=== PATIENT | male | born 1945 | race Caucasian/White ===

== ENCOUNTER → 2016-10-28 | Outpatient (CLI) | payer OTHER ==
[~2016-10-28] MED LIST: ALFU1TAB2 PO; ASPEC81 PO; ASPI81TA28 PO; ATOR-24 PO; BUME2TAB3 PO; CRDCD180 PO; DIGO0.122 PO; DILT-115 PO; DILT1CAP PO; DULO60CA44 PO; GING500C2 PO; GLIM1TAB2 PO; GLIP10TA10 PO; GLIP5TAB3 PO; LISI-725 PO; LISI40TA PO; LNX125 PO; MAGNTAB17 PO; METF1000 PO; NTRGSL4 SL; OMEP20CA9 PO; RISP1TAB68 PO; SITA1TAB27 PO; TAPE1TAB9 PO; TAPE50TA5 PO; TRAZ1TAB5 PO; TRMCR130WC TOP; TZCSR180 PO; WARF-237 PO; WARF-284 PO; WARF5TAB7 PO; WARF5TAB90 PO; WARF7.5T PO
--- NOTE | 2016-10-29 05:54 | PAP/PSG TECHNICIAN REPORT ---
[facility] Care Manager Polysomnogram Report Study name: None Report date: 10/29/2016 Study date: 10/28/2016 Referring Physician: Douglas HENSON M.D. Name: LAURA STANLEY Interpreting Physician: Wild Henson M.D. Date of : 1945 Care Manager: Bailey Lou RPSGT. Sex: Male Age: 71 Study Type: PSG PAP Weight: 284 lbs 18 in Height: 71 years, Height 6' 0" Neck Circum: BMI: 38.51 Medications: HYDROCORTISONE2.5%, CLOTRIMAZOLE 1%, ALFUZOSIN 10 MG, TRAZODONE 50 MG, GLIPIZIDE 5 MG, LORAZEPAM 1 MG, SLOW-MAG 71.5-119 MG, DULOXETINE 60 MG, DILTIAZEM 240 MG, METFORMIN 1000 MG, DIGOXIN 125 MCG, BUMETANIDE 2 MG, LISINOPRIL 40 MG, ASPIRIN 81 MG, OMEPRAZOLE 20 MG, WARFARIN 5 MG, ARISTOCORT 0.1% CREAM, NUCYNTA 50 MG Patient History 71 yr-old male here for an updated CPAP treatment study. He has not been happy with the seal on his mask. Tonight, he is trying a Simplus full face mask size large from [employer]. The test was started on room air and 4 CMH2O. ETCO2 testing was not utilized during this study. Room 1 Parameters Monitored NPSG: E1-M2, E2-M1, Fp1-M2, Fp2-M1, F3-M2, F4-M2, F4-M1, C3-M2, C4-M2, C4-M1, O1-M2, O2-M2, O2-M1, T3-M2, T4-M1, P3-M2, P4-M1, CHIN1, CHIN2, HR, EKG, Legs, PFLOW, SNOR, FLOW, CFLOW, Tidal Volume, THOR, ABDO, SpO2, PLTH, CPRESS, ETCO2 Wave, ETCO2, pH Sleep Architecture Sleep Stages Time at Lights Off 10:33:30 PM STAGES Time (min.) TST (%) Time at Lights On 5:34:00 AM Wake 201.0 -- Total Recording Time (TRT) 420.50 min. N1 53.0 24 Total Sleep Period (TSP) 298.0 min. N2 166.5 76 Total Sleep Time (TST) 219.5min. N3 0.0 0 Awake Time 201.0 min. REM 0.0 0 Wake after Sleep Onset 78.5 min. Sleep Efficiency (SE) 52 % Sleep Onset Latency (RICH) 122.5 min. Number of Stage 1 Shifts None Awakenings 35 Stage Changes 109 Number of REM periods N/A REM 0.0 0 REM Latency NONE min. NREM 219.5 100 Body Position Analysis Supine Right Left Side Prone Vertical Total Sleep Time (min.) 26.2 213.5 0.0 213.46 0.0 0.0 Total Sleep Time (%) 3% 97% 0% 97 0% N/A% Total Sleep Time REM (min.) 0.0 0.0 0.0 None 0.0 0.0 Total Sleep Time NREM (min.) 6.0 213.5 0.0 None 0.0 0.0 Intermittent Wake (min.) 20.1 180.7 0.0 None 0.0 0.0 Total Sleep Period (%) 3% None None None None None Arousals Myoclonus (PLM) * Events Count Index Events Count Index Spontaneous 43 12 Events Awake (PLMW) 154 46.0 Respiratory 4 1.4 Events Asleep w/ Arousal (PLMA) 20 5.5 PLM 20 5 Events Asleep w/o Arousal (PLMS) 398 108.8 Snoring 0 0 Total Asleep 418 114.3 Total 67 18 Total 572 82 Respiratory Analysis * CA OA MA CH H RERA Total Count 0 0 0 0 14 0 14 Index 0.0 0.0 0.0 0 3.8 0 3.8 Mean Duration 0.0 0.0 0.0 0.00 15.5 0.0 15.5 Longest Duration 0.0 0.0 0.0 0.00 0.0 0.0 19.5 Respiratory Event Summary Total Supine ~Supine Right Left Prone REM NREM Apneas Count 0 0 0 0 N/A N/A N/A 0 Index 0.0 0 0 0.0 N/A N/A N/A 0 Hypopneas (4% Desat) Count 14 1 13 13 N/A N/A N/A 14 Index 3.8 9.9 4 3.7 N/A N/A N/A 3.8 Apneas & All Hypopneas Count 14 1 13 13 N/A N/A N/A 14 Index 3.8 10 4 4 N/A N/A N/A 3.8 Respiratory Events (Registered Nurse Cardiovascular Icu+All Hyp+RERA) Count 14 1 13 13 N/A N/A N/A 14 Index 3.8 10 4 3.7 N/A N/A N/A 3.8 Respiratory Related Arousal Count 4 1 5 5 N/A N/A N/A 5 Index 1.4 0 1 1 N/A N/A N/A 1 Snoring Analysis Supine Right Left Prone REM NREM Total Snore duration 0.6 min Snores count 1 23 N/A N/A N/A 24 24 Snore mean duration 1.6 Sec Snores index 10 6 N/A N/A N/A 6.6 6.6 TST with snoring (%) 0.3% Desaturation Event Summary: Minimum %SpO2 Event Count Mean/Min/Max Duration(sec.) Desaturation Index % Time In Bed > 90 80 26.7 / 5.8 / 60.0 13.9 82.5 86 - 90 2 12.8 / 4.3 / 21.3 1.6 17.4 81 - 85 0 N/A 0.0 0.1 76 - 80 0 N/A 0.0 0.0 71 - 75 0 N/A 0.0 0.0 66 - 70 0 N/A 0.0 0.0 61 - 65 0 N/A 0.0 0.0 56 - 60 0 N/A 0.0 0.0 51 - 55 0 N/A 0.0 0.0 < 50 0 N/A 0.0 0.0 Total REM NREM Awake <50% 0.0 min. 0.0 min. 0.0 min. 0.0 min. 51 - 60% 0.0 min. 0.0 min. 0.0 min. 0.0 min. 61 - 70% 0.0 min. 0.0 min. 0.0 min. 0.0 min. 71 - 80% 0.0 min. 0.0 min. 0.0 min. 0.0 min. 81 - 90% 73.5 min. 0.0 min. 58.3 min. 15.2 min. 91 - 100% 346.0 min. 0.0 min. 160.8 min. 185.2 min. Average 92 0 92 93 Minimum SpO2 81 N/A 81 87 Desaturation Event Index 11.6 0.0 9.6 14.0 # Desat. Events below 89% 8 N/A 5 3 Time(%) with Saturation below 89% 1.5 0.0 1.2 0.3 Time(min.) with Saturation below 89% 6.3 0.0 4.9 1.4 Time (mins) REM (mins) NREM (mins) % of TST SpO2 Below 90% 29 N/A N29 10.4 SpO2 Below 88% 1 0 0 1 Heart Rate Analysis Min (bpm) Max (bpm) Average (bpm) Awake 36 94 74 NREM 33 84 68 REM N/A N/A N/A Overall 33 84 68 Supplemental O2 Values Minimum O2 level: None Value Start Time End Time Care Manager Comments Mr. Stanley slept in the right and supine positions. He slept elevated on 4 pillows. Cardiac arrhythmias were noted (please refer to the printouts). PLMs were noted. No bruxism noted. CPAP was initiated at +4 CMH2O and up-titrated to a level of +7 CMH2O, Cflex 3. A Simplus full face mask size large from [employer] was used during titration He did not wake up to use the restroom during the night. Mr. Stanley stated that he slept a little worse than usual. The final report will be interpreted and signed by a sleep physician. The completed physician report will then be placed in the patient medical record. Therapy Event: Therapy (cm H20) 4 6 7 Total Time at Pressure (min.) 165.7 113.0 141.8 TST at Pressure (min.) 23.2 78.0 118.3 # Periods 1 1 1 Sleep Onset (min.) 122.5 0.0 0.0 REM Onset (min.) N/A N/A N/A Sleep Efficiency % 14 69 83 Wakefulness (%) 86.0 31.0 16.6 Wakefulness (min.) 142.5 35.0 23.5 NREM 1 (%) 10.6 19.0 9.9 NREM 1 (min.) 17.5 21.5 14.0 NREM 2 (%) 3.4 50.0 73.6 NREM 2 (min.) 5.7 56.5 104.3 NREM 3 (%) 0.0 0.0 0.0 NREM 3 (min.) 0.0 0.0 0.0 REM (%) 0.0 0.0 0.0 REM (min.) 0.0 0.0 0.0 # Arousals 19 24 24 Arousal Index 49.1 18.5 12.2 # Snore 6 6 12 Snore Index 15.5 4.6 6.1 AHI 12.9 6.9 0.0 AHI Supine 9.9 N/A N/A AHI Non-Supine 14.0 6.9 0.0 NREM AHI 12.9 6.9 0.0 REM AHI N/A N/A N/A RDI 12.9 6.9 0.0 # Obstructive 0 0 0 # Central Ap 0 0 0 # Mixed 0 0 0 # Hypopneas 5 9 0 RERAS 0 0 0 Total Respiratory Events 5 9 0 Time Below SpO2 89.00% (min.) 0.1 1.0 3.8 Mean NREM SpO2 (%) 92 92 91 Mean REM SpO2 (%) N/A N/A N/A Mean Sleep SpO2 (%) 92 92 91 Min NREM SpO2 (%) 88 81 87 Min REM SpO2 (%) N/A N/A N/A Position Supine (min.) 6.0 0.0 0.0 Position Non-supine (min.) 17.2 78.0 118.3 LM Index Sleep 90.5 140.7 101.5 LM Index NREM 90.5 140.7 101.5 LM Index REM N/A N/A N/A Mean Heart Rate (bpm) 68 67 68 Min Heart Rate (bpm) 53 33 50
--- NOTE | 2016-11-05 15:05 | PULMONARY FUNCTION TEST ---
CPAP TITRATION STUDY REFERRING PERSON: Dr. Morris Henson. PROFESSIONAL NURSE: Bailey Lou. Mr. Davis is a 71-year-old male sent for CPAP titration study. He has not been happy with the seal of his mask. He has chosen to use a large Simplus full facemask by [employer]. His Sullivan sleepiness scale score on the evening of this study is not recorded. BMI is 38.51. Following the technical and digital specifications of the [place] [employer] (AASM) a standard diagnostic polysomnogram was performed monitoring EEG, EOG, EMG (chin and leg deviations), oxygen saturation, body position, digital video, respiratory effort and airflow. The sleep Stage and event scoring was based on the AASM Manual for the Scoring of Sleep and Associated Events 2007 edition. Apneas are defined as a drop in the peak thermal sensor excursion by >90% of baseline for at least 10 seconds. Hypopneas were scored using the 4% oxygen desaturation rule (4A-Medicare) and a decrease in the nasal pressure excursions by >30% of baseline for at least 10 seconds. Respiratory effort-related arousal (RERA's) is defined as a sequence of breaths lasting at least 10 seconds characterized by increasing respiratory effort or flattening of the nasal pressure waveform leading to an arousal from sleep when the sequence of breaths does not meet criteria for an apnea or hypopnea. Apnea Hypopnea index (AHI) is defined as the number of apneas and hypopneas occurring in an hour of sleep. Respiratory disturbance index (RDI) is defined as the number of apneas, hypopneas, and RERA's occurring in an hour of sleep. Mr. Davis's total sleep period time was 298 minutes. Total sleep time was 219.5 minutes. Sleep efficiency was only 52%. Latency to sleep onset was prolonged at 122.5 minutes. Wake after sleep onset was also prolonged at 78.5 minutes. Total non-REM sleep time was the entire sleep duration of this test for 219.5 minutes. He spent 24% of that time in N1 sleep and 76% in N2 sleep. He had no N3 sleep noted. There was no REM noted. There were 67 cortical arousals from sleep. 20 of these arousals were due to periodic limb movements, 4 were due to respiratory events, and the remaining 43 were spontaneous. There were 418 periodic limb movements noted on this test. Limb movement index was 114.3, however, limb movement with arousal index was only 5.5. There were no central obstructive or mixed apneas on this titration. There was 14 hypopnea. Apnea-hypopnea index was 3.8. 24 snoring events were recorded. Total sleep time with snoring was 0.3%. Mean saturation was 92% with desaturations to 81%. Saturations were less than 89% for 6.3 minutes of recorded time. Mr. Davis slept propped up on 4 pillows during the night. It appeared that this patient had episodes of an irregularly irregular heartbeat on this study. Heart rates ranged from a low of 33 beats per minute to a high of 84 beats per minute during sleep. As stated above, this was a CPAP titration study. Mr. Davis was titrated from a CPAP pressure of 4 to a CPAP pressure of 7 over the course of the night. He was observed on a pressure of 7 for 118.3 minutes of sleep time. AHI and RDI on this pressure were both 0 and only 3.8 minutes of sleep time was spent with saturations less than 89%. However, there was no N3 or REM sleep noted on this pressure. IMPRESSION AND PLAN: 1. 71-year-old male who appears to do well on CPAP of 7 with a large Simplus full facemask; however, this study did not have REM or supine REM sleep. 2. Irregularly irregular heart rate and rhythm was noted. Clinical correlation is needed.
== END | disposition home or self-care (01) ==
LOC: C.NEUR 21:00
PROVIDERS: ATTEND Family Medicine
DX: G47.33 Obstructive sleep apnea (adult) (pediatric) (principal)

== ENCOUNTER 2016-12-01 19:00 | Inpatient (IN) | payer OTHER ==
[~2016-12-01] VITALS: Ht 182.9 cm; Wt 130.8 kg
[~2016-12-01 19:00] MED LIST changes: -ALFU1TAB2 PO; -ASPI81TA28 PO; -BUME2TAB3 PO; -CRDCD180 PO; -DILT-115 PO; -GLIP10TA10 PO; -GLIP5TAB3 PO; -LISI-725 PO; -LNX125 PO; -MAGNTAB17 PO; -NTRGSL4 SL; -RISP1TAB68 PO; -TAPE50TA5 PO; -TRAZ1TAB5 PO; -TRMCR130WC TOP; -TZCSR180 PO; -WARF-237 PO; -WARF-284 PO; -WARF5TAB90 PO; -WARF7.5T PO
[2016-12-01] MEDS ORDERED: BUME2TAB3 PO (19:13)
[2016-12-01] MEDS ORDERED: ALFU1TAB2 PO (19:13)
[2016-12-01] MEDS ORDERED: BUMETANIDE SOLN 1 MG/4 ML VIAL IV ONE (20:45)
--- NOTE | 2016-12-01 20:56 | EMERGENCY ROOM VISIT NOTE ---
History Report prepared by Santana: Jorge Mckeon Under the Supervision of: Dr. Vazquez Palmer M.D. First contact with patient: 20:33 Chief Complaint: SWELLING TO EXTREMITY Stated Complaint: FLUID IN LEGS AND LUNGS History of Present Illness The patient is a 71 year old male who presents to the Emergency Room with complaints of worsening bilateral leg swelling beginning a couple days ago. He notes he was sent in by his doctor, who he saw this evening, for a concern for fluid accumulation on his lungs and legs. The patient reports he has had worsening shortness of breath with some dizziness, but denies any fever, nausea , vomiting, or cough. He uses a CPAP at night, and used to use supplemental oxygen. He admits to taking Bumex and has been urinating fine. He notes he gained 12 pounds in the last weeks which he believes is fluid. He denies any recent changes in medication. He reports taking Warfarin for atrial fibrillation. Source of History: patient Onset: a couple days ago Position: leg (bilateral), other (lungs) Quality: other (fluid accumulation/swelling) Timing: worsening Associated Symptoms: + SOB (with dizziness), No cough, No fevers, No nausea , No urinary symptoms, No vomiting Review of Systems See HPI for pertinent positives & negatives. A total of 10 systems reviewed and were otherwise negative. Past Medical & Surgical Medical Problems: (1) Acute pyelonephritis (2) Asthma (3) Atrial fibrillation (4) Atrial fibrillation (5) Back pain (6) Back pain (7) Benign hypertension (8) CERVICAL SPINAL STENOSIS (9) CHF (congestive heart failure) (10) Coronary artery disease (11) Depressive Disorder Nec (12) Dermatitis (13) Diabetes mellitus type 2 (14) Diverticulitis of colon (15) Dyslipidemia (16) Esophageal Reflux (17) Hyperlipidemia (18) Impotence of organic origin (19) Lumbago (20) Migraine Unspecified W/O Intractable Migraine (21) Psoriasis (22) Sleep apnea Surgical Problems: (1) Cardiac catheterization (2) cervical spine fusion (3) History of appendectomy (4) Lumbar spinal fusion (5) Surgical repair of Left Foot Family History No pertinent family history stated. Social History Smoking Status: Former Smoker Alcohol Use: none Drug Use: none Marital Status: Occupation Status: retired Current/Historical Medications Scheduled Alfuzosin Hcl (Alfuzosin Hcl Er), 10 MG PO DAILY Aspirin (Aspirin Ec), 81 MG PO DAILY Atorvastatin (Lipitor), 40 MG PO at 1700 Bumetanide (Bumex), 2 MG PO DAILY Digoxin (Digoxin), 0.125 MG PO DAILY Diltiazem Hcl Extended Release (Tiazac 240 Mg), 240 MG PO BID Duloxetine Hcl (Cymbalta), 1 CAP PO DAILY Lotus (Zingiber Officinalis) (Lotus Root), 2 CAP PO BID Glipizide (Glucotrol), 5 MG PO BID Lisinopril (Zestril), 40 MG PO DAILY Magnesium Chloride-Calcium Car (Slow-Mag), 1 TAB PO BID Metformin Hcl (Glucophage), 1,000 MG PO BID Omeprazole (Prilosec), 20 MG PO DAILY Tapentadol Hcl (Nucynta), 50 MG PO BID Trazodone Hcl (Desyrel), 50 MG PO HS Warfarin Sodium (Coumadin), 5 MG PO 5XWK Warfarin Sodium (Coumadin), 10 MG PO 2XWK Scheduled PRN Triamcinolone Acet (Aristocort 0.1%), 1 APPLN TOP BID PRN for Allergies Coded Allergies: Cephalosporins (Verified Allergy, Unknown, 12/01/16) Penicillins (Verified Allergy, Unknown, 12/01/16) Sulfamethoxazole w/Trimethoprim (Verified Allergy, Unknown, HIVES, 12/01/16 ) Tetracyclines (Verified Allergy, Unknown, 12/01/16) Uncoded Allergies: CONTRAST DYE (Allergy, Unknown, KIDNEY PROBLEMS, 08/20/14) Physical Exam Vital Signs Date Time Temp Pulse Resp B/P Pulse Ox O2 Delivery O2 Flow Rate FiO2 12/01/16 22:35 85 20 165/90 93 Room Air 12/01/16 21:29 90 20 88/ 96 Room Air 12/01/16 20:40 89 12/01/16 20:25 Room Air 12/01/16 19:06 37.4 86 20 122/62 95 Room Air Physical Exam GENERAL: Patient is in no acute distress. HEENT: No acute trauma, normocephalic atraumatic, mucous membranes moist, no nasal congestion, no scleral icterus. NECK: No stridor, no adenopathy, no meningismus, trachea is midline. LUNGS: Decreased breath sounds; no wheezing or rhonchi; breath sounds are equal. HEART: Irregular; no murmurs; normal rate. ABDOMEN: Soft, nontender, bowel sounds positive, no hernias, no peritonitis. EXTREMITIES: No cyanosis; moderate bilateral pedal edema, worse on right; full range of motion of all the joints without pain or difficulty, no signs for acute trauma. No cellulitis. NEUROLOGIC: Oriented x 3, no acute motor or sensory deficits, no focal weakness. SKIN: No rash, no jaundice, no diaphoresis. Medical Decision & Procedures ER Provider Diagnostic Interpretation: Radiology results are stated below per my review and radiologist interpretation: CHEST ONE VIEW PORTABLE FINDINGS: The heart is normal in size. There is persistent elevation right hemidiaphragm. There are low lung volumes. There is mild elevation of the interstitium. This could indicate either mild pulmonary vascular congestion or a hypoventilatory study. There is no lobar consolidation. There are no pleural effusions.[ IMPRESSION: 1. Stable elevation right hemidiaphragm 2. Mild elevation interstitium, a finding which likely is secondary to either mild pulmonary vascular congestion or a hypoventilatory study 3. No evidence of focal pulmonary consolidation Electronically signed by: Keaton Mtz M.D. 12/01/2016 9:23 PM Dictated Date/Time: 12/01/2016 9:22 PM ULTRASOUND VENOUS DOPPLER LWR EXT BILA FINDINGS: Real-time and color flow Doppler imaging were performed. Flow was seen within the femoral, popliteal and calf veins with no intraluminal thrombus demonstrated. The saphenous vein is patent. IMPRESSION: No evidence of lower extremity DVT. Electronically signed by: Keaton Mtz M.D. 12/01/2016 10:26 PM Dictated Date/Time: 12/01/2016 10:25 PM Laboratory Results 12/01/16 21:05 Red Blood Count 3.88, Mean Corpuscular Volume 87.6, Mean Corpuscular Hemoglobin 29.9, Mean Corpuscular Hemoglobin Concent 34.1, Mean Platelet Volume 10.1, Neutrophils (%) (Auto) 66.9, Lymphocytes (%) (Auto) 18.5, Monocytes (%) (Auto) 9.4, Eosinophils (%) (Auto) 4.4, Basophils (%) (Auto) 0.4, Neutrophils # (Auto) 5.65, Lymphocytes # (Auto) 1.56, Monocytes # (Auto) 0.79, Eosinophils # (Auto) 0.37, Basophils # (Auto) 0.03 12/01/16 21:05 Test 12/01/16 21:05 12/01/16 21:45 White Blood Count 8.43 K/uL (4.8-10.8) Red Blood Count 3.88 M/uL (4.7-6.1) Hemoglobin 11.6 g/dL (14.0-18.0) Hematocrit 34.0 % (42-52) Mean Corpuscular Volume 87.6 fL (80-100) Mean Corpuscular Hemoglobin 29.9 pg (25-34) Mean Corpuscular Hemoglobin Concent 34.1 g/dl (32-36) Platelet Count 188 K/uL (130-400) Mean Platelet Volume 10.1 fL (7.4-10.4) Neutrophils (%) (Auto) 66.9 % Lymphocytes (%) (Auto) 18.5 % Monocytes (%) (Auto) 9.4 % Eosinophils (%) (Auto) 4.4 % Basophils (%) (Auto) 0.4 % Neutrophils # (Auto) 5.65 K/uL (1.4-6.5) Lymphocytes # (Auto) 1.56 K/uL (1.2-3.4) Monocytes # (Auto) 0.79 K/uL (0.11-0.59) Eosinophils # (Auto) 0.37 K/uL (0-0.5) Basophils # (Auto) 0.03 K/uL (0-0.2) RDW Standard Deviation 46.7 fL (36.4-46.3) RDW Coefficient of Variation 14.6 % (11.5-14.5) Immature Granulocyte % (Auto) 0.4 % Immature Granulocyte # (Auto) 0.03 K/uL (0.00-0.02) Prothrombin Time 17.2 SECONDS (9.0-12.0) Prothromb Time International Ratio 1.6 (0.9-1.1) Activated Partial Thromboplast Time 32.2 SECONDS (21.0-31.0) Partial Thromboplastin Ratio 1.2 Anion Gap 8.0 mmol/L (3-11) Est Creatinine Clear Calc Drug Dose 67.1 ml/min Estimated GFR () 57.4 Estimated GFR (Non- 49.5 BUN/Creatinine Ratio 16.1 (10-20) Calcium Level 9.2 mg/dl (8.5-10.1) Total Bilirubin 0.3 mg/dl (0.2-1) Aspartate Amino Transf (AST/SGOT) 27 U/L (15-37) Alanine Aminotransferase (ALT/SGPT) 37 U/L (12-78) Alkaline Phosphatase 99 U/L (45-117) Troponin I < 0.015 ng/ml (0-0.045) Pro-B-Type Natriuretic Peptide 428 pg/ml (0-900) Total Protein 7.5 gm/dl (6.4-8.2) Albumin 3.5 gm/dl (3.4-5.0) Globulin 4.0 gm/dl (2.5-4.0) Albumin/Globulin Ratio 0.9 (0.9-2) Digoxin Level 0.8 ng/ml (0.8-2.0) Urine Color YELLOW Urine Appearance CLEAR (CLEAR) Urine pH 5.5 (4.5-7.5) Urine Specific [place] 1.018 (1.000-1.030) Urine Protein NEG (NEG) Urine Glucose (UA) TRACE (NEG) Urine Ketones NEG (NEG) Urine Occult Blood NEG (NEG) Urine Nitrite NEG (NEG) Urine Bilirubin NEG (NEG) Urine Urobilinogen NEG (NEG) Urine Leukocyte Esterase NEG (NEG) Laboratory results reviewed by me. Medications Administered Medications (Trade) Dose Ordered Sig/Fransico Route Start Time Stop Time Status Last Admin Dose Admin Bumetanide (Bumex IV) 2 mg NOW ONCE IV 12/01/16 20:45 12/01/16 20:46 DC 12/01/16 21:25 2 MG ECG Indication: other (swelling) Rate (beats per minute): 82 Rhythm: atrial fibrillation Findings: no acute ischemic change, no ectopy ED Course 2039: The patient was evaluated in room A3. A complete history and physical exam was performed. 2044: Ordered Bumex IV 2 mg IV. 2249: The patient has diuresed a few times and does not want to go home. 2256: Discussed the patient's case with Dr. Hardwick. Dr. Hardwick will come see the patient at bedside. The patient will be evaluated for further management. Medical Decision Differentials include renal failure, fluid overload, CHF, DVT, electrolyte imbalance, anemia, pneumonia, pneumothorax, and cardiac ischemia. There is no leukocytosis or concerning anemia. No significant electrolyte abnormality, kidney failure or hepatitis. INR is somewhat therapeutic for someone using Coumadin. Chest x-ray shows an elevated right hemidiaphragm, no pneumonia or CHF. BNP is not elevated making CHF less likely. EKG shows A. fib , no acute ischemia. Cardiac enzyme testing times one is not consistent with acute cardiac injury. Bilateral lower extremity ultrasound does not show evidence for DVT. Dig level is not toxic. Urinalysis shows no evidence for infection. The patient received 2 mg of IV Bumex, he has diuresed. The patient is fluid overloaded. This has led to some CHF, weight gain and weakness. He was referred to this hospital by his doctor's office for possible admission/observation. I spoke with case management, I did talk with the on-call hospitalist. I spoke to the patient about my findings and his results. The patient is being seen by the hospitalist, he may require a hospital stay for diuresis. He has been hospitalized before for similar issues. Consults Time Called: [phone] Consulting Physician: Dr. Hardwick - [facility] Returned Call: [phone] Discussed the patient's case with Dr. Hardwick. Dr. Hardwick will come see the patient at bedside. Impression Primary Impression: SOB (shortness of breath) Additional Impressions: Fluid overload Lower extremity edema Scribe Attestation The scribe's documentation has been prepared under my direction and personally reviewed by me in its entirety. I confirm that the note above accurately reflects all work, treatment, procedures, and medical decision making performed by me. Departure Information Dispostion Being Evaluated By Hospitalist Referrals No Doctor, Assigned (PCP) Patient Instructions My [facility] Problem Qualifiers
[2016-12-01] MEDS ORDERED: LNX125 PO (21:21)
[2016-12-01] MEDS ORDERED: MAGNTAB17 PO (21:21)
[2016-12-01] MEDS ORDERED: TRAZ1TAB5 PO (21:21)
[2016-12-01] MEDS ORDERED: GLIP5TAB3 PO (21:21)
[2016-12-01] MEDS ORDERED: TAPE50TA5 PO (21:21)
[2016-12-01] MEDS ORDERED: TRMCR130WC TOP (21:21)
[2016-12-01] MEDS ORDERED: DILT-115 PO (21:21)
[2016-12-01] MEDS ORDERED: WARF5TAB90 PO ×2 (21:21)
[2016-12-01] MEDS ORDERED: ASPI81TA28 PO (21:23)
--- NOTE | 2016-12-01 21:24 | DIAGNOSTIC IMAGING REPORT ---
CHEST ONE VIEW PORTABLE CLINICAL HISTORY: Respiratory distress. COMPARISON STUDY: June 05, 2014 FINDINGS: The heart is normal in size. There is persistent elevation right hemidiaphragm. There are low lung volumes. There is mild elevation of the interstitium. This could indicate either mild pulmonary vascular congestion or a hypoventilatory study. There is no lobar consolidation. There are no pleural effusions.[ IMPRESSION: 1. Stable elevation right hemidiaphragm 2. Mild elevation interstitium, a finding which likely is secondary to either mild pulmonary vascular congestion or a hypoventilatory study 3. No evidence of focal pulmonary consolidation Electronically signed by: Keaton Mtz M.D. 12/01/2016 9:23 PM Dictated Date/Time: 12/01/2016 9:22 PM
[2016-12-01 21:25] LABS: BASO % 0.4 %; BASO ABS # 0.03 K/uL (0-0.2); COMPLETE YES; EOS % 4.4 %; IG% 0.4 %; LYMPH % 18.5 %; LYMPH ABS # 1.56 K/uL (1.2-3.4); MEAN CELL VOLUME 87.6 fL (80-100); MEAN CORPUSCULAR HEMOGLOBIN 29.9 pg (25-34); MEAN CORPUSCULAR HGB CONC 34.1 g/dl (32-36); MEAN PLATELET VOLUME 10.1 fL (7.4-10.4); MONO % 9.4 %; NEUT % 66.9 %; PLATELET COUNT 188 K/uL (130-400); RED BLOOD COUNT 3.88 M/uL (4.7-6.1); WHITE BLOOD COUNT 8.43 K/uL (4.8-10.8)
[2016-12-01 21:38] LABS: INR 1.6 (0.9-1.1); PARTIAL THROMBOPLASTIN RATIO 1.2; PROTHROMBIN TIME (PATIENT) 17.2 SECONDS (9.0-12.0)
[2016-12-01 21:49] LABS: ALT/SGPT 37 U/L (12-78); BLOOD UREA NITROGEN 23 mg/dl (7-18); BUN/CREATININE RATIO 16.1 (10-20); CALCIUM 9.2 mg/dl (8.5-10.1); CARBON DIOXIDE 27 mmol/L (21-32); CHLORIDE 98 mmol/L (98-107); GLUCOSE 178 mg/dl (70-99); POTASSIUM 4.4 mmol/L (3.5-5.1); SODIUM 133 mmol/L (136-145)
[2016-12-01 21:54] LABS: ALB/GLOB RATIO 0.9 (0.9-2); ALKALINE PHOSPHATASE 99 U/L (45-117); AST/SGOT 27 U/L (15-37)
[2016-12-01 21:56] LABS: URINE APPEARANCE CLEAR (CLEAR); URINE BILIRUBIN NEG (NEG); URINE COLOR YELLOW; URINE NITRITE NEG (NEG); URINE PH 5.5 (4.5-7.5); URINE SPECIFIC GRAVITY 1.018 (1.000-1.030); UROBILINOGEN NEG (NEG); ZZUR CULT IF INDIC CLEAN CATCH NO
[2016-12-01 22:02] LABS: MANUAL MICROSCOPIC REQUIRED? NO; REVIEW REQ? NO
--- NOTE | 2016-12-01 22:27 | DIAGNOSTIC IMAGING REPORT ---
ULTRASOUND VENOUS DOPPLER LWR EXT BILA CLINICAL HISTORY: Bilateral leg swelling COMPARISON STUDY: No previous studies for comparison. FINDINGS: Real-time and color flow Doppler imaging were performed. Flow was seen within the femoral, popliteal and calf veins with no intraluminal thrombus demonstrated. The saphenous vein is patent. IMPRESSION: No evidence of lower extremity DVT. Electronically signed by: Keaton Mtz M.D. 12/01/2016 10:26 PM Dictated Date/Time: 12/01/2016 10:25 PM
[2016-12-01] MEDS ORDERED: ACETAMINOPHEN 325 MG TAB PO PRN (23:30)
[2016-12-01] MEDS ORDERED: ONDANSETRON INJ 2 MG/ML 2 ML VIAL IV PRN (23:30)
[2016-12-01] MEDS ORDERED: TRIAMCINOLONE ACET 0.1% CR 15 GM TUBE EXT PRN (23:45)
[2016-12-02] VITALS (7 sets, daily range): BP systolic 101–173; BP diastolic 44–98; PULSE 60–87; TEMP 36.5–37.1; O2SAT 92–98; BMI 40.4
--- NOTE | 2016-12-02 01:15 | HISTORY & PHYSICAL EXAMINATION ---
DATE OF ADMISSION: 12/01/2016 PRIMARY CARE PHYSICIAN: Dr. Roach. ADMINISTRATIVE AIDE: Dr. West. CHIEF COMPLAINTS: Weight gain, leg swelling and more shortness of breath on minimal exertion for the last 1 week. HISTORY OF PRESENT COMPLAINT: He is a 71-year-old male, with significant past medical history of chronic ischemic heart disease, atrial fibrillation, diabetes, diabetic neuropathy, psoriasis, sleep apnea, hyperlipidemia, gouty arthropathy and also, lumbar and cervical degeneration. Apparently, has been complaining of weight gain of about 12 pounds for the last 1 week. He has been having more swelling of the legs associated with shortness of breath on minimal exertion. He denies to have any chest pain, any palpitation. He denies to have any abdominal pain, any nausea and/or vomiting. He does have some swelling of the abdomen and denies to have any problem with his urine and/or bowel habit. Does not have any numbness or tingling in the extremities and no weakness involving any side in particular. He was seen by Dr. Roach in the clinic today and was advised to come to the Emergency Room for further evaluation, because the Lasix and the diuretics increase recently has not been working as an outpatient. PAST MEDICAL HISTORY: Significant for chronic ischemic heart disease, atrial fibrillation, diabetes type 2 with neuropathy, intermittent asthma, psoriasis, hyperlipidemia, hypertension, sleep apnea, lumbar and cervical degeneration. PAST SURGICAL HISTORY: Cardiac catheterization in the past, report not available, cystoscopy, lumbar spine fusion, neck spine fusion, appendectomy in past. FAMILY HISTORY: Mother has asthma, mother has diabetes and mother has heart disorder. Uncle had a stroke. SOCIAL HISTORY: He is , lives with his . He smoked 1.5 packs per day for the last 20 years and quit smoking in 1975. He uses alcohol very occasionally and he has been reasonably ambulant. REVIEW OF SYSTEMS: Other systemic review unremarkable, except as mentioned in history of present complaint. ALLERGIES: HE IS ALLERGIC TO CEPHALOSPORINS, PENICILLIN, SULFA, TETRACYCLINE AND CONTRAST DYE. MEDICATIONS: As an outpatient, he has been taking Bumex 2 mg daily, glipizide 5 mg twice daily, metformin 1000 mg b.i.d., magnesium as directed, alfuzosin 10 mg daily, aspirin 81 mg daily, Lipitor 40 mg daily, digoxin 0.125 mg daily, diltiazem 240 mg daily, Cymbalta 60 mg daily, Zestril 40 mg daily, omeprazole 20 mg daily, Nucynta 50 mg b.i.d., trazodone 50 mg at night, Aristocort as directed, warfarin sodium as directed. PHYSICAL EXAMINATION: GENERAL: On examination in the Emergency Room, he is not having any acute symptoms. VITAL SIGNS: Temperature 37.4, pulse was 85, blood pressure 165/90, saturation 93% on room air. HEENT: Unremarkable. No definite JVD, no bruit. CHEST: Minimal bibasilar crackles. HEART: S1, S2 irregular. No definite murmur. ABDOMEN: Distended, soft, benign, nontender, no organomegaly. Bowel sounds present. EXTREMITIES: 1 to 2+ edema bilaterally. MUSCULOSKELETAL SYSTEM: Did not show any acute arthritis involving any joint. CENTRAL NERVOUS SYSTEM: He was alert, awake, oriented x3. No focal sensory and/or motor deficit appreciated. LABORATORY DATA: Noted today, white count was 8.43, H\T\H 11.6/34.0, platelet was 188. Sodium 133, potassium 4.4, chloride 98, carbon dioxide 27, BUN 23, creatinine 1.40, random glucose 178. LFTs unremarkable. Troponin was less than 0.015. INR was 1.6. Digoxin 0.8. UA examination unremarkable. EKG, atrial fibrillation, rate of 82 per minute. Chest x-ray, an elevated right hemidiaphragm, mild congestive heart failure. IMPRESSION AND PLAN: 1. Congestive heart failure. The patient will be admitted to telemetry unit. He will get intravenous bumetanide 2 mg twice daily, fluid restriction, 1500 mL a day. We will get an echocardiogram to evaluate cardiac function. Atrial fibrillation may be contributing to the CHF at this time.May need Cardiology input if not any better. 2.Diabetes Type II with Neuropathy. We will hold his oral medications and put him on sliding scale, check hemoglobin A1c. 3. Atrial fibrillation. Rate is controlled. Digoxin level is therapeutic. Continue current medications. 4. Hyperlipidemia. Continue current medicines. 5. Chronic gout and chronic pain. Continue with pain medications. 6 Sleep apnea.Has been on CPAP and will continue. 7. Deep venous thrombosis prophylaxis with Coumadin. 8. Gastrointestinal prophylaxis with PPI. 9. Code status. He will be a full code. In my clinical judgment, the beneficiary meets criteria as per CMS for 2 midnight stay in the hospital. STUART
[2016-12-02] MEDS ORDERED: GLUCAGON FOR INJ 1 MG VIAL SQ PRN (05:45)
[2016-12-02] MEDS ORDERED: DEXTROSE 50% 50 ML SYR IV PRN (05:45)
[2016-12-02] MEDS ORDERED: GLUCOSE 10 TABS/TUBE PO PRN (05:45)
[2016-12-02] MEDS ORDERED: GLUCOSE 40% GEL 15 GM TUBE PO PRN (05:45)
[2016-12-02 06:19] LABS: HEMATOCRIT 34.6 % (42-52); MEAN CELL VOLUME 89.9 fL (80-100); MEAN CORPUSCULAR HEMOGLOBIN 30.1 pg (25-34); MEAN CORPUSCULAR HGB CONC 33.5 g/dl (32-36); MEAN PLATELET VOLUME 10.5 fL (7.4-10.4); PLATELET COUNT 179 K/uL (130-400); RED BLOOD COUNT 3.85 M/uL (4.7-6.1); WHITE BLOOD COUNT 8.62 K/uL (4.8-10.8)
[2016-12-02 06:36] LABS: BUN/CREATININE RATIO 14.5 (10-20); CALCIUM 8.7 mg/dl (8.5-10.1); CREATININE 1.4 mg/dl (0.60-1.40); MAGNESIUM 1.7 mg/dl (1.8-2.4); POTASSIUM 3.9 mmol/L (3.5-5.1)
[2016-12-02] MEDS ORDERED: PERFLUTREN LIPID MICROSPHERE (DEFINITY) IV ONE (07:47)
[2016-12-02] MEDS: DILTIAZEM HCL 120 MG EXT REL CAP PO SCH ×2 (07:57→20:29)
[2016-12-02] MEDS: ALFUZosin TAB 10 MG TAB PO SCH (07:57)
[2016-12-02] MEDS: LISINOPRIL 40 MG TAB PO SCH (07:58)
[2016-12-02] MEDS: PANTOprazole SOD 40 MG TAB PO SCH (07:58)
[2016-12-02] MEDS: ATORVASTATIN 40 MG TAB PO SCH (07:58)
[2016-12-02] MEDS: DULOXETINE HCL 60 MG CAP PO SCH (07:58)
[2016-12-02] MEDS: BUMETANIDE IV 2 MG in SYRINGE 0 ML IV SCH ×2 (08:00→17:10)
[2016-12-02] MEDS: INSULIN ASPART 100 UNITS/ML 3 ML PEN SC SCH ×4 (08:30→20:36)
[2016-12-02] MEDS: TAPENTADOL HCL 50 MG TAB PO SCH ×2 (08:52→20:42)
[2016-12-02] MEDS ORDERED: ASPI81TA28 PO (08:56)
[2016-12-02] MEDS ORDERED: NON-FORMULARY MEDICATION (Omeprazole (Prilosec) 20 MG) PO SCH (09:00)
[2016-12-02] MEDS ORDERED: ASPIRIN 81 MG ECTAB PO SCH (09:00)
--- NOTE | 2016-12-02 10:16 | ECHOCARDIOGRAM REPORT ---
*NOTICE TO RECEIVING CONSTITUTION PARTY AGENCY This information is strictly Confidential and protected under [place] law. [place] law prohibits you from making any further disclosure of this information unless further disclosure is expressly permitted by the written consent of the person to whom it pertains or is authorized by law. A general authorization for the release of medical or other information is not sufficient for this purpose. Hospital accepts no responsibility if the information is made available to any other person, INCLUDING THE PATIENT. Interpretation Summary * Name: LAURA STANLEY Study Date: 12/02/2016 08:20 AM BP: 143/74 mmHg * [facility] HR: 73 * : 1945 (M/d/yyyy) Gender: Male Height: 72 in * Age: 71 yrs Ethnicity: [place] Weight: 299 lb * Ordering Physician: Nika Hardwick * Referring Physician: Self, Referred * Performed By: Jennifer Subramanian RCS * * Reason For Study: CHF * BSA: 2.5 m2 * -- Conclusions -- * Image quality was poor. * The rhythm was atrial fibrillation * Left ventricular systolic function is normal. Procedure Details * A complete two-dimensional transthoracic echocardiogram was performed (2D, M-mode, Doppler and color flow Doppler). * The study was technically difficult. * There were technical limitations due to patient'sbody habitus * A contrast injection of Definity was performed to improve assessment of LV function. * Contrast was injected into an intravenous site in the left arm. * One vial of Definity ultrasound contrast was diluted in normal saline to a total volume of 10 ml. A total of '2' ml of solution was administered during imaging. * Lot # [id number] of Definity utilized for procedure. * Expiration date OCT 21. * The attending nurse who injected the contrast agent was BERNARD CARVER RN. * Image quality was poor. The rhythm was atrial fibrillation Left Ventricle * The left ventricle is grossly normal size. * Left ventricular systolic function is normal. * The left ventricular wall motion is normal. Right Ventricle * The right ventricle is not well visualized. Atria * The left atrium is not well visualized. * Right atrium not well visualized. Mitral Valve * The mitral valve is grossly normal. Tricuspid Valve * The tricuspid valve is not well visualized. Aortic Valve * The aortic valve is not well visualized. * Aortic valve function not well-evaluated on this study MMode 2D Measurements and Calculations Ao root diam 3.2 cm Ao root area 8.1 cm\S\2 ACS 1.1 cm LA dimension 5.4 cm LA/Ao 1.7 Doppler Measurements and Calculations MV E max mich 91.7 cm/sec MV P1/2t max mich 105.3 cm/sec MV P1/2t 69.7 msec MVA(P1/2t) 3.2 cm\S\2 MV dec slope 442.3 cm/sec\S\2 MV dec time 0.24 sec Ao V2 max 85.6 cm/sec Ao max PG 2.9 mmHg Ao max PG (full) 1.3 mmHg LV V1 max PG 1.6 mmHg LV V1 max 63.5 cm/sec
[2016-12-02] MEDS: MAGNESIUM OXIDE 400 MG TAB PO SCH ×2 (10:27→20:30)
[2016-12-02] MEDS: ENOXAPARIN 40 MG/0.4 ML SYR SQ SCH (11:51)
--- NOTE | 2016-12-02 13:05 | CARDIOLOGY CONSULTATION ---
DATE OF CONSULTATION: 12/02/2016 REFERRING PHYSICIAN: Dr. Gray. CHIEF COMPLAINT: Dyspnea. HISTORY OF PRESENT ILLNESS: Mr. Tomi Davis is a 71-year-old gentleman with a known history of nonobstructive coronary disease and likely diastolic heart failure who reports chronic dyspnea which became markedly worse over 3 days leading up to this admission. During the past 3 weeks, the patient has also noticed the development of weight gain reported to have been a 12 pounds during that period of time. He states that he has had some lower extremity edema, worse on the right versus the left, and reports much worsening dyspnea, specifically with exertion. He reported being compliant with medications. He has not run out of medications. He does not report overt orthopnea; however, the patient sleeps poorly in general and he has significant cervical spine disease which limits the positions in which he is comfortable. He has not laid flat for some time in bed. He does not report paroxysmal nocturnal dyspnea. He has not had any recent symptoms of chest discomfort. He is not aware of any significant palpitations or tachycardia recently. He denies significant dizziness or lightheadedness. In general, the patient is fairly sedentary. He is limited primarily by back pain. He sees a specialist for management of his back symptoms. He also has chronic dyspnea on exertion, which he attributes to what appears to be a paralyzed right hemidiaphragm. This is fairly chronic in nature. He is able to ambulate around the house, take brief walk, but generally is mildly dyspneic even with small activity. PAST MEDICAL HISTORY: Significant for: 1. Nonobstructive coronary disease. The patient underwent coronary angiography on 2 occasions, initially in 2003 and later in 2005, he had nonobstructive disease in the LAD at that time. The patient also underwent stress testing in 2012, which did not reveal any inducible ischemia. 2. Atrial fibrillation, permanent, rate controlled. 3. Asthma. 4. Obesity. 5. Diabetes mellitus type 2. 6. Psoriasis. 7. Hyperlipidemia. 8. Hypertension. 9. Obstructive sleep apnea. PAST SURGICAL HISTORY: Remarkable for lumbar back procedures, cervical spine fusion and appendectomy. OUTPATIENT MEDICATIONS: Included Bumex 2 mg daily, glipizide 5 mg twice daily, metformin 1000 mg twice daily, magnesium supplementation, alfuzosin 10 mg daily, aspirin 81 mg daily, atorvastatin 40 mg daily, digoxin 0.125 mg daily, diltiazem extended release 240 mg daily, Cymbalta 60 mg daily, Zestril 40 mg daily, omeprazole 20 mg daily, Nucynta 50 mg twice daily, trazodone 50 mg nightly, warfarin on an adjusted regimen. MEDICAL ALLERGIES: CEPHALOSPORIN, PENICILLIN, SULFA, TETRACYCLINE, RADIOCONTRAST DYE. FAMILY HISTORY: The patient has a family history of diabetes but no premature coronary disease. 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 He has a remote history of tobacco abuse, but has not smoked in over 20 years. He has a rare alcoholic beverage. Currently and lives locally. REVIEW OF SYSTEMS: A complete 10-system review of systems was performed. The pertinent positives are noted in the history of present illness. The patient denied any recent constitutional symptoms such as fevers or chills. He has not had any abdominal complaints, no nausea or vomiting. No history of syncope. He has some skin lesions which wax and wane in severity according to treatment, which involves phototherapy. He reports good medical compliance. PHYSICAL EXAMINATION: GENERAL: The patient did not appear to be in acute distress. He is a pleasant individual who is alert and oriented. Mood and affect appeared normal. He answered all questions appropriately. CURRENT VITAL SIGNS: Included a blood pressure 165/90 with a pulse of 85, respiratory rate was 20. Pulse oximeter was 93% on room air. HEENT: Sclerae anicteric. His pupils equal and reactive to light and accommodation. Extraocular movements were intact. Palpation of submandibular region did not reveal any significant lymphadenopathy. NECK: The carotids are palpable bilaterally. I do not appreciate any bruits on auscultation. There is no evidence of jugular venous distention, although the patient was sitting upright. Thyroid was not enlarged. LUNGS: Auscultation of both lungs hanna revealed good air movement with occasional expiratory wheezing and a rare crackle at the bases bilaterally. There appeared to be good excursion bilaterally. He had normal respiratory effort without use of accessory muscles. CARDIAC: Examination revealed him to be in an irregular rhythm. I did not appreciate any murmurs on examination. He had a PMI that did not appear to be displaced given his body habitus. ABDOMEN: Soft and nontender. EXTREMITIES: Evaluation of both wrists revealed radial pulses are equal in intensity bilaterally. There is no evidence of cyanosis or clubbing. Evaluation of the lower extremities revealed approximately 1+ pitting edema in the right leg and slightly less in the left leg. He did have some skin lesions consistent with psoriasis on both the arms and legs. No other rashes were appreciated today. Laboratory studies obtained since admission include white cell count of 8.3, hemoglobin 11.6, a platelet count of 188. Chemistry profile included sodium 133, potassium of 4.4, creatinine of 1.4. Cardiac troponin which was less than detectable limit. N-terminal proBNP was 428. An EKG was obtained which revealed atrial fibrillation at a controlled rate. Otherwise, unremarkable. An echocardiogram was also obtained today. The image quality was quite poor; however, did appear to be preserved left ventricular systolic function. The rhythm at that time was atrial fibrillation. ASSESSMENT AND PLAN: 1. Acute decompensated diastolic heart failure. The patient appears to have a fairly rapid onset of breathing difficulty associated with weight gain over a period of several weeks' time. There is evidence of volume overload on examination, manifested primarily by his lower extremity edema and occasional crackles on lung examination. The patient has been compliant with his medical regimen, but does have some dietary indiscretion. He admits to eating out on occasion, specifically Sinhala food and eating potato chips. This is fairly chronic in nature, but may have contributed to his current decompensation. He also has a notably elevated blood pressure here in the hospital which may have contributed to what is presumed to be a diastolic dysfunction. Overall, systolic function appears to be normal on echocardiogram today and has been normal in the past. The patient appears to have been diuresing at a reasonable rate with intravenous administration of Bumex. It would seem reasonable to continue administering diuretic intravenously to affect additional weight loss. This should improve pulmonary vascular congestion. Clinically, he is quite stable and I do not feel that more aggressive measures are required at this point other than improve blood pressure control. 2. Hypertension. The patient does have an element of hypertension. He is on a fairly aggressive medical regimen for high blood pressure, but still manifests elevated numbers. Given his history of reactive airway disease and high dose diltiazem, I think we can defer use of a beta adrienne currently. This also could have some detrimental metabolic effects given his diabetes. At this point I think consideration could be given to low dose spironolactone, monitoring his renal function and potassium closely. 3. Coronary artery disease. No current symptoms to suggest unstable angina or coronary insufficiency. The patient has not had obstructive coronary disease previously. He has had normal stress testing recently. He is also fairly sedentary. He is on an aggressive regimen for secondary prevention to include high dose atorvastatin and a daily aspirin. Additional measures such as more aggressive blood pressure control are warranted. 4. Atrial fibrillation. No overt symptoms. Well rate controlled on his current medical regimen. The patient continues on oral anticoagulation for stroke prophylaxis. No additional therapy required.
[2016-12-02] MEDS: DIGOXIN 0.125 MG TAB PO SCH (16:32)
[2016-12-02] MEDS: WARFARIN SOD 5 MG TAB PO SCH (16:33)
[2016-12-02] MEDS ORDERED: INSULIN GLARGINE SOLOSTAR 100 UNITS/ML 3 ML PEN SC SCH (17:00)
--- NOTE | 2016-12-02 17:17 | Progress Note ---
Internal Med Progress Note Date of Service: Dec 02, 2016. Provider Documentation: SUBJECTIVE: resting comfortably on the chair feeling better but says his leg swelling is same mild sob no chest pain afebrile OBJECTIVE: Vital Signs-as noted below Exam: General alert and awake and oriented Neck no neck masses Cvs s1 and s2 heard regular no murmurs Rs cta b/l no wheezing mild bibasilar crackles Abd soft bowel sounds present non tender no distension Platform Inspector non focal Ext b/l lower extremity edema present Lab data as noted below. ASSESSMENT & PLAN: 1. Acute on chronic diastolic Congestive heart failure. started on iv Bumex 2mg bid strict i/o daily weights cardiology on board echo unremarkable to continue tx 2.Diabetes Type II with Neuropathy. holding po meds on Lantus and iss will monitor. 3. Atrial fibrillation. Rate is controlled. Digoxin level is therapeutic. Continue current medications.On Coumadin INR 1.6 will monitor. 4. Hyperlipidemia. Continue current medicines. 5. Chronic gout and chronic pain. Continue home pain medications. 6 Sleep apnea.Has been on CPAP and will continue. 7. Deep venous thrombosis prophylaxis with Coumadin. Lovenox while inr subtherapeutic. 8. Gastrointestinal prophylaxis with PPI. 9. Code status. full code. DISPOSITION monitor in tele to be determined Vital Signs: Date Time Temp Pulse Resp B/P Pulse Ox O2 Delivery O2 Flow Rate FiO2 12/02/16 16:32 80 12/02/16 16:00 36.8 74 20 126/69 94 Room Air 12/02/16 16:00 Room Air 12/02/16 12:00 Room Air 12/02/16 12:00 36.9 71 18 128/44 95 Room Air 12/02/16 08:00 36.9 76 18 155/82 92 Room Air 12/02/16 08:00 Room Air 12/02/16 04:00 36.5 63 20 143/74 94 Room Air 12/02/16 04:00 94 Room Air 12/02/16 00:48 36.8 87 22 173/98 95 Room Air 12/02/16 00:09 81 12/02/16 00:07 86 26 176/78 95 12/01/16 22:35 85 20 165/90 93 Room Air 12/01/16 21:29 90 20 88/ 96 Room Air 12/01/16 20:40 89 12/01/16 20:25 Room Air 12/01/16 19:06 37.4 86 20 122/62 95 Room Air Lab Results: Results Past 24 Hours Test 12/01/16 21:05 12/01/16 21:45 12/02/16 05:51 12/02/16 11:00 Range/Units White Blood Count 8.43 8.62 4.8-10.8 K/uL Red Blood Count 3.88 3.85 4.7-6.1 M/uL Hemoglobin 11.6 11.6 14.0-18.0 g/dL Hematocrit 34.0 34.6 42-52 % Mean Corpuscular Volume 87.6 89.9 80-100 fL Mean Corpuscular Hemoglobin 29.9 30.1 25-34 pg Mean Corpuscular Hemoglobin Concent 34.1 33.5 32-36 g/dl Platelet Count 188 179 130-400 K/uL Mean Platelet Volume 10.1 10.5 7.4-10.4 fL Neutrophils (%) (Auto) 66.9 % Lymphocytes (%) (Auto) 18.5 % Monocytes (%) (Auto) 9.4 % Eosinophils (%) (Auto) 4.4 % Basophils (%) (Auto) 0.4 % Neutrophils # (Auto) 5.65 1.4-6.5 K/uL Lymphocytes # (Auto) 1.56 1.2-3.4 K/uL Monocytes # (Auto) 0.79 0.11-0.59 K/uL Eosinophils # (Auto) 0.37 0-0.5 K/uL Basophils # (Auto) 0.03 0-0.2 K/uL RDW Standard Deviation 46.7 48.0 36.4-46.3 fL RDW Coefficient of Variation 14.6 14.6 11.5-14.5 % Immature Granulocyte % (Auto) 0.4 % Immature Granulocyte # (Auto) 0.03 0.00-0.02 K/uL Prothrombin Time 17.2 9.0-12.0 SECONDS Prothromb Time International Ratio 1.6 0.9-1.1 Activated Partial Thromboplast Time 32.2 21.0-31.0 SECONDS Partial Thromboplastin Ratio 1.2 Sodium Level 133 137 136-145 mmol/L Potassium Level 4.4 3.9 3.5-5.1 mmol/L Chloride Level 98 96 98-107 mmol/L Carbon Dioxide Level 27 32 21-32 mmol/L Anion Gap 8.0 9.0 3-11 mmol/L Blood Urea Nitrogen 23 20 7-18 mg/dl Creatinine 1.40 1.40 0.60-1.40 mg/dl Est Creatinine Clear Calc Drug Dose 67.1 66.9 ml/min Estimated GFR () 57.4 57.4 Estimated GFR (Non- 49.5 49.5 BUN/Creatinine Ratio 16.1 14.5 10-20 Random Glucose 178 171 70-99 mg/dl Calcium Level 9.2 8.7 8.5-10.1 mg/dl Total Bilirubin 0.3 0.2-1 mg/dl Aspartate Amino Transf (AST/SGOT) 27 15-37 U/L Alanine Aminotransferase (ALT/SGPT) 37 12-78 U/L Alkaline Phosphatase 99 45-117 U/L Troponin I < 0.015 0-0.045 ng/ml Pro-B-Type Natriuretic Peptide 428 0-900 pg/ml Total Protein 7.5 6.4-8.2 gm/dl Albumin 3.5 3.4-5.0 gm/dl Globulin 4.0 2.5-4.0 gm/dl Albumin/Globulin Ratio 0.9 0.9-2 Digoxin Level 0.8 0.8-2.0 ng/ml Urine Color YELLOW Urine Appearance CLEAR CLEAR Urine pH 5.5 4.5-7.5 Urine Specific [place] 1.018 1.000-1.030 Urine Protein NEG NEG Urine Glucose (UA) TRACE NEG Urine Ketones NEG NEG Urine Occult Blood NEG NEG Urine Nitrite NEG NEG Urine Bilirubin NEG NEG Urine Urobilinogen NEG NEG Urine Leukocyte Esterase NEG NEG Magnesium Level 1.7 1.8-2.4 mg/dl Bedside Glucose 210 70-99 mg/dl Test 12/02/16 16:17 Range/Units Bedside Glucose 314 70-99 mg/dl Microbiology Results 12/02/16 MRSA DNA Surveillance Screen - Final, Complete Specimen Negative for MRSA by DNA Probe
[2016-12-02] MEDS: TRAZODONE HCL 50 MG TAB PO SCH (20:30)
[2016-12-03 04:05] VITALS: BP 113/65; PULSE 59; TEMP 36.6; O2SAT 95
[2016-12-03 05:56] LABS: INR 1.4 (0.9-1.1); PROTHROMBIN TIME (PATIENT) 15.7 SECONDS (9.0-12.0)
[2016-12-03 06:10] LABS: ESTIMATED AVERAGE GLUCOSE 200 mg/dl; HA1C FLAG Normal (Normal)
[2016-12-03 06:20] LABS: BUN/CREATININE RATIO 18.8 (10-20); CALCIUM 8.5 mg/dl (8.5-10.1); CREATININE 1.4 mg/dl (0.60-1.40); POTASSIUM 4.1 mmol/L (3.5-5.1)
[2016-12-03 06:46] LABS: BASO % 0.3 %; BASO ABS # 0.02 K/uL (0-0.2); COMPLETE YES; HEMATOCRIT 34.8 % (42-52); IG% 0.4 %; LYMPH % 16.1 %; LYMPH ABS # 1.13 K/uL (1.2-3.4); MEAN CELL VOLUME 89.9 fL (80-100); MEAN CORPUSCULAR HGB CONC 33.3 g/dl (32-36); MEAN PLATELET VOLUME 10.5 fL (7.4-10.4); MONO % 9.1 %; NEUT % 69.1 %; PLATELET COUNT 181 K/uL (130-400); RED BLOOD COUNT 3.87 M/uL (4.7-6.1); WHITE BLOOD COUNT 7.02 K/uL (4.8-10.8)
[2016-12-03] MEDS: BUMETANIDE IV 2 MG in SYRINGE 0 ML IV SCH ×2 (07:49→16:14)
[2016-12-03] MEDS: TAPENTADOL HCL 50 MG TAB PO SCH (07:49)
[2016-12-03] MEDS: ATORVASTATIN 40 MG TAB PO SCH (07:50)
[2016-12-03] MEDS: MAGNESIUM OXIDE 400 MG TAB PO SCH ×2 (07:50→20:20)
[2016-12-03] MEDS: DULOXETINE HCL 60 MG CAP PO SCH (07:50)
[2016-12-03] MEDS: PANTOprazole SOD 40 MG TAB PO SCH (07:50)
[2016-12-03] MEDS: ALFUZosin TAB 10 MG TAB PO SCH (07:50)
[2016-12-03] MEDS: DILTIAZEM HCL 120 MG EXT REL CAP PO SCH (07:50)
[2016-12-03] MEDS: LISINOPRIL 40 MG TAB PO SCH (07:50)
[2016-12-03 08:00] VITALS: BP 136/73; PULSE 62; TEMP 36.9; O2SAT 95
[2016-12-03] MEDS: INSULIN ASPART 100 UNITS/ML 3 ML PEN SC SCH ×4 (08:01→20:25)
--- NOTE | 2016-12-03 09:49 | Medical Student: [facility] ---
Med Student Progress Note Date of Service Dec 03, 2016. Subjective Pt evaluation today including: conversation w/ patient, physical exam, chart review, lab review, review of studies, review of inpatient medication list Pain: 3-4/10 PO Intake: NPO Voiding: no voiding problems, no incontinence Mr. Davis is a 71 y/o male with a history of atrial fibrillation, type 2 DM, HTN, hyperlipidemia, obstructive sleep apnea, and asthma who was admitted 12/01 for a CHF exacerbation. He reports that he has lost 3 pounds since yesterday, but denies significant improvement of his symptoms. He is having episodes of dyspnea and chest discomfort with exertion. The pain with these episodes is 3-4/ 10, dull, substernal, and does not radiate. Chest pain and dyspnea are relieved with rest. He denies nausea, diaphoresis, and palpitations. He denies jaw or arm symptoms. He reports some improvement of his lower extremity swelling, especially the RLE. He is currently receiving Bumex and feels that this has been helpful. He has no other concerns at this time. Review of Systems Constitutional: No chills, No fever, No sweats Eyes: No diplopia, No worsening of vision ENT: No hearing loss, No problem reported, No sore throat, No trouble swallowing Respiratory: + dyspnea on exertion, No cough, No dyspnea at rest, No hemoptysis , No sputum, No wheezing Cardiac: + chest pain, + edema, No PND, No claudication, No orthopnea, No palpitations Abdomen: No GI bleeding, No constipation, No diarrhea, No nausea, No pain, No vomiting Musculoskeletal: No problem reported Male : No dysuria, No hematuria, No incontinence, No problem reported Neurologic: No problem reported Psychiatric: No problem reported Heme: No problem reported Endo: No problem reported Skin: + new/changing skin lesions (psoriasis) All Other Systems: Reviewed and Negative Objective Vital Signs Date Time Temp Pulse Resp B/P Pulse Ox O2 Delivery O2 Flow Rate FiO2 12/03/16 04:05 36.6 59 16 113/65 95 CPAP 12/03/16 04:00 Room Air CPAP 12/02/16 23:59 Room Air CPAP 12/02/16 23:25 36.9 69 16 101/51 95 CPAP 12/02/16 20:00 98 Room Air 12/02/16 20:00 37.1 60 18 122/60 98 Room Air 12/02/16 16:32 80 12/02/16 16:00 36.8 74 20 126/69 94 Room Air 12/02/16 16:00 Room Air 12/02/16 12:00 Room Air 12/02/16 12:00 36.9 71 18 128/44 95 Room Air Physical Exam General Appearance: WD/WN, no apparent distress ENT: normal ENT inspection, hearing grossly normal Neck: supple, no adenopathy, no carotid bruits, trachea midline Respiratory/Chest: chest non-tender, lungs clear, normal breath sounds, no respiratory distress, no accessory muscle use Cardiovascular: + irregularly irregular, + normal peripheral pulses, + pertinent finding (faint heart sounds, likely due to body habitus) Abdomen: normal bowel sounds, non tender, soft, no organomegaly, no pulsatile mass Extremities: non-tender, no calf tenderness, normal capillary refill, + pedal edema (1+ RLE pitting edema to the mid-calf) Neurologic/Psychiatric: no motor/sensory deficits, alert, normal mood/affect, oriented x 3 Skin: normal color, warm/dry, + rash (scattered psoriatic plaques) Lymphatic: no adenopathy Laboratory Results Last 24 Hours Test 12/02/16 11:00 12/02/16 16:17 12/02/16 20:28 12/03/16 05:20 Bedside Glucose 210 mg/dl 314 mg/dl 197 mg/dl White Blood Count 7.02 K/uL Red Blood Count 3.87 M/uL Hemoglobin 11.6 g/dL Hematocrit 34.8 % Mean Corpuscular Volume 89.9 fL Mean Corpuscular Hemoglobin 30.0 pg Mean Corpuscular Hemoglobin Concent 33.3 g/dl Platelet Count 181 K/uL Mean Platelet Volume 10.5 fL Neutrophils (%) (Auto) 69.1 % Lymphocytes (%) (Auto) 16.1 % Monocytes (%) (Auto) 9.1 % Eosinophils (%) (Auto) 5.0 % Basophils (%) (Auto) 0.3 % Neutrophils # (Auto) 4.85 K/uL Lymphocytes # (Auto) 1.13 K/uL Monocytes # (Auto) 0.64 K/uL Eosinophils # (Auto) 0.35 K/uL Basophils # (Auto) 0.02 K/uL RDW Standard Deviation 48.2 fL RDW Coefficient of Variation 14.6 % Immature Granulocyte % (Auto) 0.4 % Immature Granulocyte # (Auto) 0.03 K/uL Prothrombin Time 15.7 SECONDS Prothromb Time International Ratio 1.4 Sodium Level 139 mmol/L Potassium Level 4.1 mmol/L Chloride Level 97 mmol/L Carbon Dioxide Level 31 mmol/L Anion Gap 11.0 mmol/L Blood Urea Nitrogen 26 mg/dl Creatinine 1.40 mg/dl Est Creatinine Clear Calc Drug Dose 66.8 ml/min Estimated GFR () 57.4 Estimated GFR (Non- 49.5 BUN/Creatinine Ratio 18.8 Random Glucose 200 mg/dl Estimated Average Glucose 200 mg/dl Hemoglobin A1c 8.6 % Calcium Level 8.5 mg/dl Magnesium Level 2.0 mg/dl Test 12/03/16 06:34 Bedside Glucose 210 mg/dl Assessment and Plan Assessment and Plan: ASSESSMENT: Mr. Davis is a 71 y/o male with a history of atrial fibrillation, type 2 DM, HTN, hyperlipidemia, obstructive sleep apnea, and asthma who was admitted 12/01 for a CHF exacerbation. Given his weight loss and clinical improvement in the form of reduced lower extremity edema, it appears that diuretic therapy is working. His exertional chest pain and associated dyspnea are concerning for ACS, but troponin and EKG on admission were negative for ischemia. Stress test in 2012 was also negative for inducible ischemia. Clinically, he has been very stable. BP was elevated on admission, but this has markedly improved with IV diuretic therapy. PLAN: 1. Acute decompensated CHF -Continue IV Bumex infusion -Continue digoxin 125mcg po daily -Monitor fluid status with strict I&O with daily weights 2. Atrial fibrillation, rate-controlled -Continue current warfarin regimen for stroke prophylaxis -Continue diltiazem 240mg po bid for rate control 3. Stable angina -Given continued exertional chest pain and shortness of breath, stress test may be indicated; however, this can be performed on an outpatient basis as the patient is not experiencing any worsening of symptoms or pain at rest. CARDIOLOGY ATTENDING ADDENDUM (Dr. West): Patient seen, interviewed, and examined. Agree with above assessment by Velasquez Alcazar MD. Patient well known to me from outpatient setting. Currently admitted with decompensated diastolic congestive heart failure secondary to dietary indiscretion, mild anginal type symptoms, and atrial fibrillation with slightly over-controlled rate. The lack of enzyme elevation or dynamic ECG changes weighs against significant myocardial ischemia, suspect his anginal symptoms may be supply/demand mismatch due to decompensated heart failure. He did have a good diuresis overnight and states that his breathing is much improved, but he still has dyspnea with mild exertion. No chest discomfort currently. On exam, an blood pressure reasonably controlled, heart rate somewhat sub physiologic in the context of decompensated heart failure, neck veins still mildly elevated (mcc to the angle of the jaw at 90 degrees), clear lungs, irregular rhythm, 1+ pretibial edema. Recommendations: Diastolic CHF: Agree with continued diuresis with Bumex 2 mg IV b.i.d. since he he still appears hypervolemic and has no evidence of over diuresis (azotemia , etc). Hopefully, he will be adequately volume unloaded and his symptoms sufficiently reduce that he could be discharged home tomorrow. Possible angina: Although he has a history of nonobstructive coronary artery disease, this assessment was sometime ago. As noted, in the absence of evidence for more significant myocardial ischemia, prefer to treat heart failure and evaluate for progressive coronary artery disease as an outpatient with stress study once he is fully recovered from his decompensated congestive heart failure. Atrial fibrillation: Continue anticoagulation with warfarin for now (we had considered a newer anticoagulant but would not introduce a new variable presently). As noted, his heart rate is somewhat slow in the context of decompensated heart failure, will reduce his negative chronotropic while hospitalized to allow for more physiologic response to add his clinical condition. Reduce diltiazem from 240 mg b.i.d. to 180 mg b.i.d.. Will continue to follow. [place] MD
[2016-12-03] MEDS: ENOXAPARIN 40 MG/0.4 ML SYR SQ SCH (11:34)
[2016-12-03 12:00] VITALS: BP 151/90; PULSE 75; TEMP 36.7; O2SAT 94
[2016-12-03 14:09] VITALS: Ht 182.9 cm; Wt 130.8 kg
--- NOTE | 2016-12-03 14:57 | Pharmacy Progress Note ---
Glycemic Control: Initial Note Date of Service Dec 03, 2016. Scope Glycemic Pharmacist to provide recommendations to improve glycemic control (all ICU patients are screened for hyperglycemia and treatment recommendations are provided per protocol). Pt identified with hyperglycemia (BSG above 180) while admitted to [facility] Subjective The patient is a 71 year old male admitted on Dec 01, 2016 at 23:34 for wt gain , leg swelling, decompensated HF, A fib. Patient's past medical history is significant for type 2 diabetes mellitus. Objective Height (Feet): 6 Height (Inches): 0.00 Weight (Kilograms): 134.800 Accuchecks BSG (last 24hrs): Test 12/02/16 16:17 12/02/16 20:28 12/03/16 05:20 12/03/16 06:34 Bedside Glucose 314 mg/dl (70-99) 197 mg/dl (70-99) 210 mg/dl (70-99) Random Glucose 200 mg/dl (70-99) Test 12/03/16 11:14 Bedside Glucose 232 mg/dl (70-99) Laboratory Data (last 24hrs) Test 12/03/16 05:20 Anion Gap 11.0 mmol/L BUN/Creatinine Ratio 18.8 Blood Urea Nitrogen 26 mg/dl Creatinine 1.40 mg/dl Hemoglobin A1c 8.6 % Potassium Level 4.1 mmol/L Sodium Level 139 mmol/L White Blood Count 7.02 K/uL Red Blood Count 3.87 M/uL Hemoglobin 11.6 g/dL Hematocrit 34.8 % Mean Corpuscular Volume 89.9 fL Mean Corpuscular Hemoglobin 30.0 pg Mean Corpuscular Hemoglobin Concent 33.3 g/dl Platelet Count 181 K/uL Mean Platelet Volume 10.5 fL Neutrophils (%) (Auto) 69.1 % Lymphocytes (%) (Auto) 16.1 % Monocytes (%) (Auto) 9.1 % Eosinophils (%) (Auto) 5.0 % Basophils (%) (Auto) 0.3 % Neutrophils # (Auto) 4.85 K/uL Lymphocytes # (Auto) 1.13 K/uL Monocytes # (Auto) 0.64 K/uL Eosinophils # (Auto) 0.35 K/uL Basophils # (Auto) 0.02 K/uL Recent Pertinent Medications Outpatient Anti-diabetic Regimen: * Glipizide 5mg PO BID * Metformin 1gm PO BID The patient is currently receiving: * Basal Insulin: Lantus 10 units every 24 hours - dosed in the evening * Correctional Insulin: Novolog Correction per scale ACHS Goal Range: Low 110 mg/dL - High 140 mg/dL Correction Factor: 25 mg/dL/unit * Prandial Insulin: Per carb ratio of 1 unit per 10 grams CHO consumed * Oral Agents: none currently Risk Factors for Insulin Resistance: * Diet: ordered T2DM / AHA / Fluid Restricted diet and tolerating well per carb counts Assessment & Plan ASSESSMENT: 12/03/16 * Type 2 diabetic managed w/ sulfonylurea + metformin prior to admission; recent A1c 8.6% indicates room for improved glycemic control (eAG ~200) * Admitted w/ weight gain, LE edema, HF exacerbation * Oral agents were placed on hold yesterday and he was managed w/ prandial + correctional insulin. However BSGs were running higher than desired and Lantus was added at bedtime * Current BSG pattern suggests basal insulin deficiency and likely a prandial insulin deficiency as well given body habitus and observed insulin response RECOMMEND: * Increasing Lantus to 12 units SQ BID * Changing correction factor 20 mg/dl/unit * Changing carb ratio 1 unit per 8 grams CHO consumed * Continuing goal range of Low 110 mg/dL - High 140 mg/dL Pharmacy will continue to provide recommendations in EMR while patient admitted to [facility]. Physicians may request pharmacy to continue to follow patient when transferred out of the ICU and/or consult pharmacy to write glycemic control orders * Please note that the plan above was derived based on current level of insulin resistance and hospital stress. These recommendations are appropriate for inpatient admission only. Plan of care upon discharge will need to be reassessed to avoid potential outpatient hypo/hyperglycemia. Thank you.
[2016-12-03 15:25] VITALS: BP 120/61; PULSE 66; TEMP 36.6; O2SAT 91
[2016-12-03] MEDS: WARFARIN SOD 5 MG TAB PO SCH (16:12)
[2016-12-03] MEDS: DIGOXIN 0.125 MG TAB PO SCH (16:13)
[2016-12-03] MEDS ORDERED: NURSING VERBAL MED ORDER ONE (16:15)
--- NOTE | 2016-12-03 17:28 | Progress Note ---
Internal Med Progress Note Date of Service: Dec 03, 2016. Provider Documentation: SUBJECTIVE: resting comfortably on the chair says still has sob on exertion and has leg swelling denies chest pain eating ok afebrile OBJECTIVE: Vital Signs-as noted below Exam: General alert and awake and oriented Neck no neck masses Cvs s1 and s2 heard regular no murmurs Rs cta b/l no wheezing mild bibasilar crackles Abd soft bowel sounds present non tender no distension Compounder Flavorings non focal Ext b/l lower extremity edema present Lab data as noted below. ASSESSMENT & PLAN: 1. Acute on chronic diastolic Congestive heart failure. started on iv Bumex 2mg bid strict i/o daily weights cardiology on board echo unremarkable to continue tx appreciate cardiology inputs 2.Diabetes Type II with Neuropathy. holding po meds on Lantus and iss 200/210/232/228 adjusting insulin regimn appreciate pharmacy inputs will monitor 3. Atrial fibrillation. Rate is controlled. Digoxin level is therapeutic. Continue current medications.On Coumadin INR 1.4 diltiazem dose reduced while hospitalized for chf as per cardiology will monitor 4. Hyperlipidemia. Continue current medicines. 5. Chronic gout and chronic pain. Continue home pain medications. 6 Sleep apnea.Has been on CPAP and will continue. 7. Deep venous thrombosis prophylaxis with Coumadin. Lovenox while inr subtherapeutic. 8. Gastrointestinal prophylaxis with PPI. 9. Code status. full code. DISPOSITION monitor in tele to be determined Vital Signs: Date Time Temp Pulse Resp B/P Pulse Ox O2 Delivery O2 Flow Rate FiO2 12/03/16 16:13 71 12/03/16 16:00 Room Air 12/03/16 15:25 36.6 66 18 120/61 91 Room Air 12/03/16 12:00 Room Air 12/03/16 12:00 36.7 75 18 151/90 94 Room Air 12/03/16 08:00 36.9 62 18 136/73 95 Room Air 12/03/16 08:00 Room Air 12/03/16 04:05 36.6 59 16 113/65 95 CPAP 12/03/16 04:00 Room Air CPAP 12/02/16 23:59 Room Air CPAP 12/02/16 23:25 36.9 69 16 101/51 95 CPAP 12/02/16 20:00 98 Room Air 12/02/16 20:00 37.1 60 18 122/60 98 Room Air Lab Results: Results Past 24 Hours Test 12/02/16 20:28 12/03/16 05:20 12/03/16 06:34 12/03/16 11:14 Range/Units Bedside Glucose 197 210 232 70-99 mg/dl White Blood Count 7.02 4.8-10.8 K/uL Red Blood Count 3.87 4.7-6.1 M/uL Hemoglobin 11.6 14.0-18.0 g/dL Hematocrit 34.8 42-52 % Mean Corpuscular Volume 89.9 80-100 fL Mean Corpuscular Hemoglobin 30.0 25-34 pg Mean Corpuscular Hemoglobin Concent 33.3 32-36 g/dl Platelet Count 181 130-400 K/uL Mean Platelet Volume 10.5 7.4-10.4 fL Neutrophils (%) (Auto) 69.1 % Lymphocytes (%) (Auto) 16.1 % Monocytes (%) (Auto) 9.1 % Eosinophils (%) (Auto) 5.0 % Basophils (%) (Auto) 0.3 % Neutrophils # (Auto) 4.85 1.4-6.5 K/uL Lymphocytes # (Auto) 1.13 1.2-3.4 K/uL Monocytes # (Auto) 0.64 0.11-0.59 K/uL Eosinophils # (Auto) 0.35 0-0.5 K/uL Basophils # (Auto) 0.02 0-0.2 K/uL RDW Standard Deviation 48.2 36.4-46.3 fL RDW Coefficient of Variation 14.6 11.5-14.5 % Immature Granulocyte % (Auto) 0.4 % Immature Granulocyte # (Auto) 0.03 0.00-0.02 K/uL Prothrombin Time 15.7 9.0-12.0 SECONDS Prothromb Time International Ratio 1.4 0.9-1.1 Sodium Level 139 136-145 mmol/L Potassium Level 4.1 3.5-5.1 mmol/L Chloride Level 97 98-107 mmol/L Carbon Dioxide Level 31 21-32 mmol/L Anion Gap 11.0 3-11 mmol/L Blood Urea Nitrogen 26 7-18 mg/dl Creatinine 1.40 0.60-1.40 mg/dl Est Creatinine Clear Calc Drug Dose 66.8 ml/min Estimated GFR () 57.4 Estimated GFR (Non- 49.5 BUN/Creatinine Ratio 18.8 10-20 Random Glucose 200 70-99 mg/dl Estimated Average Glucose 200 mg/dl Hemoglobin A1c 8.6 4.5-5.6 % Calcium Level 8.5 8.5-10.1 mg/dl Magnesium Level 2.0 1.8-2.4 mg/dl Test 12/03/16 15:52 Range/Units Bedside Glucose 228 70-99 mg/dl
[2016-12-03 19:32] VITALS: BP 135/77; PULSE 70; TEMP 37; O2SAT 91
[2016-12-03] MEDS: DILTIAZEM HCL (TIAzac) 180 MG CAPCR PO SCH (20:20)
[2016-12-03] MEDS: TRAZODONE HCL 50 MG TAB PO SCH (20:21)
[2016-12-03] MEDS: INSULIN GLARGINE SOLOSTAR 100 UNITS/ML 3 ML PEN SC SCH (20:26)
[2016-12-03 23:54] VITALS: BP 134/68; PULSE 71; TEMP 36.5; O2SAT 93
[2016-12-04 04:00] VITALS: BP 119/66; PULSE 69; TEMP 36.6; O2SAT 95
[2016-12-04 06:11] LABS: BASO % 0.4 %; BASO ABS # 0.03 K/uL (0-0.2); COMPLETE YES; EOS % 4.7 %; HEMATOCRIT 36.4 % (42-52); IG% 0.4 %; LYMPH % 16.1 %; LYMPH ABS # 1.26 K/uL (1.2-3.4); MEAN CELL VOLUME 88.8 fL (80-100); MEAN CORPUSCULAR HEMOGLOBIN 30.2 pg (25-34); MEAN CORPUSCULAR HGB CONC 34.1 g/dl (32-36); MEAN PLATELET VOLUME 10.2 fL (7.4-10.4); MONO % 8.4 %; PLATELET COUNT 193 K/uL (130-400); WHITE BLOOD COUNT 7.82 K/uL (4.8-10.8)
[2016-12-04 06:20] LABS: INR 1.3 (0.9-1.1); PROTHROMBIN TIME (PATIENT) 14.5 SECONDS (9.0-12.0)
[2016-12-04 06:39] LABS: BUN/CREATININE RATIO 17.6 (10-20); CREATININE 1.6 mg/dl (0.60-1.40); MAGNESIUM 2.4 mg/dl (1.8-2.4); POTASSIUM 3.9 mmol/L (3.5-5.1)
[2016-12-04 07:23] VITALS: BP 124/78; PULSE 74; TEMP 36.4; O2SAT 92
[2016-12-04] MEDS: BUMETANIDE IV 2 MG in SYRINGE 0 ML IV SCH (08:17)
[2016-12-04] MEDS: MAGNESIUM OXIDE 400 MG TAB PO SCH (08:18)
[2016-12-04] MEDS: PANTOprazole SOD 40 MG TAB PO SCH (08:19)
[2016-12-04] MEDS: DILTIAZEM HCL (TIAzac) 180 MG CAPCR PO SCH (08:19)
[2016-12-04] MEDS: ATORVASTATIN 40 MG TAB PO SCH (08:19)
[2016-12-04] MEDS: ALFUZosin TAB 10 MG TAB PO SCH (08:20)
[2016-12-04] MEDS: DULOXETINE HCL 60 MG CAP PO SCH (08:20)
[2016-12-04] MEDS: LISINOPRIL 40 MG TAB PO SCH (08:20)
[2016-12-04] MEDS: INSULIN ASPART 100 UNITS/ML 3 ML PEN SC SCH ×2 (08:30→12:14)
[2016-12-04] MEDS: INSULIN GLARGINE SOLOSTAR 100 UNITS/ML 3 ML PEN SC SCH (08:33)
[2016-12-04] MEDS ORDERED: TAPENTADOL ER 50 MG TABCR PO SCH (09:00)
[2016-12-04] MEDS ORDERED: TAPENTADOL HCL 50 MG TAB PO SCH (09:00)
[2016-12-04] MEDS ORDERED: ASPIRIN 81 MG ECTAB PO SCH (09:00)
[2016-12-04] MEDS ORDERED: TZCSR180 PO (09:02)
--- NOTE | 2016-12-04 09:08 | Discharge Instructions ---
Discharge Instructions Admission Reason for Admission: Atrial Fibrillation, Chf Discharge Discharge Diagnosis / Problem: acute dialstolic chf Discharge Goals Goal(s): Decrease discomfort, Improve function Activity Recommendations Activity Limitations: resume your previous activity (as tolerated) . Instructions / Follow-Up Instructions / Follow-Up FOLLOWUP WITH FAMILY DOCTOR SCHEDULED NEXT WEDNESDAY FOLLOWUP WITH CARDIOLOGY SCHEDULED. TO TAKE BUMEX 2MG PO TWICE DAILY FOR NEXT 3 DAYS AND GO BACK TO BUMEX 2MG PO DAILY. PLEASE CHECK WEIGHT DAILY AND IF GAINS WEIGHT MORE THAN 1-2 POUNDS IN A DAY TO TAKE EXTRA PILL OF BUMEX AND CALL FAMILY DOCTOR OR CARDIOLOGY. AVOID SALTY FOODS. TO RESTRICT SALT TO LESS THAN 2GMS A DAY. COUMADIN 7.5MG PO DAILY UNTIL FURTHER ORDERS FROM COUMADIN CLINIC. LAB: PT/INR IN 2-3 DAYS AND FOLLOW RESULTS WITH COUMADIN CLINIC. COUMADIN CLINIC NOTIFIED LAB: BMP IN 4-5 DAYS AND FOLLOW RESULTS WITH FAMILY DOCTOR. Call your Primary Care doctor if any of the following symptoms or problems start or get worse: * Shortness of breath or difficulty breathing * Wake up at night short of breath * Chest pain * Cough * Swelling of your hands, feet, or legs * More fatigued or tired with your normal activity * Palpitations - sudden fast heart beats WEIGHT * Weigh yourself every morning after using the bathroom. * Use the same scale. * Wear the same amount of clothing. * Write your weight down on a chart. * Call your Primary Care doctor if you gain more than 2-3 pounds in 1-2 days. MEDICATIONS * Use this discharge instruction sheet for medication instructions. * Take your medications at the time your doctor ordered. * Do not skip a dose of your medicines. * If you miss a dose of medicine, take it as soon as possible, but DO NOT DOUBLE A DOSE. * Read your medicine information when you get home. * Know all of the side effects of your medicine. If in doubt, ask your pharmacist * Call your Primary Care doctor's office if you have any side effects. * Be sure all of your doctors know what medicine and herbs you take (including cold, flu, and herbal medicine). Take the following with you to your follow-up doctor appointments: * Weight Chart * Medication List * List of questions Do not drink excessive alcohol, beer or wine. Current Hospital Diet Patient's current hospital diet: AHA Diet (Heart Healthy), Diabetes Type 2 Diet Discharge Diet Recommended Diet: AHA Diet (Heart Healthy), Diabetes Type 2 Diet Pending Studies Studies pending at discharge: no Laboratory Results Hemoglobin A1c Test 12/03/16 05:20 Range/Units Estimated Average Glucose 200 mg/dl Hemoglobin A1c 8.6 H 4.5-5.6 % Medical Emergencies . Who to Call and When: Call 911 or go to the Emergency Room if: * If at any time you feel your situation is an emergency * You have tightness or pain in your chest that does not go away with rest or Nitroglycerin * You are very short of breath even with rest . Non-Emergent Contact Non-Emergency issues call your: Primary Care Provider . . "Provider Documentation" section prepared by Preston Gray. VTE Core Measure Inpt VTE Proph given/why not?: Enoxaparin (Lovenox)SQ, Warfarin (Coumadin)
[2016-12-04] MEDS ORDERED: WARF7.5T PO (09:21)
[2016-12-04] MEDS ORDERED: CRDCD180 PO (09:28)
[2016-12-04 09:45] VITALS: BP 124/78; PULSE 74; TEMP 36.4; O2SAT 92
--- NOTE | 2016-12-04 09:51 | Cardiology Follow-Up ---
Cardiology Follow-Up Date of Service Dec 04, 2016. Cardiology Follow-Up SUBJECTIVE: 71-year-old man with borderline occlusive coronary artery disease on remote study, permanent atrial fibrillation (diltiazem/warfarin), and prior transient diastolic congestive heart failure in 2014 who was admitted 12/01/2016 with acute congestive heart failure. He has diuresed quite well over the past several days, his weight is reduced, any no longer notes dyspnea at rest and has only mild dyspnea at low to moderate levels of exertion. No chest discomfort during his hospital stay (he had noted some anginal-type symptoms prior to coming in). He is comfortable with going home today. PHYSICAL EXAMINATION: No distress. Vitals: Afebrile. BP 124/78, pulse 74 irregular, respirations 18 and unlabored. Skin: No unusual lesions or ecchymosis. HEENT: Unremarkable. Neck: Jugular venous pulse 1/[address] to the angle of the jaw at 90, no carotid bruits. Lungs: Diminished breath sounds but generally clear. No wheezing or crackles. Cardiac: Irregular rhythm, faint heart tones, no obvious murmur or gallop Abdomen: Benign. Extremities: trace to 1+ pretibial edema (improving). Intact peripheral pulses. Neurologic: Normal affect, nonfocal DATA: Hemoglobin 12.4 with normal white count platelet count. INR slightly subtherapeutic at 1.3. Normal electrolytes, BUN 28, creatinine 1.6 (26 and 1.4 yesterday). Magnesium 2.4. Echocardiogram from 12/02/2016 showed normal left ventricular systolic function. IMPRESSION: 1.. Acute diastolic congestive heart failure, resolved. 2. Permanent atrial fibrillation, rate over controlled (in the context of CHF) . 3. Possible angina, no recurrence/no evidence of ongoing myocardial ischemia. 4. Subtherapeutic INR. 5. Multiple other medical problems as previously noted. DISCUSSION: Case discussed with Dr. Gray. Patient okay for discharge on sliding scale diuretic regimen (should maintain weight at or below his current weight, if higher weight he will increase Bumex from 2 mg to 3 mg, if he loses over 4 pounds he can reduce the frequency Bumex from twice daily to once daily). Recommend reduced negative chronotropic (diltiazem 180 mg b.i.d.) to allow more physiologic heart rate response. We will re-evaluate his coronary status if he has any further angina (it has been some time since his catheterization which showed nonobstructive disease). Continue warfarin for now, I had discussed newer anticoagulants with him but would prefer to address this later to avoid introducing a new variable at this time. Thank you for allowing me to participate in Mr. Davis's care.
[2016-12-04] MEDS ORDERED: WARFARIN SOD 10 MG TAB PO SCH (16:00)
--- NOTE | 2016-12-04 19:47 | Progress Note ---
Internal Med Progress Note Date of Service: Dec 04, 2016. Provider Documentation: SUBJECTIVE: resting comfortably on the chair lost weight denies sob no chest pain ok for discharge OBJECTIVE: Vital Signs-as noted below Exam: General alert and awake and oriented Neck no neck masses Cvs s1 and s2 heard regular no murmurs Rs cta b/l no wheezing mild bibasilar crackles Abd soft bowel sounds present non tender no distension Fall Internship non focal Ext b/l lower extremity edema present-improving Lab data as noted below. ASSESSMENT & PLAN: 1. Acute on chronic diastolic Congestive heart failure. started on iv Bumex 2mg bid strict i/o daily weights cardiology on board echo unremarkable to continue tx appreciate cardiology inputs discharged on Bumex twice daily for few more days and then to go back to usual once daily close followup with pcp and cardiology 2.Diabetes Type II with Neuropathy. holding po meds on Lantus and iss discharged on home meds 3. Atrial fibrillation. Rate is controlled. Digoxin level is therapeutic. Continue current medications.On Coumadin INR 1.4 diltiazem dose reduced while hospitalized for chf as per cardiology will monitor discharged on Diltazem 180mg bid and Coumadin 7.5mg daily followup with Coumadin clinic and cardiology 4. Hyperlipidemia. Continue current medicines. 5. Chronic gout and chronic pain. Continue home pain medications. 6 Sleep apnea.Has been on CPAP and will continue. Discharged home Vital Signs: Date Time Temp Pulse Resp B/P Pulse Ox O2 Delivery O2 Flow Rate FiO2 12/04/16 09:45 36.4 74 18 92 Room Air 12/04/16 08:00 Room Air 12/04/16 07:23 36.4 74 18 124/78 92 Room Air 12/04/16 04:00 36.6 69 18 119/66 95 CPAP 12/04/16 04:00 Room Air 12/03/16 23:59 Room Air 12/03/16 23:54 36.5 71 134/68 93 Room Air 12/03/16 20:00 Room Air Lab Results: Results Past 24 Hours Test 12/03/16 19:51 12/04/16 05:25 12/04/16 07:19 12/04/16 11:27 Range/Units Bedside Glucose 246 233 255 70-99 mg/dl White Blood Count 7.82 4.8-10.8 K/uL Red Blood Count 4.10 4.7-6.1 M/uL Hemoglobin 12.4 14.0-18.0 g/dL Hematocrit 36.4 42-52 % Mean Corpuscular Volume 88.8 80-100 fL Mean Corpuscular Hemoglobin 30.2 25-34 pg Mean Corpuscular Hemoglobin Concent 34.1 32-36 g/dl Platelet Count 193 130-400 K/uL Mean Platelet Volume 10.2 7.4-10.4 fL Neutrophils (%) (Auto) 70.0 % Lymphocytes (%) (Auto) 16.1 % Monocytes (%) (Auto) 8.4 % Eosinophils (%) (Auto) 4.7 % Basophils (%) (Auto) 0.4 % Neutrophils # (Auto) 5.47 1.4-6.5 K/uL Lymphocytes # (Auto) 1.26 1.2-3.4 K/uL Monocytes # (Auto) 0.66 0.11-0.59 K/uL Eosinophils # (Auto) 0.37 0-0.5 K/uL Basophils # (Auto) 0.03 0-0.2 K/uL RDW Standard Deviation 47.5 36.4-46.3 fL RDW Coefficient of Variation 14.6 11.5-14.5 % Immature Granulocyte % (Auto) 0.4 % Immature Granulocyte # (Auto) 0.03 0.00-0.02 K/uL Prothrombin Time 14.5 9.0-12.0 SECONDS Prothromb Time International Ratio 1.3 0.9-1.1 Sodium Level 136 136-145 mmol/L Potassium Level 3.9 3.5-5.1 mmol/L Chloride Level 96 98-107 mmol/L Carbon Dioxide Level 32 21-32 mmol/L Anion Gap 8.0 3-11 mmol/L Blood Urea Nitrogen 28 7-18 mg/dl Creatinine 1.60 0.60-1.40 mg/dl Est Creatinine Clear Calc Drug Dose 57.5 ml/min Estimated GFR () 48.8 Estimated GFR (Non- 42.1 BUN/Creatinine Ratio 17.6 10-20 Random Glucose 206 70-99 mg/dl Calcium Level 9.0 8.5-10.1 mg/dl Magnesium Level 2.4 1.8-2.4 mg/dl
--- NOTE | 2016-12-04 19:50 | Discharge Summary ---
Discharge Summary Date of Service Dec 04, 2016. Discharge Summary Admission Date: Dec 01, 2016 at 23:34 Discharge Date: Dec 04, 2016 Discharge Disposition: Home Principal Diagnosis: ACUTE ON CHRONIC DIASTOLIC CHF Secondary Diagnoses/Problems: of chronic ischemic heart disease, atrial fibrillation, diabetes, diabetic neuropathy, psoriasis, sleep apnea, hyperlipidemia, gouty arthropathy and also, lumbar and cervical degeneration Procedures: VENOUS DOPPLER: No evidence of lower extremity DVT. CXR: 1. Stable elevation right hemidiaphragm 2. Mild elevation interstitium, a finding which likely is secondary to either mild pulmonary vascular congestion or a hypoventilatory study 3. No evidence of focal pulmonary consolidation ECHO: * Image quality was poor. * The rhythm was atrial fibrillation * Left ventricular systolic function is normal. Consultations: CARDIOLOGY Medication Reconciliation New Medications: Diltiazem HCl (Diltiazem HCl ER) 180 Mg Capcr 180 MG PO BID for 30 Days, 2 Refills Warfarin Sodium (Coumadin) 7.5 Mg Tab 7.5 MG PO DAILY for 30 Days, #30 TAB 2 Refills Continued Medications: Alfuzosin Hcl (Alfuzosin Hcl Er) 10 Mg Tab 10 MG PO DAILY, #90 Aspirin (Aspirin Ec) 81 Mg Tab 81 MG PO Q2D, #30 Atorvastatin (Lipitor) 40 Mg Tab 40 MG PO at 1700, 0 Refills Bumetanide (Bumex) 2 Mg Tab 2 MG PO DAILY, TAB Digoxin (Digoxin) 0.125 Mg Tab 0.125 MG PO DAILY Duloxetine Hcl (Cymbalta) 60 Mg Cap 1 CAP PO DAILY Lotus (Zingiber Officinalis) (Lotus Root) 500 Mg Cap 2 CAP PO BID Glipizide (Glucotrol) 5 Mg Tab 5 MG PO BID, TAB Lisinopril (Zestril) 40 Mg Tab 40 MG PO DAILY, TAB Magnesium Chloride-Calcium Car (Slow-Mag) 1 Tab Tab 1 TAB PO BID, #60 Metformin Hcl (Glucophage) 1,000 Mg Tab 1000 MG PO BID, TAB Omeprazole (Prilosec) 20 Mg Cap 20 MG PO DAILY, CAP Tapentadol Hcl (Nucynta) 50 Mg Tab 50 MG PO BID, TAB Trazodone Hcl (Desyrel) 50 Mg Tab 50 MG PO HS, #30 Triamcinolone Acet (Aristocort 0.1%) 90 Appln/30 Gm Cr 1 APPLN TOP BID PRN for Discontinued Medications: Diltiazem Hcl Extended Release (Tiazac 240 Mg) 240 Mg Cap 240 MG PO BID, CAP Warfarin Sodium (Coumadin) 5 Mg Tab 5 MG PO 5XWK, TAB TAKE SUN, MON, WED, THURS, SAT Warfarin Sodium (Coumadin) 5 Mg Tab 10 MG PO 2XWK, TAB TAKE 10 MG TU & FRI Admission Information HPI (per Admitting provider): He is a 71-year-old male, with significant past medical history of chronic ischemic heart disease, atrial fibrillation, diabetes, diabetic neuropathy, psoriasis, sleep apnea, hyperlipidemia, gouty arthropathy and also, lumbar and cervical degeneration. Apparently, has been complaining of weight gain of about 12 pounds for the last 1 week. He has been having more swelling of the legs associated with shortness of breath on minimal exertion. He denies to have any chest pain, any palpitation. He denies to have any abdominal pain, any nausea and/or vomiting. He does have some swelling of the abdomen and denies to have any problem with his urine and/or bowel habit. Does not have any numbness or tingling in the extremities and no weakness involving any side in particular. He was seen by Dr. Roach in the clinic today and was advised to come to the Emergency Room for further evaluation, because the Lasix and the diuretics increase recently has not been working as an outpatient. Physical Exam (per Admitting): GENERAL: On examination in the Emergency Room, he is not having any acute symptoms. VITAL SIGNS: Temperature 37.4, pulse was 85, blood pressure 165/90, saturation 93% on room air. HEENT: Unremarkable. No definite JVD, no bruit. CHEST: Minimal bibasilar crackles. HEART: S1, S2 irregular. No definite murmur. ABDOMEN: Distended, soft, benign, nontender, no organomegaly. Bowel sounds present. EXTREMITIES: 1 to 2+ edema bilaterally. MUSCULOSKELETAL SYSTEM: Did not show any acute arthritis involving any joint. CENTRAL NERVOUS SYSTEM: He was alert, awake, oriented x3. No focal sensory and/or motor deficit appreciated. Hospital Course 1. Acute on chronic diastolic Congestive heart failure. started on iv Bumex 2mg bid strict i/o daily weights cardiology on board echo unremarkable to continue tx appreciate cardiology inputs discharged on Bumex twice daily for few more days and then to go back to usual once daily close followup with pcp and cardiology 2.Diabetes Type II with Neuropathy. holding po meds on Lantus and iss discharged on home meds 3. Atrial fibrillation. Rate is controlled. Digoxin level is therapeutic. Continue current medications.On Coumadin INR 1.4 diltiazem dose reduced while hospitalized for chf as per cardiology will monitor discharged on Diltazem 180mg bid and Coumadin 7.5mg daily followup with Coumadin clinic and cardiology 4. Hyperlipidemia. Continue current medicines. 5. Chronic gout and chronic pain. Continue home pain medications. 6 Sleep apnea.Has been on CPAP and will continue. Discharged home Total time spent on discharge = 40MINUTES This includes examination of the patient, discharge planning, medication reconciliation, and communication with other providers. Discharge Instructions Discharge Instructions Admission Reason for Admission: Atrial Fibrillation, Chf Discharge Discharge Diagnosis / Problem: acute dialstolic chf Discharge Goals Goal(s): Decrease discomfort, Improve function Activity Recommendations Activity Limitations: resume your previous activity (as tolerated) . Instructions / Follow-Up Instructions / Follow-Up FOLLOWUP WITH FAMILY DOCTOR SCHEDULED NEXT WEDNESDAY FOLLOWUP WITH CARDIOLOGY SCHEDULED. TO TAKE BUMEX 2MG PO TWICE DAILY FOR NEXT 3 DAYS AND GO BACK TO BUMEX 2MG PO DAILY. PLEASE CHECK WEIGHT DAILY AND IF GAINS WEIGHT MORE THAN 1-2 POUNDS IN A DAY TO TAKE EXTRA PILL OF BUMEX AND CALL FAMILY DOCTOR OR CARDIOLOGY. AVOID SALTY FOODS. TO RESTRICT SALT TO LESS THAN 2GMS A DAY. COUMADIN 7.5MG PO DAILY UNTIL FURTHER ORDERS FROM COUMADIN CLINIC. LAB: PT/INR IN 2-3 DAYS AND FOLLOW RESULTS WITH COUMADIN CLINIC. COUMADIN CLINIC NOTIFIED LAB: BMP IN 4-5 DAYS AND FOLLOW RESULTS WITH FAMILY DOCTOR. Call your Primary Care doctor if any of the following symptoms or problems start or get worse: * Shortness of breath or difficulty breathing * Wake up at night short of breath * Chest pain * Cough * Swelling of your hands, feet, or legs * More fatigued or tired with your normal activity * Palpitations - sudden fast heart beats WEIGHT * Weigh yourself every morning after using the bathroom. * Use the same scale. * Wear the same amount of clothing. * Write your weight down on a chart. * Call your Primary Care doctor if you gain more than 2-3 pounds in 1-2 days. MEDICATIONS * Use this discharge instruction sheet for medication instructions. * Take your medications at the time your doctor ordered. * Do not skip a dose of your medicines. * If you miss a dose of medicine, take it as soon as possible, but DO NOT DOUBLE A DOSE. * Read your medicine information when you get home. * Know all of the side effects of your medicine. If in doubt, ask your pharmacist * Call your Primary Care doctor's office if you have any side effects. * Be sure all of your doctors know what medicine and herbs you take (including cold, flu, and herbal medicine). Take the following with you to your follow-up doctor appointments: * Weight Chart * Medication List * List of questions Do not drink excessive alcohol, beer or wine. Current Hospital Diet Patient's current hospital diet: AHA Diet (Heart Healthy), Diabetes Type 2 Diet Discharge Diet Recommended Diet: AHA Diet (Heart Healthy), Diabetes Type 2 Diet Pending Studies Studies pending at discharge: no Laboratory Results Hemoglobin A1c Test 12/03/16 05:20 Range/Units Estimated Average Glucose 200 mg/dl Hemoglobin A1c 8.6 H 4.5-5.6 % Medical Emergencies . Who to Call and When: Call 911 or go to the Emergency Room if: * If at any time you feel your situation is an emergency * You have tightness or pain in your chest that does not go away with rest or Nitroglycerin * You are very short of breath even with rest . Non-Emergent Contact Non-Emergency issues call your: Primary Care Provider . . "Provider Documentation" section prepared by Preston Gray. VTE Core Measure Inpt VTE Proph given/why not?: Enoxaparin (Lovenox)SQ, Warfarin (Coumadin)
[2016-12-05] MEDS ORDERED: WARFARIN SOD 7.5 MG TAB PO SCH (16:00)
[2017-04-19] MEDS ORDERED: NTRGSL4 SL (10:23)
== END 2016-12-04 12:34 | disposition home health service (06) | DRG 292 ==
LOC: ENRESERVDT → ENRESERVTM → C.EDB 19:01 → C.MSICU 23:34 → C.2E 12-03 14:34
PROVIDERS: ADMIT Internal Medicine; ATTEND Internal Medicine
DX: I50.33 Acute on chronic diastolic (congestive) heart failure (principal); Z68.41 Body mass index [BMI] 40.0-44.9, adult; I25.10 Atherosclerotic heart disease of native coronary artery without angina pectoris; I48.2 Chronic atrial fibrillation; E11.40 Type 2 diabetes mellitus with diabetic neuropathy, unspecified; I10 Essential (primary) hypertension; E78.5 Hyperlipidemia, unspecified; M10.9 Gout, unspecified; G89.29 Other chronic pain; G47.33 Obstructive sleep apnea (adult) (pediatric); J45.909 Unspecified asthma, uncomplicated; E66.9 Obesity, unspecified; Z98.1 Arthrodesis status; Z87.891 Personal history of nicotine dependence; Z79.01 Long term (current) use of anticoagulants; Z79.51 Long term (current) use of inhaled steroids; Z79.82 Long term (current) use of aspirin; Z79.84 Long term (current) use of oral hypoglycemic drugs; Z79.891 Long term (current) use of opiate analgesic; Z79.899 Other long term (current) drug therapy; Z88.0 Allergy status to penicillin; Z88.1 Allergy status to other antibiotic agents; Z88.2 Allergy status to sulfonamides; Z91.041 Radiographic dye allergy status; Z82.5 Family history of asthma and other chronic lower respiratory diseases; Z83.3 Family history of diabetes mellitus; Z82.49 Family history of ischemic heart disease and other diseases of the circulatory system; Z82.3 Family history of stroke

== ENCOUNTER → 2016-12-07 | Outpatient (CLI) | payer OTHER ==
[~2016-12-07] MED LIST changes: +ALFU1TAB2 PO; -ASPEC81 PO; +ASPI81TA28 PO; +BUME2TAB3 PO; +CRDCD180 PO; -DIGO0.122 PO; -DILT1CAP PO; -GLIM1TAB2 PO; +GLIP10TA10 PO; +GLIP5TAB3 PO; +LISI-725 PO; +LNX125 PO; +MAGNTAB17 PO; +NTRGSL4 SL; +RISP1TAB68 PO; -SITA1TAB27 PO; +TAPE50TA5 PO; +TRAZ1TAB5 PO; +TRMCR130WC TOP; +WARF-237 PO; +WARF-284 PO; -WARF5TAB7 PO; +WARF7.5T PO
[2016-12-07 14:55] LABS: BLOOD UREA NITROGEN 35 mg/dl (7-18); BUN/CREATININE RATIO 18.5 (10-20); CALCIUM 9.1 mg/dl (8.5-10.1); CARBON DIOXIDE 25 mmol/L (21-32); CHLORIDE 98 mmol/L (98-107); GLUCOSE 131 mg/dl (70-99); POTASSIUM 4.4 mmol/L (3.5-5.1); SODIUM 135 mmol/L (136-145)
[2016-12-07 15:08] LABS: INR 1.3 (0.9-1.1); PROTHROMBIN TIME (PATIENT) 13.8 SECONDS (9.0-12.0)
== END | disposition home or self-care (01) ==
LOC: C.LAB1850 12:46
PROVIDERS: ATTEND Internal Medicine
DX: N17.9 Acute kidney failure, unspecified (principal); I48.91 Unspecified atrial fibrillation

== ENCOUNTER 2017-04-18 03:16 | Observation (INO) | payer OTHER ==
[~2017-04-18] VITALS: Ht 182.9 cm; Wt 120.8 kg
[2017-04-18] VITALS (9 sets, daily range): BP systolic 106–165; BP diastolic 64–81; PULSE 76–89; TEMP 36.3–37; O2SAT 92–93; Ht 182.9 cm; Wt 120.8 kg
[~2017-04-18 03:16] MED LIST changes: -GLIP10TA10 PO; -LISI-725 PO; -NTRGSL4 SL; -RISP1TAB68 PO; -TAPE1TAB9 PO; -WARF-237 PO; -WARF-284 PO
[2017-04-18 03:39] LABS: BASO % 0.4 %; BASO ABS # 0.04 K/uL (0-0.2); COMPLETE YES; EOS % 4.2 %; HEMATOCRIT 36.6 % (42-52); IG% 0.2 %; LYMPH % 18.3 %; MEAN CELL VOLUME 86.3 fL (80-100); MEAN CORPUSCULAR HEMOGLOBIN 27.8 pg (25-34); MEAN CORPUSCULAR HGB CONC 32.2 g/dl (32-36); MEAN PLATELET VOLUME 10.3 fL (7.4-10.4); MONO % 8.4 %; NEUT % 68.5 %; PLATELET COUNT 218 K/uL (130-400); RED BLOOD COUNT 4.24 M/uL (4.7-6.1); WHITE BLOOD COUNT 9.86 K/uL (4.8-10.8)
[2017-04-18 03:58] LABS: INR 2.3 (0.9-1.1); PARTIAL THROMBOPLASTIN RATIO 1.4
[2017-04-18 04:02] LABS: ALT/SGPT 28 U/L (12-78); AST/SGOT 18 U/L (15-37); BLOOD UREA NITROGEN 24 mg/dl (7-18); BUN/CREATININE RATIO 15.9 (10-20); CARBON DIOXIDE 29 mmol/L (21-32); CHLORIDE 99 mmol/L (98-107); GLUCOSE 204 mg/dl (70-99); POTASSIUM 4.2 mmol/L (3.5-5.1); SODIUM 136 mmol/L (136-145)
[2017-04-18] MEDS ORDERED: TAPE1TAB9 PO (04:02)
[2017-04-18] MEDS ORDERED: GLIP10TA10 PO (04:05)
[2017-04-18 04:07] LABS: ALB/GLOB RATIO 0.9 (0.9-2); ALKALINE PHOSPHATASE 94 U/L (45-117); CKMB/CK RATIO 2.3 (0-3.0)
[2017-04-18] MEDS ORDERED: OXYCODONE HCL IR 5 MG TAB (IMMEDIATE RELEASE) PO STA (04:08)
[2017-04-18] MEDS ORDERED: RISP1TAB68 PO (04:09)
--- NOTE | 2017-04-18 04:27 | EMERGENCY ROOM VISIT NOTE ---
History Report prepared by Santana: Cathi Rios Under the Supervision of: Dr. Garret Owens D.O. First contact with patient: 03:19 Chief Complaint: CHEST PAIN Stated Complaint: CHEST PAIN History of Present Illness The patient is a 71 year old male who presents to the Emergency Room with complaints of constant chest pain starting several days ago. He presents to the ED by EMS. He was given nitro in route to no significant relief. The pain is in the right side of his chest and goes up into his neck. He currently rates his discomfort as a 7/10 in severity. His pain today is worse than it was yesterday. He has not had this pain before. The pain worsens with deep breaths and activity. He also notes that he has been SOB. His SOB worsens with activity. His SOB does not change with position. He denies any pain or swelling in the legs, cough, fever, or abdominal pain. He is on Coumadin for atrial fibrillation. His last INR check was 1 week ago at which time it was normal. He denies any history of PE or DVT. Source of History: patient Onset: several days ago Position: chest (right) Symptom Intensity: 7/10 Quality: other (pain) Timing: constant, worsening Modifying Factors (Worsening): exertion, breathing Associated Symptoms: + neck pain, + SOB, No fevers, No cough, No abdominal pain Note: Pt denies pain or swelling in the legs. Review of Systems See HPI for pertinent positives & negatives. A total of 10 systems reviewed and were otherwise negative. Past Medical & Surgical Medical Problems: (1) Acute pyelonephritis (2) Asthma (3) Atrial fibrillation (4) Atrial fibrillation (5) Back pain (6) Back pain (7) Benign hypertension (8) CERVICAL SPINAL STENOSIS (9) Chest pain (10) CHF (congestive heart failure) (11) Coronary artery disease (12) Depressive Disorder Nec (13) Dermatitis (14) Diabetes mellitus type 2 (15) Diverticulitis of colon (16) Dyslipidemia (17) Esophageal Reflux (18) Hyperlipidemia (19) Impotence of organic origin (20) Lumbago (21) Migraine Unspecified W/O Intractable Migraine (22) Psoriasis (23) Sleep apnea Surgical Problems: (1) Cardiac catheterization (2) cervical spine fusion (3) History of appendectomy (4) Lumbar spinal fusion (5) Surgical repair of Left Foot Social History Problems: (1) Fall Family History Diabetes mellitus Heart disease Social History Smoking Status: Former Smoker Alcohol Use: none Drug Use: none Marital Status: Occupation Status: retired Current/Historical Medications Scheduled Alfuzosin Hcl (Alfuzosin Hcl Er), 10 MG PO DAILY Aspirin (Aspirin Ec), 81 MG PO Q2D Atorvastatin (Lipitor), 40 MG PO at 1700 Bumetanide (Bumex), 2 MG PO DAILY Digoxin (Digoxin), 0.125 MG PO DAILY Diltiazem HCl (Diltiazem HCl ER), 180 MG PO BID Duloxetine Hcl (Cymbalta), 1 CAP PO DAILY Lotus (Zingiber Officinalis) (Lotus Root), 2 CAP PO BID Glipizide (Glipizide), 10 MG PO BID Lisinopril (Zestril), 20 MG PO DAILY Magnesium Chloride-Calcium Car (Slow-Mag), 1 TAB PO BID Metformin Hcl (Glucophage), 1,000 MG PO BID Omeprazole (Prilosec), 20 MG PO DAILY Tapentadol Hcl (Nucynta Er), 50 MG PO DAILY Warfarin Sod (Coumadin), 1 TAB PO UD Warfarin Sodium (Warfarin Sodium), 7.5 MG PO UD Scheduled PRN Trazodone Hcl (Desyrel), 25-50 MG PO HS PRN for Sleep Triamcinolone Acet (Aristocort 0.1%), 1 APPLN TOP BID PRN for Allergies Coded Allergies: Cephalosporins (Verified Allergy, Unknown, 04/18/17) Penicillins (Verified Allergy, Unknown, 04/18/17) Sulfamethoxazole w/Trimethoprim (Verified Allergy, Unknown, HIVES, 04/18/17 ) Tetracyclines (Verified Allergy, Unknown, 04/18/17) Uncoded Allergies: CONTRAST DYE (Allergy, Unknown, KIDNEY PROBLEMS, 08/20/14) Physical Exam Vital Signs Date Time Temp Pulse Resp B/P (MAP) Pulse Ox O2 Delivery O2 Flow Rate FiO2 04/18/17 05:16 72 20 04/18/17 04:46 85 16 04/18/17 04:20 151/86 04/18/17 04:16 72 19 04/18/17 03:46 77 21 93 Room Air 04/18/17 03:31 157/86 04/18/17 03:28 75 04/18/17 03:26 36.6 77 18 163/87 93 Room Air 04/18/17 03:26 Room Air 04/18/17 03:26 Room Air 04/18/17 03:21 163/87 Physical Exam GENERAL: Patient is awake, alert, and in no acute distress. Patient is resting comfortably and showing no signs of anxiety EYES: The conjunctivae are clear. The pupils are round and reactive. EARS, NOSE, MOUTH AND THROAT: The nose is without any evidence of any deformity. Mucous membranes are moist tongue is midline NECK: The neck is nontender and supple. RESPIRATORY: Lung sounds diminished at both bases, splinting respirations noted , no conversational dyspnea appreciated. CARDIOVASCULAR: Irregular rhythm noted to auscultation, no definite murmurs noted. GASTROINTESTINAL: The abdomen is soft. Bowel sounds are present in all quadrants. Abdomen is nontender MUSCULOSKELETAL/EXTREMITIES: There is no evidence of gross deformity full range of motion is noted in the hips and shoulders SKIN: Pedal edema bilaterally, no calf tenderness elicited. NEUROLOGIC: Patient is awake alert and oriented x3 Medical Decision & Procedures ER Provider Diagnostic Interpretation: X-ray results as stated below per interpretation by me. Chest X-ray: Elevation to the right hemidiaphragm noted, no definite infiltrate, no free air , no change from -Nov-2016. Laboratory Results 04/18/17 03:08 Red Blood Count 4.24, Mean Corpuscular Volume 86.3, Mean Corpuscular Hemoglobin 27.8, Mean Corpuscular Hemoglobin Concent 32.2, Mean Platelet Volume 10.3, Neutrophils (%) (Auto) 68.5, Lymphocytes (%) (Auto) 18.3, Monocytes (%) (Auto) 8.4, Eosinophils (%) (Auto) 4.2, Basophils (%) (Auto) 0.4, Neutrophils # (Auto) 6.76, Lymphocytes # (Auto) 1.80, Monocytes # (Auto) 0.83, Eosinophils # (Auto) 0.41, Basophils # (Auto) 0.04 04/18/17 03:08 Test 04/18/17 03:08 04/18/17 03:35 04/18/17 03:59 White Blood Count 9.86 K/uL (4.8-10.8) Red Blood Count 4.24 M/uL (4.7-6.1) Hemoglobin 11.8 g/dL (14.0-18.0) Hematocrit 36.6 % (42-52) Mean Corpuscular Volume 86.3 fL (80-100) Mean Corpuscular Hemoglobin 27.8 pg (25-34) Mean Corpuscular Hemoglobin Concent 32.2 g/dl (32-36) Platelet Count 218 K/uL (130-400) Mean Platelet Volume 10.3 fL (7.4-10.4) Neutrophils (%) (Auto) 68.5 % Lymphocytes (%) (Auto) 18.3 % Monocytes (%) (Auto) 8.4 % Eosinophils (%) (Auto) 4.2 % Basophils (%) (Auto) 0.4 % Neutrophils # (Auto) 6.76 K/uL (1.4-6.5) Lymphocytes # (Auto) 1.80 K/uL (1.2-3.4) Monocytes # (Auto) 0.83 K/uL (0.11-0.59) Eosinophils # (Auto) 0.41 K/uL (0-0.5) Basophils # (Auto) 0.04 K/uL (0-0.2) RDW Standard Deviation 48.3 fL (36.4-46.3) RDW Coefficient of Variation 15.1 % (11.5-14.5) Immature Granulocyte % (Auto) 0.2 % Immature Granulocyte # (Auto) 0.02 K/uL (0.00-0.02) Prothrombin Time 26.0 SECONDS (9.0-12.0) Prothromb Time International Ratio 2.3 (0.9-1.1) Activated Partial Thromboplast Time 35.6 SECONDS (21.0-31.0) Partial Thromboplastin Ratio 1.4 Anion Gap 8.0 mmol/L (3-11) Est Creatinine Clear Calc Drug Dose 62.3 ml/min Estimated GFR () 52.8 Estimated GFR (Non- 45.5 BUN/Creatinine Ratio 15.9 (10-20) Calcium Level 9.0 mg/dl (8.5-10.1) Total Bilirubin 0.3 mg/dl (0.2-1) Aspartate Amino Transf (AST/SGOT) 18 U/L (15-37) Alanine Aminotransferase (ALT/SGPT) 28 U/L (12-78) Alkaline Phosphatase 94 U/L (45-117) Pro-B-Type Natriuretic Peptide 524 pg/ml (0-900) Total Protein 7.2 gm/dl (6.4-8.2) Albumin 3.4 gm/dl (3.4-5.0) Globulin 3.8 gm/dl (2.5-4.0) Albumin/Globulin Ratio 0.9 (0.9-2) Bedside D-Dimer 111 ng/mlFEU (0-450) Digoxin Level 0.7 ng/ml (0.8-2.0) Laboratory results per my review. Medications Administered Medications (Trade) Dose Ordered Sig/Fransico Route Start Time Stop Time Status Last Admin Dose Admin Oxycodone HCl (Roxicodone Immediate Rel Tab) 5 mg NOW STAT PO 04/18/17 04:08 04/18/17 04:09 DC 04/18/17 04:17 5 MG ECG Indication: chest pain Rate (beats per minute): 77 Rhythm: atrial fibrillation Findings: other (no PVC, no acute ST segment abnormality) Comparison ECG Date: 01-Dec-2016 Change: no significant change ED Course 0324: The patient was evaluated in room B5. A complete history and physical examination were performed. 0408: Oxycodone HCl 5 mg PO. 0450: I discussed the patient's with Dr. Brown [facility] hospitalist. The patient will be evaluated for further management. 0500: Upon reevaluation, the patient is stable. I discussed results and treatment plan with him. He verbalizes agreement and understanding. The patient will be evaluated for further management and care. Medical Decision Prior records/ancillary studies reviewed. Triage Nursing notes reviewed. The patient's history was concerning for chest pain. Differential diagnosis: Etiologies such as cardiac ischemia, aortic dissection, pulmonary embolism, pneumonia, pneumothorax, musculoskeletal, infections, pericarditis, myocarditis , esophageal rupture, gastrointestinal, as well as others were entertained. Medication Reconciliation: I attest that I have personally reviewed the patient' s current medications list. Blood pressure screening: Patient was found to have an elevated blood pressure which will be addressed by the hospitalist. The patient is a 71-year-old male who presented to the emergency department for an evaluation of chest pain. The patient's EKG did not show any acute change from previous in his cardiac biomarkers were not elevated at this time. I discussed the patient's laboratory and radiographic studies with him. I also discussed the limitations of the emergency department workup for chest pain with him. Because of his past medical history risk factors I also discussed his case with the on-call [facility] hospitalist. They have agreed to evaluate the patient in the emergency department for further management and disposition. Consults Time Called: [phone] [facility]ing Phys[facility] Return[facility] Call: [phone] I discussed the patient's case with her. The patient will be evaluated for further management. Impression Primary Impression: Chest pain Additional Impression: Pleurisy Scribe Attestation The scribe's documentation has been prepared under my direction and personally reviewed by me in its entirety. I confirm that the note above accurately reflects all work, treatment, procedures, and medical decision making performed by me. Departure Information Dispostion Being Evaluated By Hospitalist Referrals Seamus Roach D.OSheeba (PCP) Patient Instructions My [facility] Problem Qualifiers Primary Impression: Chest pain Chest pain type: unspecified Qualified Codes: R07.9 - Chest pain, unspecified
[2017-04-18] MEDS ORDERED: MoRPHine SULFATE 10 MG/ML CARP/VIAL IV STA (05:29)
[2017-04-18] MEDS ORDERED: MoRPHine SULFATE 2 MG/ML CARP ONE (05:40)
[2017-04-18] MEDS ORDERED: MoRPHine SULFATE 4 MG/ML 1 ML CARP\\VIAL ONE (05:40)
[2017-04-18] MEDS ORDERED: ONDANSETRON INJ 2 MG/ML 2 ML VIAL IV PRN (05:45)
[2017-04-18] MEDS ORDERED: NITROGLYCERIN OINT 2% 1GM PACKET EXT PRN (05:45)
[2017-04-18] MEDS ORDERED: ACETAMINOPHEN 325 MG TAB PO PRN (05:45)
[2017-04-18] MEDS ORDERED: MoRPHine SULFATE 2 MG/ML CARP IV PRN (05:45)
[2017-04-18] MEDS ORDERED: POLYETHYLENE (MIRALAX) 17 GM PACK PO PRN (05:45)
[2017-04-18] MEDS ORDERED: LISI-725 PO (05:48)
[2017-04-18] MEDS ORDERED: WARF-284 PO (05:52)
[2017-04-18] MEDS ORDERED: WARF-237 PO (05:52)
[2017-04-18] MEDS ORDERED: ASPIRIN 81 MG CHEW PO STA (05:58)
[2017-04-18] MEDS ORDERED: GLUCAGON FOR INJ 1 MG VIAL SQ PRN (06:00)
[2017-04-18] MEDS ORDERED: DEXTROSE 50% 50 ML SYR IV PRN (06:00)
[2017-04-18] MEDS ORDERED: GLUCOSE 10 TABS/TUBE PO PRN (06:00)
[2017-04-18] MEDS ORDERED: GLUCOSE 40% GEL 15 GM TUBE PO PRN (06:00)
[2017-04-18] MEDS ORDERED: HYDROmorphone INJ 0.5 MG/0.5 ML SYR IV PRN (06:00)
[2017-04-18] MEDS ORDERED: HEPARIN SOD 5000 UNIT/0.5 ML CARP SQ SCH (06:00)
[2017-04-18] MEDS ORDERED: GI COCKTAIL PO PRN (06:00)
[2017-04-18] MEDS ORDERED: PHARMACY GLYCEMIC MGMT CONSULT PRN (06:12)
[2017-04-18 06:29] LABS: URINE APPEARANCE CLEAR (CLEAR); URINE BILIRUBIN NEG (NEG); URINE COLOR YELLOW; URINE NITRITE NEG (NEG); URINE SPECIFIC GRAVITY 1.028 (1.000-1.030); UROBILINOGEN NEG (NEG)
[2017-04-18] MEDS ORDERED: ALUMINUM/MAGNESIUM SUSP 18 ML, LIDOCAINE HCL 2% VISCOUS SOLN 6 ML, BARCODE IDENTIFIER 1 EA PO PRN ×2 (06:30)
--- NOTE | 2017-04-18 06:30 | DIAGNOSTIC IMAGING REPORT ---
CHEST ONE VIEW PORTABLE CLINICAL HISTORY: EVALUATE RESPIRATORY DISTRESS. DYSPNEA chest pain COMPARISON STUDY: 12/01/2016 FINDINGS: The bones soft tissues and hemidiaphragms are normal. The cardiomediastinal silhouette is normal. The lungs are clear. The pulmonary vasculature is normal. Chronic elevation right hemidiaphragm. Mild prominence of the interstitial markings considered chronic IMPRESSION: Mild stable cardiomegaly. Slight chronic interstitial prominence The above report was generated using voice recognition software. It may contain grammatical, syntax or spelling errors. Electronically signed by: Jose Devine M.D. 04/18/2017 6:29 AM Dictated Date/Time: 04/18/2017 6:28 AM
[2017-04-18 06:32] LABS: MANUAL MICROSCOPIC REQUIRED? NO; REVIEW REQ? NO
[2017-04-18] MEDS ORDERED: INSULIN ASPART 100 UNITS/ML 3 ML PEN SC SCH (07:00)
--- NOTE | 2017-04-18 07:19 | History and Physical ---
History & Physical Date & Time of Service: Apr 18, 2017 at 06:00 Chief Complaint: Chest Pain Primary Care Physician: Seamus Roach D.O. History of Present Illness Source: patient, family, clinic records, hospital records 71 yo M with chronic diastolic heart failure and chronic neck and back pain on Nucynta presents with R anterior chest pain which began when he awoke yesterday morning and has been constant ever since. The pain is intense leaving him feeling that it's hard to take a deep breath and he states that it is sharp and travels up into his R neck and shoulder. He reports a h/o heart catheterization in the past with a known 70% blockage. He denies any pain until yesterday, however. He denies any assoc symptoms of diaphoresis, lightheadedness, palpiatations, nausea or numbness/tingling. He does have atrial fibrillation and is on coumadin, digoxin and diltiazem. He has a very significant anterior head carriage and a very restricted ROM of his C-spine. He states that he walks hunched over, indicating that this is likely chronic. There is no TTP of anterior chest wall. In the ER initial ischemic workup is negative including CXR, troponin, and EKG. Past Medical/Surgical History Medical Problems: (2) Asthma Status: Chronic (3) Atrial fibrillation Status: Chronic (4) Back pain Status: Resolved (5) Neck pain Status: Resolved (6) Benign hypertension Status: Chronic (7) CERVICAL SPINAL STENOSIS Status: Resolved (8) Coronary artery disease Status: Chronic (9) Depressive Disorder Nec Status: Chronic (10) Dermatitis Status: Chronic (11) Diabetes mellitus type 2 Status: Chronic (12) Diverticulitis of colon Status: Resolved (13) Dyslipidemia Status: Chronic (14) Esophageal Reflux Status: Chronic (15) Hyperlipidemia Status: Chronic (16) Impotence of organic origin Status: Chronic (17) Lumbago Status: Chronic (18) Migraine Unspecified W/O Intractable Migraine Status: Chronic (19) Psoriasis Status: Chronic (20) Sleep apnea Status: Chronic Surgical Problems: (1) Cardiac catheterization Status: Resolved (2) cervical spine fusion Status: Resolved (3) History of appendectomy Status: Resolved (4) Lumbar spinal fusion Status: Resolved (5) Surgical repair of Left Foot Status: Resolved Family History Diabetes mellitus Heart disease Social History Smoking Status: Former Smoker Smokeless Tobacco Use: No Alcohol Use: none Drug Use: none Marital Status: Housing status: lives with family Occupational Status: retired Immunizations History of Influenza Vaccine: Yes Influenza Vaccine Date: Jun 23, 2016 History of Tetanus Vaccine?: Yes Tetanus Immunization Date: Apr 25, 2012 History of Pneumococcal: Yes Pneumococcal Date: Jul 27, 2014 History of Hepatitis B Vaccine: No Multi-Drug Resistant Organisms History of MDRO: No Allergies Coded Allergies: Cephalosporins (Verified Allergy, Unknown, 04/18/17) Penicillins (Verified Allergy, Unknown, 04/18/17) Sulfamethoxazole w/Trimethoprim (Verified Allergy, Unknown, HIVES, 04/18/17 ) Tetracyclines (Verified Allergy, Unknown, 04/18/17) Uncoded Allergies: CONTRAST DYE (Allergy, Unknown, KIDNEY PROBLEMS, 08/20/14) Home Medications Scheduled Alfuzosin Hcl (Alfuzosin Hcl Er), 10 MG PO DAILY Aspirin (Aspirin Ec), 81 MG PO Q2D Atorvastatin (Lipitor), 40 MG PO at 1700 Bumetanide (Bumex), 2 MG PO DAILY Digoxin (Digoxin), 0.125 MG PO DAILY Diltiazem HCl (Diltiazem HCl ER), 180 MG PO BID Duloxetine Hcl (Cymbalta), 1 CAP PO DAILY Lotus (Zingiber Officinalis) (Lotus Root), 2 CAP PO BID Glipizide (Glipizide), 10 MG PO BID Lisinopril (Zestril), 20 MG PO DAILY Magnesium Chloride-Calcium Car (Slow-Mag), 1 TAB PO BID Metformin Hcl (Glucophage), 1,000 MG PO BID Omeprazole (Prilosec), 20 MG PO DAILY Tapentadol Hcl (Nucynta Er), 50 MG PO DAILY Warfarin Sod (Coumadin), 1 TAB PO UD Warfarin Sodium (Warfarin Sodium), 7.5 MG PO UD Scheduled PRN Trazodone Hcl (Desyrel), 25-50 MG PO HS PRN for Sleep Triamcinolone Acet (Aristocort 0.1%), 1 APPLN TOP BID PRN for Review of Systems At least ten systems were reviewed and negative except as indicated in HPI Physical Exam Vital Signs Date Time Temp Pulse Resp B/P (MAP) Pulse Ox O2 Delivery O2 Flow Rate FiO2 04/18/17 03:28 75 7/16/17 03:26 36.6 77 18 163/87 93 Room Air 04/18/17 03:26 Room Air 04/18/17 03:26 Room Air GEN: obese, in mild distress, alert and appropriate HEENT: NC/AT, PERRL, normal sclerae, MMM, pharynx non-acute NECK: significant restriction in all planes of motion (active and passive motion similar), no TTP of trapeziua muscles and posterior strap muscles) CARDIO: reg rate, S1/2 heard without m/g/r, no tenderness to palpation of anterior chest wall. LUNGS: CTA bilaterally, no crackles, rales or wheezes, good diaphragmatic excursion ABD: soft, non-tender, non-distended, no rebound or guarding, +BS EXTREMITY: RP and DP palpable 2+ bilat, no LE swelling or edema, extremities are warm and well-perfused NEURO: CN 2-12 grossly intact, sensation intact throughout MUSC: 5/5 strength throughout, no focal deficits SKIN: warm and dry Diagnostics Laboratory Results 04/18/17 03:08 Red Blood Count 4.24, Mean Corpuscular Volume 86.3, Mean Corpuscular Hemoglobin 27.8, Mean Corpuscular Hemoglobin Concent 32.2, Mean Platelet Volume 10.3, Neutrophils (%) (Auto) 68.5, Lymphocytes (%) (Auto) 18.3, Monocytes (%) (Auto) 8.4, Eosinophils (%) (Auto) 4.2, Basophils (%) (Auto) 0.4, Neutrophils # (Auto) 6.76, Lymphocytes # (Auto) 1.80, Monocytes # (Auto) 0.83, Eosinophils # (Auto) 0.41, Basophils # (Auto) 0.04 04/18/17 03:08 Test 04/18/17 03:08 04/18/17 03:35 04/18/17 03:59 04/18/17 06:16 White Blood Count 9.86 K/uL (4.8-10.8) Red Blood Count 4.24 M/uL (4.7-6.1) Hemoglobin 11.8 g/dL (14.0-18.0) Hematocrit 36.6 % (42-52) Mean Corpuscular Volume 86.3 fL (80-100) Mean Corpuscular Hemoglobin 27.8 pg (25-34) Mean Corpuscular Hemoglobin Concent 32.2 g/dl (32-36) Platelet Count 218 K/uL (130-400) Mean Platelet Volume 10.3 fL (7.4-10.4) Neutrophils (%) (Auto) 68.5 % Lymphocytes (%) (Auto) 18.3 % Monocytes (%) (Auto) 8.4 % Eosinophils (%) (Auto) 4.2 % Basophils (%) (Auto) 0.4 % Neutrophils # (Auto) 6.76 K/uL (1.4-6.5) Lymphocytes # (Auto) 1.80 K/uL (1.2-3.4) Monocytes # (Auto) 0.83 K/uL (0.11-0.59) Eosinophils # (Auto) 0.41 K/uL (0-0.5) Basophils # (Auto) 0.04 K/uL (0-0.2) RDW Standard Deviation 48.3 fL (36.4-46.3) RDW Coefficient of Variation 15.1 % (11.5-14.5) Immature Granulocyte % (Auto) 0.2 % Immature Granulocyte # (Auto) 0.02 K/uL (0.00-0.02) Prothrombin Time 26.0 SECONDS (9.0-12.0) Prothromb Time International Ratio 2.3 (0.9-1.1) Activated Partial Thromboplast Time 35.6 SECONDS (21.0-31.0) Partial Thromboplastin Ratio 1.4 Anion Gap 8.0 mmol/L (3-11) Est Creatinine Clear Calc Drug Dose 62.3 ml/min Estimated GFR () 52.8 Estimated GFR (Non- 45.5 BUN/Creatinine Ratio 15.9 (10-20) Calcium Level 9.0 mg/dl (8.5-10.1) Total Bilirubin 0.3 mg/dl (0.2-1) Aspartate Amino Transf (AST/SGOT) 18 U/L (15-37) Alanine Aminotransferase (ALT/SGPT) 28 U/L (12-78) Alkaline Phosphatase 94 U/L (45-117) Pro-B-Type Natriuretic Peptide 524 pg/ml (0-900) Total Protein 7.2 gm/dl (6.4-8.2) Albumin 3.4 gm/dl (3.4-5.0) Globulin 3.8 gm/dl (2.5-4.0) Albumin/Globulin Ratio 0.9 (0.9-2) Bedside D-Dimer 111 ng/mlFEU (0-450) Digoxin Level 0.7 ng/ml (0.8-2.0) Urine Color YELLOW Urine Appearance CLEAR (CLEAR) Urine pH 5.0 (4.5-7.5) Urine Specific Emblem 1.028 (1.000-1.030) Urine Protein NEG (NEG) Urine Glucose (UA) NEG (NEG) Urine Ketones TRACE (NEG) Urine Occult Blood NEG (NEG) Urine Nitrite NEG (NEG) Urine Bilirubin NEG (NEG) Urine Urobilinogen NEG (NEG) Urine Leukocyte Esterase NEG (NEG) Test 04/18/17 07:51 04/18/17 08:45 Bedside Glucose 201 mg/dl (70-99) Creatine Kinase MB Ratio (0-3.0) Results Past 24 Hours Test 04/18/17 03:08 04/18/17 03:35 04/18/17 03:59 Range/Units White Blood Count 9.86 4.8-10.8 K/uL Red Blood Count 4.24 4.7-6.1 M/uL Hemoglobin 11.8 14.0-18.0 g/dL Hematocrit 36.6 42-52 % Mean Corpuscular Volume 86.3 80-100 fL Mean Corpuscular Hemoglobin 27.8 25-34 pg Mean Corpuscular Hemoglobin Concent 32.2 32-36 g/dl Platelet Count 218 130-400 K/uL Mean Platelet Volume 10.3 7.4-10.4 fL Neutrophils (%) (Auto) 68.5 % Lymphocytes (%) (Auto) 18.3 % Monocytes (%) (Auto) 8.4 % Eosinophils (%) (Auto) 4.2 % Basophils (%) (Auto) 0.4 % Neutrophils # (Auto) 6.76 1.4-6.5 K/uL Lymphocytes # (Auto) 1.80 1.2-3.4 K/uL Monocytes # (Auto) 0.83 0.11-0.59 K/uL Eosinophils # (Auto) 0.41 0-0.5 K/uL Basophils # (Auto) 0.04 0-0.2 K/uL RDW Standard Deviation 48.3 36.4-46.3 fL RDW Coefficient of Variation 15.1 11.5-14.5 % Immature Granulocyte % (Auto) 0.2 % Immature Granulocyte # (Auto) 0.02 0.00-0.02 K/uL Prothrombin Time 26.0 9.0-12.0 SECONDS Prothromb Time International Ratio 2.3 0.9-1.1 Activated Partial Thromboplast Time 35.6 21.0-31.0 SECONDS Partial Thromboplastin Ratio 1.4 Sodium Level 136 136-145 mmol/L Potassium Level 4.2 3.5-5.1 mmol/L Chloride Level 99 98-107 mmol/L Carbon Dioxide Level 29 21-32 mmol/L Anion Gap 8.0 3-11 mmol/L Blood Urea Nitrogen 24 7-18 mg/dl Creatinine 1.50 0.60-1.40 mg/dl Est Creatinine Clear Calc Drug Dose 62.3 ml/min Estimated GFR () 52.8 Estimated GFR (Non- 45.5 BUN/Creatinine Ratio 15.9 10-20 Random Glucose 204 70-99 mg/dl Calcium Level 9.0 8.5-10.1 mg/dl Total Bilirubin 0.3 0.2-1 mg/dl Aspartate Amino Transf (AST/SGOT) 18 15-37 U/L Alanine Aminotransferase (ALT/SGPT) 28 12-78 U/L Alkaline Phosphatase 94 45-117 U/L Total Creatine Kinase 266 39-308 U/L Creatine Kinase MB 6.1 0.5-3.6 ng/ml Creatine Kinase MB Ratio 2.3 0-3.0 Troponin I < 0.015 0-0.045 ng/ml Pro-B-Type Natriuretic Peptide 524 0-900 pg/ml Total Protein 7.2 6.4-8.2 gm/dl Albumin 3.4 3.4-5.0 gm/dl Globulin 3.8 2.5-4.0 gm/dl Albumin/Globulin Ratio 0.9 0.9-2 Bedside D-Dimer 111 0-450 ng/mlFEU Digoxin Level 0.7 0.8-2.0 ng/ml Diagnostic Radiology CHEST ONE VIEW PORTABLE CLINICAL HISTORY: EVALUATE RESPIRATORY DISTRESS. DYSPNEA chest pain COMPARISON STUDY: 12/01/2016 FINDINGS: The bones soft tissues and hemidiaphragms are normal. The cardiomediastinal silhouette is normal. The lungs are clear. The pulmonary vasculature is normal. Chronic elevation right hemidiaphragm. Mild prominence of the interstitial markings considered chronic IMPRESSION: Mild stable cardiomegaly. Slight chronic interstitial prominence EKG afib 77, no ST changes. Impression Assessment and Plan 71 yo M with nonobstructive CAD and recent hospitalization for diastolic heart failure 3-4 months ago presents with severe R-sided chest pain and associated SOB. 1. Chest pain-etiologies include but not limited to ACS (poss with assoc SOB, however, pain has been constant for >24 hours with no elevation of enzymes or evidence of ischemia on EKG), MSK sprain/strain, referred pain (GI, spinal stenosis and kyphotic neck placing strain on supporting musculature), PE less likely with negative D-dimer and low risk. Trend serial cardiac enzymes, consult cardiology-appreciate recs, consider risk stratification once ruled out. Keep NPO in case of stress test. Treat pain with morphine/dilaudid as needed. Nitro and GI cocktail PRN are available, also. ASA given, Lipitor, Lisinopril. 2. Neck pain-likely acute on chronic neck pain--pt with severely poor posture and significant anterior head carriage placing significant strain on surrounding musculature. Supportive care. Of note, cannot put patient passively into an upright posture as this situation is severe. Cont chronic Nucynta 3. CLARISSA-cont CPAP 4. Chronic afib-anticoagulated with coumadin, rate controlled with dig and diltiazem 5. DMII-ISS/Lantus per protocol, appreciate glycemic pharmacist assistance w management 6. Chronic diastolic heart failure-appears clinically compensated. Cont dig, lisinopril, Bumex, ASA 7. CKD III-at baseline. Avoid nephrotoxic substances. DVT prophy-coumadin Full Code Dispo-telemetry DO [facility] Hospital[facility] Level of Care Telemetry Resuscitation Status FULL RESUSCITATION VTE Prophylaxis VTE Risk Assessment Done? Y/N: Yes Risk Level: Moderate Given or contraindicated: Warfarin (Coumadin) Additional Copies To Seamus Roach D.O.
[2017-04-18] MEDS ORDERED: NURSING VERBAL MED ORDER ONE (08:00)
[2017-04-18] MEDS: PANTOprazole SOD 40 MG TAB PO SCH (08:14)
[2017-04-18] MEDS: LISINOPRIL 20 MG TAB PO SCH (08:14)
[2017-04-18] MEDS: DILTIAZEM HCL 180 MG CAPCR PO SCH ×2 (08:14→21:20)
[2017-04-18] MEDS: DULOXETINE HCL 60 MG CAP PO SCH (08:14)
[2017-04-18] MEDS: ALFUZosin TAB 10 MG TAB PO SCH (08:14)
[2017-04-18] MEDS: MAGNESIUM CHLORIDE 64MG DELAYED REL TAB PO SCH ×2 (08:14→21:18)
[2017-04-18] MEDS: BUMETANIDE 1 MG TAB PO SCH (08:15)
[2017-04-18] MEDS: INSULIN ASPART 100 UNITS/ML 3 ML PEN SC SCH ×4 (08:16→21:15)
[2017-04-18] MEDS: INSULIN GLARGINE SOLOSTAR 100 UNITS/ML 3 ML PEN SC SCH ×2 (08:16→21:16)
[2017-04-18] MEDS: TAPENTADOL ER 50 MG TABCR PO SCH (08:28)
[2017-04-18 10:33] LABS: CKMB/CK RATIO 2.3 (0-3.0)
--- NOTE | 2017-04-18 11:42 | Pharmacy Progress Note ---
Glycemic Control Intl Consult Date of Service Apr 18, 2017. Scope Glycemic Pharmacist consulted by Dr Brown on 04/18 for glycemic control and to write orders per [facility] inpatient glycemic control protocol Objective Weight (Kilograms): 134.600 Accuchecks BSG (last 24hrs): Test 04/18/17 03:08 04/18/17 07:51 04/18/17 11:28 Random Glucose 204 mg/dl (70-99) Bedside Glucose 201 mg/dl (70-99) 176 mg/dl (70-99) Laboratory Data (last 24hrs) Test 04/18/17 03:08 Anion Gap 8.0 mmol/L BUN/Creatinine Ratio 15.9 Blood Urea Nitrogen 24 mg/dl Creatinine 1.50 mg/dl Potassium Level 4.2 mmol/L Sodium Level 136 mmol/L White Blood Count 9.86 K/uL Red Blood Count 4.24 M/uL Hemoglobin 11.8 g/dL Hematocrit 36.6 % Mean Corpuscular Volume 86.3 fL Mean Corpuscular Hemoglobin 27.8 pg Mean Corpuscular Hemoglobin Concent 32.2 g/dl Platelet Count 218 K/uL Mean Platelet Volume 10.3 fL Neutrophils (%) (Auto) 68.5 % Lymphocytes (%) (Auto) 18.3 % Monocytes (%) (Auto) 8.4 % Eosinophils (%) (Auto) 4.2 % Basophils (%) (Auto) 0.4 % Neutrophils # (Auto) 6.76 K/uL Lymphocytes # (Auto) 1.80 K/uL Monocytes # (Auto) 0.83 K/uL Eosinophils # (Auto) 0.41 K/uL Basophils # (Auto) 0.04 K/uL Recent Pertinent Medications Outpatient Anti-diabetic Regimen: * Glipizide 10 mg BID * Metformin 1 gm BID * A1c = 8.6 % 12/03/16 The patient is currently receiving: * Basal insulin: Lantus 10 units every 12 hours * Correctional Insulin: Novolog Correction per scale ACHS Goal Range: Low 100 mg/dL - High 140 mg/dL Correction Factor: 30 mg/dL/unit * Prandial insulin: Per carb ratio of 1 unit per 11 grams CHO consumed * Oral Agents: None at this time Risk Factors for Insulin Resistance: * Diet: was NPO but just advanced to type 2 diabetes/ AHA for lunch Assessment & Plan ASSESSMENT: * Pt is maintained on oral antidiabetic agents as an outpatient * Oral agents are not recommended for inpatient use d/t drug interactions, changing PO intake, and difficulty titrating for acute hyper/hypoglycemia. ADA recommends re-initiating outpatient oral agents 1-2 days prior to discharge if/ when appropriate if they were held on admission. * Will hold oral agents for admission and utilize SQ basal bolus insulin regimen which is the recommended regimen for inpatient glycemic control. * Will continue weight based insulin dosing for insulin cornelia patient and titrate based on BSG trends. * ADA & AACE recommend a goal blood sugar range 140-180 mg/dl for the majority of critically ill & non-critically ill patients. However, more stringent targets may be selected in individual cases. Will utilize more stringent goal of 100-140 mg/dl based on patient age & comorbidities. Additionally, tighter glycemic control is warranted to facilitate wound/infection healing. PLAN FOR INPATIENT GLYCEMIC CONTROL: * Continue Lantus 10 units SQ BID * Continue correction factor of 30 mg/dl/unit * Continue carb ratio of 1 unit per 11 grams CHO consumed * Continue goal range of Low 100 mg/dL - High 140 mg/dL * A1c w/ AM labs to assess outpatient control and aid with guiding discharge recommendations * Please note that the plan above was derived based on current level of insulin resistance and hospital stress. These recommendations are appropriate for inpatient admission only. Plan of care upon discharge will need to be reassessed to avoid potential outpatient hypo/hyperglycemia. Thank you.
--- NOTE | 2017-04-18 12:16 | DIAGNOSTIC IMAGING REPORT ---
VENOUS DOPPLER LW EXT BILAT HISTORY: Pain. Edema. eval for DVT COMPARISON STUDY: 12/01/2016 FINDINGS: There is normal compressibility, flow, and augmentation within the bilateral lower extremity deep venous systems. IMPRESSION: No DVT within the right or left lower extremity. The above report was generated using voice recognition software. It may contain grammatical, syntax or spelling errors. Electronically signed by: Jose Devine M.D. 04/18/2017 12:15 PM Dictated Date/Time: 04/18/2017 12:14 PM
--- NOTE | 2017-04-18 12:33 | Cardiology Consultation ---
Cardiology Consultation Date of Service Apr 18, 2017. Cardiology Consultation CARDIOLOGY CONSULTATION DATE OF CONSULTATION: April 18, 2017 REFERRING PHYSICIAN: Sara Brown DO REASON FOR CONSULT: Chest pain in patient with known coronary artery disease. HISTORY OF PRESENT ILLNESS: 71-year-old man with CAD (previously borderline occlusive), chronic diastolic congestive heart failure, permanent atrial fibrillation (warfarin/diltiazem/ digoxin), cervical spinal stenosis, and other medical problems who was admitted early 04/18/2017 after noting right anterior chest pain radiating to his neck. He states that the onset was late Wednesday (a day and a half ago) with symptoms continuing throughout Wednesday (yesterday) and quite notable when he awoke from a few our sleep last night, prompting him to report to the ER. He does note some associated dyspnea, and at the time my exam he noted that the pain was increased when he took a deep breath. No subjective palpitations, diaphoresis, or lightheadedness. At recent baseline, he had not been noting any chest discomfort or dyspnea. ER evaluation including ECG showing atrial fibrillation with controlled ventricular rate and no ST changes. Initial cardiac enzymes are negative. At the time of my evaluation, he noted persistent moderate intensity right anterior chest discomfort radiating to the neck which increased on inspiration. OUTPATIENT MEDICATIONS: Alfuzosin Aspirin 81 mg every other day Ativan Atorvastatin 40 mg daily Bumetanide 2 mg daily Cymbalta Digoxin 125 micrograms daily Diltiazem 180 mg b.i.d. Hydrocortisone cream Januvia Metformin Nucynta Omeprazole Slow-Mag 1 tablet twice daily Warfarin, current dose 10 mg Wednesday, 7.5 mg the other 4 days. ALLERGIES: Cefadroxil caused a rash. Penicillin caused rash. Tetracyclines caused rash. PAST MEDICAL HISTORY: Anticoagulant use long-term (warfarin) CAD, previously borderline occlusive at catheterization 2005 (50 % LAD) C8 cervical radiculopathy Chronic diastolic CHF, hospitalized November 2016, has done well on sliding scale Bumex since then. Normal LV systolic function on echo December 2016. Diaphragmatic paralysis right side Dyslipidemia Extrinsic asthma Hypomagnesemia Hypertension Obesity Obstructive sleep apnea, has CPAP Permanent atrial fibrillation Type 2 diabetes mellitus Psoriasis GERD Diverticulitis Depression PAST SURGICAL HISTORY: Cervical spine fusion Lumbar spine fusion Appendectomy Left foot surgery SOCIAL HISTORY: Former smoker. and accompanied by his . Never drank alcohol. Retired. FAMILY HISTORY: Mother with asthma. REVIEW OF SYSTEMS: As per HPI. Weight stable recently. No bleeding problems. No focal neurologic symptoms. PHYSICAL EXAMINATION: No distress. Vitals: Afebrile. BP 136/64, pulse 87 and irregular, respirations 20 but unlabored. Skin: No unusual lesions or ecchymosis. HEENT: Unremarkable. Neck: Jugular venous pulse most corner of the way to the jaw at 90, no carotid bruits. Lungs: Clear in general, absent breath sounds right base (chronically paralyzed diaphragm). No wheezing or crackles. Cardiac: Irregular rhythm with 2/6 apical holosystolic murmur which is nonradiating, no diastolic murmur or distinct gallop. Abdomen: Benign. Extremities: Nontender with 1+ pretibial edema, palpable peripheral pulses, good capillary refill. Neurologic: Normal affect, nonfocal. DATA: ECG showed atrial fibrillation with ventricular rate of 77 bpm, ST segments were isoelectric. Compared with 12/01/2016 study, no significant change. Chest x-ray with chronic right hemidiaphragm elevation and mild increased interstitial markings (also felt chronic). Hemoglobin 11.8 with normal white count and platelet count. INR therapeutic at 2.3. Normal electrolytes, BUN 24, creatinine 1.5, glucose 204. Cardiac enzymes negative x2 IMPRESSION: 1. Right anterior chest pain radiating to the neck, pleuritic component/ evaluation underway 2. Coronary artery disease, previously borderline occlusive/no definite evidence of ischemia so far 3. Chronic diastolic congestive heart failure, reasonably compensated 4. Permanent atrial fibrillation, rate controlled/anticoagulated (therapeutic INR) 5. Asthma, no bronchospasm currently. 6. Chronically elevated right hemidiaphragm 7. Cervical spinal stenosis with chronic pain. 8. Multiple other medical problems as noted. DISCUSSION: Patient well known to me. Although he does have a history of borderline occlusive coronary disease, he has not had any angina or other suggestive symptoms and had a normal ECG and enzymes during a hospitalization earlier this year for decompensated heart failure, suggesting that he does not have advanced occlusive disease. His current ECG and enzymes are negative in the face of prolonged chest discomfort (greater than 24 hour) of at least moderate severity , suggesting myocardial ischemia is an unlikely etiology for his presenting complaint. I did have some concern about possible pulmonary embolism given pleuritic chest pain and dyspnea, but his D-dimer is negative and his INR is therapeutic on warfarin. Reasonable to check Doppler study of lower extremities. Given borderline renal function, hold on chest CT, but would reconsider if he has progressive dyspnea, chest pain, or suggestive findings on his upcoming echocardiogram (pending). Possibly, his cervical spine disease could be a contributing factor. Will follow along with further enzymes and ECGs and decide tomorrow a.m. next steps ( stress testing versus other route). Thank you for allowing me to participate in the care of this patient whom I have followed from a cardiac standpoint since 1997.
--- NOTE | 2017-04-18 13:05 | ECHOCARDIOGRAM REPORT ---
*NOTICE TO RECEIVING REPUBLICAN AGENCY This information is strictly Confidential and protected under [place] law. [place] law prohibits you from making any further disclosure of this information unless further disclosure is expressly permitted by the written consent of the person to whom it pertains or is authorized by law. A general authorization for the release of medical or other information is not sufficient for this purpose. Hospital accepts no responsibility if the information is made available to any other person, INCLUDING THE PATIENT. Interpretation Summary * Name: LAURA STANLEY Study Date: 04/18/2017 10:41 AM BP: 136/64 mmHg * Patient Location: [facility]\S\N278\S\2 HR: 87 * : 1945 (M/d/yyyy) Gender: Male Height: 72 in * Age: 71 yrs Ethnicity: [place] Weight: 297 lb * Ordering Physician: Jenni Agarwal * Referring Physician: Self, Referred * Performed By: Donna Valdovinos RDCS * * Reason For Study: CHEST PAIN * BSA: 2.5 m2 * -- Conclusions -- * Compared with 12/02/16 study, no significant change. * The left ventricle is mildly dilated. * There is mild concentric left ventricular hypertrophy. * Ejection Fraction = 60-65%. * Left ventricular systolic function is normal. * The left ventricular wall motion is normal. * The right ventricle is mild to moderately dilated. * The right ventricular systolic function is normal. * No significant valvular disease on technically limited Doppler. Procedure Details * A contrast injection of Definity was performed to improve assessment of LV function. * Contrast was injected into an intravenous site in the left arm. * One vial of Definity ultrasound contrast was diluted in normal saline to a total volume of 10 ml. A total of '2' ml of solution was administered during imaging. * Lot # [id number] of Definity utilized for procedure. * Expiration date MAY 21. * The attending nurse who injected the contrast agent was ABY GILMORE RN. * The study was technically limited. Left Ventricle * The left ventricle is mildly dilated. * There is mild concentric left ventricular hypertrophy. * Ejection Fraction = 60-65%. * Left ventricular systolic function is normal. * The left ventricular wall motion is normal. Right Ventricle * The right ventricle is mild to moderately dilated. * There is normal right ventricular wall thickness. * The right ventricular systolic function is normal. Atria * The left atrium is moderately dilated. * The right atrium is mildly dilated. * The interatrial septum is intact with no evidence for an atrial septal defect. Mitral Valve * The mitral valve is normal in structure and function. * Significant mitral regurgitation is absent. Tricuspid Valve * The tricuspid valve is normal in structure and function. * There is trace tricuspid regurgitation. Aortic Valve * The aortic valve is normal in structure and function. * The aortic valve is trileaflet. * No hemodynamically significant valvular aortic stenosis. * There is no significant aortic regurgitation. Pulmonic Valve * The pulmonic valve is not well visualized. Great Vessels * The aortic root is normal size. * No obvious dissection could be visualized. * The pulmonary artery is not well visualized, but is probably normal size. Pericardium/Pleural * There is no pericardial effusion. MMode 2D Measurements and Calculations IVSd 1.2 cm IVSs 1.8 cm LVIDd 4.9 cm LVIDs 3.3 cm LVPWd 1.3 cm LVPWs 2.1 cm IVS/LVPW 0.92 FS 32.0 % EDV(Teich) 111.3 ml ESV(Teich) 44.5 ml EF(Teich) 60.0 % EDV(cubed) 115.6 ml ESV(cubed) 36.3 ml EF(cubed) 68.6 % % IVS thick 55.8 % % LVPW thick 63.5 % LV mass(C)d 232.1 grams LV mass(C)dI 92.1 grams/m\S\2 LV mass(C)s 286.2 grams LV mass(C)sI 113.6 grams/m\S\2 SV(Teich) 66.8 ml SI(Teich) 26.5 ml/m\S\2 SV(cubed) 79.3 ml SI(cubed) 31.5 ml/m\S\2 Ao root diam 2.9 cm Ao root area 6.6 cm\S\2 LA dimension 4.5 cm LA/Ao 1.5 LVAd ap4 26.9 cm\S\2 LVLd ap4 7.6 cm EDV(MOD-sp4) 78.5 ml EDV(sp4-el) 81.0 ml LVAs ap4 15.6 cm\S\2 LVLs ap4 7.2 cm ESV(MOD-sp4) 29.2 ml ESV(sp4-el) 28.9 ml EF(MOD-sp4) 62.8 % EF(sp4-el) 64.3 % LVAd ap2 34.0 cm\S\2 LVLd ap2 8.8 cm EDV(MOD-sp2) 106.0 ml EDV(sp2-el) 111.3 ml LVAs ap2 19.0 cm\S\2 LVLs ap2 7.2 cm ESV(MOD-sp2) 43.2 ml ESV(sp2-el) 42.4 ml EF(MOD-sp2) 59.2 % EF(sp2-el) 61.9 % LVLd %diff 13.8 % EDV(MOD-bp) 99.4 ml LVLs %diff 0.33 % ESV(MOD-bp) 35.4 ml EF(MOD-bp) 64.4 % SV(MOD-sp4) 49.4 ml SI(MOD-sp4) 19.6 ml/m\S\2 SV(MOD-sp2) 62.8 ml SI(MOD-sp2) 24.9 ml/m\S\2 SV(MOD-bp) 64.0 ml SI(MOD-bp) 25.4 ml/m\S\2 SV(sp4-el) 52.0 ml SI(sp4-el) 20.7 ml/m\S\2 SV(sp2-el) 69.0 ml SI(sp2-el) 27.4 ml/m\S\2 Doppler Measurements and Calculations Ao V2 max 228.3 cm/sec Ao max PG 20.9 mmHg Ao max PG (full) 15.4 mmHg Ao V2 mean 144.6 cm/sec Ao mean PG 10.2 mmHg Ao mean PG (full) 7.3 mmHg Ao V2 VTI 36.8 cm LV V1 max PG 5.5 mmHg LV V1 mean PG 2.9 mmHg LV V1 max 117.2 cm/sec LV V1 mean 78.2 cm/sec LV V1 VTI 23.9 cm SV(Ao) 244.0 ml SI(Ao) 96.9 ml/m\S\2 TR max mich 253.5 cm/sec
--- NOTE | 2017-04-18 13:57 | Progress Note ---
Internal Med Progress Note Date of Service: Apr 18, 2017. Provider Documentation: SUBJECTIVE: mentions still having pain on rt side of chest with radiation to rt side of neck pain is worse with taking deep breath no cough .no hypoxia noted OBJECTIVE: Vital Signs-as noted below Exam: General-no sign of distress Eyes-sclera non icteric Neck-no JVD Lungs-no rales or wheeze noted Heart-regular Abdomen-soft, non tender Extremities-psoriatic rash on back Neuro-no focal deficit , AAO x3 Lab data as noted below. ASSESSMENT & PLAN: 71 yo M with nonobstructive CAD and recent hospitalization for diastolic heart failure 3-4 months ago presents with severe R-sided chest pain and associated SOB. 1. Chest pain -atypical for angina rt sided, pleuritic-worse with taking deep breath and change of position has been ongoing for past few day PE less likely with negative D-dimer and on Coumadin INR therapeutic lower ext Doppler Negative for DVT appreciate input form cardiology ECHO : shows no wall motion abnormality possible vial costochondritis NSAID avoided due to CKD pt is Ok to try Tylenol for pain control continue to monitor in tele - 2. Neck pain-likely acute on chronic neck pain- -pt with severely poor posture and significant anterior head carriage placing significant strain on surrounding musculature. Cont chronic Nucynta Xray of cervical spine ordered 3. CLARISSA-cont CPAP 4. Chronic afib- anticoagulated with Coumadin, rate controlled with dig and diltiazem 5. TYPE 2 DM -ISS/Lantus per protocol, appreciate glycemic pharmacist assistance w management 6. Chronic diastolic heart failure -appears clinically compensated. Cont dig, lisinopril, Bumex, ASA 7. CKD III -at baseline. Avoid nephrotoxic substances. Full Code DVT PROPHYLAXIS on Coumadin DISPOSITION Discharge home when medically stable PT/OT eval requested prior to discharge Medicine follow up with Dr West Vital Signs: Date Time Temp Pulse Resp B/P (MAP) Pulse Ox O2 Delivery O2 Flow Rate FiO2 04/18/17 11:32 36.3 87 20 136/64 Room Air 04/18/17 11:19 36.3 87 20 136/64 (88) 93 Room Air 04/18/17 07:27 36.8 89 20 165/73 (103) 92 Room Air 04/18/17 06:11 148/79 93 Room Air 04/18/17 05:46 83 18 04/18/17 05:16 72 20 04/18/17 04:46 85 16 04/18/17 04:20 151/86 04/18/17 04:16 72 19 04/18/17 03:46 77 21 93 Room Air 04/18/17 03:31 157/86 04/18/17 03:28 75 04/18/17 03:26 36.6 77 18 163/87 93 Room Air 04/18/17 03:26 Room Air 04/18/17 03:26 Room Air 04/18/17 03:21 163/87 Lab Results: Results Past 24 Hours Test 04/18/17 03:08 04/18/17 03:35 04/18/17 03:59 04/18/17 06:16 Range/Units White Blood Count 9.86 4.8-10.8 K/uL Red Blood Count 4.24 4.7-6.1 M/uL Hemoglobin 11.8 14.0-18.0 g/dL Hematocrit 36.6 42-52 % Mean Corpuscular Volume 86.3 80-100 fL Mean Corpuscular Hemoglobin 27.8 25-34 pg Mean Corpuscular Hemoglobin Concent 32.2 32-36 g/dl Platelet Count 218 130-400 K/uL Mean Platelet Volume 10.3 7.4-10.4 fL Neutrophils (%) (Auto) 68.5 % Lymphocytes (%) (Auto) 18.3 % Monocytes (%) (Auto) 8.4 % Eosinophils (%) (Auto) 4.2 % Basophils (%) (Auto) 0.4 % Neutrophils # (Auto) 6.76 1.4-6.5 K/uL Lymphocytes # (Auto) 1.80 1.2-3.4 K/uL Monocytes # (Auto) 0.83 0.11-0.59 K/uL Eosinophils # (Auto) 0.41 0-0.5 K/uL Basophils # (Auto) 0.04 0-0.2 K/uL RDW Standard Deviation 48.3 36.4-46.3 fL RDW Coefficient of Variation 15.1 11.5-14.5 % Immature Granulocyte % (Auto) 0.2 % Immature Granulocyte # (Auto) 0.02 0.00-0.02 K/uL Prothrombin Time 26.0 9.0-12.0 SECONDS Prothromb Time International Ratio 2.3 0.9-1.1 Activated Partial Thromboplast Time 35.6 21.0-31.0 SECONDS Partial Thromboplastin Ratio 1.4 Sodium Level 136 136-145 mmol/L Potassium Level 4.2 3.5-5.1 mmol/L Chloride Level 99 98-107 mmol/L Carbon Dioxide Level 29 21-32 mmol/L Anion Gap 8.0 3-11 mmol/L Blood Urea Nitrogen 24 7-18 mg/dl Creatinine 1.50 0.60-1.40 mg/dl Est Creatinine Clear Calc Drug Dose 62.3 ml/min Estimated GFR () 52.8 Estimated GFR (Non- 45.5 BUN/Creatinine Ratio 15.9 10-20 Random Glucose 204 70-99 mg/dl Calcium Level 9.0 8.5-10.1 mg/dl Total Bilirubin 0.3 0.2-1 mg/dl Aspartate Amino Transf (AST/SGOT) 18 15-37 U/L Alanine Aminotransferase (ALT/SGPT) 28 12-78 U/L Alkaline Phosphatase 94 45-117 U/L Total Creatine Kinase 266 39-308 U/L Creatine Kinase MB 6.1 0.5-3.6 ng/ml Creatine Kinase MB Ratio 2.3 0-3.0 Troponin I < 0.015 0-0.045 ng/ml Pro-B-Type Natriuretic Peptide 524 0-900 pg/ml Total Protein 7.2 6.4-8.2 gm/dl Albumin 3.4 3.4-5.0 gm/dl Globulin 3.8 2.5-4.0 gm/dl Albumin/Globulin Ratio 0.9 0.9-2 Bedside D-Dimer 111 0-450 ng/mlFEU Digoxin Level 0.7 0.8-2.0 ng/ml Urine Color YELLOW Urine Appearance CLEAR CLEAR Urine pH 5.0 4.5-7.5 Urine Specific [place] 1.028 1.000-1.030 Urine Protein NEG NEG Urine Glucose (UA) NEG NEG Urine Ketones TRACE NEG Urine Occult Blood NEG NEG Urine Nitrite NEG NEG Urine Bilirubin NEG NEG Urine Urobilinogen NEG NEG Urine Leukocyte Esterase NEG NEG Test 04/18/17 07:51 04/18/17 08:45 04/18/17 11:28 Range/Units Bedside Glucose 201 176 70-99 mg/dl Total Creatine Kinase 267 39-308 U/L Creatine Kinase MB 6.2 0.5-3.6 ng/ml Creatine Kinase MB Ratio 2.3 0-3.0 Troponin I < 0.015 0-0.045 ng/ml
[2017-04-18] MEDS ORDERED: IV FLUIDS COMPLETED PRN (14:30)
--- NOTE | 2017-04-18 15:00 | DIAGNOSTIC IMAGING REPORT ---
CERVICAL SPINE 2 OR 3 VIEWS HISTORY: Pain neck pain COMPARISON: 09/16/2014 FINDINGS: The cervical spine is visualized from C1 through the superior endplate of T1. There is no fracture. No subluxation. Evidence for an anterior fusion of C3-C5. Disc spacer present. Posterior elements. Be intact. Prevertebral soft tissues and the atlantodens interval are intact. IMPRESSION: Findings consistent with an anterior cervical fusion from C3 through C5. Otherwise negative study The above report was generated using voice recognition software. It may contain grammatical, syntax or spelling errors. Electronically signed by: Jose Devine M.D. 04/18/2017 2:59 PM Dictated Date/Time: 04/18/2017 2:57 PM
[2017-04-18] MEDS ORDERED: DIGOXIN 0.125 MG TAB PO SCH (16:00)
[2017-04-18] MEDS ORDERED: WARFARIN SOD 7.5 MG TAB PO SCH (16:00)
[2017-04-18] MEDS ORDERED: ATORVASTATIN 20 MG TAB PO SCH (21:00)
[2017-04-19 04:23] VITALS: BP 105/70; PULSE 69; TEMP 36.8; O2SAT 93
[2017-04-19 06:36] LABS: CHOLESTEROL/HDL RATIO 3.1
[2017-04-19 06:56] LABS: ESTIMATED AVERAGE GLUCOSE 197 mg/dl; HA1C FLAG Normal (Normal)
[2017-04-19 07:31] VITALS: BP 142/64; PULSE 75; TEMP 36.4; O2SAT 90
[2017-04-19] MEDS: PANTOprazole SOD 40 MG TAB PO SCH (08:23)
[2017-04-19] MEDS: DILTIAZEM HCL 180 MG CAPCR PO SCH (08:23)
[2017-04-19] MEDS: MAGNESIUM CHLORIDE 64MG DELAYED REL TAB PO SCH (08:23)
[2017-04-19] MEDS: BUMETANIDE 1 MG TAB PO SCH (08:23)
[2017-04-19] MEDS: ALFUZosin TAB 10 MG TAB PO SCH (08:23)
[2017-04-19] MEDS: LISINOPRIL 20 MG TAB PO SCH (08:23)
[2017-04-19] MEDS: DULOXETINE HCL 60 MG CAP PO SCH (08:23)
[2017-04-19] MEDS: INSULIN ASPART 100 UNITS/ML 3 ML PEN SC SCH ×2 (08:25→12:02)
[2017-04-19] MEDS: TAPENTADOL ER 50 MG TABCR PO SCH (08:30)
[2017-04-19] MEDS ORDERED: INSULIN GLARGINE SOLOSTAR 100 UNITS/ML 3 ML PEN SC SCH (09:00)
--- NOTE | 2017-04-19 09:00 | Pharmacy Progress Note ---
Glycemic Control Progress Note Date of Service Apr 19, 2017. Scope Glycemic Pharmacist consulted for glycemic control to write orders per [facility] inpatient glycemic control protocol. Objective Accuchecks BSG (last 24hrs): Test 04/18/17 11:28 04/18/17 16:26 04/18/17 20:22 04/19/17 07:19 Bedside Glucose 176 mg/dl (70-99) 176 mg/dl (70-99) 163 mg/dl (70-99) 194 mg/dl (70-99) HbA1c: Test 04/19/17 05:39 Hemoglobin A1c 8.5 % (4.5-5.6) H Recent Pertinent Medications The patient is currently receiving: * Basal insulin: * Lantus 10 units every 12 hours * Bolus Insulin: * NovoLog SQ ACHS - Goal Range: Low 100 mg/dL - High 140 mg/dL - Correction Factor: 30 mg/dL/unit - Carb ratio of 1 unit per 11 grams CHO consumed * Oral Agents: * held on admission Outpatient Anti-Diabetic Meds Glipizide 10mg PO BID Metformin 1000mg PO BID Assessment & Plan ASSESSMENT: * See progress note from 04/18/17 for more background info, in short: * Pt receiving SQ basal bolus insulin regimen for hyperglycemia secondary to baseline DM (outpatient regimen on hold) * Patient is currently receiving an average of 37 units of insulin per day * 20 units of basal insulin * 17 units of prandial/correctional insulin * BSGs ranging 163 - 255 mg/dl over the past 24hrs * Changes needed to insulin regimen: * AM Fasting BSG = 194 mg/dl. This is in slightly above goal range for patient based on inpatient targets and co-morbidities. Therefore Basal insulin needs increased by ~20% * Post-prandial BSGs are elevated/BSGs rise throughout the day therefore need to tighten CF/CR * Additional notes / comments: * Goal range will be increased to 140-180mg/dL per ADA recommendations PLAN FOR INPATIENT GLYCEMIC CONTROL: * Basal insulin * INCREASE to Lantus 12 units SQ BID * Bolus insulin * NovoLog per scale ACHS or Q6hrs while NPO * Goal Range: Low 140 mg/dL - High 180 mg/dL * Correction Factor: 18 mg/dL/unit * Carb ratio of 1 unit per 6 grams CHO consumed * Oral medications * Resume metformin 1000mg PO BID with meals * Continue to hold glipizide until discharge RECOMMENDATIONS FOR DISCHARGE: * Continue home regimen of oral antidiabetic medications * A1c is likely within goal range for patient age/comorbidities (goal ~8-835% based on Elements of Diabetes Care Scoring Scale) * Please note that the plan above was derived based on current level of insulin resistance and hospital stress. These recommendations are appropriate for inpatient admission only. Plan of care upon discharge will need to be reassessed to avoid potential outpatient hypo/hyperglycemia. Thank you.
[2017-04-19] MEDS ORDERED: ATROPINE SULFATE 0.1 MG/ML 5ML SYR ONE (09:10)
[2017-04-19] MEDS ORDERED: DOBUTamine HCL 12.5 MG/ML 20 ML VIAL ONE (09:10)
[2017-04-19] MEDS ORDERED: METOPROLOL TARTRATE 1 MG/ML VIAL ONE (09:10)
[2017-04-19] MEDS ORDERED: PERFLUTREN LIPID MICROSPHERE (DEFINITY) IV ONE (10:05)
[2017-04-19] MEDS ORDERED: NTRGSL4 SL (10:23)
--- NOTE | 2017-04-19 10:36 | Cardiology Follow-Up ---
Cardiology Follow-Up Date of Service Apr 19, 2017. Cardiology Follow-Up SUBJECTIVE: 71-year-old man with CAD (previously borderline occlusive), chronic diastolic congestive heart failure, permanent atrial fibrillation (warfarin/diltiazem/ digoxin), cervical spinal stenosis, and other medical problems who was admitted early 04/18/2017 after noting right anterior chest pain radiating to his neck. Serial ECGs and enzymes negative. Mild reduction in his pain, however it persists and does have a pleuritic as well as a positional component (he noted increased discomfort when he lifted his left arm). Dobutamine stress echocardiogram performed today showed a very limited area of distal septal ischemia on echo, no ECG changes, development of mild pressure which was distinct from his presenting pain complaint. The mild pressure ( presumed angina) occurred only at 100% maximum predicted heart rate and resolved when his heart rate returned to normal. PHYSICAL EXAMINATION: No distress. Vitals: Afebrile. BP 142/64, pulse 75 and irregular, respirations 16 and nonlabored.. Skin: No unusual lesions or ecchymosis. HEENT: Unremarkable. Neck: Jugular venous pulse one quarter of the way to the jaw at 90, no carotid bruits. Lungs: Clear in general, absent breath sounds right base (chronically paralyzed diaphragm). No wheezing or crackles. Cardiac: Irregular rhythm with 2/6 apical holosystolic murmur which is nonradiating, no diastolic murmur or distinct gallop. Abdomen: Benign. Extremities: Nontender with 1+ pretibial edema, palpable peripheral pulses, good capillary refill. Neurologic: Normal affect, nonfocal. DATA: ECG today showed atrial fibrillation with ventricular rate of 76 ppm, ST segments remained isoelectric and the T-waves were unremarkable. As noted, there were no ischemic ECG changes during his dobutamine stress echocardiogram at 100% maximum predicted heart rate. Dobutamine stress echocardiogram showed normal wall motion at rest with development of a very small area of the distal septal hypokinesis at peak heart rate with associated transient mild chest pressure but no ECG changes. Ejection fraction increased from 65% at baseline to 85% during stress. Cardiac enzymes negative x3. Cholesterol 145, HDL 47, LDL 62, triglycerides 179, ratio 3.1. IMPRESSION: 1. Right anterior chest pain radiating to the neck, suspect cervical disc disease etiology. 2. Coronary artery disease, previously borderline occlusive/limited area of inducible ischemia on DSE 3. Chronic diastolic congestive heart failure, compensated 4. Permanent atrial fibrillation, rate controlled/anticoagulated (therapeutic INR) 5. Asthma, no bronchospasm currently. 6. Chronically elevated right hemidiaphragm 7. Multiple other medical problems as noted. DISCUSSION: The patient's abnormal dobutamine stress echocardiogram is most consistent with a limited area of inducible ischemia only at high heart rates (which he is unlikely to achieve under normal physiologic circumstances). Alternatively, the persistent chest and neck pain he has had for 3 days was unchanged during the stress study and is likely due to his cervical disc disease given both pleuritic and now positional components. I feel that his limited area of myocardial ischemia, likely resulting from distal vessel disease, can be managed conservatively by continuing his regimen of diltiazem and digoxin for rate control and lisinopril for blood pressure control. Would add sublingual nitroglycerin p.r.n. to be taken if he develops any of the pressure symptoms suggestive of angina, NOT to be taking for his chest wall pain that he presented with. For this, will arrange for pain management evaluation as well as orthopedic evaluation of his cervical spine. Will follow patient up as outpatient in the next 2-4 weeks, in the interim will arrange for consultations with Orthopedics and pain management. Thank you for allowing me to participate in his care.
[2017-04-19 10:47] VITALS: BP 139/87; PULSE 83; O2SAT 92
--- NOTE | 2017-04-19 10:49 | Discharge Instructions ---
Discharge Instructions Date of Service Apr 19, 2017. Admission Reason for Admission: Chest Pain Discharge Discharge Diagnosis / Problem: CHEST PAIN , NON CARDICAC /MUSKULOSKELTAL Discharge Goals Goal(s): Decrease discomfort, Diagnostic testing Activity Recommendations Activity Limitations: resume your previous activity . Instructions / Follow-Up Instructions / Follow-Up HOSPITAL FOLLOW UP 04/23/2017 11:[address] Andra Bernard MD General [facility] FOLLOW UP WITH CARDIOLOGY DR BELTRE PER SCHEDULE FOLLOW UP WITH PAIN MANAGEMENT CLINIC PER APPOINTMENT Current Hospital Diet Patient's current hospital diet: AHA Diet (Heart Healthy), Diabetes Type 2 Diet Discharge Diet Recommended Diet: AHA Diet (Heart Healthy), Diabetes Type 2 Diet Pending Studies Studies pending at discharge: no Laboratory Results Hemoglobin A1c Test 04/19/17 05:39 Range/Units Estimated Average Glucose 197 mg/dl Hemoglobin A1c 8.5 H 4.5-5.6 % Lipid Panel Test 04/19/17 05:39 Range/Units Triglycerides Level 179 H 0-150 mg/dl Cholesterol Level 145 0-200 mg/dl HDL Cholesterol 47 mg/dl Cholesterol/HDL Ratio 3.1 LDL Cholesterol, Calculated 62 mg/dl Medical Emergencies . Who to Call and When: Medical Emergencies: If at any time you feel your situation is an emergency, please call 911 immediately. . Non-Emergent Contact Non-Emergency issues call your: Primary Care Provider . . "Provider Documentation" section prepared by Jenni Agarwal. . VTE Core Measure Inpt VTE Proph given/why not?: Warfarin (Coumadin)
--- NOTE | 2017-04-19 10:59 | Progress Note ---
Internal Med Progress Note Date of Service: Apr 19, 2017. Provider Documentation: SUBJECTIVE: no complain of chest pain no ARGUETA doing well with PT/OT stable be discharged home today updated at bedise OBJECTIVE: Vital Signs-as noted below Exam: General-no sign of distress Eyes-sclera non icteric Neck-no JVD Lungs-no rales or wheeze noted Heart-regular Abdomen-soft, non tender Extremities-psoriatic rash on back Neuro-no focal deficit , AAO x3 Lab data as noted below. ASSESSMENT & PLAN: 71 yo M with nonobstructive CAD and recent hospitalization for diastolic heart failure 3-4 months ago presents with severe R-sided chest pain and associated SOB. 1. Chest pain/Atypical for angina /ACS -atypical for angina /possible musculoskeletal /cervical radiculopathy pain rt sided, pleuritic-worse with taking deep breath and change of position has been ongoing for past few day symptom has improved now PE less likely with negative D-dimer and on Coumadin INR therapeutic lower ext Doppler Negative for DVT appreciate input form cardiology ECHO : shows no wall motion abnormality possible vial costochondritis NSAID avoided due to CKD s/p Dobutamine stress test -found to be mild deficit on apex updated by Cardiology Dr Brady fixed deficit possible due to small vessel disease medical management appropriate pt's symptom not suggestive of angina , possible musculoskeletal vs cervical radiculopathy recommend no further cardiac intervention PT/OT out pt pain management clinic follow up -pt is already established with care - 2. Neck pain-likely acute on chronic neck pain- -pt with severely poor posture and significant anterior head carriage placing significant strain on surrounding musculature. Cont chronic Nucynta Xray of cervical spine : shows ant cervical fusion C3-C5 no other acute finding cont PT /OT pain management clinic follow up 3. CLARISSA-cont CPAP 4. Chronic afib- anticoagulated with Coumadin, rate controlled with dig and diltiazem 5. TYPE 2 DM -ISS/Lantus per protocol, appreciate glycemic pharmacist assistance w management 6. Chronic diastolic heart failure -appears clinically compensated. Cont dig, lisinopril, Bumex, ASA 7. CKD III -at baseline. Avoid nephrotoxic substances. Full Code DVT PROPHYLAXIS on Coumadin DISPOSITION Discharge home today Vital Signs: Date Time Temp Pulse Resp B/P (MAP) Pulse Ox O2 Delivery O2 Flow Rate FiO2 04/19/17 07:31 36.4 75 16 142/64 (90) 90 04/19/17 04:23 36.8 69 20 105/70 (82) 93 Room Air CPAP 04/19/17 04:05 CPAP 04/19/17 00:10 CPAP 04/18/17 23:13 36.9 76 20 106/70 (82) 93 CPAP 04/18/17 21:21 80 142/81 (101) 04/18/17 20:00 92 Room Air 04/18/17 19:09 36.8 78 20 112/70 (84) 93 Room Air 04/18/17 16:14 74 04/18/17 16:00 92 Room Air 04/18/17 14:53 37.0 85 20 126/71 (89) 92 Room Air 04/18/17 11:32 36.3 87 20 136/64 Room Air 04/18/17 11:19 36.3 87 20 136/64 (88) 93 Room Air Lab Results: Results Past 24 Hours Test 04/18/17 11:28 04/18/17 15:22 04/18/17 16:26 04/18/17 20:22 Range/Units Bedside Glucose 176 176 163 70-99 mg/dl Total Creatine Kinase 239 39-308 U/L Creatine Kinase MB 4.8 0.5-3.6 ng/ml Creatine Kinase MB Ratio 2.0 0-3.0 Troponin I < 0.015 0-0.045 ng/ml Test 04/19/17 05:39 04/19/17 07:19 Range/Units Estimated Average Glucose 197 mg/dl Hemoglobin A1c 8.5 4.5-5.6 % Triglycerides Level 179 0-150 mg/dl Cholesterol Level 145 0-200 mg/dl HDL Cholesterol 47 mg/dl LDL Cholesterol, Calculated 62 mg/dl VLDL Cholesterol, Calculated 36 mg/dl Cholesterol/HDL Ratio 3.1 Bedside Glucose 194 70-99 mg/dl
--- NOTE | 2017-04-19 11:00 | Discharge Summary ---
Discharge Summary Date of Service Apr 19, 2017. Discharge Summary Admission Date: Apr 18, 2017 at 05:39 Discharge Date: Apr 19, 2017 Discharge Disposition: Home with services Principal Diagnosis: CHEST PAIN , NON CARDIAC /MUSCULOSKELETAL Procedures: DOBUTAMINE STRESS TEST 1. Abnormal echocardiographic portion of dobutamine stress test suggesting a small area of distal septal ischemia at 100% MPHR. 2. Normal ECG portion of pharmacologic stress test. 3. Transient mild angina at peak HR only. No change in baseline moderate chest wall symptoms during stress. 4. No dysrhythmias. 5. Resting echo as previously reported. No wall motion abnormalities or major valvular disease. 6. Left ventricular ejection fraction improved from 65% to 85% during stress. RESTING ECHO Compared with 12/02/16 study, no significant change. The left ventricle is mildly dilated. There is mild concentric left ventricular hypertrophy. Ejection Fraction = 60-65%. Left ventricular systolic function is normal. The left ventricular wall motion is normal. The right ventricle is mild to moderately dilated. The right ventricular systolic function is normal. Consultations: CARDIOLOGY DR WEST Medication Reconciliation New Medications: Nitroglycerin (Nitrostat) 0.4 Mg/1 Tab Subl 1 TAB SL UD, #30 TABS take it as needed for chest pain can repeat every 5 mins for X3 times call doctor for continued pain Continued Medications: Alfuzosin Hcl (Alfuzosin Hcl Er) 10 Mg Tab 10 MG PO DAILY, #90 Aspirin (Aspirin Ec) 81 Mg Tab 81 MG PO Q2D, #30 Atorvastatin (Lipitor) 40 Mg Tab 40 MG PO at 1700, 0 Refills Bumetanide (Bumex) 2 Mg Tab 2 MG PO DAILY, TAB Digoxin (Digoxin) 0.125 Mg Tab 0.125 MG PO DAILY Diltiazem HCl (Diltiazem HCl ER) 180 Mg Capcr 180 MG PO BID for 30 Days, 2 Refills Duloxetine Hcl (Cymbalta) 60 Mg Cap 1 CAP PO DAILY Lotus (Zingiber Officinalis) (Lotus Root) 500 Mg Cap 2 CAP PO BID Glipizide (Glipizide) 10 Mg Tab 10 MG PO BID, #180 Lisinopril (Zestril) 20 Mg Tab 20 MG PO DAILY, TAB Magnesium Chloride-Calcium Car (Slow-Mag) 1 Tab Tab 1 TAB PO BID, #60 Metformin Hcl (Glucophage) 1,000 Mg Tab 1000 MG PO BID, TAB Omeprazole (Prilosec) 20 Mg Cap 20 MG PO DAILY, CAP Tapentadol Hcl (Nucynta Er) 50 Mg Tab 50 MG PO DAILY Trazodone Hcl (Desyrel) 50 Mg Tab 25-50 MG PO HS PRN for Sleep Triamcinolone Acet (Aristocort 0.1%) 90 Appln/30 Gm Cr 1 APPLN TOP BID PRN for Warfarin Sod (Coumadin) 10 Mg Tab 1 TAB PO UD for 30 Days, TAB 5 Refills MON, WED, FRI Warfarin Sodium (Warfarin Sodium) 7.5 Mg Tab 7.5 MG PO UD, TAB TUES, TH, SAT, SUN Admission Information HPI (per Admitting provider): 71 yo M with chronic diastolic heart failure and chronic neck and back pain on Nucynta presents with R anterior chest pain which began when he awoke yesterday morning and has been constant ever since. The pain is intense leaving him feeling that it's hard to take a deep breath and he states that it is sharp and travels up into his R neck and shoulder. He reports a h/o heart catheterization in the past with a known 70% blockage. He denies any pain until yesterday, however. He denies any assoc symptoms of diaphoresis, lightheadedness, palpiatations, nausea or numbness/tingling. He does have atrial fibrillation and is on coumadin, digoxin and diltiazem. He has a very significant anterior head carriage and a very restricted ROM of his C-spine. He states that he walks hunched over, indicating that this is likely chronic. There is no TTP of anterior chest wall. In the ER initial ischemic workup is negative including CXR, troponin, and EKG. Physical Exam (per Admitting): GEN: obese, in mild distress, alert and appropriate HEENT: NC/AT, PERRL, normal sclerae, MMM, pharynx non-acute NECK: significant restriction in all planes of motion (active and passive motion similar), no TTP of trapeziua muscles and posterior strap muscles) CARDIO: reg rate, S1/2 heard without m/g/r, no tenderness to palpation of anterior chest wall. LUNGS: CTA bilaterally, no crackles, rales or wheezes, good diaphragmatic excursion ABD: soft, non-tender, non-distended, no rebound or guarding, +BS EXTREMITY: RP and DP palpable 2+ bilat, no LE swelling or edema, extremities are warm and well-perfused NEURO: CN 2-12 grossly intact, sensation intact throughout MUSC: 5/5 strength throughout, no focal deficits SKIN: warm and dry Hospital Course 71 yo M with nonobstructive CAD and recent hospitalization for diastolic heart failure 3-4 months ago presents with severe R-sided chest pain and associated SOB. 1. Chest pain/Atypical for angina /ACS -atypical for angina /possible musculoskeletal /cervical radiculopathy pain rt sided, pleuritic-worse with taking deep breath and change of position has been ongoing for past few day symptom has improved now PE less likely with negative D-dimer and on Coumadin INR therapeutic lower ext Doppler Negative for DVT appreciate input form cardiology ECHO : shows no wall motion abnormality possible vial costochondritis NSAID avoided due to CKD s/p Dobutamine stress test -found to be mild deficit on apex updated by Cardiology Dr Brady fixed deficit possible due to small vessel disease medical management appropriate pt's symptom not suggestive of angina , possible musculoskeletal vs cervical radiculopathy recommend no further cardiac intervention PT/OT out pt pain management clinic follow up -pt is already established with care - 2. Neck pain-likely acute on chronic neck pain- -pt with severely poor posture and significant anterior head carriage placing significant strain on surrounding musculature. Cont chronic Nucynta Xray of cervical spine : shows ant cervical fusion C3-C5 no other acute finding cont PT /OT pain management clinic follow up 3. CLARISSA-cont CPAP 4. Chronic afib- anticoagulated with Coumadin, rate controlled with dig and diltiazem 5. TYPE 2 DM -ISS/Lantus per protocol, appreciate glycemic pharmacist assistance w management 6. Chronic diastolic heart failure -appears clinically compensated. Cont dig, lisinopril, Bumex, ASA 7. CKD III -at baseline. Avoid nephrotoxic substances. Full Code DVT PROPHYLAXIS on Coumadin DISPOSITION Discharge home today Total time spent on discharge = 35 MINS This includes examination of the patient, discharge planning, medication reconciliation, and communication with other providers. Discharge Instructions Discharge Instructions Date of Service Apr 19, 2017. Admission Reason for Admission: Chest Pain Discharge Discharge Diagnosis / Problem: CHEST PAIN , NON CARDIAC /MUSCULOSKELETAL Discharge Goals Goal(s): Decrease discomfort, Diagnostic testing Activity Recommendations Activity Limitations: resume your previous activity . Instructions / Follow-Up Instructions / Follow-Up HOSPITAL FOLLOW UP 04/23/2017 11:[address] Andra Bernard MD General Internal Medicine [facility] FOLLOW UP WITH CARDIOLOGY DR WEST PER SCHEDULE FOLLOW UP WITH PAIN MANAGEMENT CLINIC PER APPOINTMENT Current Hospital Diet Patient's current hospital diet: AHA Diet (Heart Healthy), Diabetes Type 2 Diet Discharge Diet Recommended Diet: AHA Diet (Heart Healthy), Diabetes Type 2 Diet Pending Studies Studies pending at discharge: no Laboratory Results Hemoglobin A1c Test 04/19/17 05:39 Range/Units Estimated Average Glucose 197 mg/dl Hemoglobin A1c 8.5 H 4.5-5.6 % Lipid Panel Test 04/19/17 05:39 Range/Units Triglycerides Level 179 H 0-150 mg/dl Cholesterol Level 145 0-200 mg/dl HDL Cholesterol 47 mg/dl Cholesterol/HDL Ratio 3.1 LDL Cholesterol, Calculated 62 mg/dl Medical Emergencies . Who to Call and When: Medical Emergencies: If at any time you feel your situation is an emergency, please call 911 immediately. . Non-Emergent Contact Non-Emergency issues call your: Primary Care Provider . . "Provider Documentation" section prepared by Jenni Agarwal. . VTE Core Measure Inpt VTE Proph given/why not?: Warfarin (Coumadin) Additional Copies To Andra Bernard M.D. Amari West M.D.
[2017-04-19 11:26] VITALS: BP 139/87; PULSE 83; TEMP 36.8; O2SAT 98
--- NOTE | 2017-04-19 11:31 | DOBUTAMINE ECHO ---
*NOTICE TO RECEIVING LIBERTARIAN AGENCY This information is strictly Confidential and protected under [place] law. [place] law prohibits you from making any further disclosure of this information unless further disclosure is expressly permitted by the written consent of the person to whom it pertains or is authorized by law. A general authorization for the release of medical or other information is not sufficient for this purpose. Hospital accepts no responsibility if the information is made available to any other person, INCLUDING THE PATIENT. Interpretation Summary * Name: LAURA STANLEY Study Date: 04/19/2017 08:39 AM BP: 135/64 mmHg * Patient Location: .MED\S\N278\S\2 HR: 90 * : 1945 (M/d/yyy) Gender: Male Height: 72 in * Age: 71 yrs Ethnicity: [place] Weight: 266 lb * Ordering Physician: Amari West * Referring Physician: Self, Referred * Performed By: Gely Paez RDCS * * Reason For Study: CAD * BSA: 2.4 m2 * -- Conclusions -- * 1. Abnormal echocardiographic portion of dobutamine stress test suggesting a small area of distal septal ischemia at 100% MPHR. * 2. Normal ECG portion of pharmacologic stress test. * 3. Transient mild angina at peak HR only. No change in baseline moderate chest wall symptoms during stress. * 4. No dysrhythmias. * 5. Resting echo as previously reported. No wall motion abnormalities or major valvular disease. * 6. Left ventricular ejection fraction improved from 65% to 85% during stress. Procedure Details * DOBUTAMINE ECHO, CPT#63211 * A contrast injection of Definity was performed to improve assessment of LV function. * Contrast was injected into an intravenous site in the left arm. * One vial of Definity ultrasound contrast was diluted in normal saline to a total volume of 10 ml. A total of '5' ml of solution was administered during imaging. * Lot # [id number] of Definity utilized for procedure. * Expiration date MAY 21. * The attending nurse who injected the contrast agent was Rosalinda Guerrero RN. Left Ventricle * The left ventricular wall motion is normal at rest. * An area approximately 2 cm in length involving the distal septum failed to augment during stress, suggesting a small area of distal LAD ischemia (consistent with patient's known coronary anatomy). Stress Parameters * The stress portion of this study was personally supervised by the undersigned interpreting physician. * Rest heart rate was '90' BPM. * Rest blood pressure was '135/64' * Maximum heart rate achieved was 144 bpm. * Maximum heart rate was 97 % of maximum age-predicted heart rate. * Maximum blood pressure was '214/55' * Maximum Dobutamine infusion rate was '50' mcg/kg/min. * A total of 0.5 mg of intravenous Atropine was used to supplement Dobutamine for heart rate response. * Dobutamine infusion was terminated due to achieving target heart rate * A total of 5 mg of IV Metoprolol was administered to reverse Dobutamine-induced tachycardia.
[2017-04-19] MEDS ORDERED: WARFARIN SOD 10 MG TAB PO SCH (16:00)
[2017-04-19] MEDS ORDERED: METFORMIN HCL 500 MG TAB PO SCH (17:00)
[2017-04-20] MEDS ORDERED: ASPIRIN 81 MG ECTAB PO SCH (09:00)
== END 2017-04-19 12:48 | disposition home or self-care (01) ==
LOC: EDBD 03:16 → C.EDB 03:19 → C.MED 05:39 → ENRESERV 06:27
PROVIDERS: ADMIT Hospitalist; ATTEND Hospitalist
DX: R07.89 Other chest pain (principal); I48.91 Unspecified atrial fibrillation; J45.909 Unspecified asthma, uncomplicated; N18.3 Chronic kidney disease, stage 3 (moderate); I13.0 Hypertensive heart and chronic kidney disease with heart failure and stage 1 through stage 4 chronic kidney disease, or unspecified chronic kidney disease; E11.22 Type 2 diabetes mellitus with diabetic chronic kidney disease; I50.32 Chronic diastolic (congestive) heart failure; I25.10 Atherosclerotic heart disease of native coronary artery without angina pectoris; E78.5 Hyperlipidemia, unspecified; K21.9 Gastro-esophageal reflux disease without esophagitis; N52.9 Male erectile dysfunction, unspecified; G47.33 Obstructive sleep apnea (adult) (pediatric); L40.9 Psoriasis, unspecified; Z87.891 Personal history of nicotine dependence; Z79.82 Long term (current) use of aspirin; Z79.01 Long term (current) use of anticoagulants; Z79.899 Other long term (current) drug therapy

== ENCOUNTER → 2017-09-21 | Outpatient (CLI) | payer OTHER ==
[~2017-09-21] MED LIST changes: +GLIP10TA10 PO; -GLIP5TAB3 PO; +LISI-725 PO; -LISI40TA PO; +NTRGSL4 SL; +TAPE1TAB9 PO; -TAPE50TA5 PO; +TRAZ-120 PO; -TRAZ1TAB5 PO; +WARF-237 PO; +WARF-284 PO; -WARF7.5T PO
[2017-09-21 16:49] LABS: INR 2.7 (0.9-1.1); PROTHROMBIN TIME (PATIENT) 27.4 SECONDS (9.0-12.0)
== END | disposition home or self-care (01) ==
LOC: C.LAB1850 15:18
PROVIDERS: ATTEND Internal Medicine Cardiovascular Disease
DX: I48.91 Unspecified atrial fibrillation (principal)

== ENCOUNTER → 2018-02-08 | Outpatient (CLI) | payer OTHER ==
[2018-02-08 16:03] LABS: BLOOD UREA NITROGEN 16 mg/dl (7-18); CALCIUM 9.1 mg/dl (8.5-10.1); CARBON DIOXIDE 32 mmol/L (21-32); CREATININE 1.49 mg/dl (0.60-1.40); GLUCOSE 176 mg/dl (70-99); POTASSIUM 5.1 mmol/L (3.5-5.1); SODIUM 136 mmol/L (136-145)
== END | disposition home or self-care (01) ==
LOC: C.LAB1850 13:29
PROVIDERS: ATTEND Internal Medicine Cardiovascular Disease
DX: I50.32 Chronic diastolic (congestive) heart failure (principal); E83.42 Hypomagnesemia; Z79.01 Long term (current) use of anticoagulants; Z51.81 Encounter for therapeutic drug level monitoring; I48.2 Chronic atrial fibrillation

== ENCOUNTER 2020-03-05 12:23 | Inpatient (IN) ==
--- NOTE | 2020-03-05 12:58 | Emergency Department Note ---
Impression & Plan Acute kidney injury, Anemia, Contusion of hip, right, Contusion of right chest wall ED Provider Note NAME: LAURA STANLEY AGE: 74 SEX: M : 1945 ARRIVES VIA: Walk-In INFORMANT: Patient, ED PROVIDER(S): Garret Owens DO CHIEF COMPLAINT: Generalized weakness HPI: The patient is a 74-year-old male who presented to the emergency department at the request of his primary care physician. The patient was evaluated in our department last week after a fall. The patient was going back into his home to retrieve his walker when he had a fall. The patient denies having a syncopal episode but was unsure of how he fell. He struck his head as well as his right side. The patient continues to have right-sided chest pain as well as right- sided hip pain. He was having a follow-up appointment with his primary care physician after the fall and after being seen in our department and had x-rays of his right hip as well as follow-up laboratory studies. The patient was sent to the emergency department after his laboratory studies revealed his creatinine level had elevated greater than baseline. He denies having any nausea or vomiting. He does complain of decreased urine output. He does state that his weakness is worse than usual. He still complains of right-sided chest pain. He denies having any syncope or dizziness at this time. He presents to the emergency department with his significant other who also offers help with the history. ROS: See above HPI for pertinent positives & negatives. A total of 10 systems reviewed and were otherwise negative. PAST MEDICAL HISTORY: See Below PAST SURGICAL HISTORY: See Below FAMILY HISTORY: See Below SOCIAL HISTORY: See Below HOME MEDICATIONS: See Below ALLERGIES: See Below VITALS: See Below PHYSICAL EXAMINATION: GENERAL: The patient is awake and alert. He is nonanxious appearing and overall comfortable. EYES: The conjunctivae are clear. The pupils are round and reactive. There is bilateral periorbital ecchymosis noted. EARS, NOSE, MOUTH AND THROAT: The nose is without any evidence of any deformity. Mucous membranes are dry. NECK: The neck is nontender and supple. RESPIRATORY: Shallow and splinting respirations were noted. There were no rales rhonchi or wheezing. There is no tachypnea or conversational dyspnea. CARDIOVASCULAR: Regular rate and rhythm was noted to auscultation. There was a systolic murmur suggested. GASTROINTESTINAL: The abdomen is soft. Abdomen is nontender. BACK: No midline tenderness or or step-off noted range of motion in flexion extension as well as rotation no signs of muscle spasm noted MUSCULOSKELETAL/EXTREMITIES: There is palpable tenderness over the right lateral chest wall. There is no crepitus. Patient has pain with range of motion testing of the right hip. There is no gross deformity or shortening noted. There is no tenderness over the right knee or the right leg. SKIN: There is no obvious evidence of any rash. Pedal edema was noted bilaterally. Skin was warm and dry. NEUROLOGIC: Patient is awake alert and oriented x3. Strength was symmetric. MEDICAL DECISION MAKING: The patient is a 74-year-old male who presented to the emergency department for an evaluation of generalized weakness. I evaluated this patient previously afte r he had a fall. The patient had severe right-sided chest pain as well as right hip pain. He was to follow-up with his primary care physician today but when he was seen he was complaining of worsening weakness and laboratory results did reveal an elevation in his creatinine compared to baseline. I discussed the patient's laboratory and radiographic studies with him. He was found to have some underlying anemia which was worse than his baseline but also was found to have elevated creatinine. He was treated with IV fluids in the emergency department. I discussed the patient's condition with the on-call [facility] hospitalist group. They have agreed to evaluate the patient in the emergency department for further management and disposition. Triage Nursing notes reviewed. Prior medical records reviewed Vital Signs: reviewed and remarkable for elevated blood pressure. Differential diagnosis: Infection, dehydration, metabolic abnormality, hypo/hyperglycemia, electrolyte disturbance, anemia, hypoxia, cardiac sources, intracerebral event, toxicologic, neurologic, as well as other pathologies. ER treatment provided: See below Diagnostics interpreted by me: ECG: EKG was obtained in the emergency department. My interpretation is atrial fibrillation at 62 bpm. There is no PVCs. There were no acute ST segment abnormalities noted. This was compared to a tracing from February 29, 2020. No significant changes were noted. Cardiac Monitoring: An order was placed for continuous cardiac monitoring. The monitor shows a rate of 85 with sinus rhythm. Laboratory studies: As stated above and show below. Imaging studies: See below Consultation(s): 1400: I discussed this case with Tsering who was on-call for the [facility] hospitalist group. She is agreed to evaluate the patient in the emergency department for further management and disposition. Past Med/Surg History Medical History (Updated 03/05/20 @ 18:32 by Garret Owens DO) Anticoagulant long-term use (Chronic) Arthritis Asthma CAD (coronary artery disease) Small vessel LAD disease, no stenting Cervical spinal stenosis (01/18/12) Chronic diastolic CHF (congestive heart failure), NYHA class 3 Chronic respiratory failure with hypoxia CKD (chronic kidney disease), stage III COPD (chronic obstructive pulmonary disease) Depression Diaphragmatic paralysis Diverticulitis of colon (01/18/12) Dyslipidemia (01/18/12) Extrinsic asthma GERD (gastroesophageal reflux disease) Hypertension Obesity CLARISSA on CPAP Permanent atrial fibrillation (Chronic) Psoriasis (Acute) PVD (peripheral vascular disease) 11/10/2019 -s/p right GSV VenaSeal ablation Type 2 diabetes mellitus Surgical History History of appendectomy (01/18/12) S/P cervical spinal fusion (Resolved 01/18/12) S/P lumbar spinal fusion (Resolved 01/18/12) Family History Father Heart disease Social History Preferred Language: [place] Citizen Communication Ability: Effective Automobile Technician Required: No Beliefs That Will Affect Care: None marital status: Current Living Situation: Spouse Feels Safe at Home: Yes Safety Concerns: Feels Safe At This Time Smoking Status: Former smoker Do You Dip or Chew Tobacco: No ; Hx Alcohol Use: No Hx Substance Use: No Allergies Allergies Allergy/AdvReac Type Severity Reaction Status Date / Time Bactrim Allergy Unknown HIVES Verified 04/07/18 13:36 Cephalosporins Allergy Unknown Rash Verified 03/05/20 15:05 Penicillins Allergy Unknown Rash Verified 03/05/20 15:05 sulfamethoxazole Allergy Unknown HIVES Verified 03/05/20 15:05 Tetracyclines Allergy Unknown Unknown Verified 03/05/20 15:05 trimethoprim Allergy Unknown HIVES Verified 03/05/20 15:05 CONTRAST DYE Allergy Unknown KIDNEY Uncoded 03/05/20 15:05 PROBLEMS Home Meds Home Medications Medication Instructions Recorded Confirmed Slow-Mag 71.5 mg PO BID 06/14/18 03/05/20 alfuzosin 10 mg PO QAM 06/14/18 03/05/20 aspirin [Aspir-81] 81 mg PO Q2D 06/14/18 03/05/20 atorvastatin 40 mg PO QAM 06/14/18 03/05/20 digoxin 125 mcg PO QAM 06/14/18 03/05/20 duloxetine 60 mg PO QAM 06/14/18 03/05/20 glipizide 10 mg PO BID 06/14/18 03/05/20 lisinopril 20 mg PO QAM 06/14/18 03/05/20 omeprazole 20 mg PO QDD 06/14/18 03/05/20 trazodone 100 mg PO HS 06/14/18 03/05/20 triamcinolone acetonide 1 applic TOPICAL BID PRN 06/14/18 03/05/20 warfarin 5 mg tablet 7.5 mg PO QAM tab 06/13/19 03/05/20 BiPap Machine #1 ea 07/26/19 11/16/19 hydrocortisone 2.5 % topical cream 1 applic TOPICAL BID PRN gm 07/26/1911/23 ascorbic acid (vitamin C) 500 mg 500 mg PO QAM cap 08/29/19 03/05/20 capsule allopurinol 100 mg PO QAM 11/24/19 03/05/20 betamethasone dipropionate 1 applic TOPICAL BID PRN 11/24/19 03/05/20 nitroglycerin 0.4 mg SL UD PRN 11/24/19 03/05/20 cholecalciferol (vitamin D3) 25 mcg PO QAM 02/29/20 03/05/20 [Vitamin D3] dulaglutide [Trulicity] 0.75 mg SUBCUT FR 02/29/20 03/05/20 bumetanide 2 mg PO QAM 03/05/20 03/05/20 Previous Rx's Medication Instructions Recorded diltiazem HCl 180 mg 180 mg PO BID #180 cap 09/28/19 capsule,extended release 24 hr Results & Data (ED) Vital Signs Vital Signs - 24 hr 03/05/20 12:31 03/05/20 12:47 03/05/20 12:49 Temperature 36.8 C Temperature Source Oral Pulse Rate 65 64 Pulse Rate [Left Finger] Pulse Rate from SpO2 Sensor 62 Respiratory Rate 20 16 Respiratory Pattern Regular Blood Pressure 111/58 L 112/60 Blood Pressure [Left Arm] Blood Pressure Mean 75 70 Blood Pressure Mean [Left Arm] Blood Pressure Position Sitting Pulse Oximetry 94 97 97 Oxygen Delivery Method Room Air Room Air Sepsis Recent Fever Within 48 Hours No Sepsis Action Taken by Nursing No Action Required 03/05/20 12:52 03/05/20 13:00 03/05/20 13:10 Temperature Temperature Source Pulse Rate 59 L 56 L 62 Pulse Rate [Left Finger] Pulse Rate from SpO2 Sensor 58 L 61 Respiratory Rate 12 14 16 Respiratory Pattern Blood Pressure 128/51 L Blood Pressure [Left Arm] Blood Pressure Mean 79 Blood Pressure Mean [Left Arm] Blood Pressure Position Pulse Oximetry 94 88 L Oxygen Delivery Method Sepsis Recent Fever Within 48 Hours Sepsis Action Taken by Nursing 03/05/20 13:15 03/05/20 13:56 03/05/20 13:57 Temperature Temperature Source Pulse Rate 65 Pulse Rate [Left Finger] 61 65 Pulse Rate from SpO2 Sensor 66 Respiratory Rate 20 20 19 Respiratory Pattern Blood Pressure 117/51 L Blood Pressure [Left Arm] 128/51 L 117/51 L Blood Pressure Mean 80 Blood Pressure Mean [Left Arm] 76 73 Blood Pressure Position Pulse Oximetry 96 91 90 Oxygen Delivery Method Room Air Room Air Sepsis Recent Fever Within 48 Hours Sepsis Action Taken by Nursing 03/05/20 13:58 03/05/20 14:00 03/05/20 14:10 Temperature Temperature Source Pulse Rate 63 61 63 Pulse Rate [Left Finger] Pulse Rate from SpO2 Sensor 67 65 63 Respiratory Rate 17 15 16 Respiratory Pattern Blood Pressure 118/57 L Blood Pressure [Left Arm] Blood Pressure Mean 91 Blood Pressure Mean [Left Arm] Blood Pressure Position Pulse Oximetry 90 97 99 Oxygen Delivery Method Sepsis Recent Fever Within 48 Hours Sepsis Action Taken by Nursing 03/05/20 14:20 03/05/20 14:30 03/05/20 14:31 Temperature Temperature Source Pulse Rate 67 71 68 Pulse Rate [Left Finger] Pulse Rate from SpO2 Sensor 67 78 71 Respiratory Rate 14 15 19 Respiratory Pattern Blood Pressure 128/63 Blood Pressure [Left Arm] Blood Pressure Mean 89 Blood Pressure Mean [Left Arm] Blood Pressure Position Pulse Oximetry 98 97 98 Oxygen Delivery Method Sepsis Recent Fever Within 48 Hours Sepsis Action Taken by Nursing 03/05/20 14:40 03/05/20 14:50 Temperature Temperature Source Pulse Rate 61 63 Pulse Rate [Left Finger] Pulse Rate from SpO2 Sensor 70 63 Respiratory Rate 16 21 Respiratory Pattern Blood Pressure Blood Pressure [Left Arm] Blood Pressure Mean Blood Pressure Mean [Left Arm] Blood Pressure Position Pulse Oximetry 98 99 Oxygen Delivery Method Sepsis Recent Fever Within 48 Hours Sepsis Action Taken by [facility] Medications Current Medication List: was personally reviewed by me Laboratory Data Attestation: I reviewed the patient's lab results. Result diagrams: 03/05/20 13:01 03/05/20 13:01 Lab Results 03/05/20 03/05/20 03/05/20 Range/Units 13:01 13:01 13:01 WBC (4.8-10.8) K/uL RBC (4.7-6.1) M/uL Hgb (14.0-18.0) g/dL Hct (42-52) % MCV (80-100) fL MCH (25-34) pg MCHC (32-36) g/dL RDW Std Deviation (36.4-46.3) fL RDW Coeff of Starr (11.5-14.5) % Plt Count (130-400) K/uL MPV (7.4-10.4) fL Immature Gran % (Auto) % Neut % (Auto) % Lymph % (Auto) % [place] % (Auto) % Eos % (Auto) % Baso % (Auto) % Immature Gran # (Auto) (0.00-0.02) K/uL Neut # (Auto) (1.4-6.5) K/uL Lymph # (Auto) (1.2-3.4) K/uL [place] # (Auto) (0.11-0.59) K/uL Eos # (Auto) (0-0.5) K/uL Baso # (Auto) (0-0.2) K/uL PT 27.7 H (9.0-12.0) Seconds INR 2.8 H (0.9-1.1) APTT 46.0 H* (21.0-31.0) Seconds PTT Ratio 1.6 VBG pH (7.36-7.41) VBG pCO2 (38-50) mmHg VBG pO2 mmHg VBG HCO3 mmol/L VBG O2 Saturation % VBG Base Excess mEq/L Barometric Pressure mm/Hg Sodium 128 L (136-145) mmol/L Potassium 4.1 (3.5-5.1) mmol/L Chloride 92 L (98-107) mmol/L Carbon Dioxide 27 (21-32) mmol/L Anion Gap 9.0 (3-11) BUN 45 H (7-18) mg/dl Creatinine 2.74 H (0.6-1.4) mg/dl Est Cr Clr Drug Dosing Not Reportable Est GFR ( Amer) 24.9 Est GFR (Non-Af Amer) 21.5 BUN/Creatinine Ratio 16.6 (10-20) Glucose 230 H (70-99) mg/dl Osmolality (280-300) mOsm/kg Calcium 8.6 (8.5-10.1) mg/dl Magnesium 1.8 (1.8-2.4) mg/dl Total Bilirubin 0.5 (0.2-1) mg/dl AST 48 H (15-37) U/L ALT 33 (12-78) U/L Alkaline Phosphatase 79 (45-117) U/L Total Creatine Kinase 585 H (39-308) U/L CK-MB (CK-2) (0.5-3.6) ng/ml CK/CKMB % Calc (0-3.0) Troponin I < 0.015 (0-0.045) ng/ml Total Protein 7.0 (6.4-8.2) gm/dl Albumin 3.0 L (3.4-5.0) gm/dl Globulin 4.0 (2.5-4.0) gm/dl Albumin/Globulin Ratio 0.8 L (0.9-2) TSH 3.880 (0.300-4.500) uIu/ml Urine Color Urine Appearance (Clear) Urine pH (4.5-7.5) Ur Specific [place] (1.000-1.030) Urine Protein (Negative) Urine Glucose (UA) (Negative) Urine Ketones (Negative) Urine Blood (Negative) Urine Nitrite (Negative) Urine Bilirubin (Negative) Urine Urobilinogen (Negative) Ur Leukocyte Esterase (Negative) Urine Osmolality (500-800) mOsm/kg Ur Random Sodium mmol/L Digoxin 1.8 (0.8-2.0) ng/ml 03/05/20 03/05/20 03/05/20 Range/Units 13:01 13:01 13:01 WBC 10.50 (4.8-10.8) K/uL RBC 3.24 L (4.7-6.1) M/uL Hgb 9.7 L (14.0-18.0) g/dL Hct 29.0 L (42-52) % MCV 89.5 (80-100) fL MCH 29.9 (25-34) pg MCHC 33.4 (32-36) g/dL RDW Std Deviation 47.8 H (36.4-46.3) fL RDW Coeff of Starr 14.5 (11.5-14.5) % Plt Count 198 (130-400) K/uL MPV 10.2 (7.4-10.4) fL Immature Gran % (Auto) 0.2 % Neut % (Auto) 83.5 % Lymph % (Auto) 6.1 % [place] % (Auto) 7.6 % Eos % (Auto) 2.5 % Baso % (Auto) 0.1 % Immature Gran # (Auto) 0.02 (0.00-0.02) K/uL Neut # (Auto) 8.77 H (1.4-6.5) K/uL Lymph # (Auto) 0.64 L (1.2-3.4) K/uL [place] # (Auto) 0.80 H (0.11-0.59) K/uL Eos # (Auto) 0.26 (0-0.5) K/uL Baso # (Auto) 0.01 (0-0.2) K/uL PT (9.0-12.0) Seconds INR (0.9-1.1) APTT (21.0-31.0) Seconds PTT Ratio VBG pH 7.36 (7.36-7.41) VBG pCO2 51 H (38-50) mmHg VBG pO2 30 mmHg VBG HCO3 28 mmol/L VBG O2 Saturation < 60.0 % VBG Base Excess 2.3 mEq/L Barometric Pressure 731.4 mm/Hg Sodium (136-145) mmol/L Potassium (3.5-5.1) mmol/L Chloride (98-107) mmol/L Carbon Dioxide (21-32) mmol/L Anion Gap (3-11) BUN (7-18) mg/dl Creatinine (0.6-1.4) mg/dl Est Cr Clr Drug Dosing Est GFR ( Amer) Est GFR (Non-Af Amer) BUN/Creatinine Ratio (10-20) Glucose (70-99) mg/dl Osmolality 289 (280-300) mOsm/kg Calcium (8.5-10.1) mg/dl Magnesium (1.8-2.4) mg/dl Total Bilirubin (0.2-1) mg/dl AST (15-37) U/L ALT (12-78) U/L Alkaline Phosphatase (45-117) U/L Total Creatine Kinase (39-308) U/L CK-MB (CK-2) (0.5-3.6) ng/ml CK/CKMB % Calc (0-3.0) Troponin I (0-0.045) ng/ml Total Protein (6.4-8.2) gm/dl Albumin (3.4-5.0) gm/dl Globulin (2.5-4.0) gm/dl Albumin/Globulin Ratio (0.9-2) TSH (0.300-4.500) uIu/ml Urine Color Urine Appearance (Clear) Urine pH (4.5-7.5) Ur Specific [place] (1.000-1.030) Urine Protein (Negative) Urine Glucose (UA) (Negative) Urine Ketones (Negative) Urine Blood (Negative) Urine Nitrite (Negative) Urine Bilirubin (Negative) Urine Urobilinogen (Negative) Ur Leukocyte Esterase (Negative) Urine Osmolality (500-800) mOsm/kg Ur Random Sodium mmol/L Digoxin (0.8-2.0) ng/ml 03/05/20 03/05/20 03/05/20 Range/Units 13:50 14:00 14:00 WBC (4.8-10.8) K/uL RBC (4.7-6.1) M/uL Hgb (14.0-18.0) g/dL Hct (42-52) % MCV (80-100) fL MCH (25-34) pg MCHC (32-36) g/dL RDW Std Deviation (36.4-46.3) fL RDW Coeff of Starr (11.5-14.5) % Plt Count (130-400) K/uL MPV (7.4-10.4) fL Immature Gran % (Auto) % Neut % (Auto) % Lymph % (Auto) % [place] % (Auto) % Eos % (Auto) % Baso % (Auto) % Immature Gran # (Auto) (0.00-0.02) K/uL Neut # (Auto) (1.4-6.5) K/uL Lymph # (Auto) (1.2-3.4) K/uL [place] # (Auto) (0.11-0.59) K/uL Eos # (Auto) (0-0.5) K/uL Baso # (Auto) (0-0.2) K/uL PT (9.0-12.0) Seconds INR (0.9-1.1) APTT (21.0-31.0) Seconds PTT Ratio VBG pH (7.36-7.41) VBG pCO2 (38-50) mmHg VBG pO2 mmHg VBG HCO3 mmol/L VBG O2 Saturation % VBG Base Excess mEq/L Barometric Pressure mm/Hg Sodium (136-145) mmol/L Potassium (3.5-5.1) mmol/L Chloride (98-107) mmol/L Carbon Dioxide (21-32) mmol/L Anion Gap (3-11) BUN (7-18) mg/dl Creatinine (0.6-1.4) mg/dl Est Cr Clr Drug Dosing Est GFR ( Amer) Est GFR (Non-Af Amer) BUN/Creatinine Ratio (10-20) Glucose (70-99) mg/dl Osmolality (280-300) mOsm/kg Calcium (8.5-10.1) mg/dl Magnesium (1.8-2.4) mg/dl Total Bilirubin (0.2-1) mg/dl AST (15-37) U/L ALT (12-78) U/L Alkaline Phosphatase (45-117) U/L Total Creatine Kinase 612 H (39-308) U/L CK-MB (CK-2) 9.7 H (0.5-3.6) ng/ml CK/CKMB % Calc 1.6 (0-3.0) Troponin I (0-0.045) ng/ml Total Protein (6.4-8.2) gm/dl Albumin (3.4-5.0) gm/dl Globulin (2.5-4.0) gm/dl Albumin/Globulin Ratio (0.9-2) TSH (0.300-4.500) uIu/ml Urine Color Yellow Urine Appearance Clear (Clear) Urine pH 5.0 (4.5-7.5) Ur Specific [place] 1.015 (1.000-1.030) Urine Protein Negative (Negative) Urine Glucose (UA) Negative (Negative) Urine Ketones Negative (Negative) Urine Blood Negative (Negative) Urine Nitrite Negative (Negative) Urine Bilirubin Negative (Negative) Urine Urobilinogen Negative (Negative) Ur Leukocyte Esterase Negative (Negative) Urine Osmolality (500-800) mOsm/kg Ur Random Sodium 23 mmol/L Digoxin (0.8-2.0) ng/ml 03/05/20 Range/Units 14:00 WBC (4.8-10.8) K/uL RBC (4.7-6.1) M/uL Hgb (14.0-18.0) g/dL Hct (42-52) % MCV (80-100) fL MCH (25-34) pg MCHC (32-36) g/dL RDW Std Deviation (36.4-46.3) fL RDW Coeff of Starr (11.5-14.5) % Plt Count (130-400) K/uL MPV (7.4-10.4) fL Immature Gran % (Auto) % Neut % (Auto) % Lymph % (Auto) % [place] % (Auto) % Eos % (Auto) % Baso % (Auto) % Immature Gran # (Auto) (0.00-0.02) K/uL Neut # (Auto) (1.4-6.5) K/uL Lymph # (Auto) (1.2-3.4) K/uL [place] # (Auto) (0.11-0.59) K/uL Eos # (Auto) (0-0.5) K/uL Baso # (Auto) (0-0.2) K/uL PT (9.0-12.0) Seconds INR (0.9-1.1) APTT (21.0-31.0) Seconds PTT Ratio VBG pH (7.36-7.41) VBG pCO2 (38-50) mmHg VBG pO2 mmHg VBG HCO3 mmol/L VBG O2 Saturation % VBG Base Excess mEq/L Barometric Pressure mm/Hg Sodium (136-145) mmol/L Potassium (3.5-5.1) mmol/L Chloride (98-107) mmol/L Carbon Dioxide (21-32) mmol/L Anion Gap (3-11) BUN (7-18) mg/dl Creatinine (0.6-1.4) mg/dl Est Cr Clr Drug Dosing Est GFR ( Amer) Est GFR (Non-Af Amer) BUN/Creatinine Ratio (10-20) Glucose (70-99) mg/dl Osmolality (280-300) mOsm/kg Calcium (8.5-10.1) mg/dl Magnesium (1.8-2.4) mg/dl Total Bilirubin (0.2-1) mg/dl AST (15-37) U/L ALT (12-78) U/L Alkaline Phosphatase (45-117) U/L Total Creatine Kinase (39-308) U/L CK-MB (CK-2) (0.5-3.6) ng/ml CK/CKMB % Calc (0-3.0) Troponin I (0-0.045) ng/ml Total Protein (6.4-8.2) gm/dl Albumin (3.4-5.0) gm/dl Globulin (2.5-4.0) gm/dl Albumin/Globulin Ratio (0.9-2) TSH (0.300-4.500) uIu/ml Urine Color Urine Appearance (Clear) Urine pH (4.5-7.5) Ur Specific [place] (1.000-1.030) Urine Protein (Negative) Urine Glucose (UA) (Negative) Urine Ketones (Negative) Urine Blood (Negative) Urine Nitrite (Negative) Urine Bilirubin (Negative) Urine Urobilinogen (Negative) Ur Leukocyte Esterase (Negative) Urine Osmolality 235 L (500-800) mOsm/kg Ur Random Sodium mmol/L Digoxin (0.8-2.0) ng/ml Administered Medications Sodium Chloride (Nss 1000ml) 1,000 mls @ 75 mls/hr IV .[id number] PURA Stop: 03/06/20 05:31 Last Admin: 03/05/20 16:35 Dose: 75 mls/hr Documented by: [id number] Insulin Aspart (Novolog Flexpen) 0 units SC ACHS PURA Stop: 04/04/20 16:29 Last Admin: 03/05/20 18:00 Dose: 8 units Documented by: [id number] Cosigned by: [id number] Pantoprazole Sodium (Protonix) 40 mg PO QDD PURA Stop: 04/04/20 16:29 Last Admin: 03/05/20 17:59 Dose: 40 mg Documented by: [id number] Discontinued Medications Fentanyl Citrate (Fentanyl Citrate) 50 mcg IV Q15M PRN PRN Reason: Pain Stop: 03/19/20 13:38 Last Admin: 03/05/20 13:53 Dose: 50 mcg Documented by: [id number] Sodium Chloride (Nss 1000ml) 1,000 mls @ 999 mls/hr IV .Q1H1M PURA Stop: 03/05/20 14:00 Last Infusion: 03/05/20 14:16 Dose: 0 mls/hr Documented by: [id number] Admin: 03/05/20 13:14 Dose: 999 mls/hr Documented by: [id number] Ondansetron HCl (Zofran) 4 mg IV NOW STA Stop: 03/05/20 13:40 Last Admin: 03/05/20 13:53 Dose: 4 mg Documented by: [id number] Pneumococcal Polyvalent Vaccine (Pneumovax-23) 25 mcg IM .ONCE ONE Stop: 03/05/20 17:15 Last Admin: 03/05/20 18:04 Dose: Not Given Documented by: [id number] Imaging Data Radiologist's Impression: CT SCAN OF THE ABDOMEN AND PELVIS WITHOUT IV CONTRAST CLINICAL HISTORY: Fall. COMPARISON STUDY: Abdominal CT dated 01/18/2012. TECHNIQUE: CT scan of the abdomen and pelvis is performed from the lung bases to the proximal femora. Images are reviewed in the axial, sagittal, and coronal planes. IV contrast was not administered for this examination. Note that the examination is suboptimal without IV contrast. The examination is degraded by motion artifact, as well as by large body habitus. There is streak artifact from the body wall abutting the CT gantry, as well as the left arm which could not be elevated above the abdomen. A dose lowering technique was utilized adhering to the principles of ALARA. CT DOSE: 3414.57 mGy.cm FINDINGS: Lung bases: The heart is top normal in size and without pericardial effusion. The coronary arteries are densely calcified. There is diminished attenuation of the cardiac blood pool as compared to the myocardium suggesting anemia. There is chronic elevation of the right hemidiaphragm with associated right basilar atelectasis. Scattered calcified granulomas are present in both lungs. A trace pleural effusion is seen at the left lung base. A small hiatal hernia is noted. Liver: Evaluation of the liver is significantly degraded by streak artifact. The unenhanced liver is grossly normal in size, contour, and attenuation. There is no intrahepatic biliary ductal dilatation. Gallbladder: Unremarkable. Spleen: Normal in size and attenuation. Pancreas: The unenhanced pancreas is mildly atrophic and grossly unremarkable. Adrenal glands: Unremarkable. Kidneys: The unenhanced kidneys are atrophic and without hydronephrosis. There are no renal calculi identified. A 12 mm complex/hyperdense cyst is noted in the right upper pole. Abdominal vasculature: The abdominal aorta is normal in course and caliber noting moderate atherosclerotic calcification. Bowel: Numerous pills are noted in the stomach. No bowel obstruction is seen. There is mild to moderate colonic diverticulosis without CT evidence of acute diverticulitis. The appendix is not clearly identified. Peritoneum: There is no intraperitoneal free air or abdominal ascites. A fat- containing umbilical hernia is noted. Lymphadenopathy: None. Pelvic viscera: The prostate gland is enlarged and heterogeneous noting median lobe hypertrophy. The bladder is distended. The bladder wall is mildly thickened and trabeculated suggesting chronic outlet obstruction a fat-containing left inguinal hernia is noted on the left. Skeletal structures: The skeletal structures are osteopenic. There is no evidence of acute fracture. There is advanced lumbosacral spondylosis and scoliosis with evidence of previous L3-L5 spinal fusion. Degenerative change and partial fusion is noted in the sacroiliac joints. No lytic or blastic lesions are seen. IMPRESSION: 1. Streak and motion compromised examination. 2. There is no evidence of solid organ injury in the abdomen or pelvis on this unenhanced examination. 3. No acute infectious or inflammatory findings are identified. 4. Mild to moderate colonic diverticulosis without CT evidence of acute diverticulitis. 5. Trace left pleural effusion. 6. Additional findings as above. ACT 112: Negative or not required by law. Electronically signed by: Vazquez Workman M.D. 03/05/2020 1:58 PM Dictated: 03/05/20 1347 Transcribed: 03/05/[address] chest wo con CT DOSE: HISTORY: Fall. Trauma. TECHNIQUE: Multiaxial CT images of the chest were performed without contrast. A dose lowering technique was utilized adhering to the principles of ALARA. COMPARISON: Chest CTA 03/29/2013. FINDINGS: No pneumothorax. The central airways are patent. A few scattered calcified granulomas are noted within the lungs. There is mild elevation right hemidiaphragm. Right basilar densities are nonspecific but favor atelectasis from the elevated right hemidiaphragm. Partially visualized cervical spinal fusion hardware. No fractures within the visualized osseous structures. Trace left pleural effusion. Please refer to the same day abdomen and pelvis CT for further evaluation of the abdominal structures. The heart is normal in size. There is moderate calcified plaque within the coronary arteries. Normal esophagus. No mediastinal hematoma. Normal caliber thoracic aorta. No mediastin al or hilar lymphadenopathy. IMPRESSION: 1. No acute traumatic process within the chest. 2. Trace left pleural effusion. 3. Mild elevation of the right hemidiaphragm. 4. A few bibasilar densities are nonspecific but favor subsegmental atelectasis. ACT 112: Negative or not required by law. Electronically signed by: Reji Bustamante M.D. 03/05/2020 1:56 PM Dictated: 03/05/20 1347 Transcribed: 03/05/20 134 XR chest 1V portable CLINICAL HISTORY: weakness dyspnea COMPARISON STUDY: 02/29/2020 FINDINGS: Chronic elevation right hemidiaphragm. Lungs are considered clear. Slight chronic interstitial prominence left lung base. No evidence for pneumothorax. IMPRESSION: Chronic change. No acute process. ACT 112: Negative or not required by law. The above report was generated using voice recognition software. It may contain grammatical, syntax or spelling errors. Electronically signed by: Jose Devine M.D. 03/05/2020 1:15 PM Dictated: 03/05/20 1314 Transcribed: 03/05/20 1314 Blood Pressure Blood Pressure Findings: Elevated blood pressure Blood Pressure Disposition: further management by hospitalist Head Trauma GCS Score: 15 Discharge Plan Visit Data *Final* Discharge Date/Time: 03/05/20 16:00 Chief Complaint: Abnormal Labs/Diagnostic Testing Stated Complaint: ABNORMAL KIDNEY FUNCTION TESTING ED Provider: Garret Owens Discharge Problem: Acute kidney injury, Anemia, Contusion of hip, right, Contusion of right chest wall Patient Disposition: Admitted As Inpatient Condition: Good Discharge Instructions Interventions: ED Discharge Assessment Last Done: 03/05/20 16:00
[2020-03-05] MEDS ORDERED: SODIUM CHLORIDE 0.9% 1000ML 1,000 ML IV SCH ×2 (13:00→16:12)
[2020-03-05 13:17] LABS: Basophils # (auto) 0.01 K/uL (0-0.2); Basophils % (auto) 0.1 %; Eosinophils # (auto) 0.26 K/uL (0-0.5); Eosinophils % (auto) 2.5 %; Hemoglobin 9.7 g/dL (14.0-18.0); Immature Granulocytes # (auto) 0.02 K/uL (0.00-0.02); Immature Granulocytes % (auto) 0.2 %; Lymphocytes # (auto) 0.64 K/uL (1.2-3.4); Lymphocytes % (auto) 6.1 %; Mean Corpuscular Hemoglobin 29.9 pg (25-34); Mean Corpuscular Hgb Conc 33.4 g/dL (32-36); Mean Corpuscular Volume 89.5 fL (80-100); Mean Platelet Volume 10.2 fL (7.4-10.4); Monocytes % (auto) 7.6 %; Neutrophils # (auto) 8.77 K/uL (1.4-6.5); Neutrophils % (auto) 83.5 %; Platelet Count 198 K/uL (130-400); RDW Coefficient of Variation 14.5 % (11.5-14.5); RDW Standard Deviation 47.8 fL (36.4-46.3); Red Blood Count 3.24 M/uL (4.7-6.1)
--- NOTE | 2020-03-05 13:17 | XRay Report ---
XR chest 1V portable CLINICAL HISTORY: weakness dyspnea COMPARISON STUDY: 02/29/2020 FINDINGS: Chronic elevation right hemidiaphragm. Lungs are considered clear. Slight chronic interstit ial prominence left lung base. No evidence for pneumothorax. IMPRESSION: Chronic change. No acute process. ACT 112: Negative or not required by law. The above report was generated using voice recognition software. It may contain grammatical, syntax or spelling errors. Electronically signed by: Jose Devine M.D. 03/05/2020 1:15 PM
[2020-03-05 13:22] LABS: Base Excess VBG 2.3 mEq/L; HCO3 VBG 28 mmol/L; PCO2 VBG 51 mmHg (38-50); PO2 VBG 30 mmHg; pH VBG 7.36 (7.36-7.41)
[2020-03-05 13:24] LABS: Oxygen Saturation VBG < 60.0 %
[2020-03-05 13:35] LABS: Alanine Aminotransferase 33 U/L (12-78); Aspartate Aminotransferase 48 U/L (15-37); BUN Creatinine Ratio 16.6 (10-20); Blood Urea Nitrogen 45 mg/dl (7-18); Calcium 8.6 mg/dl (8.5-10.1); Carbon Dioxide 27 mmol/L (21-32); Chloride 92 mmol/L (98-107); Est GFR (African American) 24.9; Est GFR (Non-African American) 21.5; Glucose 230 mg/dl (70-99); Magnesium 1.8 mg/dl (1.8-2.4); Potassium 4.1 mmol/L (3.5-5.1); Sodium 128 mmol/L (136-145)
[2020-03-05] MEDS ORDERED: ONDANSETRON INJ 2 MG/ML 2 ML VIAL IV STA (13:39)
[2020-03-05] MEDS ORDERED: fentaNYL citrate 100 MCG/2 ML VIAL IV PRN (13:39)
[2020-03-05 13:46] LABS: Albumin Globulin Ratio 0.8 (0.9-2); Alkaline Phosphatase 79 U/L (45-117); Bilirubin,Total 0.5 mg/dl (0.2-1); Creatine Kinase 585 U/L (39-308); Troponin I < 0.015 ng/ml (0-0.045)
[2020-03-05 13:50] LABS: INR 2.8 (0.9-1.1); Partial Thromboplastin Ratio 1.6; Prothrombin Time 27.7 Seconds (9.0-12.0)
--- NOTE | 2020-03-05 13:57 | CT Scan Report ---
CT chest wo con CT DOSE: HISTORY: Fall. Trauma. TECHNIQUE: Multiaxial CT images of the chest were performed without contrast. A dose lowering techni que was utilized adhering to the principles of ALARA. COMPARISON: Chest CTA 03/29/2013. FINDINGS: No pneumothorax. The central airways are patent. A few scattered calcified granulomas are n oted within the lungs. There is mild elevation right hemidiaphragm. Right basilar densities are nonsp ecific but favor atelectasis from the elevated right hemidiaphragm. Partially visualized cervical spi nal fusion hardware. No fractures within the visualized osseous structures. Trace left pleural effusi on. Please refer to the same day abdomen and pelvis CT for further evaluation of the abdominal struct ures. The heart is normal in size. There is moderate calcified plaque within the coronary arteries. N ormal esophagus. No mediastinal hematoma. Normal caliber thoracic aorta. No mediastinal or hilar lymp hadenopathy. IMPRESSION: 1. No acute traumatic process within the chest. 2. Trace left pleural effusion. 3. Mild elevation of the right hemidiaphragm. 4. A few bibasilar densities are nonspecific but favor subsegmental atelectasis. ACT 112: Negative or not required by law. Electronically signed by: Reji Bustamante M.D. 03/05/2020 1:56 PM
--- NOTE | 2020-03-05 14:00 | CT Scan Report ---
CT SCAN OF THE ABDOMEN AND PELVIS WITHOUT IV CONTRAST CLINICAL HISTORY: Fall. COMPARISON STUDY: Abdominal CT dated 01/18/2012. TECHNIQUE: CT scan of the abdomen and pelvis is performed from the lung bases to the proximal femora. Images are reviewed in the axial, sagittal, and coronal planes. IV contrast was not administered for this examination. Note that the examination is suboptimal without IV contrast. The examination is de graded by motion artifact, as well as by large body habitus. There is streak artifact from the body w all abutting the CT gantry, as well as the left arm which could not be elevated above the abdomen. A dose lowering technique was utilized adhering to the principles of ALARA. CT DOSE: 3414.57 mGy.cm FINDINGS: Lung bases: The heart is top normal in size and without pericardial effusion. The coronary arteries a re densely calcified. There is diminished attenuation of the cardiac blood pool as compared to the my ocardium suggesting anemia. There is chronic elevation of the right hemidiaphragm with associated rig ht basilar atelectasis. Scattered calcified granulomas are present in both lungs. A trace pleural eff usion is seen at the left lung base. A small hiatal hernia is noted. Liver: Evaluation of the liver is significantly degraded by streak artifact. The unenhanced liver is grossly normal in size, contour, and attenuation. There is no intrahepatic biliary ductal dilatation. Gallbladder: Unremarkable. Spleen: Normal in size and attenuation. Pancreas: The unenhanced pancreas is mildly atrophic and grossly unremarkable. Adrenal glands: Unremarkable. Kidneys: The unenhanced kidneys are atrophic and without hydronephrosis. There are no renal calculi i dentified. A 12 mm complex/hyperdense cyst is noted in the right upper pole. Abdominal vasculature: The abdominal aorta is normal in course and caliber noting moderate atheroscle rotic calcification. Bowel: Numerous pills are noted in the stomach. No bowel obstruction is seen. There is mild to modera te colonic diverticulosis without CT evidence of acute diverticulitis. The appendix is not clearly i dentified. Peritoneum: There is no intraperitoneal free air or abdominal ascites. A fat-containing umbilical her bro is noted. Lymphadenopathy: None. Pelvic viscera: The prostate gland is enlarged and heterogeneous noting median lobe hypertrophy. The bladder is distended. The bladder wall is mildly thickened and trabeculated suggesting chronic outlet obstruction a fat-containing left inguinal hernia is noted on the left. Skeletal structures: The skeletal structures are osteopenic. There is no evidence of acute fracture. There is advanced lumbosacral spondylosis and scoliosis with evidence of previous L3-L5 spinal fusion . Degenerative change and partial fusion is noted in the sacroiliac joints. No lytic or blastic lesio ns are seen. IMPRESSION: 1. Streak and motion compromised examination. 2. There is no evidence of solid organ injury in the abdomen or pelvis on this unenhanced examination . 3. No acute infectious or inflammatory findings are identified. 4. Mild to moderate colonic diverticulosis without CT evidence of acute diverticulitis. 5. Trace left pleural effusion. 6. Additional findings as above. ACT 112: Negative or not required by law. Electronically signed by: Vazquez Workman M.D. 03/05/2020 1:58 PM
[2020-03-05 14:07] LABS: Appearance Urine Clear (Clear); Bilirubin Urine Negative (Negative); Blood Urine Negative (Negative); Color Urine Yellow; Glucose Urine UA Negative (Negative); Ketones Urine Negative (Negative); Leukocyte Esterase Urine Negative (Negative); Nitrite Urine Negative (Negative); Protein Urine Negative (Negative); Specific Gravity Urine 1.015 (1.000-1.030); Urobilinogen Urine Negative (Negative)
[2020-03-05 14:20] LABS: Creatine Kinase MB 9.7 ng/ml (0.5-3.6)
[2020-03-05] MEDS ORDERED: OXYCODONE HCL IR 5 MG TAB (IMMEDIATE RELEASE) PO PRN (14:57)
[2020-03-05] MEDS ORDERED: MoRPHine SULFATE 2 MG/ML CARP IV PRN (14:57)
--- NOTE | 2020-03-05 15:11 | Electrocardiogram Report ---
Test Reason : Blood Pressure : / mmHG Vent. Rate : 062 BPM Atrial Rate : 091 BPM P-R Int : 000 ms QRS Dur : 104 ms QT Int : 436 ms P-R-T Axes : 000 -21 043 degrees QTc Int : 442 ms Atrial fibrillation Abnormal ECG When compared with ECG of 29-FEB-2020 20:01, HR has decreased Confirmed by Dominick Massey ([id number]) on 03/05/2020 3:10:30 PM Referred By: REFERRED SELF Confirmed By:Dominick Massey
--- NOTE | 2020-03-05 15:17 | History & Physical Report ---
Date of Service March 05, 2020 Assessment & Plan (1) Acute kidney injury superimposed on chronic kidney disease: This is a 74yo M with a PMH of DM II, A fib on coumadin, CKD III-IV, chronic diastolic CHF, asthma, CLARISSA on CPAP, right diaphragm paralysis, lumbar spinal stenosis and other medical problems listed below who presents from PCP hospital follow-up with abnormal lab work and was found to have YANNA on CKD and hyponatremia. -Injury likely 2/2 dehydration and medication use -Cr elevated at 2.74 (baseline mid-1s) -Hold Bumex, lisinopril, gentle fluids @75ml/hr x 1 L. Recheck BMP in AM -Routine nephro consult due to ongoing complexity with CHF, CKD (2) Generalized weakness: Continues to feel weaker than baseline since fall -PT/OT evaluations, fall precautions (3) Head injury: Developed bilateral periorbital ecchymosis after fall 4 days ago. Multiple attempts made by ED provider and our service to obtain CT head but patient refused for now due to severe back pain despite pain medication -If unable to obtain now, will try again for tomorrow morning -No neuro deficits or signs of confusion. Hold coumadin (4) Hyponatremia: Likely pseudohyponatremia. When corrected for hyperglycemia, sodium is 131 (baseline ~133) -Continue to monitor with daily BMP (5) Type 2 diabetes mellitus: Last a1c of 8.2 in Nov 2019 -Hold home agents -SSI while in-patient -BSG AC HS (6) Permanent atrial fibrillation: Continue digoxin and diltiazem -Holding coumadin until CT head can be obtained (7) Chronic diastolic CHF (congestive heart failure), NYHA class 3: Appears clinically dry on exam and labwork. Hold Bumex for now. Reassess volume status tomorrow (8) Hypertension: Holding lisinopril in setting of YANNA (9) CAD (coronary artery disease): Continue aspirin, statin (10) CLARISSA on CPAP: bringing CPAP from home DVT Ppx: Holding coumadin for now Code status: FULL per discussion with patient PCP: Marley Dispo: Med tele. Discharge planning ordered. Patient seen in collaboration with Dr. Agarwal. Please see addendum. History of Present Illness Chief Complaint: sent from PCP with abnormal labwork Primary Care Provider: Seamus Roach, DO This is a 74yo M with a PMH of DM II, A fib on coumadin, CKD III-IV, chronic diastolic CHF, asthma, CLARISSA on CPAP, right diaphragm paralysis, lumbar spinal stenosis and other medical problems listed below who presents from PCP hospital follow-up with abnormal lab work. Patient was recently seen in ED on 02/18 after fall with negative findings on CT head, CT cervical spine and pelvic x-ray. Had lab work performed at hospital follow-up that was abnormal, so PCP sent to ED f or further evaluation. Since discharge, patient has not been eating or drinking as much as usual, per , and also continues to feel generally weak with an unsteady gait. Denies any lightheadedness, dizziness, visual changes, chest pain, shortness of breath, nausea, vomiting, abdominal pain, dysuria or diarrhea. Was given oxycodone IR at ED visit, which is helped control pain but patient states he has been constipated. Last bowel movement was 4 days ago. Allergies Allergy/AdvReac Type Severity Reaction Status Date / Time Bactrim Allergy Unknown HIVES Verified 04/07/18 13:36 Cephalosporins Allergy Unknown Rash Verified 03/05/20 15:05 Penicillins Allergy Unknown Rash Verified 03/05/20 15:05 sulfamethoxazole Allergy Unknown HIVES Verified 03/05/20 15:05 Tetracyclines Allergy Unknown Unknown Verified 03/05/20 15:05 trimethoprim Allergy Unknown HIVES Verified 03/05/20 15:05 CONTRAST DYE Allergy Unknown KIDNEY Uncoded 03/05/20 15:05 PROBLEMS Home Medications Home Medications Medication Instructions Recorded Confirmed Type Slow-Mag 71.5 mg PO BID 06/14/18 03/05/20 History alfuzosin 10 mg PO QAM 06/14/18 03/05/20 History aspirin [Aspir-81] 81 mg PO Q2D 06/14/18 03/05/20 History atorvastatin 40 mg PO QAM 06/14/18 03/05/20 History digoxin 125 mcg PO QAM 06/14/18 03/05/20 History duloxetine 60 mg PO QAM 06/14/18 03/05/20 History glipizide 10 mg PO BID 06/14/18 03/05/20 History lisinopril 20 mg PO QAM 06/14/18 03/05/20 History omeprazole 20 mg PO QDD 06/14/18 03/05/20 History trazodone 100 mg PO HS 06/14/18 03/05/20 History triamcinolone acetonide 1 applic TOPICAL BID PRN 06/14/18 03/05/20 History warfarin 5 mg tablet 7.5 mg PO QAM tab 06/13/19 03/05/20 History BiPap Machine #1 ea 07/26/19 11/16/19 History hydrocortisone 2.5 % topical cream 1 applic TOPICAL BID PRN gm 07/26/19 03/05/20 History ascorbic acid (vitamin C) 500 mg 500 mg PO QAM cap 08/29/19 03/05/20 History capsule diltiazem HCl 180 mg 180 mg PO BID #180 cap 09/28/19 03/05/20 Rx capsule,extended release 24 hr allopurinol 100 mg PO QAM 11/24/19 03/05/20 History betamethasone dipropionate 1 applic TOPICAL BID PRN 11/24/19 03/05/20 History nitroglycerin 0.4 mg SL UD PRN 11/24/19 03/05/20 History cholecalciferol (vitamin D3) 25 mcg PO QAM 02/29/20 03/05/20 History [Vitamin D3] dulaglutide [Trulicity] 0.75 mg SUBCUT FR 02/29/20 03/05/20 History bumetanide 2 mg PO QAM 03/05/20 03/05/20 History Past Med/Surg History Medical History (Updated 03/06/20 @ 09:36 by Porsha Nye MD) Anticoagulant long-term use (Chronic) Arthritis Asthma CAD (coronary artery disease) Small vessel LAD disease, no stenting Cervical spinal stenosis (01/18/12) Chronic diastolic CHF (congestive heart failure), NYHA class 3 Chronic respiratory failure with hypoxia CKD (chronic kidney disease), stage III COPD (chronic obstructive pulmonary disease) Depression Diaphragmatic paralysis Diverticulitis of colon (01/18/12) Dyslipidemia (01/18/12) Extrinsic asthma GERD (gastroesophageal reflux disease) Hypertension Obesity CLARISSA on CPAP Permanent atrial fibrillation (Chronic) Psoriasis (Acute) PVD (peripheral vascular disease) 11/10/2019 -s/p right GSV VenaSeal ablation Type 2 diabetes mellitus Surgical History History of appendectomy (01/18/12) S/P cervical spinal fusion (Resolved 01/18/12) S/P lumbar spinal fusion (Resolved 01/18/12) Family History Father Heart disease Social History Preferred Language: Setswana Communication Ability: Effective Trimming Cutter Machine Required: No Beliefs That Will Affect Care: None marital status: Current Living Situation: Spouse Feels Safe at Home: Yes Safety Concerns: Feels Safe At This Time Smoking Status: Former smoker Do You Dip or Chew Tobacco: No ; Hx Alcohol Use: No Hx Substance Use: No Review of Systems Review of Systems: At least ten systems reviewed and negative except as noted in the HPI. Physical Exam Physical Exam: General Appearance: WD/WN, vitals as above, appears chronically ill, pleasant, conversing easily Eyes: normal inspection, PERRL, conjunctivae normal, anicteric sclerae, bilateral periorbital ecchymosis noted ENT: external ear and nose normal, dry mucous membranes Neck: trachea midline, no thyromegaly normal visual inspection Respiratory: normal respiratory effort, coarse breath sounds, diminished at bases. No wheeze, rales or rhonchi. Normal insp/exp effort, no accessory muscle use Cardiovascular: regular rate, rhythm, no murmur, normal peripheral pulses. Vessels: no JVD or carotid bruit Chest: normal inspection of chest Abdomen/GI: normal bowel sounds, soft, nontender, no hepatosplenomegaly Extremities/Musculoskeletal: no cyanosis or clubbing, extremities motor strength 5/5 Neurologic: PERRL, EOMI, accommodation nl, no face palsy, no dysarthria, CN's II-XI intact bilaterally and moves all extremities Psychiatric: A+Ox3, euthymic affect Skin: no rashes, normal color, warm/dry Results & Data Results & Data ([facility]) Vital Signs (Past 12 Hours) Vital Signs Temp Pulse Pulse Resp BP BP Pulse Ox 03/05/20 13:56 65 20 117/51 L 91 03/05/20 13:15 61 20 128/51 L 96 03/05/20 12:47 97 03/05/20 12:31 36.8 C 65 20 111/58 L 94 Laboratory Results Short CBC 03/05/20 Range/Units 13:01 WBC 10.50 (4.8-10.8) K/uL Hgb 9.7 L (14.0-18.0) g/dL Hct 29.0 L (42-52) % Plt Count 198 (130-400) K/uL BMP 03/05/20 13:01 Sodium 128 L Potassium 4.1 Chloride 92 L Carbon Dioxide 27 BUN 45 H Creatinine 2.74 H Glucose 230 H Calcium 8.6 Cardiac Enzymes 03/05/20 03/05/20 Range/Units 13:01 13:50 Total Creatine Kinase 585 H 612 H (39-308) U/L CK-MB (CK-2) 9.7 H (0.5-3.6) ng/ml Troponin I < 0.015 (0-0.045) ng/ml Liver Function 03/05/20 Range/Units 13:01 Total Bilirubin 0.5 (0.2-1) mg/dl AST 48 H (15-37) U/L ALT 33 (12-78) U/L Alkaline Phosphatase 79 (45-117) U/L Albumin 3.0 L (3.4-5.0) gm/dl Urine 03/05/20 Range/Units 14:00 Urine Color Yellow Urine Appearance Clear (Clear) Urine pH 5.0 (4.5-7.5) Ur Specific Andrew 1.015 (1.000-1.030) Urine Protein Negative (Negative) Urine Glucose (UA) Negative (Negative) Diagnostic Findings CXR: IMPRESSION: Chronic change. No acute process Chest CT: IMPRESSION: 1. No acute traumatic process within the chest. 2. Trace left pleural effusion. 3. Mild elevation of the right hemidiaphragm. 4. A few bibasilar densities are nonspecific but favor subsegmental atelectasis. CT abd/pelvis: IMPRESSION: 1. Streak and motion compromised examination. 2. There is no evidence of solid organ injury in the abdomen or pelvis on this unenhanced examination. 3. No acute infectious or inflammatory findings are identified. 4. Mild to moderate colonic diverticulosis without CT evidence of acute diverticulitis. 5. Trace left pleural effusion. 6. Additional findings as above. Code Status & VTE Plan VTE Prophylaxis Plan VTE Prophylaxis will be ordered: Yes Supervising Physician Co-Signing Physician Notes ATTENDING ADDENDUM : 74 Yo male with complex past medical hx of CKD stage 3/HTN /CHF with diastolic failure /chronic afib on coumadin presented to ER with complain of generalized weakness , had recent fall , out pt lab work showed elevated cr suggestive of acute renal failure pt denies of any headache , no visual change , no complain of SOB or chest pain appetite been poor for past few days no nausea /vomiting or diarrhea ordered to hold -diuretics ( home meds ) gentle Hydration Nephrology consulted follow BMP Jenni Agarwal MD (1) Head injury Encounter type: initial encounter Qualified Code(s): S09.90XA - Unspecified injury of head, initial encounter
[2020-03-05] MEDS ORDERED: ONDANSETRON INJ 2 MG/ML 2 ML VIAL IV PRN (16:12)
[2020-03-05] MEDS ORDERED: ACETAMINOPHEN 325 MG TAB PO PRN (16:12)
[2020-03-05] MEDS ORDERED: HYDROCORTISONE 2.5% CR 30 GM TUBE EXT PRN (16:12)
[2020-03-05] MEDS ORDERED: DEXTROSE 50% 50 ML SYRINGE IV PRN (16:12)
[2020-03-05] MEDS ORDERED: BETAMETHASONE DIP AUG 0.05% OINT 15 GM TUBE TOP PRN (16:12)
[2020-03-05] MEDS ORDERED: MAGNESIUM HYDROXIDE SUSP 30 ML UDC PO PRN (16:12)
[2020-03-05] MEDS ORDERED: NITROGLYCERIN SL 0.4 MG/TAB TAB SL PRN ×2 (16:12)
[2020-03-05] MEDS ORDERED: GLUCOSE 10 TABS/TUBE PO PRN (16:12)
[2020-03-05] MEDS ORDERED: ALUMINUM/MAGNESIUM SUSP 30 ML UDC PO PRN (16:12)
[2020-03-05] MEDS ORDERED: GLUCAGON FOR INJ 1 MG VIAL SQ PRN (16:12)
[2020-03-05] MEDS ORDERED: GLUCOSE 40% GEL 15 GM TUBE PO PRN (16:12)
[2020-03-05] MEDS ORDERED: CARBOHYDRATES FOR HYPOGLYCEMIA PO PRN (16:12)
[2020-03-05] MEDS ORDERED: TRIAMCINOLONE ACET 0.1% CR 15 GM TUBE TOP PRN (16:12)
[2020-03-05] MEDS ORDERED: PNEUMOCOCCAL ADMINISTRATION CHARGE ONE (17:14)
[2020-03-05] MEDS ORDERED: PNEUMOCOCCAL POLYSACCHARIDES 25 MCG/0.5 ML VIAL/SYR IM ONE (17:14)
[2020-03-05] MEDS: PANTOprazole 40 MG TAB PO SCH (17:59)
[2020-03-05] MEDS: INSULIN ASPART 100 UNITS/ML 3 ML PEN SC SCH ×2 (18:00→20:52)
[2020-03-05] MEDS: POLYETHYLENE (MIRALAX) 17 GM PACK PO SCH (20:51)
[2020-03-05] MEDS: TRAZODONE HCL 100 MG TAB PO SCH (20:54)
[2020-03-05] MEDS: MAGNESIUM CHLORIDE 64MG DELAYED REL TAB PO SCH (20:54)
[2020-03-05] MEDS: dilTIAZem HCL 180 MG CAPCR PO SCH (20:55)
[2020-03-06 07:51] LABS: Hematocrit (blood only) 29.6 % (42-52); Hemoglobin 9.7 g/dL (14.0-18.0); Mean Corpuscular Hemoglobin 29.8 pg (25-34); Mean Corpuscular Hgb Conc 32.8 g/dL (32-36); Mean Corpuscular Volume 91.1 fL (80-100); Mean Platelet Volume 10.3 fL (7.4-10.4); Platelet Count 200 K/uL (130-400); RDW Coefficient of Variation 14.6 % (11.5-14.5); RDW Standard Deviation 48.7 fL (36.4-46.3); Red Blood Count 3.25 M/uL (4.7-6.1); White Blood Count 7.69 K/uL (4.8-10.8)
[2020-03-06] MEDS: INSULIN ASPART 100 UNITS/ML 3 ML PEN SC SCH ×4 (07:57→20:28)
[2020-03-06] MEDS: ATORVASTATIN 40 MG TAB PO SCH (07:58)
[2020-03-06] MEDS: CHOLECALCIFEROL 1,000 UNITS 25 MCG TAB PO SCH (07:58)
[2020-03-06] MEDS: ASPIRIN 81 MG ECTAB PO SCH (07:58)
[2020-03-06] MEDS: ALFUZOSIN HCL 10 MG TAB PO SCH (07:58)
[2020-03-06] MEDS: DULOXETINE HCL 60 MG CAP PO SCH (07:58)
[2020-03-06] MEDS: dilTIAZem HCL 180 MG CAPCR PO SCH (07:58)
[2020-03-06] MEDS: allopurinoL 100 MG TAB PO SCH (07:58)
[2020-03-06] MEDS: ASCORBIC ACID 500 MG TAB PO SCH (07:58)
[2020-03-06] MEDS: MAGNESIUM CHLORIDE 64MG DELAYED REL TAB PO SCH ×2 (07:58→20:29)
[2020-03-06] MEDS: POLYETHYLENE (MIRALAX) 17 GM PACK PO SCH ×2 (07:58→20:29)
[2020-03-06 08:23] LABS: BUN Creatinine Ratio 20.8 (10-20); Calcium 8.7 mg/dl (8.5-10.1); Creatinine Clr Calc Pharmacy 39.6 ml/min; Est GFR (African American) 32.5; Est GFR (Non-African American) 28.1; Potassium 4.2 mmol/L (3.5-5.1)
--- NOTE | 2020-03-06 09:36 | Nephrology Consultation ---
Date of Consultation March 06, 2020 Assessment & Plan (1) Acute kidney injury superimposed on chronic kidney disease: Patient with acute kidney injury on CKD likely hemodynamically mediated in setting of Bumex, recent traumatic blood loss with bruising on the face and relative hypotension. Patient's baseline creatinine of 1.5. Admission creatinine was 2.7 but improving to 2.2 today. His systolic blood pressure normally ranges in the 140s but now in the low 100s. Urinalysis was notable for high specific gravity but otherwise negative. CT abdomen showed atrophic kidneys but no hydronephrosis or kidney stones. He had a renal cyst. -Recommend reducing dose of diltiazem to allow his blood pressure and heart rate go up to improve renal perfusion -Monitor renal function with daily BMP -Avoid nephrotoxins such as contrast (2) Permanent atrial fibrillation: Patient is controlled on diltiazem and digoxin. Due to the relative hypotension and bradycardia, recommend reducing diltiazem to 120 mg twice daily starting tomorrow. Would hold the evening dose of diltiazem today. (3) Anemia: Recent hemoglobin of 9.7 likely due to recent fall and possibly blood loss. Will monitor hemoglobin closely. Patient might need Epogen. (4) Renal cyst: Patient has a 1.2 cm complex renal cyst. This will need outpatient follow-up by his maintenance technician. History of Present Illness Reason for Consultation: Acute kidney injury on CKD Requesting Physician: Jenni Agarwal MD Attending Physician: Renee Gonzalez MD History of Present Illness This is 74-year-old male with a history of type 2 diabetes, peripheral vascular disease CKD stage III with baseline creatinine of 1.5, CHF, coronary disease, atrial fibrillation on diltiazem and digoxin was admitted on 03/05/2020 with creatinine of 2.7 from a baseline of 1.5. Patient had gone for PCP post ER visit and was found to have worsening renal function. Patient fell at home 5 days ago and was evaluated in the ER. He has multiple bruises on the face and a laceration on the scalp. He was unable to have a CT scan of the head due to severe back pain. He denies NSAID use. He has been using OxyContin for pain control. He denied any vomiting or diarrhea. His legs are chronically swollen and he wears compression stockings. He takes Bumex daily at home. He has not checked his blood pressure recently. He denied any dizziness. His systolic blood pressure has been in the low 100s since admission. He was previously running in the 140s. Bumex was held on admission and he received some IV fluids. His creatinine is better today at 2.2 but blood pressure remains in the low 100s systolic and pulse rate of 56. Allergies Allergy/AdvReac Type Severity Reaction Status Date / Time Bactrim Allergy Unknown HIVES Verified 04/07/18 13:36 Cephalosporins Allergy Unknown Rash Verified 03/05/20 15:05 Penicillins Allergy Unknown Rash Verified 03/05/20 15:05 sulfamethoxazole Allergy Unknown HIVES Verified 03/05/20 15:05 Tetracyclines Allergy Unknown Unknown Verified 03/05/20 15:05 trimethoprim Allergy Unknown HIVES Verified 03/05/20 15:05 CONTRAST DYE Allergy Unknown KIDNEY Uncoded 03/05/20 15:05 PROBLEMS Home Medications Home Medications Medication Instructions Recorded Confirmed Type Slow-Mag 71.5 mg PO BID 06/14/18 03/05/20 History alfuzosin 10 mg PO QAM 06/14/18 03/05/20 History aspirin [Aspir-81] 81 mg PO Q2D 06/14/18 03/05/20 History atorvastatin 40 mg PO QAM 06/14/18 03/05/20 History digoxin 125 mcg PO QAM 06/14/18 03/05/20 History duloxetine 60 mg PO QAM 06/14/18 03/05/20 History glipizide 10 mg PO BID 06/14/18 03/05/20 History lisinopril 20 mg PO QAM 06/14/18 03/05/20 History omeprazole 20 mg PO QDD 06/14/18 03/05/20 History trazodone 100 mg PO HS 06/14/18 03/05/20 History triamcinolone acetonide 1 applic TOPICAL BID PRN 06/14/18 03/05/20 History warfarin 5 mg tablet 7.5 mg PO QAM tab 06/13/19 03/05/20 History BiPap Machine #1 ea 07/26/19 11/16/19 History hydrocortisone 2.5 % topical cream 1 applic TOPICAL BID PRN gm 07/26/19 03/05/20 History ascorbic acid (vitamin C) 500 mg 500 mg PO QAM cap 08/29/19 03/05/20 History capsule diltiazem HCl 180 mg 180 mg PO BID #180 cap 09/28/19 03/05/20 Rx capsule,extended release 24 hr allopurinol 100 mg PO QAM 11/24/19 03/05/20 History betamethasone dipropionate 1 applic TOPICAL BID PRN 11/24/19 03/05/20 History nitroglycerin 0.4 mg SL UD PRN 11/24/19 03/05/20 History cholecalciferol (vitamin D3) 25 mcg PO QAM 02/29/20 03/05/20 History [Vitamin D3] dulaglutide [Trulicity] 0.75 mg SUBCUT FR 02/29/20 03/05/20 History bumetanide 2 mg PO QAM 03/05/20 03/05/20 History Patient History Medical History (Updated 03/06/20 @ 09:36 by Porsha Nye MD) Anticoagulant long-term use (Chronic) Arthritis Asthma CAD (coronary artery disease) Small vessel LAD disease, no stenting Cervical spinal stenosis (01/18/12) Chronic diastolic CHF (congestive heart failure), NYHA class 3 Chronic respiratory failure with hypoxia CKD (chronic kidney disease), stage III COPD (chronic obstructive pulmonary disease) Depression Diaphragmatic paralysis Diverticulitis of colon (01/18/12) Dyslipidemia (01/18/12) Extrinsic asthma GERD (gastroesophageal reflux disease) Hypertension Obesity CLARISSA on CPAP Permanent atrial fibrillation (Chronic) Psoriasis (Acute) PVD (peripheral vascular disease) 11/10/2019 -s/p right GSV VenaSeal ablation Type 2 diabetes mellitus Surgical History History of appendectomy (01/18/12) S/P cervical spinal fusion (Resolved 01/18/12) S/P lumbar spinal fusion (Resolved 01/18/12) Family History Father Heart disease Social History Preferred Language: Martiniquais Communication Ability: Effective Cook Specialty Foreign Food Required: No Beliefs That Will Affect Care: None marital status: Current Living Situation: Spouse Feels Safe at Home: Yes Safety Concerns: Feels Safe At This Time Smoking Status: Former smoker Do You Dip or Chew Tobacco: No ; Hx Alcohol Use: No Hx Substance Use: No Review of Systems Review of Systems: All systems reviewed & are unremarkable except as noted in HPI & below Physical Exam Physical Exam: General exam: Appears comfortable, no acute distress HEENT: Bruising on the face and laceration on the scalp, pupils are equal and reactive to light Neck: No JVD, neck is supple trachea is midline Respiratory system: Clear breath sounds bilaterally. Gastrointestinal: Abdomen is soft, non distended, non tender, bowel sounds are present CVS: Regular rate and rhythm. No murmurs, rubs or gallops Musculoskeletal: No joint or muscle tenderness Extremities: Non tender, trace edema, peripheral pulses are present Neuro: Oriented, no tremors, no focal neurological deficits Skin: No rashes, bruises on the face Results & Data Vital Signs (Past 12 Hours) Vital Signs Temp Pulse Pulse Resp BP BP Pulse Ox 03/06/20 08:00 56 L 03/06/20 07:02 36.5 C 71 18 101/67 93 03/06/20 03:41 67 18 92 03/06/20 03:13 36.1 C L 62 18 108/66 91 03/05/20 23:35 36.3 C L 61 18 131/54 L 94 03/05/20 21:30 77 18 97 Laboratory Results 03/06/20 07:35 03/05/20 03/05/20 03/06/20 13:01 13:01 07:35 WBC 10.50 7.69 RBC 3.24 L 3.25 L MCV 89.5 91.1 MCH 29.9 29.8 MCHC 33.4 32.8 RDW Std Deviation 47.8 H 48.7 H RDW Coeff of Starr 14.5 14.6 H Plt Count 198 200 MPV 10.2 10.3 Albumin 3.0 L (1) Anemia Anemia type: unspecified type Qualified Code(s): D64.9 - Anemia, unspecified
[2020-03-06 15:03] LABS: INR 2.1 (0.9-1.1); Prothrombin Time 20.9 Seconds (9.0-12.0)
[2020-03-06] MEDS: DIGOXIN 0.125 MG TAB PO SCH (16:29)
[2020-03-06] MEDS: PANTOprazole 40 MG TAB PO SCH (16:32)
--- NOTE | 2020-03-06 19:52 | Hospitalist Progress Note ---
Date of Service March 06, 2020 Assessment & Plan (1) Acute kidney injury superimposed on chronic kidney disease: Was sent by PCP for abnormal lab Possible related to hypotension and GI bleed Cr elevated at 2.74 (baseline 1.5) Creatinine slightly improved to 2.2 today Continue to hold Bumex, lisinopril, gentle fluids @75ml/hr x 1 L. Nephrology on board recommended to decrease diltiazem due to hypotension (2) Generalized weakness: No Focal neuro deficit Continue PT/OT CT head pending Fall precaution (3) Head injury: Developed bilateral periorbital ecchymosis after fall 4 days ago. Multipl e attempts made by ED provider and our service to obtain CT head but patient refused for now due to severe back pain despite pain medication Agreed to get CT head today No neuro deficits or signs of confusion Continue to hold coumadin for now until CT heard showed no bleeding (4) Hyponatremia: Likely pseudohyponatremia. When corrected for hyperglycemia, sodium is 131 (baseline ~133) -Continue to monitor with daily BMP (5) Type 2 diabetes mellitus: Last a1c of 8.2 in Nov 2019 -Hold home agents -SSI while in-patient -BSG AC HS (6) Permanent atrial fibrillation: Rate Control with digoxin Will decrease diltiazem 120mg -Holding coumadin until CT head can be obtained (7) Chronic diastolic CHF (congestive heart failure), NYHA class 3: Continue to hold Bumex for now. No sign of fluid overload (8) Hypertension: Continue to hold lisinopril in setting of YANNA (9) CAD (coronary artery disease): Continue aspirin, statin (10) CLARISSA on CPAP: Continue CPap DVT Ppx: Holding coumadin for now Code status: FULL Admission and Anticipated Discharge Date Admission Date: March 05, 2020 Subjective Pt was seen and examined Sitting in chair with no distress Pt said that he feels tenderness in his back and neck Denies any chest pain, palpitation and SOB Physical Exam Physical Exam: General- No acute distress Head- atraumatic Eyes- PERRL, EOMI, bilateral periorbital ecchymosis ENT- oropharynx clear Neck- supple, no JVD Lungs- clear to auscultation Heart- regular rhythm; no murmur Abdomen- normal bowel sounds, soft, nontender Extremities- no calf tenderness Neuro- alert, oriented x 3; PERRL, EOMI; no facial palsy; no dysarthria Skin- warm & dry Results & Data Results & Data ([facility]) Vital Signs (Past 12 Hours) Vital Signs Temp Pulse Pulse Resp BP Pulse Ox 03/06/20 16:29 53 L 03/06/20 16:00 59 L 03/06/20 15:52 36.4 C L 54 L 17 122/52 L 97 03/06/20 11:03 36.4 C L 57 L 20 102/54 L 96 03/06/20 08:00 56 L (1) Head injury Encounter type: initial encounter Qualified Code(s): S09.90XA - Unspecified injury of head, initial encounter
[2020-03-06] MEDS: TRAZODONE HCL 100 MG TAB PO SCH (20:29)
[2020-03-07] MEDS ORDERED: LORazepam 0.5 MG TAB PO STA ×2 (00:40→23:21)
[2020-03-07 06:17] LABS: Hematocrit (blood only) 28.8 % (42-52); Hemoglobin 9.7 g/dL (14.0-18.0); Mean Corpuscular Hemoglobin 30.3 pg (25-34); Mean Corpuscular Hgb Conc 33.7 g/dL (32-36); Mean Platelet Volume 10.4 fL (7.4-10.4); Platelet Count 210 K/uL (130-400); RDW Coefficient of Variation 14.5 % (11.5-14.5); RDW Standard Deviation 47.7 fL (36.4-46.3); White Blood Count 7.08 K/uL (4.8-10.8)
[2020-03-07 06:28] LABS: INR 1.8 (0.9-1.1); Prothrombin Time 18.4 Seconds (9.0-12.0)
[2020-03-07 06:45] LABS: BUN Creatinine Ratio 21.9 (10-20); Creatinine Clr Calc Pharmacy 49.3 ml/min; Est GFR (African American) 42.6; Est GFR (Non-African American) 36.7; Potassium 4.3 mmol/L (3.5-5.1)
--- NOTE | 2020-03-07 06:51 | CT Scan Report ---
CT head/brain wo con CLINICAL HISTORY: periorbital ecchymosis TRAUMA COMPARISON STUDY: 02/29/2020 TECHNIQUE: Axial CT of the brain is performed from the vertex to the skull base. IV contrast was not administered for this examination. A dose lowering technique was utilized adhering to the principles of ALARA. CT DOSE: 1547.15 mGy.cm FINDINGS: No intra or extra-axial mass lesions are visualized. There is no CT evidence of acute cortical infarc tion. There is no evidence of midline shift. There is no acute hemorrhage. No calvarial fractures ar e visualized. There are patchy white matter hypodensities likely on a small vessel basis. There is no evidence of pathologic ventricular dilatation. There is no evidence of acute sinusitis IMPRESSION: No acute intracranial findings ACT 112: Negative or not required by law. Electronically signed by: Keaton Mtz M.D. 03/07/2020 6:50 AM
[2020-03-07] MEDS: DULOXETINE HCL 60 MG CAP PO SCH (08:09)
[2020-03-07] MEDS: MAGNESIUM CHLORIDE 64MG DELAYED REL TAB PO SCH ×2 (08:09→20:39)
[2020-03-07] MEDS: ATORVASTATIN 40 MG TAB PO SCH (08:09)
[2020-03-07] MEDS: CHOLECALCIFEROL 1,000 UNITS 25 MCG TAB PO SCH (08:09)
[2020-03-07] MEDS: ALFUZOSIN HCL 10 MG TAB PO SCH (08:10)
[2020-03-07] MEDS: POLYETHYLENE (MIRALAX) 17 GM PACK PO SCH ×2 (08:10→20:39)
[2020-03-07] MEDS: ASCORBIC ACID 500 MG TAB PO SCH (08:10)
[2020-03-07] MEDS: allopurinoL 100 MG TAB PO SCH (08:10)
[2020-03-07] MEDS: INSULIN ASPART 100 UNITS/ML 3 ML PEN SC SCH ×4 (08:11→20:37)
[2020-03-07] MEDS: INSULIN GLARGINE SOLOSTAR 100 UNITS/ML 3 ML PEN SC SCH ×2 (10:21→20:38)
--- NOTE | 2020-03-07 10:55 | Nephrology Progress Note ---
Date of Service March 07, 2020 Assessment & Plan (1) Acute kidney injury superimposed on chronic kidney disease: Patient with acute kidney injury on CKD likely hemodynamically mediated in setting of Bumex, recent traumatic blood loss with bruising on the face and relative hypotension. Patient's baseline creatinine of 1.5. Admission creatinine was 2.7 but improving to 1.7 today. His systolic blood pressure is better today. Urinalysis was notable for high specific gravity but otherwise n egative. CT abdomen showed atrophic kidneys but no hydronephrosis or kidney stones. He had a renal cyst. -Recommend reducing dose of diltiazem to 120 mg twice daily. -Resume Bumex home dose today -Monitor renal function with daily BMP -Avoid nephrotoxins such as contrast -From renal standpoint patient can be discharged. He will need BMP early next week and a renal follow-up in 1 to 2 weeks (2) Permanent atrial fibrillation: Patient is controlled on diltiazem and digoxin. Due to the relative hypotension and bradycardia, recommend reducing diltiazem to 120 mg twice daily. (3) Anemia: Recent hemoglobin of 9.7 likely due to recent fall and possibly blood loss. Will monitor hemoglobin closely. Patient might need Epogen. (4) Renal cyst: Patient has a 1.2 cm complex renal cyst. This will need outpatient follow-up by his cnp. Admission and Anticipated Discharge Date Admission Date: March 05, 2020 Subjective Patient feels better overall but is complaining of shortness of breath this morning. His blood pressure is better. Creatinine is downtrending. I also spoke to the on phone who was concerned about his renal function Review of Systems Review of Systems: All systems reviewed & are unremarkable except as noted in HPI & below Physical Exam Physical Exam: General exam: Appears comfortable, no acute distress HEENT: Pupils are equal and reactive to light Neck: No JVD, neck is supple trachea is midline Respiratory system: Crackles bilaterally. Gastrointestinal: Abdomen is soft, non distended, non tender, bowel sounds are present CVS: Regular rate and rhythm. No murmurs, rubs or gallops Musculoskeletal: No joint or muscle tenderness Extremities: Non tender, 1+ edema, peripheral pulses are present Neuro: Oriented, no tremors, no focal neurological deficits Skin: No rashes, bruises on the face Results & Data ([facility]) Vital Signs (Past 12 Hours) Vital Signs Temp Pulse Pulse Resp BP Pulse Ox 03/07/20 07:21 36.5 C 74 18 129/71 98 03/07/20 04:13 36.5 C 59 L 18 126/71 97 03/06/20 23:53 36.6 C 66 18 164/63 H 91 03/06/20 23:18 60 Laboratory Results 03/07/20 05:51 03/07/20 05:51 WBC 7.08 RBC 3.20 L MCV 90.0 MCH 30.3 MCHC 33.7 RDW Std Deviation 47.7 H RDW Coeff of Starr 14.5 Plt Count 210 MPV 10.4 (1) Anemia Anemia type: unspecified type Qualified Code(s): D64.9 - Anemia, unspecified
[2020-03-07] MEDS: dilTIAZem HCL 120 MG CAPCR PO SCH ×2 (11:34→20:39)
[2020-03-07] MEDS: BUMETANIDE 1 MG TAB PO SCH (11:34)
--- NOTE | 2020-03-07 14:33 | Hospitalist Progress Note ---
Date of Service March 07, 2020 Assessment & Plan (1) Acute kidney injury superimposed on chronic kidney disease: Was sent by PCP for abnormal lab Possible related to hypotension and GI bleed Cr elevated at 2.74 (baseline 1.5) Creatinine continue to improve to 1.7 today Nephrology on board recommended to decrease diltiazem due to hypotension Bumex resumed today Check BMP Next week Clinically stable (2) Generalized weakness: No Focal neuro deficit Continue PT/OT CT head showed no acute bleeding Fall precaution (3) Head injury: Developed bilateral periorbital ecchymosis after fall 4 days ago. Multiple attempts made by ED provider and our service to obtain CT head but patient refused for now due to severe back pain despite pain medication No neuro deficits or signs of confusion CT head negative for intracranial bleeding (4) Hyponatremia: Likely pseudohyponatremia. When corrected for hyperglycemia, sodium is 131 (baseline ~133) Continue to monitor with daily BMP (5) Type 2 diabetes mellitus: Last a1c of 8.2 in Nov 2019 BS elevated home agents on hold SSI while in-patient Continue monitor BS (6) Permanent atrial fibrillation: Rate Control with digoxin Will decrease diltiazem 120mg Coumadin resume (7) Chronic diastolic CHF (congestive heart failure), NYHA class 3: Bumex on hold No sign of fluid overload (8) Hypertension: Continue to hold lisinopril in setting of YANNA (9) CAD (coronary artery disease): Continue aspirin, statin (10) CLARISSA on CPAP: Continue CPap DVT Ppx: On coumadin Code status: FULL Admission and Anticipated Discharge Date Admission Date: March 05, 2020 Subjective Pt was seen and examined Sitting in chair with no distress Pt said that he feels much better Spoke to today and provided with update would like him to come home tomorrow to make sure his kidney stable Denies any chest pain, palpitation, dizziness and SOB Physical Exam Physical Exam: General- No acute distress Head- atraumatic Eyes- PERRL, EOMI, bilateral periorbital ecchymosis ENT- oropharynx clear Neck- supple, no JVD Lungs- clear to auscultation Heart- regular rhythm; no murmur Abdomen- normal bowel sounds, soft, nontender Extremities- no calf tenderness, +edema Neuro- alert, oriented x 3; PERRL, EOMI; no facial palsy; no dysarthria Skin- warm & dry Results & Data Results & Data ([facility]) Vital Signs (Past 12 Hours) Vital Signs Temp Pulse Resp BP Pulse Ox 03/07/20 11:35 36.9 C 71 18 138/84 96 03/07/20 07:21 36.5 C 74 18 129/71 98 03/07/20 04:13 36.5 C 59 L 18 126/71 97 (1) Head injury Encounter type: initial encounter Qualified Code(s): S09.90XA - Unspecified injury of head, initial encounter
[2020-03-07] MEDS ORDERED: WARFARIN SOD 7.5 MG TAB PO SCH (17:10)
[2020-03-07] MEDS: PANTOprazole 40 MG TAB PO SCH (17:14)
[2020-03-07] MEDS: DIGOXIN 0.125 MG TAB PO SCH (17:14)
[2020-03-07] MEDS: TRAZODONE HCL 100 MG TAB PO SCH (20:39)
[2020-03-08] MEDS: MAGNESIUM CHLORIDE 64MG DELAYED REL TAB PO SCH (07:49)
[2020-03-08] MEDS: DULOXETINE HCL 60 MG CAP PO SCH (07:49)
[2020-03-08] MEDS: dilTIAZem HCL 120 MG CAPCR PO SCH (07:49)
[2020-03-08] MEDS: POLYETHYLENE (MIRALAX) 17 GM PACK PO SCH (07:49)
[2020-03-08] MEDS: BUMETANIDE 1 MG TAB PO SCH (07:50)
[2020-03-08] MEDS: allopurinoL 100 MG TAB PO SCH (07:50)
[2020-03-08] MEDS: CHOLECALCIFEROL 1,000 UNITS 25 MCG TAB PO SCH (07:50)
[2020-03-08] MEDS: ASCORBIC ACID 500 MG TAB PO SCH (07:50)
[2020-03-08] MEDS: ASPIRIN 81 MG ECTAB PO SCH (07:51)
[2020-03-08] MEDS: ALFUZOSIN HCL 10 MG TAB PO SCH (07:51)
[2020-03-08] MEDS: ATORVASTATIN 40 MG TAB PO SCH (07:51)
[2020-03-08 07:59] LABS: INR 1.6 (0.9-1.1); Prothrombin Time 16.4 Seconds (9.0-12.0)
[2020-03-08 08:18] LABS: BUN Creatinine Ratio 17.2 (10-20); Calcium 9.4 mg/dl (8.5-10.1); Creatinine Clr Calc Pharmacy 55.4 ml/min; Est GFR (African American) 48.9; Est GFR (Non-African American) 42.2; Potassium 4.3 mmol/L (3.5-5.1)
[2020-03-08] MEDS: INSULIN ASPART 100 UNITS/ML 3 ML PEN SC SCH ×2 (08:35→12:30)
[2020-03-08] MEDS ORDERED: INSULIN GLARGINE SOLOSTAR 100 UNITS/ML 3 ML PEN SC SCH (09:00)
--- NOTE | 2020-03-08 11:06 | Nephrology Progress Note ---
Date of Service March 08, 2020 Assessment & Plan (1) Acute kidney injury superimposed on chronic kidney disease: Patient with acute kidney injury on CKD likely hemodynamically mediated in setting of Bumex, recent traumatic blood loss with bruising on the face and relative hypotension. Patient's baseline creatinine of 1.5. Admission creatinine was 2.7 but improving to 1.5 today. His systolic blood pressure is better today. Urinalysis was notable for high specific gravity but otherwise n egative. CT abdomen showed atrophic kidneys but no hydronephrosis or kidney stones. He had a renal cyst. -Continue diltiazem 120 mg twice daily. Patient can be discharged on the same -Continue Bumex 2 mg daily -Monitor renal function with daily BMP -Avoid nephrotoxins such as contrast -From renal standpoint patient can be discharged. He will need BMP mid next week and a renal follow-up in 1 to 2 weeks (2) Permanent atrial fibrillation: Patient is controlled on diltiazem and digoxin. Due to the relative hypotension and bradycardia, continue diltiazem 120 mg twice daily. (3) Anemia: Recent hemoglobin of 9.7 likely due to recent fall and possibly blood loss. Will monitor hemoglobin closely. Patient might need Epogen. (4) Renal cyst: Patient has a 1.2 cm complex renal cyst. This will need outpatient follow-up by his radio assembler. Admission and Anticipated Discharge Date Admission Date: March 05, 2020 Subjective Patient feels better today denies any shortness of breath but has lower extremity swelling. He was net -3.7 L after resuming Bumex. Creatinine is better today. Review of Systems Review of Systems: All systems reviewed & are unremarkable except as noted in HPI & below Physical Exam Physical Exam: General exam: Appears comfortable, no acute distress HEENT: Pupils are equal and reactive to light Neck: No JVD, neck is supple trachea is midline Respiratory system: Clear breath sounds bilaterally. Gastrointestinal: Abdomen is soft, non distended, non tender, bowel sounds are present CVS: Regular rate and rhythm. No murmurs, rubs or gallops Musculoskeletal: No joint or muscle tenderness Extremities: Non tender, 1+ edema, peripheral pulses are present Neuro: Oriented, no tremors, no focal neurological deficits Skin: No rashes, bruises on the face Results & Data ([facility]) Vital Signs (Past 12 Hours) Vital Signs Temp Pulse Pulse Resp BP BP Pulse Ox 03/08/20 07:24 62 03/08/20 07:15 36.6 C 68 18 140/79 95 03/08/20 03:09 36.8 C 66 20 116/66 98 03/07/20 23:46 69 Laboratory Results 03/08/20 07:23 (1) Anemia Anemia type: unspecified type Qualified Code(s): D64.9 - Anemia, unspecified
--- NOTE | 2020-03-08 13:26 | Hospitalist Progress Note ---
Date of Service March 08, 2020 Assessment & Plan (1) Acute kidney injury superimposed on chronic kidney disease: Was sent by PCP for abnormal lab Possible related to hypotension and GI bleed Cr elevated at 2.74 (baseline 1.5) Creatinine continue to improve to 1.5 today Nephrology on board recommended to decrease diltiazem due to hypotension Continue Bumex Check BMP Next week Follow up with nephrology in 1-2 weeks Clinically stable (2) Generalized weakness: No Focal neuro deficit Continue PT/OT CT head showed no acute bleeding Fall precaution (3) Head injury: Developed bilateral periorbital ecchymosis after fall 4 days ago. Multiple attempts made by ED provider and our service to obtain CT head but patient refused for now due to severe back pain despite pain medication No neuro deficits or signs of confusion CT head negative for intracranial bleeding (4) Hyponatremia: Likely pseudohyponatremia. 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 SSI while in-patient Continue monitor BS (6) Permanent atrial fibrillation: Rate Control with digoxin diltiazem decreased to 120mg BID due to low BP and bradycardia, will continue on discharge Coumadin resume (7) Chronic diastolic CHF (congestive heart failure), NYHA class 3: Continue Bumex No sign of fluid overload (8) Hypertension: Continue to hold lisinopril in setting of YANNA (9) CAD (coronary artery disease): Continue aspirin, statin (10) CLARISSA on CPAP: Continue CPap DVT Ppx: On coumadin Code status: FULL Admission and Anticipated Discharge Date Admission Date: March 05, 2020 Subjective Pt was seen and examined Sitting in bed with no distress Pt said that he feels much better Not interested to go to rehab Denies any chest pain, palpitation, dizziness and fever Physical Exam Physical Exam: General- No acute distress Head- atraumatic Eyes- PERRL, EOMI, bilateral periorbital ecchymosis ENT- oropharynx clear Neck- supple, no JVD Lungs- clear to auscultation Heart- regular rhythm; no murmur Abdomen- normal bowel sounds, soft, nontender Extremities- no calf tenderness, +edema Neuro- alert, oriented x 3; PERRL, EOMI; no facial palsy; no dysarthria Skin- warm & dry Results & Data Results & Data ([facility]) Vital Signs (Past 12 Hours) Vital Signs Temp Pulse Pulse Resp BP BP Pulse Ox 03/08/20 11:35 36.8 C 106 H 20 145/74 H 97 03/08/20 07:24 62 03/08/20 07:15 36.6 C 68 18 140/79 95 03/08/20 03:09 36.8 C 66 20 116/66 98 (1) Head injury Encounter type: initial encounter Qualified Code(s): S09.90XA - Unspecified injury of head, initial encounter
--- NOTE | 2020-03-09 00:27 | Discharge Summary ---
Date of Service March 08, 2020 Admission HPI Per Admitting Provider This is a 74yo M with a PMH of DM II, A fib on coumadin, CKD III-IV, chronic diastolic CHF, asthma, CLARISSA on CPAP, right diaphragm paralysis, lumbar spinal stenosis and other medical problems listed below who presents from PCP hospital follow-up with abnormal lab work. Patient was recently seen in ED on 02/18 after fall with negative findings on CT head, CT cervical spine and pelvic x-ray. Had lab work performed at hospital follow-up that was abnormal, so PCP sent to ED for further evaluation. Since discharge, patient has not been eating or drinking as much as usual, per , and also continues to feel generally weak with an unsteady gait. Denies any lightheadedness, dizziness, visual changes, chest pain, shortness of breath, nausea, vomiting, abdominal pain, dysuria or diarrhea. Was given oxycodone IR at ED visit, which is helped control pain but patient states he has been constipated. Last bowel movement was 4 days ago. Admission Exam Per Admitting Provider General Appearance: WD/WN, vitals as above, appears chronically ill, pleasant, conversing easily Eyes: normal inspection, PERRL, conjunctivae normal, anicteric sclerae, bilateral periorbital ecchymosis noted ENT: external ear and nose normal, dry mucous membranes Neck: trachea midline, no thyromegaly normal visual inspection Respiratory: normal respiratory effort, coarse breath sounds, diminished at bases. No wheeze, rales or rhonchi. Normal insp/exp effort, no accessory muscle use Cardiovascular: regular rate, rhythm, no murmur, normal peripheral pulses. Vessels: no JVD or carotid bruit Chest: normal inspection of chest Abdomen/GI: normal bowel sounds, soft, nontender, no hepatosplenomegaly Extremities/Musculoskeletal: no cyanosis or clubbing, extremities motor strength 5/5 Neurologic: PERRL, EOMI, accommodation nl, no face palsy, no dysarthria, CN's II-XI intact bilaterally and moves all extremities Psychiatric: A+Ox3, euthymic affect Skin: no rashes, normal color, warm/dry Principal Diagnosis Acute kidney injury superimposed on chronic kidney disease Generalized weakness Head injury Hyponatremia: Type 2 diabetes mellitus: Permanent atrial fibrillation: Chronic diastolic CHF (congestive heart failure), NYHA class 3: Hypertension: CAD (coronary artery disease): CLARISSA on CPAP: Discharge Exam General- No acute distress Head- atraumatic Eyes- PERRL, EOMI, bilateral periorbital ecchymosis ENT- oropharynx clear Neck- supple, no JVD Lungs- clear to auscultation Heart- regular rhythm; no murmur Abdomen- normal bowel sounds, soft, nontender Extremities- no calf tenderness, +edema Neuro- alert, oriented x 3; PERRL, EOMI; no facial palsy; no dysarthria Skin- warm & dry Discharge Data Allergies Allergy/AdvReac Type Severity Reaction Status Date / Time Bactrim Allergy Unknown HIVES Verified 04/07/18 13:36 Cephalosporins Allergy Unknown Rash Verified 03/05/20 15:05 Penicillins Allergy Unknown Rash Verified 03/05/20 15:05 sulfamethoxazole Allergy Unknown HIVES Verified 03/05/20 15:05 Tetracyclines Allergy Unknown Unknown Verified 03/05/20 15:05 trimethoprim Allergy Unknown HIVES Verified 03/05/20 15:05 CONTRAST DYE Allergy Unknown KIDNEY Uncoded 03/05/20 15:05 PROBLEMS Consultations 03/05/20 14:07 ED Decision to Admit Stat 03/05/20 14:53 Consult Nephrology Routine 03/05/20 16:12 Consult Case Management - Discharge Planning Routine Ordered Studies 03/05/20 12:49 CT abd pelvis wo con Stat CT chest wo con Stat 03/06/20 08:00 CT head/brain wo con Routine CT SCAN OF THE ABDOMEN AND PELVIS WITHOUT IV CONTRAST CLINICAL HISTORY: Fall. COMPARISON STUDY: Abdominal CT dated 01/18/2012. TECHNIQUE: CT scan of the abdomen and pelvis is performed from the lung bases to the proximal femora. Images are reviewed in the axial, sagittal, and coronal planes. IV contrast was not administered for this examination. Note that the examination is suboptimal without IV contrast. The examination is degraded by motion artifact, as well as by large body habitus. There is streak artifact from the body wall abutting the CT gantry, as well as the left arm which could not be elevated above the abdomen. A dose lowering technique was utilized adhering to the principles of ALARA. CT DOSE: 3414.57 mGy.cm FINDINGS: Lung bases: The heart is top normal in size and without pericardial effusion. The coronary arteries are densely calcified. There is diminished attenuation of the cardiac blood pool as compared to the myocardium suggesting anemia. There is chronic elevation of the right hemidiaphragm with associated right basilar atelectasis. Scattered calcified granulomas are present in both lungs. A trace pleural effusion is seen at the left lung base. A small hiatal hernia is noted. Liver: Evaluation of the liver is significantly degraded by streak artifact. The unenhanced liver is grossly normal in size, contour, and attenuation. There is no intrahepatic biliary ductal dilatation. Gallbladder: Unremarkable. Spleen: Normal in size and attenuation. Pancreas: The unenhanced pancreas is mildly atrophic and grossly unremarkable. Adrenal glands: Unremarkable. Kidneys: The unenhanced kidneys are atrophic and without hydronephrosis. There are no renal calculi identified. A 12 mm complex/hyperdense cyst is noted in the right upper pole. Abdominal vasculature: The abdominal aorta is normal in course and caliber noting moderate atherosclerotic calcification. Bowel: Numerous pills are noted in the stomach. No bowel obstruction is seen. There is mild to moderate colonic diverticulosis without CT evidence of acute diverticulitis. The appendix is not clearly identified. Peritoneum: There is no intraperitoneal free air or abdominal ascites. A fat- containing umbilical hernia is noted. Lymphadenopathy: None. Pelvic viscera: The prostate gland is enlarged and heterogeneous noting median lobe hypertrophy. The bladder is distended. The bladder wall is mildly thickened and trabeculated suggesting chronic outlet obstruction a fat-containing left inguinal hernia is noted on the left. Skeletal structures: The skeletal structures are osteopenic. There is no evidence of acute fracture. There is advanced lumbosacral spondylosis and scoliosis with evidence of previous L3-L5 spinal fusion. Degenerative change and partial fusion is noted in the sacroiliac joints. No lytic or blastic lesions are seen. IMPRESSION: 1. Streak and motion compromised examination. 2. There is no evidence of solid organ injury in the abdomen or pelvis on this unenhanced examination. 3. No acute infectious or inflammatory findings are identified. 4. Mild to moderate colonic diverticulosis without CT evidence of acute diverticulitis. 5. Trace left pleural effusion. 6. Additional findings as above. ACT 112: Negative or not required by law. Electronically signed by: Vazquez Workman M.D. 03/05/2020 1:58 PM Dictated: 03/05/20 1347 Transcribed: 03/05/[address] chest wo con CT DOSE: HISTORY: Fall. Trauma. TECHNIQUE: Multiaxial CT images of the chest were performed without contrast. A dose lowering technique was utilized adhering to the principles of ALARA. COMPARISON: Chest CTA 03/29/2013. FINDINGS: No pneumothorax. The central airways are patent. A few scattered calcified granulomas are noted within the lungs. There is mild elevation right hemidiaphragm. Right basilar densities are nonspecific but favor atelectasis from the elevated right hemidiaphragm. Partially visualized cervical spinal fusion hardware. No fractures within the visualized osseous structures. Trace left pleural effusion. Please refer to the same day abdomen and pelvis CT for further evaluation of the abdominal structures. The heart is normal in size. There is moderate calcified plaque within the coronary arteries. Normal esophagus. No mediastinal hematoma. Normal caliber thoracic aorta. No mediast inal or hilar lymphadenopathy. IMPRESSION: 1. No acute traumatic process within the chest. 2. Trace left pleural effusion. 3. Mild elevation of the right hemidiaphragm. 4. A few bibasilar densities are nonspecific but favor subsegmental atelectasis. ACT 112: Negative or not required by law. Electronically signed by: Reji Bustamante M.D. 03/05/2020 1:56 PM Dictated: 03/05/20 1347 Transcribed: 03/05/20 1347 XR chest 1V portable CLINICAL HISTORY: weakness dyspnea COMPARISON STUDY: 02/29/2020 FINDINGS: Chronic elevation right hemidiaphragm. Lungs are considered clear. Slight chronic interstitial prominence left lung base. No evidence for pneumothorax. IMPRESSION: Chronic change. No acute process. ACT 112: Negative or not required by law. The above report was generated using voice recognition software. It may contain grammatical, syntax or spelling errors. Electronically signed by: Jose Devine M.D. 03/05/2020 1:15 PM Dictated: 03/05/20 1314 Transcribed: 03/05/[address] head/brain wo con CLINICAL HISTORY: periorbital ecchymosis TRAUMA COMPARISON STUDY: 02/29/2020 TECHNIQUE: Axial CT of the brain is performed from the vertex to the skull base. IV contrast was not administered for this examination. A dose lowering technique was utilized adhering to the principles of ALARA. CT DOSE: 1547.15 mGy.cm FINDINGS: No intra or extra-axial mass lesions are visualized. There is no CT evidence of acute cortical infarction. There is no evidence of midline shift. There is no acute hemorrhage. No calvarial fractures are visualized. There are patchy white matter hypodensities likely on a small vessel basis. There is no evidence of pathologic ventricular dilatation. There is no evidence of acute sinusitis IMPRESSION: No acute intracranial findings ACT 112: Negative or not required by law. Electronically signed by: Keaton Mtz M.D. 03/07/2020 6:50 AM Dictated: 03/07/20648 Transcribed: 03/07/20648 Hospital Course (1) Acute kidney injury superimposed on chronic kidney disease: Was sent by PCP for abnormal lab Possible related to hypotension and GI bleed Cr elevated at 2.74 (baseline 1.5) Creatinine continue to improve to 1.5 today Nephrology on board recommended to decrease diltiazem due to hypotension Continue Bumex Check BMP Next week Follow up with nephrology in 1-2 weeks Clinically stable (2) Generalized weakness: No Focal neuro deficit Continue PT/OT CT head showed no acute bleeding Fall precaution (3) Head injury: Developed bilateral periorbital ecchymosis after fall 4 days ago. Multiple attempts made by ED provider and our service to obtain CT head but patient refused for now due to severe back pain despite pain medication No neuro deficits or signs of confusion CT head negative for intracranial bleeding (4) Hyponatremia: Likely pseudohyponatremia. 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 SSI while in-patient Continue monitor BS (6) Permanent atrial fibrillation: Rate Control with digoxin diltiazem decreased to 120mg BID due to low BP and bradycardia, will continue on discharge Coumadin resume (7) Chronic diastolic CHF (congestive heart failure), NYHA class 3: Continue Bumex No sign of fluid overload (8) Hypertension: Continue to hold lisinopril in setting of YANNA (9) CAD (coronary artery disease): Continue aspirin, statin (10) CLARISSA on CPAP: Continue CPap DVT Ppx: On coumadin Code status: FULL Total Time Total Time Spent Total Time Spent (In Minutes): 35 minutes Total Time Includes: Examination of the Patient, Discharge Planning, Medication Reconciliation, Communication With Other Providers and Other Discharge Plan Discharge Items Patient Disposition: Home - Home Health Services Reason For Visit: FALL,WEAKNESS,RENAL FAILURE Discharge Diagnosis: Acute kidney injury superimposed on chronic kidney disease Generalized weakness Head injury Hyponatremia: Type 2 diabetes mellitus: Permanent atrial fibrillation: Chronic diastolic CHF (congestive heart failure), NYHA class 3: Hypertension: CAD (coronary artery disease): CLARISSA on CPAP: Condition on Discharge: Good Activity: Resume your previous activity Non-emergency contact: Primary Care Provider and Welfare Worker Call non-emergency contact if: you have any medication questions Follow-up/Referrals: Seamus Roach DO [Primary Care Provider] - 03/13/20 3:20 pm (03/13/2020 3:20 PM Provider Seamus Roach DO Department General Internal Medicine [facility] ) Diet: Carb Consistent or DM2 Addtl Attending Provider Instructions: Follow up with your primary care provider Dr. Roach on 03/13/20 @ 3:20 PM Follow up with nephrology Dr. Nye or his colleague in 2 weeks Follow up with the coumadin clinic and monitor PT/INR Continue physical and occupational therapy Check BMP in 5 -7 days to monitor renal function and electrolytes Monitor your blood sugar and bring your blood sugar log at your next appointment with your physician Continue monitor your blood pressure (If BP start to elevate your physician can adjust your blood pressure medication ) Fall precaution Please use your walker to ambulate Pending Studies at Discharge: No Stand-Alone Forms: My [facility] [employer], Smoking Cessation Medications and DC Order Prescriptions: New diltiazem HCl 120 mg Capsule,Extended Release 24hr 120 mg PO BID 30 Days Qty: 60 RF: 0 acetaminophen [Tylenol Arthritis Pain] 650 mg tablet extended release 650 mg PO Q8H PRN (Reason: pain) Qty: 30 RF: 0 lisinopril 10 mg tablet 10 mg PO DAILY Qty: 30 RF: 0 Continued (DME) BiPap Machine Misc See Dose Instructions .ROUTE .MEDSUPPLY Qty: 1 RF: 0 hydrocortisone 2.5 % cream 1 applic topical BID PRN (Reason: Itching) RF: 0 ascorbic acid (vitamin C) 500 mg capsule 500 mg PO QAM RF: 0 atorvastatin 40 mg tablet 40 mg PO QAM RF: 0 digoxin 125 mcg tablet 125 mcg PO QAM RF: 0 duloxetine 60 mg capsule,delayed release(DR/EC) 60 mg PO QAM RF: 0 glipizide 10 mg tablet 10 mg PO BID RF: 0 omeprazole 20 mg capsule,delayed release(DR/EC) 20 mg PO QDD RF: 0 alfuzosin 10 mg tablet extended release 24 hr 10 mg PO QAM RF: 0 aspirin [Aspir-81] 81 mg Tablet,Delayed Release (Dr/Ec) 81 mg PO Q2D RF: 0 triamcinolone acetonide 0.1 % Cream 1 applic TOPICAL BID PRN (Reason: Skin Irritation) RF: 0 trazodone 100 mg tablet 100 mg PO HS RF: 0 Slow-Mag 71.5 mg Tablet,Delayed Release (Dr/Ec) 71.5 mg PO BID RF: 0 warfarin 5 mg tablet 7.5 mg PO QAM RF: 0 allopurinol 100 mg Tablet 100 mg PO QAM RF: 0 betamethasone dipropionate 0.05 % ointment 1 applic TOPICAL BID PRN (Reason: Itching) RF: 0 nitroglycerin 0.4 mg tablet, sublingual 0.4 mg SL UD PRN (Reason: Chest Pain) RF: 0 cholecalciferol (vitamin D3) [Vitamin D3] 25 mcg (1,000 unit) Capsule 25 mcg PO QAM RF: 0 Trulicity 0.75 mg/0.5 mL Pen Injector 0.75 mg SUBCUT FR RF: 0 bumetanide 2 mg tablet 2 mg PO QAM RF: 0 Discontinued diltiazem HCl 180 mg capsule,extended release 24hr 180 mg PO BID Qty: 180 RF: 1 lisinopril 40 mg tablet 20 mg PO QAM RF: 0 Discharge Orders: Discharge Order (Routine); Ordered 03/08/20 Ordered By: Renee Gonzalez Admission Data Admit Date/Time: 03/05/20 14:51 Attending Provider: Renee Gonzalez Admit Provider: Jenni Agarwal Primary Care Provider: Seamus Roach Other Providers: Jenni Agarwal ; Clau Okeefe ; Santiago Redmond Elissa R. ; Fidelina Michel ; Porsha Nye ; [facility] Other Interventions: Discharge Summary Assessment (RN) Last Done: 03/08/20 13:56 DC Date/Time DO NOT enter until pt leaves facility: 03/08/20 14:45
== END 2020-03-08 14:45 | disposition home health service (06) | DRG 683 ==
LOC: ED 12:23 → SUATTDRO 14:51 → 2N 14:51

== ENCOUNTER 2021-06-08 03:45 | Inpatient (IN) ==
[2021-06-08 04:19] LABS: Appearance Urine Clear (Clear); Bilirubin Urine Negative (Negative); Blood Urine Negative (Negative); Color Urine Yellow; Glucose Urine UA Negative (Negative); Ketones Urine Negative (Negative); Leukocyte Esterase Urine Negative (Negative); Nitrite Urine Negative (Negative); Protein Urine Negative (Negative); Specific Gravity Urine 1.013 (1.000-1.030); Urobilinogen Urine Negative (Negative)
[2021-06-08 04:22] LABS: Basophils # (auto) 0.02 K/uL (0-0.2); Basophils % (auto) 0.2 %; Eosinophils # (auto) 0.17 K/uL (0-0.5); Eosinophils % (auto) 1.3 %; Hematocrit (blood only) 35.3 % (42-52); Hemoglobin 11.7 g/dL (14.0-18.0); Immature Granulocytes # (auto) 0.03 K/uL (0.00-0.02); Immature Granulocytes % (auto) 0.2 %; Lymphocytes # (auto) 0.98 K/uL (1.2-3.4); Lymphocytes % (auto) 7.4 %; Mean Corpuscular Hemoglobin 30.3 pg (25-34); Mean Corpuscular Hgb Conc 33.1 g/dL (32-36); Mean Corpuscular Volume 91.5 fL (80-100); Mean Platelet Volume 9.5 fL (7.4-10.4); Monocytes # (auto) 0.63 K/uL (0.11-0.59); Monocytes % (auto) 4.8 %; Neutrophils # (auto) 11.41 K/uL (1.4-6.5); Neutrophils % (auto) 86.1 %; Platelet Count 289 K/uL (130-400); RDW Standard Deviation 50.2 fL (36.4-46.3); Red Blood Count 3.86 M/uL (4.7-6.1); White Blood Count 13.24 K/uL (4.8-10.8)
[2021-06-08 04:33] LABS: INR 1.1 (0.9-1.1); Partial Thromboplastin Ratio 1.1; Partial Thromboplastin Time 29.5 Seconds (21.0-31.0); Prothrombin Time 10.7 Seconds (9.0-12.0)
[2021-06-08 04:39] LABS: Alanine Aminotransferase 35 U/L (12-78); Albumin Level 3.3 gm/dl (3.4-5.0); Aspartate Aminotransferase 27 U/L (15-37); BUN Creatinine Ratio 11.7 (10-20); Blood Urea Nitrogen 15 mg/dl (7-18); Calcium 8.9 mg/dl (8.5-10.1); Carbon Dioxide 31 mmol/L (21-32); Chloride 96 mmol/L (98-107); Est GFR (Non-African American) 51.8 ml/min; Glucose 221 mg/dl (70-99); Potassium 3.8 mmol/L (3.5-5.1); Sodium 133 mmol/L (136-145)
[2021-06-08 04:42] LABS: Albumin Globulin Ratio 0.7 (0.9-2); Alkaline Phosphatase 131 U/L (45-117); Bilirubin,Total 0.5 mg/dl (0.2-1); Globulin 4.7 gm/dl (2.5-4.0)
[2021-06-08] MEDS ORDERED: ACETAMINOPHEN 500 MG TAB PO STA (04:56)
[2021-06-08] MEDS ORDERED: SODIUM CHLORIDE 0.9% 500 ML IV ONE (05:41)
[2021-06-08] MEDS ORDERED: levoFLOXacin/D5W 750 MG/150 ML BAG IV STA (06:05)
--- NOTE | 2021-06-08 06:39 | XRay Report ---
XR chest 1V portable CLINICAL HISTORY: fever and cough COMPARISON STUDY: Chest radiograph and chest CT March 05, 2020. FINDINGS: Elevation the right hemidiaphragm is unchanged. Right basilar opacity favors atelectasis. T here is no pneumothorax or pleural effusion. Cardiac size is normal. Mediastinal contours are normal. There is no evidence for pulmonary edema. Postoperative findings within the cervical spine are incid entally noted. IMPRESSION: No acute cardiopulmonary findings. No change in appearance of the chest. Elevation of th e right hemidiaphragm with associated right basilar atelectasis. ACT 112: Negative or not required by law. Electronically signed by: William Agudelo M.D. 06/08/2021 6:38 AM
--- NOTE | 2021-06-08 07:38 | Electrocardiogram Report ---
Test Reason : Blood Pressure : / mmHG Vent. Rate : 099 BPM Atrial Rate : 090 BPM P-R Int : 000 ms QRS Dur : 094 ms QT Int : 370 ms P-R-T Axes : 000 -49 084 degrees QTc Int : 474 ms Atrial fibrillation Left anterior fascicular block Poor R wave progression, consider anterior DE vs. lead placement vs. LVH Abnormal ECG When compared with ECG of 05-MAR-2020 13:10, Vent. rate has increased BY 37 BPM Confirmed by Cm Johnson ([id number]) on 06/08/2021 7:38:17 AM Referred By: REFERRED SELF Confirmed By:Delvin Johnson
[2021-06-08] MEDS ORDERED: NITROGLYCERIN SL 0.4 MG/TAB TAB SL PRN ×2 (08:31→19:30)
[2021-06-08] MEDS ORDERED: SODIUM CHLORIDE 0.9% 1000ML 1,000 ML IV SCH (08:31)
[2021-06-08] MEDS ORDERED: ACETAMINOPHEN 325 MG TAB PO PRN (08:31)
[2021-06-08] MEDS ORDERED: ONDANSETRON INJ 2 MG/ML 2 ML VIAL IV PRN (08:31)
--- NOTE | 2021-06-08 08:34 | CT Scan Report ---
CT OF THE CHEST WITHOUT IV CONTRAST CLINICAL HISTORY: sob and cough. pneumonia COMPARISON STUDY: Chest CT March 05, 2020. Chest radiograph performed earlier today. CT DOSE: 1105.59 mGy.cm TECHNIQUE: Axial images of the chest were obtained without IV contrast. Images were reviewed in the axial, sagittal, and coronal planes. IV contrast was not administered for this examination. Automat ed exposure control was utilized for the study. A dose lowering technique was utilized adhering to t he principles of ALARA. FINDINGS: No enlarged axillary, mediastinal or hilar lymph nodes are present. There is no pericardia l effusion. Moderate coronary artery calcification is noted. Moderate elevation of the right hemidiap hragm is unchanged since CT of March 05, 2020. Right lower lobe airspace opacity reflects atelectasis. There is no consolidation to suggest pneumonia. A few calcified nodules within the lungs are noted. T here is no pneumothorax or pleural effusion. Central airways are patent. No acute rib fractures ident ified within visual portions of the ribs. Note is made of a 1.4 cm hypodense lesion within the upper pole of the right kidney. This probably reflects a hyperdense cyst and is similar to CT of March 05. IMPRESSION: 1. No acute process within the chest. 2. No change in moderate elevation of the right hemidiaphragm with associated right lower lobe segmen yenny atelectasis since CT of March 05, 2020. ACT 112: Negative or not required by law. Electronically signed by: William Agudelo M.D. 06/08/2021 8:33 AM
[2021-06-08] MEDS: INSULIN ASPART 100 UNITS/ML 3 ML PEN SC SCH ×4 (10:20→20:30)
--- NOTE | 2021-06-08 11:08 | Communication Note ---
Date of Service: June 08, 2021 Patient seen and examined and coming up from the ER. Patient admitted this morning. Refer to H&P this morning by Dr. Gray History notable for patient 76-year-old patient with diabetes mellitus, CAD, atrial fibrillation, congestive heart failure who presents with cough with productive of yellowish-green sputum, shortness of breath no fever at home. Being managed for possible pneumonia vs bronchitis Agree with plans in H&P by Dr Gray this morning
--- NOTE | 2021-06-08 11:34 | History and Physical Report ---
DATE OF ADMISSION: 06/08/2021 CHIEF COMPLAINT: Cough and fever. HISTORY OF PRESENT ILLNESS: This is a 76-year-old male with past medical history significant for type 2 diabetes, hyperlipidemia, diabetic polyneuropathy, obstructive sleep apnea, on CPAP, intermittent asthma, diaphragmatic paralysis, chronic atrial fibrillation, chronic kidney disease stage III, morbid obesity, gout arthropathy, lumbar degenerative disk disease, psoriasis, primary insomnia, depression, comes because of cough and shortness of breath and patient's symptoms are going on for last one week, bringing up yellowish greenish phlegm and tonight, he also spiked a temperature and felt some shortness of breath, so the brought him to the hospital. The patient is not COVID vaccinated. Recently was in [facility], but his COVID test came back negative. Currently resting comfortably, hemodynamically stable. Denies any chest pain, no palpitations. Has a mild headache. No blurred visions, no earache, no runny nose, no sore throat. Appetite is okay. No difficulty swallowing. No loss of sense of smell or taste. Has some diarrhea on and off since last 1 week. Denies any abdominal pain. No swelling in the legs, no rash. ALLERGIES: BACTRIM, CEFADROXIL, PENICILLIN, TETRACYCLINE. PAST MEDICAL HISTORY: As mentioned above. PAST SURGICAL HISTORY: Cardiac cath, cystoscopy, EGD with endoscopic ultrasound, lumbar spinal fusion surgery, excision of cyst in the left posterior neck, neck spine fusion surgery, appendectomy, revision of the left foot. MEDICATIONS: The patient is on atorvastatin 40 mg p.o. daily, metformin 500 mg p.o. b.i.d., digoxin 125 mcg p.o. daily, bumex 4 mg p.o. daily, duloxetine 60 mg p.o. daily, diltiazem ER 120 mg p.o. b.i.d., lisinopril 10 mg p.o. daily, trazodone 100 mg p.o. at bedtime, allopurinol 100 mg p.o. daily, omeprazole 20 mg p.o. daily, alfuzosin ER 10 mg p.o. daily after meals, Trulicity under the skin once a week, Eliquis 5 mg p.o. b.i.d., Tylenol 650 mg p.o. q.8 hours p.r.n., triamcinolone p.r.n., oxygen 3-4 liters through CPAP during the hours of sleep, aspirin 81 mg p.o. daily, magnesium 1 tablet p.o. b.i.d. FAMILY HISTORY: Significant for mother had asthma, diabetes; father had heart disease; sister has psoriasis, diabetes; uncle had stroke. SOCIAL HISTORY: . Former smoker, quit in 1975, smoked 1-1/2 packs a day for 20 years. Alcohol rarely. No drug use. REVIEW OF SYSTEMS: As per HPI. Rest of the review of systems is negative. PHYSICAL EXAMINATION: GENERAL: The patient is of moderate build, not in acute distress. VITAL SIGNS: Temperature 37.4, pulse 82, respiratory rate 20, blood pressure 146/70, oxygen 96% on room air. HEENT: Pupils equal, round and reactive to light. Oral mucosa moist. Palpable non tender non fluctuating hard mass behind his left ear. NECK: No JVD or neck masses. CARDIOVASCULAR: S1 and S2 heard. Regular rate and rhythm. No murmur, no gallop. RESPIRATORY SYSTEM: Normal AP diameter. No accessory muscle use. No wheezing, no crackles. ABDOMEN: Soft, bowel sounds present, nontender, no distention. CENTRAL NERVOUS SYSTEM: Cranial nerves II-XII are grossly intact, nonfocal. EXTREMITIES: No edema, no erythema. SKIN: psoriatic rash seen in the lower extremities. LABORATORY DATA: WBC 13.2, hemoglobin 11.7, hematocrit 35.3, platelets 289. PT 10.7, INR 1.1, APTT 29.5. Sodium 133, potassium 3.8, chloride 96, bicarbonate 31, BUN 15, creatinine 1.3, serum glucose 221. Lactate 2.3, calcium 8.9, total bilirubin 0.5, AST 27, ALT 35, alkaline phosphatase 131. Urinalysis negative. SARS-CoV-2 PCR negative. Digoxin 0.8. IMAGING DATA: Chest x-ray: No acute cardiopulmonary findings. No change in appearance of the chest. EKG: Atrial fibrillation, rate of 99, no acute ST-T changes seen. ASSESSMENT AND PLAN: This is a 76-year-old male who presents with ongoing cough and fever. 1. Cough and fever, possible pneumonia. Chest x-ray is unremarkable, but we will get a CT of the chest to get a better picture as the patient is not vaccinated, but his COVID is negative. If any concerns to retest him. He is allergic to PENICILLIN. Emergency Room empirically started him on Levaquin, which we will continue. Follow the cultures. Monitor in med-telemetry. 2. Diabetes. We will place him on insulin sliding scale, monitor the blood sugars. Hold his home medications. Follow HbA1c levels. 3. History of diastolic congestive heart failure. Continue his home digoxin, lisinopril and Bumex.. Monitor for any volume overload. 4. Benign prostatic hyperplasia, on Flomax. 5. Obstructive sleep apnea, on CPAP. 6. History of chronic atrial fibrillation, on digoxin, diltiazem and Eliquis. 7. Hypertension, on diltiazem and lisinopril. We will monitor the blood pressure. 8. Hyperlipidemia, on statin. 9. Depression, on duloxetine. 10. Insomnia, on trazodone. 11. Gout, on allopurinol. 12. Gastroesophageal reflux disease, on Prilosec. 13. Chronic kidney disease stage III. Presents with creatinine of 1.3. We will follow the laboratories. 14. Deep venous thrombosis prophylaxis, on Eliquis. DISPOSITION: Closely monitor in the med-tele. PT/OT prior to discharge. Social service to help with discharge planning. Job ID: [id number] [facility]ITAL[facility]
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
[2021-06-08] MEDS ORDERED: MELATONIN 3 MG TAB PO PRN (18:15)
[2021-06-08] MEDS ORDERED: BETAMETHASONE DIP AUG 0.05% OINT 15 GM TUBE TOP PRN (19:52)
[2021-06-08] MEDS: traZODone HCL 100 MG TAB PO SCH (20:30)
[2021-06-09 05:36] LABS: Basophils # (auto) 0.02 K/uL (0-0.2); Basophils % (auto) 0.3 %; Eosinophils # (auto) 0.15 K/uL (0-0.5); Eosinophils % (auto) 2.3 %; Hematocrit (blood only) 32.6 % (42-52); Hemoglobin 10.7 g/dL (14.0-18.0); Immature Granulocytes # (auto) 0.05 K/uL (0.00-0.02); Immature Granulocytes % (auto) 0.8 %; Lymphocytes # (auto) 0.89 K/uL (1.2-3.4); Lymphocytes % (auto) 13.9 %; Mean Corpuscular Hemoglobin 29.6 pg (25-34); Mean Corpuscular Hgb Conc 32.8 g/dL (32-36); Mean Corpuscular Volume 90.1 fL (80-100); Mean Platelet Volume 9.2 fL (7.4-10.4); Monocytes # (auto) 0.56 K/uL (0.11-0.59); Monocytes % (auto) 8.8 %; Neutrophils # (auto) 4.73 K/uL (1.4-6.5); Neutrophils % (auto) 73.9 %; Platelet Count 229 K/uL (130-400); RDW Coefficient of Variation 14.9 % (11.5-14.5); RDW Standard Deviation 49.1 fL (36.4-46.3); Red Blood Count 3.62 M/uL (4.7-6.1)
[2021-06-09] MEDS: levoFLOXacin/D5W 750 MG/150 ML BAG IV SCH (05:45)
[2021-06-09 06:24] LABS: Calcium 8.6 mg/dl (8.5-10.1); Creatinine Clr Calc Pharmacy 63.3 ml/min; Est GFR (African American) 64.8 ml/min; Est GFR (Non-African American) 55.9 ml/min; Magnesium 1.9 mg/dl (1.8-2.4); Potassium 3.9 mmol/L (3.5-5.1)
[2021-06-09] MEDS: APIXABAN 5 MG TABLET PO SCH ×2 (08:20→17:04)
[2021-06-09] MEDS: ATORVASTATIN 40 MG TAB PO SCH (08:20)
[2021-06-09] MEDS: dilTIAZem HCL 120 MG CAPCR PO SCH ×2 (08:20→17:04)
[2021-06-09] MEDS: ASCORBIC ACID 500 MG TAB PO SCH (08:20)
[2021-06-09] MEDS: allopurinoL 100 MG TAB PO SCH (08:20)
[2021-06-09] MEDS: lisinopril 10 MG TAB PO SCH (08:20)
[2021-06-09] MEDS: DULoxetine HCL 60 MG CAP PO SCH (08:20)
[2021-06-09] MEDS: CHOLECALCIFEROL 1,000 UNITS 25 MCG TAB PO SCH (08:20)
[2021-06-09] MEDS: ALFUZOSIN HCL 10 MG TAB PO SCH (08:20)
[2021-06-09] MEDS: MAGNESIUM CHLORIDE 64MG DELAYED REL TAB PO SCH (08:20)
[2021-06-09] MEDS: ZINC SULFATE 220 MG CAPSULE PO SCH (08:20)
[2021-06-09] MEDS: BUMETANIDE 1 MG TAB PO SCH (08:21)
[2021-06-09] MEDS: INSULIN ASPART 100 UNITS/ML 3 ML PEN SC SCH ×4 (08:24→20:33)
--- NOTE | 2021-06-09 08:40 | Hospitalist Progress Note ---
Date of Service June 09, 2021 Assessment & Plan (1) Fever: (2) Cough productive of purulent sputum: Plan: Fever, cough productive of sputum, leukocytosis on admission Admitted for possible pneumonia CT did not show new findings but reported no change in moderate elevation of Right hemidiaphragm with associated right lower lobe segmental atelectasis. Other possibilities of bronchitis. Continue Levaquin. Leukocytosis resolved today. We will monitor (3) Type 2 diabetes mellitus: Plan: Continue insulin sliding scale per protocol Hold home antidiabetic regimen. (4) CLARISSA on CPAP: Plan: Continue CPAP at bedtime (5) Permanent atrial fibrillation: Plan: Rate controlled Continue digoxin Continue Eliquis (6) Hypertension: Plan: BP elevated. Continue Cardizem and lisinopril Monitor blood pressure (7) CKD (chronic kidney disease), stage III: Plan: Stable at baseline Avoid nephrotoxins (8) DVT prophylaxis: Plan: On Eliquis Plan: PT/OT evaluation Possible discharge tomorrow on oral antibiotics if continues to improve or remain stable Admission and Anticipated Discharge Date Admission Date: June 08, 2021 Subjective 76-year-old man with history of DM type II, hyperlipidemia, diabetic polyneuropathy, CLARISSA on CPAP at bedtime, intermittent asthma, diaphragmatic paralysis, chronic A. fib, CKD 3, morbid obesity, gout arthropathy, lumbar degenerative disc disease, psoriasis, depression who presents with cough and shortness of breath going on for a week as well as fevers. Patient seen and examined this morning. Still reports cough productive of yellowish phlegm. Denies shortness of breath. Denies chest pain Reports fatigue. Denies any nausea, vomiting, abdominal pain or diarrhea Review of Systems Review of Systems: Other review of system negative except as above Physical Exam Constitutional: + well hydrated; no acute distress Eyes: PERRL, conjunctivae normal, anicteric sclerae ENMT: external ear and nose normal, oropharynx normal Respiratory: normal respiratory effort, lungs clear to auscultation Cardiovascular: Rate/Rhythm: regular rate and + irregularly irregular S1-S2 Gastrointestinal (Abdomen): normal bowel sounds, soft, nontender, no hepatosplenomegaly Musculoskeletal: No pedal edema Neurologic: PERRL, EOMI, accommodation nl, no face palsy, no dysarthria Psychiatric: A+Ox3, euthymic affect Results & Data Results & Data ([facility]) Vital Signs (Past 12 Hours) Vital Signs Temp Pulse Pulse Resp BP Pulse Ox 06/09/21 07:32 79 06/09/21 07:00 36.6 C 91 H 20 165/78 H 100 06/09/21 04:11 37.1 C 85 20 174/90 H 100 06/09/21 00:50 80 06/08/21 23:41 37.1 C 86 20 154/79 H 98 Laboratory Results Abnormal lab results 06/08/21 06/08/21 06/09/21 Range/Units 16:40 20:29 05:18 RBC 3.62 L (4.7-6.1) M/uL Hgb 10.7 L (14.0-18.0) g/dL Hct 32.6 L (42-52) % RDW Std Deviation 49.1 H (36.4-46.3) fL RDW Coeff of Starr 14.9 H (11.5-14.5) % Lymph # (Auto) 0.89 L (1.2-3.4) K/uL Immature Gran # (Auto) 0.05 H (0.00-0.02) K/uL Sodium (136-145) mmol/L BUN/Creatinine Ratio (10-20) Glucose (70-99) mg/dl POC Glucose 158 H 157 H (70-99) mg/dl 06/09/21 06/09/21 06/09/21 Range/Units 05:18 07:21 11:38 RBC (4.7-6.1) M/uL Hgb (14.0-18.0) g/dL Hct (42-52) % RDW Std Deviation (36.4-46.3) fL RDW Coeff of Starr (11.5-14.5) % Lymph # (Auto) (1.2-3.4) K/uL Immature Gran # (Auto) (0.00-0.02) K/uL Sodium 133 L (136-145) mmol/L BUN/Creatinine Ratio 9.0 L (10-20) Glucose 164 H (70-99) mg/dl POC Glucose 193 H 175 H (70-99) mg/dl (1) Fever Fever type: unspecified Qualified Code(s): R50.9 - Fever, unspecified
[2021-06-09] MEDS ORDERED: BUMETANIDE 1 MG TAB PO SCH (09:00)
[2021-06-09] MEDS ORDERED: DIGOXIN 0.125 MG TAB PO SCH (16:00)
[2021-06-09] MEDS ORDERED: ASPIRIN 81 MG ECTAB PO SCH (16:30)
[2021-06-09] MEDS ORDERED: PANTOprazole 40 MG TAB PO SCH (16:30)
[2021-06-09] MEDS: traZODone HCL 100 MG TAB PO SCH (20:33)
[2021-06-10] MEDS: levoFLOXacin/D5W 750 MG/150 ML BAG IV SCH (06:04)
[2021-06-10 06:55] LABS: Hematocrit (blood only) 32.9 % (42-52); Hemoglobin 10.8 g/dL (14.0-18.0); Mean Corpuscular Hemoglobin 29.7 pg (25-34); Mean Corpuscular Hgb Conc 32.8 g/dL (32-36); Mean Corpuscular Volume 90.4 fL (80-100); Mean Platelet Volume 9.6 fL (7.4-10.4); Platelet Count 241 K/uL (130-400); RDW Standard Deviation 49.6 fL (36.4-46.3); Red Blood Count 3.64 M/uL (4.7-6.1); White Blood Count 8.35 K/uL (4.8-10.8)
[2021-06-10 07:26] LABS: BUN Creatinine Ratio 12.9 (10-20); Creatinine Clr Calc Pharmacy 61.8 ml/min; Est GFR (African American) 62.9 ml/min; Est GFR (Non-African American) 54.3 ml/min; Potassium 4.1 mmol/L (3.5-5.1)
[2021-06-10] MEDS: APIXABAN 5 MG TABLET PO SCH (08:11)
[2021-06-10] MEDS: dilTIAZem HCL 120 MG CAPCR PO SCH (08:11)
[2021-06-10] MEDS: CHOLECALCIFEROL 1,000 UNITS 25 MCG TAB PO SCH (08:11)
[2021-06-10] MEDS: DULoxetine HCL 60 MG CAP PO SCH (08:12)
[2021-06-10] MEDS: BUMETANIDE 1 MG TAB PO SCH (08:12)
[2021-06-10] MEDS: ASCORBIC ACID 500 MG TAB PO SCH (08:12)
[2021-06-10] MEDS: ALFUZOSIN HCL 10 MG TAB PO SCH (08:12)
[2021-06-10] MEDS: lisinopril 10 MG TAB PO SCH (08:12)
[2021-06-10] MEDS: ATORVASTATIN 40 MG TAB PO SCH (08:12)
[2021-06-10] MEDS: MAGNESIUM CHLORIDE 64MG DELAYED REL TAB PO SCH (08:12)
[2021-06-10] MEDS: allopurinoL 100 MG TAB PO SCH (08:12)
[2021-06-10] MEDS: ZINC SULFATE 220 MG CAPSULE PO SCH (08:12)
[2021-06-10] MEDS: INSULIN ASPART 100 UNITS/ML 3 ML PEN SC SCH ×2 (08:13→12:29)
--- NOTE | 2021-06-10 16:34 | Discharge Summary ---
Date of Service June 10, 2021 Admission HPI Per Admitting Provider This is a 76-year-old male with past medical history significant for type 2 diabetes, hyperlipidemia, diabetic polyneuropathy, obstructive sleep apnea, on CPAP, intermittent asthma, diaphragmatic paralysis, chronic atrial fibrillation, chronic kidney disease stage III, morbid obesity, gout arthropathy, lumbar degenerative disk disease, psoriasis, primary insomnia, depression, comes because of cough and shortness of breath and patient's symptoms are going on for last one week, bringing up yellowish greenish phlegm and tonight, he also spiked a temperature and felt some shortness of breath, so the brought him to the hospital. The patient is not COVID vaccinated. Recently was in [facility], but his COVID test came back negative. Currently resting comfortably, hemodynamically stable. Denies any chest pain, no palpitations. Has a mild headache. No blurred visions, no earache, no runny nose, no sore throat. Appetite is okay. No difficulty swallowing. No loss of sense of smell or taste. Has some diarrhea on and off since last 1 week. Denies any abdominal pain. No swelling in the legs, no rash. Admission Exam Per Admitting Provider GENERAL: The patient is of moderate build, not in acute distress. VITAL SIGNS: Temperature 37.4, pulse 82, respiratory rate 20, blood pressure 146/70, oxygen 96% on room air. HEENT: Pupils equal, round and reactive to light. Oral mucosa moist. Palpable non tender non fluctuating hard mass behind his left ear. NECK: No JVD or neck masses. CARDIOVASCULAR: S1 and S2 heard. Regular rate and rhythm. No murmur, no gallop. RESPIRATORY SYSTEM: Normal AP diameter. No accessory muscle use. No wheezing, no crackles. ABDOMEN: Soft, bowel sounds present, nontender, no distention. CENTRAL NERVOUS SYSTEM: Cranial nerves II-XII are grossly intact, nonfocal. EXTREMITIES: No edema, no erythema. SKIN: psoriatic rash seen in the lower extremities. Principal Diagnosis Fever Cough Possible pnuemonia Discharge Exam Constitutional + well hydrated; no acute distress Eyes PERRL, conjunctivae normal, anicteric sclerae ENMT external ear and nose normal, oropharynx normal Respiratory normal respiratory effort, lungs clear to auscultation Cardiovascular Rate/Rhythm: regular rate and + irregularly irregular S1 S2 Gastrointestinal (Abdomen) normal bowel sounds, soft, nontender, no hepatosplenomegaly Musculoskeletal No pedal edema Psoariatic skin rash on both legs Neurologic PERRL, EOMI, accommodation nl, no face palsy, no dysarthria Psychiatric A+Ox3, euthymic affect Discharge Data Allergies Allergy/AdvReac Type Severity Reaction Status Date / Time Bactrim Allergy Unknown HIVES Verified 04/07/18 13:36 Cephalosporins Allergy Unknown Rash Verified 06/08/21 07:50 Penicillins Allergy Unknown Rash Verified 06/08/21 07:50 sulfamethoxazole Allergy Unknown HIVES Verified 06/08/21 07:50 Tetracyclines Allergy Unknown Unknown Verified 06/08/21 07:50 trimethoprim Allergy Unknown HIVES Verified 06/08/21 07:50 CONTRAST DYE Allergy Unknown KIDNEY Uncoded 06/08/21 07:50 PROBLEMS Ordered Studies 06/08/21 07:06 CT chest diagnostic wo con Urgent Hospital Course (1) Fever: (2) Cough productive of purulent sputum: Fever, cough productive of sputum, leukocytosis of 13K on admission Admitted for possible pneumonia CT did not show new findings but reported no change in moderate elevation of Right hemidiaphragm with associated right lower lobe segmental atelectasis. Other possibility is acute bronchitis. Was started on levofloxacin Leukocytosis resolved Patient seen and examined today. Reports feeling better. Cough is improving Discharged on 2 more days of levofloxacin to complete treatment (3) Type 2 diabetes mellitus: Continue home antidiabetic regimen (4) CLARISSA on CPAP: Continue CPAP at bedtime (5) Permanent atrial fibrillation: Rate controlled Continue digoxin Continue Eliquis (6) Hypertension: BP elevated on admission. Has normalized now Continue Cardizem and lisinopril Monitor blood pressure (7) CKD (chronic kidney disease), stage III: Stable at baseline Avoid nephrotoxins Patient reported some ambulatory dysfunction I spoke to and she acknowledged patient has ambulatory dysfunction and some falls at home. He uses walker at home Patient stated he will not go to SNF due to the pandemic but will like some home PT/OT Was evaluated by PT/OT senior logistics manager arranged home health services Total Time Total Time Spent Total Time Spent (In Minutes): 50 Total Time Includes: Examination of the Patient, Discharge Planning, Medication Reconciliation and Other Discharge Plan Discharge Items Patient Disposition: Home - Home Health Services Reason For Visit: illness Discharge Diagnosis: Fever Cough Possible pneumonia Activity: Resume your previous activity Non-emergency contact: Primary Care Provider Call non-emergency contact if: you have any medication questions and your symptoms worsen Follow-up/Referrals: Seamus Roach DO [Primary Care Provider] - (Date & Time 06/13/2021 3:00 PM Provider Seamus Roach DO Department General Internal Medicine [facility] ) Diet: Carb Consistent or DM2 and Heart Healthy Addtl Attending Provider Instructions: Mr Davis. You came to the hospital complaining of cough, shortness of breath and a fever. You were evaluated and treated for possible pneumonia with antibiotics. Your symptoms improved. You are being discharged home. Please complete remaining days of antibiotics. Please ensure follow up with your Primary Doctor It was a pleasure taking care of you. Pending Studies at Discharge: No Stand-Alone Forms: My [facility] [employer], Smoking Cessation Medications and DC Order Prescriptions: New levofloxacin 750 mg tablet 750 mg PO DAILY 2 Days Qty: 2 RF: 0 Continued (DME) BiPap Machine Misc See Dose Instructions .ROUTE .MEDSUPPLY Qty: 1 RF: 0 ascorbic acid (vitamin C) 500 mg capsule 500 mg PO QAM RF: 0 atorvastatin [Lipitor] 40 mg tablet 40 mg PO QAM RF: 0 digoxin [Lanoxin] 125 mcg tablet 125 mcg PO QAM RF: 0 duloxetine [Cymbalta] 60 mg capsule,delayed release(DR/EC) 60 mg PO QAM RF: 0 omeprazole 20 mg capsule,delayed release(DR/EC) 20 mg PO QDD RF: 0 alfuzosin [Uroxatral] 10 mg tablet extended release 24 hr 10 mg PO QAM RF: 0 trazodone 100 mg tablet 100 mg PO HS RF: 0 Slow-Mag 71.5 mg Tablet,Delayed Release (Dr/Ec) 71.5 mg PO QAM RF: 0 allopurinol [Zyloprim] 100 mg Tablet 100 mg PO QAM RF: 0 betamethasone dipropionate 0.05 % ointment 1 applic TOPICAL BID PRN (Reason: Itching) RF: 0 nitroglycerin [Nitrostat] 0.4 mg tablet, sublingual 0.4 mg SL UD PRN (Reason: Chest Pain) RF: 0 cholecalciferol (vitamin D3) [Vitamin D3] 25 mcg (1,000 unit) Capsule 25 mcg PO QAM RF: 0 Trulicity 0.75 mg/0.5 mL Pen Injector 0.75 mg SUBCUT FR RF: 0 bumetanide 2 mg tablet 4 mg PO QAM RF: 0 acetaminophen [Tylenol Arthritis Pain] 650 mg tablet extended release 650 mg PO Q8H PRN (Reason: pain) Qty: 30 RF: 0 aspirin [Aspirin Low Dose] 81 mg Tablet,Delayed Release (Dr/Ec) 81 mg PO Q2D RF: 0 zinc sulfate 50 mg zinc (220 mg) Tablet 50 mg PO QAM RF: 0 metformin 500 mg tablet 500 mg PO BIDM RF: 0 lisinopril [Zestril] 10 mg tablet 10 mg PO QAM RF: 0 Eliquis 5 mg tablet 5 mg PO BIDM RF: 0 diltiazem HCl [Cartia XT] 120 mg capsule,extended release 24hr 120 mg PO BIDM RF: 0 Discharge Orders: Discharge Order (Routine); Ordered 06/10/21 Ordered By: Shannen Montoya Admission Data Admit Date/Time: 06/08/21 07:06 Attending Provider: Shannen Montoya I. Admit Provider: Preston Gray Primary Care Provider: Seamus Roach Other Providers: [facility] Other Interventions: Discharge Summary Assessment (RN) Last Done: 06/10/21 14:12
== END 2021-06-10 15:37 | disposition home health service (06) | DRG 194 ==
LOC: ED 03:45 → 2N 07:06

== ENCOUNTER 2021-10-23 14:52 | Inpatient (IN) ==
[2021-10-23 15:37] LABS: Appearance Urine Clear (Clear); Bilirubin Urine Negative (Negative); Blood Urine Negative (Negative); Color Urine Yellow; Glucose Urine UA Negative (Negative); Ketones Urine Negative (Negative); Leukocyte Esterase Urine Negative (Negative); Nitrite Urine Negative (Negative); Protein Urine Negative (Negative); Specific Gravity Urine 1.009 (1.000-1.030); Urobilinogen Urine Negative (Negative); pH Urine 5.5 (4.5-7.5)
--- NOTE | 2021-10-23 16:49 | XRay Report ---
SINGLE VIEW CHEST CLINICAL HISTORY: Generalized weakness. FINDINGS: 2 AP, portable, upright chest radiographs are compared to chest x-ray and chest CT dated 06/08/2021. The cardiomediastinal silhouette is unremarkable noting atherosclerotic calcification of the thoracic aorta. Chronic interstitial thickening is similar to previous. There is elevation of the rig ht hemidiaphragm with bibasilar atelectasis. The lungs and pleural spaces are otherwise clear. No pne umothorax is seen. The skeletal structures are osteopenic. The bony thorax is grossly intact. Fusion hardware is noted in the lower cervical spine. Arthritic change is seen in the shoulders. IMPRESSION: No acute cardiopulmonary abnormality. ACT 112: Negative or not required by law. Electronically signed by: Vazquez Workman M.D. 10/23/2021 4:48 PM
[2021-10-23 18:06] LABS: Basophils # (auto) 0.01 K/uL (0-0.2); Basophils % (auto) 0.2 %; Hematocrit (blood only) 32.8 % (42-52); Hemoglobin 11.2 g/dL (14.0-18.0); Immature Granulocytes # (auto) 0.04 K/uL (0.00-0.02); Immature Granulocytes % (auto) 0.8 %; Lymphocytes # (auto) 1.14 K/uL (1.2-3.4); Lymphocytes % (auto) 22.2 %; Mean Corpuscular Hgb Conc 34.1 g/dL (32-36); Mean Corpuscular Volume 90.9 fL (80-100); Mean Platelet Volume 9.4 fL (7.4-10.4); Monocytes # (auto) 0.27 K/uL (0.11-0.59); Monocytes % (auto) 5.3 %; Neutrophils # (auto) 3.67 K/uL (1.4-6.5); Neutrophils % (auto) 71.5 %; Platelet Count 155 K/uL (130-400); RDW Coefficient of Variation 13.3 % (11.5-14.5); RDW Standard Deviation 44.8 fL (36.4-46.3); Red Blood Count 3.61 M/uL (4.7-6.1); White Blood Count 5.13 K/uL (4.8-10.8)
[2021-10-23 18:29] LABS: Albumin Globulin Ratio 1.2 (0.9-2); Albumin Level 3.7 gm/dl (3.4-5.0); BUN Creatinine Ratio 10.7 (10-20); Bilirubin,Total 0.3 mg/dl (0.2-1.0); Calcium 8.6 mg/dl (8.5-10.1); Creatinine Clr Calc Pharmacy 74.5 ml/min; Est GFR (African American) 80.3 ml/min; Est GFR (Non-African American) 69.3 ml/min; Potassium 3.8 mmol/L (3.5-5.1); Total Protein 6.7 gm/dl (6.0-8.3)
[2021-10-23 18:55] LABS: Troponin I 0.03 ng/ml (0-0.04)
[2021-10-23] MEDS ORDERED: SODIUM CHLORIDE 0.9% 1000ML 1,000 ML IV ONE (19:02)
--- NOTE | 2021-10-23 19:10 | Emergency Department Note ---
Impression & Plan Weakness, COVID-19, Acute hyponatremia, Hypomagnesemia ED Provider Note NAME: LAURA STANLEY AGE: 76 SEX: M : 1945 ARRIVES VIA: Ambulance INFORMANT: [Patient] ED PROVIDER(S): [Vazquez Palmer MD] CHIEF COMPLAINT: Weakness HISTORY OF PRESENT ILLNESS: The patient is a 76-year-old male who has had several days of weakness and a low-grade fever. Temperature about 99. He had a slight cough, no shortness of breath. He had some chest pain yesterday for which he took 2 nitroglycerin. No chest pain today. He has had some diarrhea. His stool is black but is always bl ack because of his iron use. He has had no vomiting. No abdominal pain. The patient was referred in to this hospital for an evaluation because of his weakness. Of note, the weakness is diffuse, not one-sided. The patient is not vaccinated for COVID-19 or influenza. No known COVID or flu exposures. REVIEW OF SYSTEMS: See HPI for pertinent positives and negatives. A total of ten systems were reviewed and were otherwise negative. PMHx/PSHx: See Below SOCIAL HISTORY: See Below. PHYSICAL EXAM: GENERAL: Patient is in no acute distress. HEENT: No acute trauma, normocephalic atraumatic, mucous membranes moist, no nasal congestion, no scleral icterus. NECK: No stridor, no adenopathy, no meningismus, trachea is midline. LUNGS: Clear to auscultation bilaterally, no wheeze, no rhonchi, breath sounds equal. HEART: 3/6 systolic murmur, irregular rhythm, normal rate. ABDOMEN: Soft, nontender, bowel sounds positive, no hernias, no peritonitis. EXTREMITIES: No cyanosis or edema, full range of motion of all the joints without pain or difficulty, no signs for acute trauma. NEUROLOGIC: Oriented x 3, no acute motor or sensory deficits, no focal weakness. SKIN: No rash, no jaundice, no diaphoresis. DIFFERENTIAL DIAGNOSIS: Infection, dehydration, COVID-19, influenza, metabolic abnormality, hypo/hyperglycemia, electrolyte disturbance, anemia, hypoxia, cardiac sources, intracerebral event, toxicologic issues, stroke, TIA, as well as other pathologies. EMERGENCY DEPARTMENT COURSE/PROCEDURES: ECG: Indication was weakness. The ECG shows atrial fibrillation with a rate of 76. There is no concerning ST elevation, no PVCs. The QTc is 429. Continuous Cardiac Monitoring: An order was placed for continuous cardiac monitoring. The monitor shows a rate of 76 with atrial fibrillation. MEDICAL DECISION MAKING: There is no leukocytosis. A mild anemia was noted. The anemia does appear baseline. Sodium is low at 126. Chloride is low at is 87. No kidney failure. Magnesium is low at 1.6. Lactic acid level is not elevated making sepsis less likely. No worrisome liver enzyme elevation. The patient appears to be in a euthyroid state. ECG shows atrial fibrillation, no acute ischemia. Cardiac enzyme testing x1 is not consistent with acute cardiac injury. Urinalysis does not show infection. Digoxin level is not toxic. Chest x-ray shows a poor inspiration but there is no pneumonia or CHF. COVID testing was confirmed positive by [facility] system. The test had been run earlier today. On exam, the patient was not toxic. He was not hypoxic. The patient was given IV magnesium and IV saline. I suspect the patient's weakness is from his COVID infection coupled with the hyponatremia. Given the low sodium value, I do think a hospital stay is warranted. He requires electrolyte replacement. He is not stable for discharge home. I spoke with the patient and adult protective caseworker. The on-call hospitalist was consulted. Past Med/Surg History Medical History Anticoagulant long-term use Arthritis Asthma CAD (coronary artery disease) Small vessel LAD disease, no stenting Cervical spinal stenosis (01/18/12) Chronic diastolic CHF (congestive heart failure), NYHA class 3 Chronic respiratory failure with hypoxia CKD (chronic kidney disease), stage III COPD (chronic obstructive pulmonary disease) Depression Diaphragmatic paralysis Diverticulitis of colon (01/18/12) Dyslipidemia (01/18/12) Extrinsic asthma GERD (gastroesophageal reflux disease) Hypertension Obesity CLARISSA on CPAP Permanent atrial fibrillation Psoriasiform dermatitis Psoriasis PVD (peripheral vascular disease) 11/10/2019 -s/p right GSV VenaSeal ablation Right knee DJD Type 2 diabetes mellitus Surgical History History of appendectomy (01/18/12) S/P cervical spinal fusion (01/18/12) S/P lumbar spinal fusion (01/18/12) Family History Father Heart disease Social History Smoking Status: Former smoker Tobacco Type: Cigarettes Hx Alcohol Use: No Hx Substance Use: No Preferred Language: Bhutanese Communication Ability: Effective Rescue Boat 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 Required: No Beliefs That Will Affect Care: None marital status: Current Living Situation: Spouse How many Children do You have: 2 Feels Safe at Home: Yes Assistive Devices: Walker Allergies Allergies Allergy/AdvReac Type Severity Reaction Status Date / Time Bactrim Allergy Unknown HIVES Verified 04/07/18 13:36 Cephalosporins Allergy Unknown Rash Verified 10/23/21 19:23 Penicillins Allergy Unknown Rash Verified 10/23/21 19:23 sulfamethoxazole Allergy Unknown HIVES Verified 10/23/21 19:23 Tetracyclines Allergy Unknown Unknown Verified 10/23/21 19:23 trimethoprim Allergy Unknown HIVES Verified 10/23/21 19:23 CONTRAST DYE Allergy Unknown KIDNEY Uncoded 10/23/21 19:23 PROBLEMS Home Meds Home Medications Medication Instructions Recorded Confirmed alfuzosin 10 mg tablet,extended 10 mg PO QAM 06/14/18 10/23/21 release 24 hr (Uroxatral) atorvastatin 40 mg tablet (Lipitor) 40 mg PO QAM 06/14/18 10/23/21 digoxin 125 mcg (0.125 mg) tablet 125 mcg PO QAM 06/14/18 10/23/21 (Lanoxin) duloxetine 60 mg capsule,delayed 60 mg PO QAM 06/14/18 10/23/21 release (Cymbalta) omeprazole 20 mg capsule,delayed 20 mg PO QDD 06/14/18 10/23/21 release trazodone 100 mg tablet 100 mg PO HS 06/14/18 10/23/21 BiPap Machine #1 ea 07/26/19 06/17/21 ascorbic acid (vitamin C) 500 mg 500 mg PO QAM cap 08/29/19 10/23/21 capsule allopurinol 100 mg tablet 100 mg PO QAM 11/24/19 10/23/21 (Zyloprim) betamethasone dipropionate 0.05 % 1 applic TOPICAL BID PRN 11/24/19 10/23/21 topical ointment cholecalciferol (vitamin D3) 25 25 mcg PO QAM 02/29/20 10/23/21 mcg (1,000 unit) capsule (Vitamin D3) bumetanide 2 mg tablet 4 mg PO QAM 03/05/20 10/23/21 apixaban 5 mg tablet (Eliquis) 5 mg PO BID 06/08/21 10/23/21 aspirin 81 mg tablet,delayed 81 mg PO Q2D 06/08/21 10/23/21 release (Aspirin Low Dose) diltiazem HCl 120 mg 120 mg PO BIDM 06/08/21 10/23/21 capsule,extended release 24 hr (Cartia XT) lisinopril 10 mg tablet (Zestril) 10 mg PO QAM 06/08/21 10/23/21 metformin 500 mg tablet 500 mg PO BIDM 06/08/21 10/23/21 zinc sulfate 50 mg zinc (220 mg) 50 mg PO QAM 06/08/21 10/23/21 tablet magnesium chloride 71.5 mg 71.5 mg PO BID tab 07/15/21 10/23/21 (magnesium chloride) tablet,delayed release (Slow-Mag) dulaglutide 3 mg/0.5 mL 3 mg SUBCUT UD 10/23/21 10/23/21 subcutaneous pen injector (Trulicity) Previous Rx's Medication Instructions Recorded acetaminophen 650 mg 650 mg PO Q8H PRN #30 tab 03/08/20 tablet,extended release (Tylenol Arthritis Pain) metolazone 5 mg tablet 5 mg PO DAILY PRN #30 tab 07/15/21 nitroglycerin 0.4 mg sublingual 0.4 mg SL UD PRN #20 tab 10/16/21 tablet (Nitrostat) Results & Data (ED) Vital Signs Vital Signs - 24 hr 10/23/21 15:15 10/23/21 18:56 10/23/21 19:52 Temperature 37.2 C 37.0 C Temperature Source Temporal Artery Scan Oral Pulse Rate 74 Pulse Rate [Right Finger] 76 91 H Pulse Rhythm Regular Pulse Strength Normal Respiratory Rate 20 20 17 Respiratory Effort / Characteristics Non-Labored Spontaneous Non-Labored Non-Labored Respiratory Depth Normal Normal Normal Respiratory Pattern Regular Regular Blood Pressure 153/77 H Blood Pressure [Right Arm] 142/78 H 125/108 H Blood Pressure Mean 102 Blood Pressure Mean [Right Arm] 99 113 Blood Pressure Position Sitting Blood Pressure Position [Right Arm] Lying Pulse Oximetry 96 97 99 Oxygen Delivery Method Room Air Room Air Room Air Sepsis Recent Fever Within 48 Hours Yes Sepsis New/Unexplained Change in Mental Status No Sepsis Action Taken by Nursing No Action Required Home Medications Current Medication List: was personally reviewed by me Laboratory Data Attestation: I reviewed the patient's lab results. Result diagrams: 10/23/21 17:58 10/23/21 17:58 Lab Results 10/23/21 10/23/21 10/23/21 Range/Units 17:54 17:58 17:58 WBC 5.13 (4.8-10.8) K/uL RBC 3.61 L (4.7-6.1) M/uL Hgb 11.2 L (14.0-18.0) g/dL Hct 32.8 L (42-52) % MCV 90.9 (80-100) fL MCH 31.0 (25-34) pg MCHC 34.1 (32-36) g/dL RDW Std Deviation 44.8 (36.4-46.3) fL RDW Coeff of Starr 13.3 (11.5-14.5) % Plt Count 155 (130-400) K/uL MPV 9.4 (7.4-10.4) fL Immature Gran % (Auto) 0.8 % Neut % (Auto) 71.5 % Lymph % (Auto) 22.2 % Sac % (Auto) 5.3 % Eos % (Auto) 0.0 % Baso % (Auto) 0.2 % Neut # (Auto) 3.67 (1.4-6.5) K/uL Lymph # (Auto) 1.14 L (1.2-3.4) K/uL Sac # (Auto) 0.27 (0.11-0.59) K/uL Eos # (Auto) 0.00 (0-0.5) K/uL Baso # (Auto) 0.01 (0-0.2) K/uL Immature Gran # (Auto) 0.04 H (0.00-0.02) K/uL Sodium 126 L (136-145) mmol/L Potassium 3.8 (3.5-5.1) mmol/L Chloride 87 L (98-107) mmol/L Carbon Dioxide 32 (21-32) mmol/L Anion Gap 7 (3-11) BUN 11 (6-23) mg/dl Creatinine 1.03 (0.6-1.4) mg/dl Est Cr Clr Drug Dosing 74.5 ml/min Est GFR ( Amer) 80.3 ml/min Est GFR (Non-Af Amer) 69.3 ml/min BUN/Creatinine Ratio 10.7 (10-20) Glucose 150 H (70-99(Fasting)) mg/dl Lactate (0.4-2.0) mmol/L Calcium 8.6 (8.5-10.1) mg/dl Magnesium (1.7-2.4) mg/dl Total Bilirubin 0.3 (0.2-1.0) mg/dl AST 24 (13-39) U/L ALT 25 (7-52) U/L Alkaline Phosphatase 83 (34-104) U/L Troponin I 0.03 (0-0.04) ng/ml Total Protein 6.7 (6.0-8.3) gm/dl Albumin 3.7 (3.4-5.0) gm/dl Globulin 3.0 (2.5-4.0) gm/dl Albumin/Globulin Ratio 1.2 (0.9-2) TSH 2.400 (0.300-4.500) uIu/ml Urine Color Urine Appearance (Clear) Urine pH (4.5-7.5) Ur Specific [place] (1.000-1.030) Urine Protein (Negative) Urine Glucose (UA) (Negative) Urine Ketones (Negative) Urine Blood (Negative) Urine Nitrite (Negative) Urine Bilirubin (Negative) Urine Urobilinogen (Negative) Ur Leukocyte Esterase (Negative) Digoxin (0.8-2.0) ng/ml 10/23/21 10/23/21 10/23/21 Range/Units 17:59 17:59 19:36 WBC (4.8-10.8) K/uL RBC (4.7-6.1) M/uL Hgb (14.0-18.0) g/dL Hct (42-52) % MCV (80-100) fL MCH (25-34) pg MCHC (32-36) g/dL RDW Std Deviation (36.4-46.3) fL RDW Coeff of Starr (11.5-14.5) % Plt Count (130-400) K/uL MPV (7.4-10.4) fL Immature Gran % (Auto) % Neut % (Auto) % Lymph % (Auto) % Sac % (Auto) % Eos % (Auto) % Baso % (Auto) % Neut # (Auto) (1.4-6.5) K/uL Lymph # (Auto) (1.2-3.4) K/uL Sac # (Auto) (0.11-0.59) K/uL Eos # (Auto) (0-0.5) K/uL Baso # (Auto) (0-0.2) K/uL Immature Gran # (Auto) (0.00-0.02) K/uL Sodium (136-145) mmol/L Potassium (3.5-5.1) mmol/L Chloride (98-107) mmol/L Carbon Dioxide (21-32) mmol/L Anion Gap (3-11) BUN (6-23) mg/dl Creatinine (0.6-1.4) mg/dl Est Cr Clr Drug Dosing ml/min Est GFR ( Amer) ml/min Est GFR (Non-Af Amer) ml/min BUN/Creatinine Ratio (10-20) Glucose (70-99(Fasting)) mg/dl Lactate 1.4 (0.4-2.0) mmol/L Calcium (8.5-10.1) mg/dl Magnesium 1.6 L (1.7-2.4) mg/dl Total Bilirubin (0.2-1.0) mg/dl AST (13-39) U/L ALT (7-52) U/L Alkaline Phosphatase (34-104) U/L Troponin I (0-0.04) ng/ml Total Protein (6.0-8.3) gm/dl Albumin (3.4-5.0) gm/dl Globulin (2.5-4.0) gm/dl Albumin/Globulin Ratio (0.9-2) TSH (0.300-4.500) uIu/ml Urine Color Urine Appearance (Clear) Urine pH (4.5-7.5) Ur Specific [place] (1.000-1.030) Urine Protein (Negative) Urine Glucose (UA) (Negative) Urine Ketones (Negative) Urine Blood (Negative) Urine Nitrite (Negative) Urine Bilirubin (Negative) Urine Urobilinogen (Negative) Ur Leukocyte Esterase (Negative) Digoxin 1.0 (0.8-2.0) ng/ml 10/23/21 10/23/21 Range/Units 19:36 Unknown WBC (4.8-10.8) K/uL RBC (4.7-6.1) M/uL Hgb (14.0-18.0) g/dL Hct (42-52) % MCV (80-100) fL MCH (25-34) pg MCHC (32-36) g/dL RDW Std Deviation (36.4-46.3) fL RDW Coeff of Starr (11.5-14.5) % Plt Count (130-400) K/uL MPV (7.4-10.4) fL Immature Gran % (Auto) % Neut % (Auto) % Lymph % (Auto) % Sac % (Auto) % Eos % (Auto) % Baso % (Auto) % Neut # (Auto) (1.4-6.5) K/uL Lymph # (Auto) (1.2-3.4) K/uL Sac # (Auto) (0.11-0.59) K/uL Eos # (Auto) (0-0.5) K/uL Baso # (Auto) (0-0.2) K/uL Immature Gran # (Auto) (0.00-0.02) K/uL Sodium (136-145) mmol/L Potassium (3.5-5.1) mmol/L Chloride (98-107) mmol/L Carbon Dioxide (21-32) mmol/L Anion Gap (3-11) BUN (6-23) mg/dl Creatinine (0.6-1.4) mg/dl Est Cr Clr Drug Dosing ml/min Est GFR ( Amer) ml/min Est GFR (Non-Af Amer) ml/min BUN/Creatinine Ratio (10-20) Glucose (70-99(Fasting)) mg/dl Lactate (0.4-2.0) mmol/L Calcium (8.5-10.1) mg/dl Magnesium (1.7-2.4) mg/dl Total Bilirubin (0.2-1.0) mg/dl AST (13-39) U/L ALT (7-52) U/L Alkaline Phosphatase (34-104) U/L Troponin I (0-0.04) ng/ml Total Protein (6.0-8.3) gm/dl Albumin (3.4-5.0) gm/dl Globulin (2.5-4.0) gm/dl Albumin/Globulin Ratio (0.9-2) TSH 2.630 (0.300-4.500) uIu/ml Urine Color Yellow Urine Appearance Clear (Clear) Urine pH 5.5 (4.5-7.5) Ur Specific [place] 1.009 (1.000-1.030) Urine Protein Negative (Negative) Urine Glucose (UA) Negative (Negative) Urine Ketones Negative (Negative) Urine Blood Negative (Negative) Urine Nitrite Negative (Negative) Urine Bilirubin Negative (Negative) Urine Urobilinogen Negative (Negative) Ur Leukocyte Esterase Negative (Negative) Digoxin (0.8-2.0) ng/ml Imaging Data Radiologist's Impression: Chest X-Ray 10/23/21 15:21 SINGLE VIEW CHEST CLINICAL HISTORY: Generalized weakness. FINDINGS: 2 AP, portable, upright chest radiographs are compared to chest x-ray and chest CT dated 06/08/2021. The cardiomediastinal silhouette is unremarkable noting atherosclerotic calcification of the thoracic aorta. Chronic interstitial thickening is similar to previous. There is elevation of the right hemidiaphragm with bibasilar atelectasis. The lungs and pleural spaces are otherwise clear. No pneumothorax is seen. The skeletal structures are osteopenic. The bony thorax is grossly intact. Fusion hardware is noted in the lower cervical spine. Arthritic change is seen in the shoulders. IMPRESSION: No acute cardiopulmonary abnormality. ACT 112: Negative or not required by law. Electronically signed by: Vazquez Workman M.D. 10/23/2021 4:48 PM Discharge Plan Visit Data Chief Complaint: Weakness Stated Complaint: URINARY RETENTION, ILLNESS, WEAKNESS ED Provider: Vazquez Palmer Discharge Problem: Weakness, COVID-19, Acute hyponatremia, Hypomagnesemia Patient Disposition: Admitted As Inpatient Condition: Fair Forms Stand Alone Forms: [facility] Prescriptions Prescriptions: No Action nitroglycerin [Nitrostat] 0.4 mg tablet, sublingual 0.4 mg SL UD PRN (Reason: Chest Pain) Qty: 20 RF: 3 (DME) BiPap Machine Misc See Dose Instructions .ROUTE .MEDSUPPLY Qty: 1 RF: 0 metolazone 5 mg tablet 5 mg PO DAILY PRN (Reason: weight gain, edema, SOB) Qty: 30 RF: 2 ascorbic acid (vitamin C) 500 mg capsule 500 mg PO QAM RF: 0 atorvastatin [Lipitor] 40 mg tablet 40 mg PO QAM RF: 0 digoxin [Lanoxin] 125 mcg tablet 125 mcg PO QAM RF: 0 duloxetine [Cymbalta] 60 mg capsule,delayed release(DR/EC) 60 mg PO QAM RF: 0 omeprazole 20 mg capsule,delayed release(DR/EC) 20 mg PO QDD RF: 0 alfuzosin [Uroxatral] 10 mg tablet extended release 24 hr 10 mg PO QAM RF: 0 trazodone 100 mg tablet 100 mg PO HS RF: 0 Slow-Mag 71.5 mg tablet,delayed release (DR/EC) 71.5 mg PO BID RF: 0 allopurinol [Zyloprim] 100 mg Tablet 100 mg PO QAM RF: 0 betamethasone dipropionate 0.05 % ointment 1 applic TOPICAL BID PRN (Reason: Itching) RF: 0 cholecalciferol (vitamin D3) [Vitamin D3] 25 mcg (1,000 unit) Capsule 25 mcg PO QAM RF: 0 bumetanide 2 mg tablet 4 mg PO QAM RF: 0 acetaminophen [Tylenol Arthritis Pain] 650 mg tablet extended release 650 mg PO Q8H PRN (Reason: pain) Qty: 30 RF: 0 aspirin [Aspirin Low Dose] 81 mg Tablet,Delayed Release (Dr/Ec) 81 mg PO Q2D RF: 0 zinc sulfate 50 mg zinc (220 mg) Tablet 50 mg PO QAM RF: 0 metformin 500 mg tablet 500 mg PO BIDM RF: 0 lisinopril [Zestril] 10 mg tablet 10 mg PO QAM RF: 0 Eliquis 5 mg tablet 5 mg PO BID RF: 0 diltiazem HCl [Cartia XT] 120 mg capsule,extended release 24hr 120 mg PO BIDM RF: 0 Trulicity 3 mg/0.5 mL Pen Injector 3 mg SUBCUT UD RF: 0 Referrals Referrals: Seamus Roach, [Primary Care Provider] -
[2021-10-23] MEDS ORDERED: MAGNESIUM SULFATE / D5W 1 GM/100 ML BAG IV STA (19:56)
--- NOTE | 2021-10-23 21:50 | History and Physical Report ---
DATE OF ADMISSION: 10/23/2021. CHIEF COMPLAINT: Weakness. HISTORY OF PRESENT ILLNESS: This is a 76-year-old male with past medical history significant for type 2 diabetes, hyperlipidemia, diabetic polyneuropathy, intermittent asthma, obstructive sleep apnea, on CPAP, history of diaphragmatic paralysis, history of chronic heart disease, chronic atrial fibrillation, chronic diastolic CHF, chronic kidney disease stage III, lumbar degenerative disk disease, gout arthropathy, psoriasis, history of cervical spinal stenosis, primary insomnia, major depression, who lives with his , presents with weakness. The patient says since last night, he is having low- grade fevers and had an episode of diarrhea and feeling weak and poor appetite. Denies any cough, no headache, no blurred vision, no earache, no runny nose, no sore throat, no nausea, no chest pain, no shortness of breath, no abdominal pain. Stools are black-colored because he is on iron pill and today he is not making much urine. No swelling in the legs. Ambulating okay. Currently, resting comfortably and hemodynamically stable. The patient is not COVID vaccinated. ALLERGIES: BACTRIM, CEPHALOSPORIN, PENICILLINS, TETRACYCLINES AND CONTRAST DYE. PAST MEDICAL HISTORY: As mentioned above. PAST SURGICAL HISTORY: Cardiac cath, cystoscopy, EGD with endoscopic ultrasound, lumbar spine fusion surgery, excision of cyst in the left posterior neck, cervical spine arthrodesis, appendectomy, left foot revision surgery. MEDICATIONS: The patient is on Tylenol 650 mg p.o. q.8 hours p.r.n., alfuzosin 10 mg p.o. a.m., allopurinol 100 mg p.o. a.m., vitamin C 500 mg p.o. a.m., aspirin 81 mg p.o. 2 times a day Lipitor 40 mg p.o. a.m., betamethasone 1 application topical b.i.d. p.r.n., Bumex 1 mg p.o. a.m., vitamin D 25 mcg p.o. a.m., Lanoxin 125 mcg p.o. a.m., diltiazem 120 mg p.o. b.i.d., Trulicity 3 mg subcutaneous as directed, Cymbalta 60 mg p.o. a.m., Eliquis 5 mg p.o. b.i.d., lisinopril 10 mg p.o. a.m., magnesium chloride 7.5 mg p.o. b.i.d., metformin 500 mg p.o. b.i.d., metolazone 5 mg p.o. daily p.r.n., nitroglycerin 0.4 mg sublingual p.r.n., omeprazole 20 mg p.o. daily, trazodone 100 mg p.o. at bedtime, zinc sulfate 50 mg p.o. a.m., BiPAP machine as directed. FAMILY HISTORY: Significant for mother had asthma and diabetes, father had heart attack. Sister has psoriasis, uncle has stroke and sister has diabetes. SOCIAL HISTORY: , former smoker, quit in 1975, smoked 1.5 packs a day for 20 years. Alcohol rarely. No drug use. REVIEW OF SYSTEMS: As per HPI. Rest of review of systems is negative. PHYSICAL EXAMINATION: GENERAL: The patient is of moderate build, not in acute distress. VITAL SIGNS: Temperature 37, pulse 91, respirations 17, blood pressure 125/108, oxygen 99% on room air. HEENT: Pupils equal, round and reactive to light. Oral mucosa moist. NECK: No JVD or neck masses. CARDIOVASCULAR: S1 and S2 heard, regular rate and rhythm. No murmur, no gallop. RESPIRATORY SYSTEM: Normal AP diameter. No accessory muscle use. No wheezing, no crackles. ABDOMEN: Soft, bowel sounds present, nontender, no distention. CENTRAL NERVOUS SYSTEM: Cranial nerves II-XII grossly intact, nonfocal. EXTREMITIES: No edema, no erythema. LABORATORY DATA: WBC 5.1, hemoglobin 11.2, hematocrit 32.8, platelets 155. Sodium 126, potassium 3.8, chloride 87, bicarbonate 32, BUN 11, creatinine 1.03, serum glucose 150. Lactate 1.4, calcium 8.6, magnesium 1.6, total bilirubin 0.3, AST 24, ALT 25, alkaline phosphatase 83. Troponin I 0.03. TSH 2.6. Urinalysis negative. Digoxin 1. IMAGING: Chest x-ray: No acute disease. EKG: Atrial fibrillation at a rate of 76, no significant change was found. ASSESSMENT AND PLAN: This is a 76-year-old male who presents with ongoing weakness and found to have hyponatremia. 1. Hyponatremia: Could possibly from dehydration. Because he is having low- grade fever and diarrhea since yesterday and poor appetite and low urine output as per patient, we will hold his home diuretics and place him on gentle fluids of normal saline at 75 mL per hour and follow the repeat laboratories and also follow urine osmolality, serum osmolality, and urine sodium levels. If he is not getting better, we can consider nephrology consult. 2. Low-grade fever and generalized weakness and poor appetite: The patient is not COVID vaccinated. COVID test is pending. Otherwise, no obvious source of infection. 3. History of chronic diastolic congestive heart failure: Continue Lanoxin, lisinopril. Holding his diuretics. Place him on gentle fluids, monitor for volume overload. 4. Diabetes: Holding home medication. Place him on insulin sliding scale, follow the blood sugars. 5. History of hypertension: Continue his lisinopril, diltiazem. Holding diuretics. Monitor the blood pressure. 6. History of atrial fibrillation: On diltiazem, digoxin and Eliquis. 7. History of hyperlipidemia: On statin. 8. Gout: On allopurinol. 9. History of depression: On duloxetine. 10. Sleep apnea: On CPAP at bedtime. 11. Deep venous thrombosis prophylaxis: On Eliquis. DISPOSITION: Closely monitor in the med tele. PT/OT prior to discharge. Social service to help with discharge planning. Job ID: [id number] STUART
[2021-10-23] MEDS ORDERED: ACETAMINOPHEN 325 MG TAB PO PRN (23:12)
[2021-10-23] MEDS ORDERED: ONDANSETRON INJ 2 MG/ML 2 ML VIAL IV PRN (23:12)
[2021-10-23] MEDS ORDERED: NITROGLYCERIN SL 0.4 MG/TAB TAB SL PRN ×2 (23:12)
[2021-10-24] MEDS: ASPIRIN 81 MG ECTAB PO SCH (00:53)
[2021-10-24] MEDS: traZODone HCL 100 MG TAB PO SCH ×2 (00:53→20:14)
[2021-10-24] MEDS: APIXABAN 5 MG TABLET PO SCH ×3 (00:53→20:13)
[2021-10-24] MEDS: SODIUM CHLORIDE 0.9% 1000ML 1,000 ML IV SCH ×2 (00:54→12:15)
[2021-10-24] MEDS: MAGNESIUM CHLORIDE 64MG DELAYED REL TAB PO SCH ×3 (00:54→20:13)
[2021-10-24] MEDS: INSULIN ASPART PER UNIT SC SCH ×5 (01:01→20:49)
[2021-10-24 05:22] LABS: Basophils # (auto) 0.01 K/uL (0-0.2); Basophils % (auto) 0.2 %; Hematocrit (blood only) 30.5 % (42-52); Hemoglobin 10.1 g/dL (14.0-18.0); Immature Granulocytes # (auto) 0.03 K/uL (0.00-0.02); Immature Granulocytes % (auto) 0.7 %; Lymphocytes # (auto) 0.78 K/uL (1.2-3.4); Lymphocytes % (auto) 17.3 %; Mean Corpuscular Hemoglobin 30.3 pg (25-34); Mean Corpuscular Hgb Conc 33.1 g/dL (32-36); Mean Corpuscular Volume 91.6 fL (80-100); Mean Platelet Volume 9.2 fL (7.4-10.4); Monocytes # (auto) 0.78 K/uL (0.11-0.59); Monocytes % (auto) 17.3 %; Neutrophils # (auto) 2.92 K/uL (1.4-6.5); Neutrophils % (auto) 64.5 %; Platelet Count 144 K/uL (130-400); RDW Coefficient of Variation 13.4 % (11.5-14.5); RDW Standard Deviation 44.8 fL (36.4-46.3); Red Blood Count 3.33 M/uL (4.7-6.1); White Blood Count 4.52 K/uL (4.8-10.8)
[2021-10-24 06:09] LABS: BUN Creatinine Ratio 10.5 (10-20); Calcium 7.6 mg/dl (8.5-10.1); Creatinine Clr Calc Pharmacy 73.1 ml/min; Est GFR (African American) 78.4 ml/min; Est GFR (Non-African American) 67.7 ml/min; Magnesium 1.7 mg/dl (1.7-2.4); Potassium 3.5 mmol/L (3.5-5.1)
[2021-10-24 07:34] LABS: Estimated Average Glucose 194 mg/dl; Hemoglobin A1C 8.4 % (4.5-5.6)
[2021-10-24] MEDS: ZINC SULFATE 220 MG CAPSULE PO SCH (08:55)
[2021-10-24] MEDS: DIGOXIN 0.125 MG TAB PO SCH (08:55)
[2021-10-24] MEDS: lisinopril 10 MG TAB PO SCH (08:55)
[2021-10-24] MEDS: DULoxetine HCL 60 MG CAP PO SCH (08:55)
[2021-10-24] MEDS: allopurinoL 100 MG TAB PO SCH (08:56)
[2021-10-24] MEDS: ALFUZOSIN HCL 10 MG TAB PO SCH (08:56)
[2021-10-24] MEDS: CHOLECALCIFEROL 1,000 UNITS 25 MCG TAB PO SCH (08:56)
[2021-10-24] MEDS: ATORVASTATIN 40 MG TAB PO SCH (08:56)
[2021-10-24] MEDS: ASCORBIC ACID 500 MG TAB PO SCH (08:56)
[2021-10-24] MEDS: dilTIAZem HCL 120 MG CAPCR PO SCH ×2 (08:57→17:26)
[2021-10-24 09:14] LABS: Influenza A virus by PCR Negative (Neg); Influenza B virus by PCR Negative (Neg); RSV by PCR Negative (Neg)
[2021-10-24 09:23] LABS: SARS CoV2 RNA(COVID-19) InHosp POSITIVE (Negative)
[2021-10-24] MEDS ORDERED: BETAMETHASONE DIP AUG 0.05% OINT 15 GM TUBE TOP PRN (13:53)
[2021-10-24] MEDS: PANTOprazole 40 MG TAB PO SCH (16:45)
[2021-10-24 17:07] LABS: BUN Creatinine Ratio 10.4 (10-20); Calcium 7.7 mg/dl (8.5-10.1); Creatinine Clr Calc Pharmacy 72.4 ml/min; Est GFR (African American) 77.5 ml/min; Est GFR (Non-African American) 66.9 ml/min; Potassium 3.5 mmol/L (3.5-5.1)
--- NOTE | 2021-10-24 20:11 | Hospitalist Progress Note ---
Date of Service October 24, 2021 Assessment & Plan (1) COVID-19: Plan: ASSESSMENT AND PLAN: This is a 76-year-old male who presents with ongoing weakness and found to have hyponatremia. 1. Hyponatremia likely Hypovolemic from Dehydration, Diarrhea repeat Na 126 continue NSS 2.COVID 19 infection - Low-grade fever and generalized weakness and poor appetite - CXR no pneumonia 97% on room air - hold off on Decadron, Remdesivir - continue supportive care Incentive spirometry 3. History of chronic diastolic congestive heart failure: Continue Lanoxin, lisinopril. - hold diuretics 4. Diabetes: - insulin sliding scale 5. History of hypertension: Continue his lisinopril, diltiazem. 6. History of atrial fibrillation: On diltiazem, digoxin and Eliquis. 7. History of hyperlipidemia: On statin. 8. Gout: On allopurinol. 9. History of depression: On duloxetine. 10. Sleep apnea: On CPAP at bedtime. 11. Deep venous thrombosis prophylaxis: On Eliquis. Admission and Anticipated Discharge Date Admission Date: October 23, 2021 Subjective ff up for COVID 19 infection, etc seen resting in bed, sitting up comfortable states he feels improved no diarrhea, abdominal pain, nausea/vomiting no dyspnea, cough, chest pain appetite improving tolerating diet no other symptoms Review of Systems Review of Systems: all noted and negative except for above Physical Exam Physical Exam: General- oriented x 3, not in distress, speaks in sentences with no effort or accessory muscle use somewhat weak Head- atraumatic Eyes- PERRL, EOMI, anicteric ENT- oropharynx clear Neck- supple, no JVD, no adenopathy, no thyromegaly; carotids +2/2, no bruits appreciated Lungs- clear to auscultation bilaterally, no rales/wheezes Heart- normal rate, regular rhythm; no murmur, no gallop, no rub appreciated Abdomen- normal bowel sounds, nondistended, soft, nontender, no masses or hepatosplenomegaly Extremities- no pretibial edema, no calf tenderness; peripheral pulses intact Neuro- alert, oriented x 3; CN 2-12 grossly intact; motor 5/5 bilaterally;sensation 100% on all extremities; no other gross focal neurologic deficits Skin- warm & dry Results & Data Results & Data ([facility]) Vital Signs (Past 12 Hours) Vital Signs Pulse Pulse Resp BP Pulse Ox 10/24/21 19:07 60 18 114/61 96 10/24/21 17:00 65 18 10/24/21 16:30 59 L 20 96 10/24/21 16:00 54 L 16 10/24/21 15:30 66 16 10/24/21 15:00 52 L 18 95 10/24/21 14:30 57 L 16 10/24/21 14:00 66 17 10/24/21 13:30 71 17 10/24/21 13:00 84 20 10/24/21 12:44 66 25 H 10/24/21 09:06 70 20 117/72 97 10/24/21 08:55 70 96 all noted and reviewed including below
--- NOTE | 2021-10-24 21:00 | Electrocardiogram Report ---
Test Reason : Blood Pressure : / mmHG Vent. Rate : 076 BPM Atrial Rate : 441 BPM P-R Int : 000 ms QRS Dur : 104 ms QT Int : 382 ms P-R-T Axes : 000 -24 079 degrees QTc Int : 429 ms Poor data quality, interpretation may be adversely affected Atrial fibrillation Poor R wave progression, consider anterior CA vs. lead placement vs. LVH Abnormal ECG When compared with ECG of 08-JUN-2021 03:59, No significant change was found Confirmed by Magnus Jacobson ([id number]) on 10/24/2021 8:59:53 PM Referred By: REFERRED SELF Confirmed By:Magnus Jacobson
[2021-10-25] MEDS: SODIUM CHLORIDE 0.9% 1000ML 1,000 ML IV SCH ×2 (01:12→13:49)
[2021-10-25 05:40] LABS: Basophils # (auto) 0.02 K/uL (0-0.2); Basophils % (auto) 0.6 %; Eosinophils # (auto) 0.02 K/uL (0-0.5); Eosinophils % (auto) 0.6 %; Hematocrit (blood only) 30.6 % (42-52); Hemoglobin 10.4 g/dL (14.0-18.0); Immature Granulocytes # (auto) 0.02 K/uL (0.00-0.02); Immature Granulocytes % (auto) 0.6 %; Lymphocytes % (auto) 25.9 %; Mean Corpuscular Hemoglobin 30.9 pg (25-34); Mean Corpuscular Volume 90.8 fL (80-100); Mean Platelet Volume 9.2 fL (7.4-10.4); Monocytes # (auto) 0.45 K/uL (0.11-0.59); Monocytes % (auto) 12.9 %; Neutrophils # (auto) 2.07 K/uL (1.4-6.5); Neutrophils % (auto) 59.4 %; Platelet Count 115 K/uL (130-400); RDW Coefficient of Variation 13.7 % (11.5-14.5); RDW Standard Deviation 45.5 fL (36.4-46.3); Red Blood Count 3.37 M/uL (4.7-6.1); White Blood Count 3.48 K/uL (4.8-10.8)
[2021-10-25 06:06] LABS: RBC Morphology Unremarkable
[2021-10-25 06:18] LABS: BUN Creatinine Ratio 10.3 (10-20); Calcium 7.6 mg/dl (8.5-10.1); Creatinine Clr Calc Pharmacy 65.6 ml/min; Est GFR (African American) 68.8 ml/min; Est GFR (Non-African American) 59.4 ml/min; Potassium 3.8 mmol/L (3.5-5.1)
[2021-10-25] MEDS: ZINC SULFATE 220 MG CAPSULE PO SCH (09:21)
[2021-10-25] MEDS: ATORVASTATIN 40 MG TAB PO SCH (09:21)
[2021-10-25] MEDS: allopurinoL 100 MG TAB PO SCH (09:22)
[2021-10-25] MEDS: ASCORBIC ACID 500 MG TAB PO SCH ×2 (09:22→10:29)
[2021-10-25] MEDS: dilTIAZem HCL 120 MG CAPCR PO SCH ×2 (09:22→16:12)
[2021-10-25] MEDS: MAGNESIUM CHLORIDE 64MG DELAYED REL TAB PO SCH ×2 (09:22→20:28)
[2021-10-25] MEDS: DULoxetine HCL 60 MG CAP PO SCH (09:23)
[2021-10-25] MEDS: lisinopril 10 MG TAB PO SCH (09:23)
[2021-10-25] MEDS: APIXABAN 5 MG TABLET PO SCH ×2 (09:23→20:27)
[2021-10-25] MEDS: ALFUZOSIN HCL 10 MG TAB PO SCH (09:23)
[2021-10-25] MEDS: CHOLECALCIFEROL 1,000 UNITS 25 MCG TAB PO SCH (09:24)
[2021-10-25] MEDS: DIGOXIN 0.125 MG TAB PO SCH (09:24)
[2021-10-25] MEDS: INSULIN ASPART PER UNIT SC SCH ×4 (09:48→21:27)
[2021-10-25] MEDS ORDERED: NovoLIN-R INSULIN PER UNIT CHARGE ONE (09:52)
[2021-10-25] MEDS: ASPIRIN 81 MG ECTAB PO SCH (16:11)
[2021-10-25] MEDS: PANTOprazole 40 MG TAB PO SCH (16:12)
--- NOTE | 2021-10-25 16:18 | Hospitalist Progress Note ---
Date of Service October 25, 2021 Assessment & Plan (1) COVID-19: Plan: ASSESSMENT AND PLAN: This is a 76-year-old male who presents with ongoing weakness and found to have hyponatremia. 1. Hyponatremia likely Hypovolemic from Dehydration, Diarrhea repeat Na 126--> 129 continue NSS at 60cc/hr 2.COVID 19 infection - Low-grade fever and generalized weakness and poor appetite - CXR no pneumonia 97% on room air - afebrile 96% on room air - hold off on Decadron, Remdesivir - continue supportive care Incentive spirometry 3. History of chronic diastolic congestive heart failure - on Lanoxin, lisinopril. - hold diuretics 4. Diabetes Type 2 - insulin sliding scale 5. History of hypertension Continue his lisinopril, diltiazem. 6. History of atrial fibrillation On diltiazem, digoxin and Eliquis. 7. History of hyperlipidemia On statin. 8. Gout On allopurinol. 9. History of depression: On duloxetine. 10. Sleep apnea: On CPAP at bedtime. 11. Deep venous thrombosis prophylaxis: On Eliquis. Disposition PT/OT evaluation anticipate d/c home when medically stable Admission and Anticipated Discharge Date Admission Date: October 23, 2021 Subjective Follow-up for COVID-19 infection, diarrhea, hyponatremia, etc. Seen resting in bed, on room air, 96% States he feels improved today compared to yesterday no shortness of breath, cough, fevers or chills Appetite is good No diarrhea or abdominal pain No other symptoms Review of Systems Review of Systems: all noted and negative except for above Physical Exam Physical Exam: General- oriented x 3, not in distress, speaks in sentences with no effort or accessory muscle use Eyes- anicteric Neck- no JVD Lungs- clear breath sounds bilaterally, no rales/wheezes Heart- normal rate, regular rhythm; no murmurs Abdomen- normal bowel sounds, nondistended, soft, nontender Extremities- no pretibial edema, no calf tenderness Neuro- alert, oriented x 3; no gross focal neurologic deficits Skin- warm & dry Results & Data Results & Data ([facility]) Vital Signs (Past 12 Hours) Vital Signs Temp Pulse Pulse Resp BP Pulse Ox 10/25/21 15:35 36.7 C 64 19 125/77 96 10/25/21 11:44 37.0 C 66 18 123/63 100 10/25/21 10:00 70 15 86 L 10/25/21 09:00 76 15 100 10/25/21 08:06 36.9 C 73 20 157/71 H 100 10/25/21 08:00 61 20 99 10/25/21 07:00 61 17 100 10/25/21 06:00 54 L 15 93 10/25/21 05:00 56 L 16 98 all noted and reviewed including below
[2021-10-25] MEDS: CALCIUM CARBONATE 1250MG TAB PO SCH ×2 (17:35→21:25)
[2021-10-25 17:37] LABS: BUN Creatinine Ratio 14.3 (10-20); Calcium 7.7 mg/dl (8.5-10.1); Creatinine Clr Calc Pharmacy 78.3 ml/min; Est GFR (African American) 85.2 ml/min; Est GFR (Non-African American) 73.6 ml/min; Potassium 4.1 mmol/L (3.5-5.1)
[2021-10-25] MEDS ORDERED: SODIUM CHLORIDE 0.9% 1000ML 1,000 ML IV SCH (18:45)
[2021-10-25] MEDS: traZODone HCL 100 MG TAB PO SCH (20:28)
[2021-10-25] MEDS ORDERED: MELATONIN 3 MG TAB PO PRN (22:33)
[2021-10-26] MEDS ORDERED: MICONAZOLE NITRATE POWDER 43 GM EXT PRN (07:33)
[2021-10-26] MEDS: ATORVASTATIN 40 MG TAB PO SCH (07:35)
[2021-10-26] MEDS: MAGNESIUM CHLORIDE 64MG DELAYED REL TAB PO SCH ×2 (07:35→20:44)
[2021-10-26] MEDS: CHOLECALCIFEROL 1,000 UNITS 25 MCG TAB PO SCH (07:35)
[2021-10-26] MEDS: allopurinoL 100 MG TAB PO SCH (07:35)
[2021-10-26] MEDS: ASCORBIC ACID 500 MG TAB PO SCH (07:35)
[2021-10-26] MEDS: APIXABAN 5 MG TABLET PO SCH ×2 (07:35→20:43)
[2021-10-26] MEDS: DULoxetine HCL 60 MG CAP PO SCH (07:36)
[2021-10-26] MEDS: ZINC SULFATE 220 MG CAPSULE PO SCH (07:36)
[2021-10-26] MEDS: lisinopril 10 MG TAB PO SCH (07:36)
[2021-10-26] MEDS: ALFUZOSIN HCL 10 MG TAB PO SCH (07:36)
[2021-10-26 09:29] LABS: BUN Creatinine Ratio 15.8 (10-20); Calcium 8.3 mg/dl (8.5-10.1); Creatinine Clr Calc Pharmacy 81.1 ml/min; Est GFR (African American) 88.5 ml/min; Est GFR (Non-African American) 76.4 ml/min
[2021-10-26] MEDS: INSULIN ASPART PER UNIT SC SCH ×4 (09:30→21:08)
[2021-10-26] MEDS: DIGOXIN 0.125 MG TAB PO SCH (09:31)
[2021-10-26] MEDS: dilTIAZem HCL 120 MG CAPCR PO SCH ×2 (09:31→17:17)
[2021-10-26] MEDS: CALCIUM CARBONATE 1250MG TAB PO SCH (09:32)
[2021-10-26] MEDS ORDERED: SODIUM CHLORIDE 0.9% 1000ML 1,000 ML IV SCH (10:45)
--- NOTE | 2021-10-26 13:53 | Hospitalist Progress Note ---
Date of Service October 26, 2021 Assessment & Plan (1) COVID-19: Plan: ASSESSMENT AND PLAN: This is a 76-year-old male who presents with ongoing weakness and found to have hyponatremia. 1. Hyponatremia likely Hypovolemic from Dehydration, Diarrhea repeat Na 126--> 129--> 128 continue NSS at 60cc/hr repeat Na at 4pm 2.COVID 19 infection - Low-grade fever and generalized weakness and poor appetite - CXR no pneumonia 97% on room air - afebrile 95% on room air - hold off on Decadron, Remdesivir - continue supportive care Incentive spirometry 3. History of chronic diastolic congestive heart failure - on Lanoxin, lisinopril. - hold diuretics 4. Diabetes Type 2 - insulin sliding scale 5. History of hypertension Continue his lisinopril, diltiazem. 6. History of atrial fibrillation On diltiazem, digoxin and Eliquis. 7. History of hyperlipidemia On statin. 8. Gout On allopurinol. 9. History of depression: On duloxetine. 10. Sleep apnea: On CPAP at bedtime. 11. Deep venous thrombosis prophylaxis: On Eliquis. Disposition PT/OT evaluation anticipate d/c home when medically stable Admission and Anticipated Discharge Date Admission Date: October 23, 2021 Subjective ff up for covid 19 infection, etc seen sitting up in bed, having lunch states he continues to feel better no dyspnea, cough, chest pain, dizziness, palpitations no abdominal pain, diarrhea tolerating diet well, appetite is great no other symptoms Review of Systems Review of Systems: all noted and negative except for above Physical Exam Physical Exam: General- oriented x 3, not in distress, speaks in sentences with no effort or accessory muscle use Eyes- anicteric Neck- no JVD Lungs- clear breath sounds bilaterally, no crackles/wheezing Heart- normal rate, regular rhythm; no murmurs Abdomen- normal bowel sounds, nondistended, soft, nontender Extremities- no pretibial edema, no calf tenderness Neuro- alert, oriented x 3; no gross focal neurologic deficits Skin- warm & dry Results & Data Results & Data ([facility]) Vital Signs (Past 12 Hours) Vital Signs Temp Pulse Pulse Resp BP Pulse Ox 10/26/21 12:07 36.7 C 46 L 20 131/77 95 10/26/21 07:41 36.5 C 49 L 19 122/68 94 10/26/21 07:00 50 L 10/26/21 04:00 36.1 C L 56 L 20 130/79 97 10/26/21 02:20 50 L 16 96 all noted and reviewed including below
[2021-10-26 16:54] LABS: Anion Gap 4 (3-11); BUN Creatinine Ratio 15.5 (10-20); Blood Urea Nitrogen 15 mg/dl (6-23); Calcium 8.2 mg/dl (8.5-10.1); Carbon Dioxide 27 mmol/L (21-32); Chloride 98 mmol/L (98-107); Creatinine Clr Calc Pharmacy 79.4 ml/min; Est GFR (African American) 86.3 ml/min; Est GFR (Non-African American) 74.5 ml/min; Glucose 171 mg/dl (70-99(Fasting)); Sodium 129 mmol/L (136-145)
[2021-10-26] MEDS: PANTOprazole 40 MG TAB PO SCH (17:16)
[2021-10-26] MEDS: traZODone HCL 100 MG TAB PO SCH (20:44)
[2021-10-27 07:21] LABS: BUN Creatinine Ratio 14.9 (10-20); Calcium 8.2 mg/dl (8.5-10.1); Creatinine Clr Calc Pharmacy 81.9 ml/min; Est GFR (African American) 89.6 ml/min; Est GFR (Non-African American) 77.3 ml/min; Potassium 4.3 mmol/L (3.5-5.1)
[2021-10-27] MEDS: lisinopril 10 MG TAB PO SCH (08:27)
[2021-10-27] MEDS: APIXABAN 5 MG TABLET PO SCH (08:27)
[2021-10-27] MEDS: ATORVASTATIN 40 MG TAB PO SCH (08:27)
[2021-10-27] MEDS: MAGNESIUM CHLORIDE 64MG DELAYED REL TAB PO SCH (08:27)
[2021-10-27] MEDS: ASCORBIC ACID 500 MG TAB PO SCH (08:28)
[2021-10-27] MEDS: ALFUZOSIN HCL 10 MG TAB PO SCH (08:28)
[2021-10-27] MEDS: INSULIN ASPART PER UNIT SC SCH ×3 (08:28→17:01)
[2021-10-27] MEDS: CHOLECALCIFEROL 1,000 UNITS 25 MCG TAB PO SCH (08:28)
[2021-10-27] MEDS: allopurinoL 100 MG TAB PO SCH (08:28)
[2021-10-27] MEDS: ZINC SULFATE 220 MG CAPSULE PO SCH (08:28)
[2021-10-27] MEDS: DULoxetine HCL 60 MG CAP PO SCH (08:28)
[2021-10-27] MEDS: DIGOXIN 0.125 MG TAB PO SCH (08:30)
[2021-10-27] MEDS: dilTIAZem HCL 120 MG CAPCR PO SCH ×2 (08:30→15:25)
[2021-10-27 11:56] LABS: Adenovirus F 40/41 PCR Not Detected (NotDetected); Astrovirus PCR Not Detected (NotDetected); Campylobacter PCR Not Detected (NotDetected); Clostridium diff Toxin A/B PCR Not Detected (NotDetected); Cryptosporidium PCR Not Detected (NotDetected); Cyclospora cayetanensis PCR Not Detected (NotDetected); Entamoeba histolytica PCR Not Detected (NotDetected); Enteroaggregative E.coli(EAEC) Not Detected (NotDetected); Enteropathogenic E.coli (EPEC) Not Detected (NotDetected); Enterotoxigenic E.coli (ETEC) Not Detected (NotDetected); Giardia lamblia PCR Not Detected (NotDetected); Norovirus GI/GII PCR Not Detected (NotDetected); Plesiomonas shigelloides PCR Not Detected (NotDetected); Rotavirus A PCR Not Detected (NotDetected); Salmonella PCR Not Detected (NotDetected); Sapovirus PCR Not Detected (NotDetected); Shiga-like Toxin E.coli (STEC) Not Detected (NotDetected); Shigella/Enteroinvasive E.coli Not Detected (NotDetected); Vibrio cholerae PCR Not Detected (NotDetected); Vibrio species PCR Not Detected (NotDetected); Yersinia enterocolitica PCR Not Detected (NotDetected)
--- NOTE | 2021-10-27 15:23 | Hospitalist Progress Note ---
Date of Service October 27, 2021 Assessment & Plan (1) COVID-19: Plan: ASSESSMENT AND PLAN: This is a 76-year-old male who presents with ongoing weakness and found to have hyponatremia. 1. Hyponatremia likely Hypovolemic from Dehydration, Diarrhea Given gentle NSS repeat Na 126--> 133 Repeat basic metabolic profile on follow-up with PCP this week 2.COVID 19 infection - Low-grade fever and generalized weakness and poor appetite - CXR no pneumonia 97% on room air - afebrile Remains stable on room air, 96% on room air, thus not given Decadron or remdesivir -Continue incentive spirometry at home 3. History of chronic diastolic congestive heart failure - on Lanoxin, lisinopril. -Has mild leg edema but no chest congestion -Resume usual diuretics 4. Diabetes Type 2 -Was given insulin sliding scale 5. History of hypertension Continue his lisinopril, diltiazem. 6. History of atrial fibrillation On diltiazem, digoxin and Eliquis. 7. History of hyperlipidemia On statin. 8. Gout On allopurinol. 9. History of depression: On duloxetine. 10. Sleep apnea: On CPAP at bedtime. 11. Deep venous thrombosis prophylaxis: On Eliquis. Disposition Discharge to home today ff up with PCP in 1 week Admission and Anticipated Discharge Date Admission Date: October 23, 2021 Subjective Follow-up for COVID-19 infection, hyponatremia, dehydration, etc. Seen sitting up in bed, comfortable, on room air States he feels much better overall No chest pain, shortness of breath, palpitations, dizziness No leg pain Appetite is great, no diarrhea, abdominal pain, nausea vomiting No other symptoms States he is ready for discharge today Review of Systems Review of Systems: all noted and negative except for above Physical Exam Physical Exam: General- oriented x 3, not in distress, speaks in sentences with no effort or accessory muscle use Eyes- anicteric Neck- no JVD Lungs- clear breath sounds bilaterally, no rales/wheezes Heart- normal rate, regular rhythm; no murmurs Abdomen- normal bowel sounds, nondistended, soft, nontender Extremities- mild lower leg edema, no calf tenderness/erythema/warmth Neuro- alert, oriented x 3; no gross focal neurologic deficits Skin- warm & dry Results & Data Results & Data ([facility]) Vital Signs (Past 12 Hours) Vital Signs Temp Pulse Pulse Resp BP Pulse Ox Pulse Ox 10/27/21 13:21 94 10/27/21 10:59 36.6 C 51 L 20 154/79 H 96 10/27/21 07:00 56 L 10/27/21 06:06 36.3 C L 53 L 16 149/85 H 96 Pulse Ox 10/27/21 13:21 96 10/27/21 10:59 10/27/21 07:00 10/27/21 06:06 all noted and reviewed including below
[2021-10-27] MEDS ORDERED: BUMETANIDE 1 MG TAB PO SCH (16:00)
--- NOTE | 2021-10-27 16:43 | Discharge Summary ---
Date of Service October 27, 2021 Admission HPI Per Admitting Provider CHIEF COMPLAINT: Weakness. HISTORY OF PRESENT ILLNESS: This is a 76-year-old male with past medical history significant for type 2 diabetes, hyperlipidemia, diabetic polyneuropathy, intermittent asthma, obstructive sleep apnea, on CPAP, history of diaphragmatic paralysis, history of chronic heart disease, chronic atrial fibrillation, chronic diastolic CHF, chronic kidney disease stage III, lumbar degenerative disk disease, gout arthropathy, psoriasis, history of cervical spinal stenosis, primary insomnia, major depression, who lives with his , presents with weakness. The patient says since last night, he is having low- grade fevers and had an episode of diarrhea and feeling weak and poor appetite. Denies any cough, no headache, no blurred vision, no earache, no runny nose, no sore throat, no nausea, no chest pain, no shortness of breath, no abdominal pain. Stools are black-colored because he is on iron pill and today he is not making much urine. No swelling in the legs. Ambulating okay. Currently, resting comfortably and hemodynamically stable. The patient is not COVID vaccinated. Admission Exam (Per Admitting) Constitutional GENERAL: The patient is of moderate build, not in acute distress. VITAL SIGNS: Temperature 37, pulse 91, respirations 17, blood pressure 125/108, oxygen 99% on room air. HEENT: Pupils equal, round and reactive to light. Oral mucosa moist. NECK: No JVD or neck masses. CARDIOVASCULAR: S1 and S2 heard, regular rate and rhythm. No murmur, no gallop. RESPIRATORY SYSTEM: Normal AP diameter. No accessory muscle use. No wheezing, no crackles. ABDOMEN: Soft, bowel sounds present, nontender, no distention. CENTRAL NERVOUS SYSTEM: Cranial nerves II-XII grossly intact, nonfocal. EXTREMITIES: No edema, no erythema. Discharge Data Consultations 10/23/21 19:18 ED Decision to Admit Stat Procedures Performed SINGLE VIEW CHEST CLINICAL HISTORY: Generalized weakness. FINDINGS: 2 AP, portable, upright chest radiographs are compared to chest x-ray and chest CT dated 06/08/2021. The cardiomediastinal silhouette is unremarkable noting atherosclerotic calcification of the thoracic aorta. Chronic interstitial thickening is similar to previous. There is elevation of the right hemidiaphragm with bibasilar atelectasis. The lungs and pleural spaces are otherwise clear. No pneumothorax is seen. The skeletal structures are osteopenic. The bony thorax is grossly intact. Fusion hardware is noted in the lower cervical spine. Arthritic change is seen in the shoulders. IMPRESSION: No acute cardiopulmonary abnormality. ACT 112: Negative or not required by law. Electronically signed by: Vazquez Workman M.D. 10/23/2021 4:48 PM SINGLE VIEW CHEST CLINICAL HISTORY: Generalized weakness. FINDINGS: 2 AP, portable, upright chest radiographs are compared to chest x-ray and chest CT dated 06/08/2021. The cardiomediastinal silhouette is unremarkable noting atherosclerotic calcification of the thoracic aorta. Chronic interstitial thickening is similar to previous. There is elevation of the right hemidiaphragm with bibasilar atelectasis. The lungs and pleural spaces are otherwise clear. No pneumothorax is seen. The skeletal structures are osteopenic. The bony thorax is grossly intact. Fusion hardware is noted in the lower cervical spine. Arthritic change is seen in the shoulders. IMPRESSION: No acute cardiopulmonary abnormality. ACT 112: Negative or not required by law. Electronically signed by: Vazquez Workman M.D. 10/23/2021 4:48 PM Hospital Course (1) COVID-19: ASSESSMENT AND PLAN: This is a 76-year-old male who presents with ongoing weakness and found to have hyponatremia. 1. Mild Hyponatremia likely Hypovolemic from Dehydration, Diarrhea admitted with Na 126 Given gentle NSS repeat Na 126--> 133 Repeat basic metabolic profile on follow-up with PCP this week 2.COVID 19 infection - Low-grade fever and generalized weakness and poor appetite - CXR no pneumonia 97% on room air - afebrile Remains stable on room air, 96% on room air, thus not given Decadron or remdesivir -Continue incentive spirometry at home 3. History of chronic diastolic congestive heart failure - on Lanoxin, lisinopril. -Has mild leg edema but no crackles, dyspnea -Resume usual diuretics 4. Diabetes Type 2 -resume usual medications 5. History of hypertension Continue his lisinopril, diltiazem. 6. History of atrial fibrillation On diltiazem, digoxin and Eliquis. 7. History of hyperlipidemia On statin. 8. Gout On allopurinol. 9. History of depression: On duloxetine. 10. Sleep apnea: On CPAP at bedtime. 11. Deep venous thrombosis prophylaxis: On Eliquis. Disposition Discharge to home today ff up with PCP in 1 week plan of care discussed with patient and his over the phone in detail and at length family prefers to take patient home with home health service risk of not going to inpatient rehab including falls, injuries discussed they have a separate room for the patient as per family home isolation discussed as well to prevent transmission of COVID at home they verbalized understanding and agreement all questions answered they are understanding, agreeable, comfortable with the plan of care
[2021-10-27] MEDS: ASPIRIN 81 MG ECTAB PO SCH (17:00)
[2021-10-27] MEDS: PANTOprazole 40 MG TAB PO SCH (17:00)
== END 2021-10-27 18:16 | disposition home health service (06) | DRG 178 ==
LOC: ED 14:52 → EDINP 20:35 → 2W 23:11

== ENCOUNTER 2022-03-18 15:50 | Inpatient (IN) ==
[2022-03-18 17:03] LABS: Partial Thromboplastin Time 28.3 Seconds (21.0-31.0); Prothrombin Time 11.1 Seconds (9.0-12.0)
[2022-03-18 17:06] LABS: Hematocrit (blood only) 28.2 % (42-52); Hemoglobin 9.3 g/dL (14.0-18.0); Mean Corpuscular Hemoglobin 30.3 pg (25-34); Mean Corpuscular Volume 91.9 fL (80-100); Mean Platelet Volume 9.7 fL (7.4-10.4); Platelet Count 239 K/uL (130-400); RDW Coefficient of Variation 14.2 % (11.5-14.5); RDW Standard Deviation 46.9 fL (36.4-46.3); Red Blood Count 3.07 M/uL (4.7-6.1)
[2022-03-18 17:20] LABS: Alanine Aminotransferase 20 U/L (7-52); Albumin Globulin Ratio 1.2 (0.9-2); Albumin Level 3.8 gm/dl (3.4-5.0); Alkaline Phosphatase 90 U/L (34-104); Anion Gap 6 (3-11); Aspartate Aminotransferase 20 U/L (13-39); Bilirubin,Total 0.8 mg/dl (0.2-1.0); Blood Urea Nitrogen 18 mg/dl (6-23); Calcium 8.6 mg/dl (8.5-10.1); Carbon Dioxide 32 mmol/L (21-32); Chloride 94 mmol/L (98-107); Est GFR (African American) 77.5 ml/min; Est GFR (Non-African American) 66.9 ml/min; Globulin 3.1 gm/dl (2.5-4.0); Glucose 154 mg/dl (70-99(Fasting)); Potassium 3.9 mmol/L (3.5-5.1); Sodium 132 mmol/L (136-145); Total Protein 6.9 gm/dl (6.0-8.3)
--- NOTE | 2022-03-18 18:27 | Emergency Department Note ---
Impression & Plan Hematoma, Anemia ED Provider Note NAME: LAURA TSANLEY AGE: 76 SEX: M : 1945 ARRIVES VIA: Walk-In INFORMANT: Patient, ED PROVIDER(S): Garret Owens DO CHIEF COMPLAINT: Anemia HPI: The patient is a 76-year-old male who presented to the emergency department for an evaluation of anemia. The patient had a fall last Wednesday. He does take Eliquis for history of atrial fibrillation. The patient had a large hematoma in his posterior left thigh. Yesterday he was evaluated and was scheduled for follow-up with orthopedics. He tried to follow-up with orthopedics today but no return call was made. The patient returned to the emergency department today at the request of his primary care physician for admission as well as possible further evaluation for blood transfusion and possible surgical drainage of the thigh hematoma. The patient has not been taking his blood thinner. He denies having any dizziness nausea or vomiting. He denies having chest pain. He does continue to have very severe pain especially in his left thigh. He denies having any fever. ROS: See above HPI for pertinent positives & negatives. A total of 10 systems reviewed and were otherwise negative. PAST MEDICAL HISTORY: See Below PAST SURGICAL HISTORY: See Below FAMILY HISTORY: See Below SOCIAL HISTORY: See Below HOME MEDICATIONS: See Below ALLERGIES: See Below VITALS: See Below PHYSICAL EXAMINATION: GENERAL: Patient is awake alert in no acute distress patient is resting comfortably and showing no signs of anxiety EYES: The conjunctivae are clear. The pupils are round and reactive. EARS, NOSE, MOUTH AND THROAT: The nose is without any evidence of any deformity. Mucous membranes are moist. Tongue is midline. NECK: The neck is nontender and supple. RESPIRATORY: Normal respiratory effort is noted there is no evidence of wheezing rhonchi or rales CARDIOVASCULAR: Irregular heart sounds are noted auscultation. Systolic murmur suggested. GASTROINTESTINAL: The abdomen is soft. Abdomen is nontender. MUSCULOSKELETAL/EXTREMITIES: There is no evidence of gross deformity full range of motion is noted in the hips and shoulders. SKIN: There is a significant hematoma noted in the left buttocks region as well as the left posterior thigh. This appears slightly enlarged compared to my evaluation of yesterday. It is indurated. Pulses are symmetric in both feet. NEUROLOGIC: Patient is awake alert and oriented x3 MEDICAL DECISION MAKING: The patient is a 76-year-old male who presented to the emergency department for an evaluation of a hip hematoma. I saw this patient yesterday for similar complaints. He has a large hematoma on his left buttocks which is from a fall that occurred last week. The patient was noted to have anemia yesterday. He was told to come back to the emergency department by his primary care physician for further evaluation as well as admission and possible evaluation by orthopedics. [facility] Triage Nursing notes reviewed. Prior medical records reviewed Vital Signs: reviewed and remarkable for no significant abnormalities Differential diagnosis: Fracture, subluxation, dislocation, contusion, ligamentous injury, neurovascular, compartment syndrome, rhabdomyolysis, as well as other pathologies. ER treatment provided: See below Diagnostics interpreted by me: ECG: EKG was obtained in the emergency department. My interpretation is atrial fibrillation at 84 bpm. There were no PVCs noted. Nonspecific ST and T wave abnormalities were noted. This was compared to a tracing from March 17, 2022 no changes were noted. Cardiac Monitoring: An order was placed for continuous cardiac monitoring. The monitor shows a rate of 75 bpm with atrial fibrillation. Laboratory studies: As stated above and show below. Imaging studies: See below Consultation(s): I discussed this case with Ly who is [facility]. Past Med/Surg History Medical History Anticoagulant long-term use Arthritis Asthma CAD (coronary artery disease) Small vessel LAD disease, no stenting Cervical spinal stenosis (01/18/12) Chronic diastolic CHF (congestive heart failure), NYHA class 3 Chronic respiratory failure with hypoxia CKD (chronic kidney disease), stage III COPD (chronic obstructive pulmonary disease) Depression Diaphragmatic paralysis Diverticulitis of colon (01/18/12) Dyslipidemia (01/18/12) Extrinsic asthma GERD (gastroesophageal reflux disease) Hypertension Obesity CLARISSA on CPAP Permanent atrial fibrillation Psoriasiform dermatitis Psoriasis PVD (peripheral vascular disease) 11/10/2019 -s/p right GSV VenaSeal ablation Right knee DJD Type 2 diabetes mellitus Surgical History History of appendectomy (01/18/12) S/P cervical spinal fusion (01/18/12) S/P lumbar spinal fusion (01/18/12) Family History Father Heart disease Social History Smoking Status: Former smoker Tobacco Type: Cigarettes Smoking End Date: 1975; Hx Alcohol Use: No Hx Substance Use: No Preferred Language: Italian Communication Ability: Effective Educational Technology Coordinator Required: No Beliefs That Will Affect Care: None marital status: Current Living Situation: Spouse How many Children do You have: 2 Feels Safe at Home: Yes Safety Concerns: Feels Safe At This Time Assistive Devices: Denture - Upper, Denture - Lower and Walker Allergies Allergies Allergy/AdvReac Type Severity Reaction Status Date / Time Cephalosporins Allergy Unknown Rash Verified 03/18/22 18:42 Penicillins Allergy Unknown Rash Verified 03/18/22 18:42 sulfamethoxazole Allergy Unknown HIVES Verified 03/18/22 18:42 Tetracyclines Allergy Unknown Unknown Verified 03/18/22 18:42 trimethoprim Allergy Unknown HIVES Verified 03/18/22 18:42 CONTRAST DYE Allergy Unknown KIDNEY Uncoded 03/18/22 18:42 PROBLEMS Home Meds Home Medications Medication Instructions Recorded Confirmed alfuzosin 10 mg tablet,extended 10 mg PO QAM 06/14/18 03/18/22 release 24 hr (Uroxatral) atorvastatin 40 mg tablet (Lipitor) 40 mg PO QAM 06/14/18 03/18/22 duloxetine 60 mg capsule,delayed 60 mg PO QAM 06/14/18 03/18/22 release (Cymbalta) omeprazole 20 mg capsule,delayed 20 mg PO QDD 06/14/18 03/18/22 release trazodone 100 mg tablet 100 mg PO HS 06/14/18 03/18/22 BiPap Machine #1 ea 07/26/19 12/16/21 ascorbic acid (vitamin C) 500 mg 500 mg PO QAM cap 08/29/19 03/18/22 capsule allopurinol 100 mg tablet 100 mg PO QAM 11/24/19 03/18/22 (Zyloprim) betamethasone dipropionate 0.05 % 1 applic TOPICAL BID 11/24/19 03/18/22 topical ointment cholecalciferol (vitamin D3) 25 25 mcg PO QAM 02/29/20 03/18/22 mcg (1,000 unit) capsule (Vitamin D3) bumetanide 2 mg tablet 2 mg PO QAM 03/05/20 03/18/22 apixaban 5 mg tablet (Eliquis) 5 mg PO BID 06/08/21 03/18/22 diltiazem HCl 120 mg 120 mg PO AMHS 06/08/21 03/18/22 capsule,extended release 24 hr (Cartia XT) lisinopril 10 mg tablet (Zestril) 10 mg PO QAM 06/08/21 03/18/22 metformin 500 mg tablet 500 mg PO BIDM 06/08/21 03/18/22 zinc sulfate 50 mg zinc (220 mg) 50 mg PO QAM 06/08/21 03/18/22 tablet magnesium chloride 71.5 mg 71.5 mg PO BID tab 07/15/21 03/18/22 (magnesium chloride) tablet,delayed release (Slow-Mag) dulaglutide 3 mg/0.5 mL 3 mg SUBCUT WK 10/23/21 03/18/22 subcutaneous pen injector (Trulicity) aspirin 81 mg tablet 81 mg PO Q2D 03/18/22 03/18/22 finasteride 5 mg tablet 5 mg PO QAM 03/18/22 03/18/22 Previous Rx's Medication Instructions Recorded acetaminophen 650 mg 650 mg PO Q8H PRN #30 tab 03/08/20 tablet,extended release (Tylenol Arthritis Pain) metolazone 5 mg tablet 5 mg PO DAILY PRN #30 tab 07/15/21 nitroglycerin 0.4 mg sublingual 0.4 mg SL UD PRN #20 tab 10/16/21 tablet (Nitrostat) Results & Data (ED) Vital Signs Vital Signs - 24 hr 03/18/22 15:54 Temperature 36.8 C Temperature Source Temporal Artery Scan Pulse Rate 89 Respiratory Rate 16 Respiratory Effort / Characteristics Non-Labored Spontaneous Respiratory Depth Normal Blood Pressure 122/77 Blood Pressure Mean 92 Pulse Oximetry 97 Oxygen Delivery Method Room Air Sepsis Recent Fever Within 48 Hours No Sepsis New/Unexplained Change in Mental Status N/A Sepsis Action Taken by Nursing No Action Required Home Medications Current Medication List: was personally reviewed by me Laboratory Data Attestation: I reviewed the patient's lab results. Result diagrams: 03/18/22 16:30 03/18/22 16:30 Lab Results 03/18/22 03/18/22 03/18/22 Range/Units 16:30 16:30 16:30 WBC 8.60 (4.8-10.8) K/uL RBC 3.07 L (4.7-6.1) M/uL Hgb 9.3 L (14.0-18.0) g/dL Hct 28.2 L (42-52) % MCV 91.9 (80-100) fL MCH 30.3 (25-34) pg MCHC 33.0 (32-36) g/dL RDW Std Deviation 46.9 H (36.4-46.3) fL RDW Coeff of Starr 14.2 (11.5-14.5) % Plt Count 239 (130-400) K/uL MPV 9.7 (7.4-10.4) fL PT 11.1 (9.0-12.0) Seconds INR 1.0 (0.9-1.1) APTT 28.3 (21.0-31.0) Seconds PTT Ratio 1.0 Sodium 132 L (136-145) mmol/L Potassium 3.9 (3.5-5.1) mmol/L Chloride 94 L (98-107) mmol/L Carbon Dioxide 32 (21-32) mmol/L Anion Gap 6 (3-11) BUN 18 (6-23) mg/dl Creatinine 1.06 (0.6-1.4) mg/dl Est Cr Clr Drug Dosing Not Reportable Est GFR ( Amer) 77.5 ml/min Est GFR (Non-Af Amer) 66.9 ml/min BUN/Creatinine Ratio 17.0 (10-20) Glucose 154 H (70-99(Fasting)) mg/dl Calcium 8.6 (8.5-10.1) mg/dl Total Bilirubin 0.8 (0.2-1.0) mg/dl AST 20 (13-39) U/L ALT 20 (7-52) U/L Alkaline Phosphatase 90 (34-104) U/L Total Protein 6.9 (6.0-8.3) gm/dl Albumin 3.8 (3.4-5.0) gm/dl Globulin 3.1 (2.5-4.0) gm/dl Albumin/Globulin Ratio 1.2 (0.9-2) SARS-CoV-2, RNA, NAAT (NEGATIVE) Blood Type Antibody Screen Crossmatch 03/18/22 03/18/22 Range/Units 18:14 18:47 WBC (4.8-10.8) K/uL RBC (4.7-6.1) M/uL Hgb (14.0-18.0) g/dL Hct (42-52) % MCV (80-100) fL MCH (25-34) pg MCHC (32-36) g/dL RDW Std Deviation (36.4-46.3) fL RDW Coeff of Starr (11.5-14.5) % Plt Count (130-400) K/uL MPV (7.4-10.4) fL PT (9.0-12.0) Seconds INR (0.9-1.1) APTT (21.0-31.0) Seconds PTT Ratio Sodium (136-145) mmol/L Potassium (3.5-5.1) mmol/L Chloride (98-107) mmol/L Carbon Dioxide (21-32) mmol/L Anion Gap (3-11) BUN (6-23) mg/dl Creatinine (0.6-1.4) mg/dl Est Cr Clr Drug Dosing Est GFR ( Amer) ml/min Est GFR (Non-Af Amer) ml/min BUN/Creatinine Ratio (10-20) Glucose (70-99(Fasting)) mg/dl Calcium (8.5-10.1) mg/dl Total Bilirubin (0.2-1.0) mg/dl AST (13-39) U/L ALT (7-52) U/L Alkaline Phosphatase (34-104) U/L Total Protein (6.0-8.3) gm/dl Albumin (3.4-5.0) gm/dl Globulin (2.5-4.0) gm/dl Albumin/Globulin Ratio (0.9-2) SARS-CoV-2, RNA, NAAT NEGATIVE (NEGATIVE) Blood Type O Positive Antibody Screen NEGATIVE Crossmatch See Detail Discharge Plan Visit Data Chief Complaint: Abnormal Labs/Diagnostic Testing Stated Complaint: REF BY , ABNORMAL LABS ED Provider: Garret Owens Discharge Problem: Hematoma, Anemia Patient Disposition: Admitted As Inpatient Discharge Instructions Interventions: ED Discharge Assessment Last Done: 03/18/22 21:34 Discharge Problem: Anemia Qualifiers: Anemia type: unspecified type Qualified Code(s): D64.9 - Anemia, unspecified
--- NOTE | 2022-03-18 19:56 | History & Physical Report ---
Date of Service March 18, 2022 Assessment & Plan (1) Hematoma: Plan: Anemia Patient is 76-year-old male with PMH DM II, chronic atrial fibrillation anticoagulated on Eliquis, chronic diastolic heart failure, CKD III, HTN, heart disease, CLARISSA, depression, gout presented to ER with c/o left gluteal ecchymosis. Mechanical fall 5 days ago. In ER 03/17/[address] pelvis showed hematoma posterior to left gluteus talya muscle measuring 10 x 2 cm, also may be intram uscular hemorrhage within the gluteus talya muscle. Today area appears more black in coloration, unsure if larger in size Today in ER vitals stable. Hgb: 9.3. 9.7 yesterday. Baseline ~11 Pt held Eliquis and aspirin today Type and cross and hold PRBC Monitor for further bleeding, worsening anemia Ortho consult CBC, BMP in a.m. Chronic atrial fibrillation Coagulated on Eliquis Rate controlled Hold Eliquis as above Continue diltiazem Chronic diastolic heart failure Appears euvolemic Continue Bumex DM II: A1c 7.9 on 01/27/2022 Hold home meds NovoLog sliding scale per protocol HTN Continue diltiazem, lisinopril CKD III Cr: 1.06. Baseline 1.1-1.2 Monitor renal functions CLARISSA CPAP at bedtime with 2 L oxygen Depression Continue duloxetine Gout Continue allopurinol DVT Prophylaxis SCDs DNR/DNI as per discussion with pt Follows with Dr Roach for routine care Pt was seen and care coordinated with Dr Coronel. See addendum History of Present Illness Chief Complaint: Buttock ecchymosis Primary Care Provider: Seamus Roach DO Patient is 76-year-old male with PMH DM II, chronic atrial fibrillation anticoagulated on Eliquis, chronic diastolic heart failure, CKD III, HTN, heart disease, CLARISSA, depression, gout presented to ER with c/o left gluteal ecchymosis. Patient states 5 days ago lost his balance and fell hitting his left buttock on register. Denies hitting head or LOC. After fall noticed ecchymosis to left buttock and reports noted increase edema and ecchymosis of site. At baseline has ambulatory dysfunction and uses walker and uses scooter when outside. Reports history recurrent falls. Patient seen in ER 03/17/[address] pelvis showed hematoma posterior to left gluteus talya muscle measuring 10 x 2 cm, also may be intramuscular hemorrhage within the gluteus talya muscle. His hemoglobin was 9.7. Patient was discharged home. Patient reports last dose of Eliquis was evening of 03/17/22. Today he has held his Eliquis and 81 mg aspirin. Patient and patient's report noted area appears more black in coloration today however is unsure if there is any increase in the size compared to yesterday. Was referred back to ER today by PCP for further evaluation. Denies fever/chills , diaphoresis, N/V/D/C, JASON, dizziness, syncope, vision changes, neck pain, CP, SOB, orthopnea, palpitations, cough, sore throat, choking, otalgia, rhinorrhea, abdominal pain, paresthesias, extremity edema, rashes, urinary symptoms. Allergies Allergy/AdvReac Type Severity Reaction Status Date / Time Cephalosporins Allergy Unknown Rash Verified 03/18/22 18:42 Penicillins Allergy Unknown Rash Verified 03/18/22 18:42 sulfamethoxazole Allergy Unknown HIVES Verified 03/18/22 18:42 Tetracyclines Allergy Unknown Unknown Verified 03/18/22 18:42 trimethoprim Allergy Unknown HIVES Verified 03/18/22 18:42 CONTRAST DYE Allergy Unknown KIDNEY Uncoded 03/18/22 18:42 PROBLEMS Home Medications Medication Instructions Recorded Confirmed Type alfuzosin 10 mg tablet,extended 10 mg PO QAM 06/14/18 03/18/22 History release 24 hr (Uroxatral) atorvastatin 40 mg tablet (Lipitor) 40 mg PO QAM 06/14/18 03/18/22 History duloxetine 60 mg capsule,delayed 60 mg PO QAM 06/14/18 03/18/22 History release (Cymbalta) omeprazole 20 mg capsule,delayed 20 mg PO QDD 06/14/18 03/18/22 History release trazodone 100 mg tablet 100 mg PO HS 06/14/18 03/18/22 History BiPap Machine #1 ea 07/26/19 12/16/21 History ascorbic acid (vitamin C) 500 mg 500 mg PO QAM cap 08/29/19 03/18/22 History capsule allopurinol 100 mg tablet 100 mg PO QAM 11/24/19 03/18/22 History (Zyloprim) betamethasone dipropionate 0.05 % 1 applic TOPICAL BID 11/24/19 03/18/22 History topical ointment cholecalciferol (vitamin D3) 25 25 mcg PO QAM 02/29/20 03/18/22 History mcg (1,000 unit) capsule (Vitamin D3) bumetanide 2 mg tablet 2 mg PO QAM 03/05/20 03/18/22 History acetaminophen 650 mg 650 mg PO Q8H PRN #30 tab 03/08/20 03/18/22 Rx tablet,extended release (Tylenol Arthritis Pain) apixaban 5 mg tablet (Eliquis) 5 mg PO BID 06/08/21 03/18/22 History diltiazem HCl 120 mg 120 mg PO AMHS 06/08/21 03/18/22 History capsule,extended release 24 hr (Cartia XT) lisinopril 10 mg tablet (Zestril) 10 mg PO QAM 06/08/21 03/18/22 History metformin 500 mg tablet 500 mg PO BIDM 06/08/21 03/18/22 History zinc sulfate 50 mg zinc (220 mg) 50 mg PO QAM 06/08/21 03/18/22 History tablet magnesium chloride 71.5 mg 71.5 mg PO BID tab 07/15/21 03/18/22 History (magnesium chloride) tablet,delayed release (Slow-Mag) metolazone 5 mg tablet 5 mg PO DAILY PRN #30 tab 07/15/21 03/18/22 Rx nitroglycerin 0.4 mg sublingual 0.4 mg SL UD PRN #20 tab 10/16/21 03/18/22 Rx tablet (Nitrostat) dulaglutide 3 mg/0.5 mL 3 mg SUBCUT WK 10/23/21 03/18/22 History subcutaneous pen injector (Trulicity) aspirin 81 mg tablet 81 mg PO Q2D 03/18/22 03/18/22 History finasteride 5 mg tablet 5 mg PO QAM 03/18/22 03/18/22 History Past Med/Surg History Medical History Anticoagulant long-term use Arthritis Asthma CAD (coronary artery disease) Small vessel LAD disease, no stenting Cervical spinal stenosis (01/18/12) Chronic diastolic CHF (congestive heart failure), NYHA class 3 Chronic respiratory failure with hypoxia CKD (chronic kidney disease), stage III COPD (chronic obstructive pulmonary disease) Depression Diaphragmatic paralysis Diverticulitis of colon (01/18/12) Dyslipidemia (01/18/12) Extrinsic asthma GERD (gastroesophageal reflux disease) Hypertension Obesity CLARISSA on CPAP Permanent atrial fibrillation Psoriasiform dermatitis Psoriasis PVD (peripheral vascular disease) 11/10/2019 -s/p right GSV VenaSeal ablation Right knee DJD Type 2 diabetes mellitus Surgical History History of appendectomy (01/18/12) S/P cervical spinal fusion (01/18/12) S/P lumbar spinal fusion (01/18/12) Family History Father Heart disease Social History Smoking Status: Former smoker Tobacco Type: Cigarettes Smoking End Date: 1975; Hx Alcohol Use: No Hx Substance Use: No Preferred Language: Yi Communication Ability: Effective Finish Production Manager Required: No Beliefs That Will Affect Care: None marital status: Current Living Situation: Spouse How many Children do You have: 2 Feels Safe at Home: Yes Safety Concerns: Feels Safe At This Time Assistive Devices: CPAP and Walker Review of Systems Review of Systems: All systems reviewed & are unremarkable except as noted in HPI & below Physical Exam Physical Exam: General: no distress, WDWN Head: normocephalic, atraumatic Eyes: PERRL, EOM's intact, conjunctiva non-injected, anicteric ENT: normal inspection external ears, nose, mucous membranes moist Neck: supple, trachea midline Lungs: clear, no respiratory distress, no wheezing/rhonchi/rales CV: irregularly irregular, rate controlled, + murmur, no pretibial edema Abd: normal BS, soft, non-tender Buttock: left buttock with large hematoma, firm and tender to palpation no erythema Ext: no cyanosis, no calf tenderness Neuro: A&O x 3, no focal deficits noted, normal affect Skin: warm, dry Results & Data Results & Data (MN) Vital Signs (Past 12 Hours) Vital Signs Temp Pulse Pulse Resp BP BP Pulse Ox 03/18/22 19:38 77 16 118/72 96 03/18/22 15:54 36.8 C 89 16 122/77 97 Laboratory Results Short CBC 03/18/22 Range/Units 16:30 WBC 8.60 (4.8-10.8) K/uL Hgb 9.3 L (14.0-18.0) g/dL Hct 28.2 L (42-52) % Plt Count 239 (130-400) K/uL BMP 03/18/22 16:30 Sodium 132 L Potassium 3.9 Chloride 94 L Carbon Dioxide 32 BUN 18 Creatinine 1.06 Glucose 154 H Calcium 8.6 Liver Function 03/18/22 Range/Units 16:30 Total Bilirubin 0.8 (0.2-1.0) mg/dl AST 20 (13-39) U/L ALT 20 (7-52) U/L Alkaline Phosphatase 90 (34-104) U/L Albumin 3.8 (3.4-5.0) gm/dl Supervising Physician Co-Signing Physician Notes Patient was seen and examined independently at bedside. Chart reviewed. Case discussed with Lu DELUNA and agree with the documentation above. In summary, this is a 76 year old male with h/o Afib on eliquis who fell down on his buttock on Wednesday with resultant hematoma. Patient was evaluated in the ED yesterday and was discharged home with OP ortho and PCP follow up. He could not see ortho. PCP saw him and referred him to the ED for reevaluation. In the ED patient was afebrile and hemodynamically stable. Hb overall stable. His last dose of eliquis was yesterday morning. No worsening symptoms LE, no worsening hematoma. Observation, trend H&H, continue to hold eliquis for now, and ortho eval in am. Monitor on tele. I do not think he is actively bleeding and his hematoma is stable and will not need any surgical intervention and I think he can likely resume eliquis since it has been a week since his fall but will certainly appreciate ortho recommendations. Rest as per the note above.
[2022-03-18] MEDS ORDERED: MAGNESIUM HYDROXIDE SUSP 30 ML UDC PO PRN (21:51)
[2022-03-18] MEDS ORDERED: ACETAMINOPHEN 325 MG TAB PO PRN (21:51)
[2022-03-18] MEDS ORDERED: DEXTROSE 50% 50 ML SYRINGE IV PRN (21:51)
[2022-03-18] MEDS ORDERED: GLUCOSE 40% GEL 15 GM TUBE PO PRN (21:51)
[2022-03-18] MEDS ORDERED: GLUCAGON FOR INJ 1 MG VIAL SQ PRN (21:51)
[2022-03-18] MEDS ORDERED: GLUCOSE 10 TAB/TUBE PO PRN (21:51)
[2022-03-18] MEDS ORDERED: CARBOHYDRATES FOR HYPOGLYCEMIA PO PRN (21:51)
[2022-03-18] MEDS ORDERED: ALUMINUM/MAGNESIUM SUSP 30 ML UDC PO PRN (21:51)
[2022-03-18] MEDS ORDERED: SODIUM CHLORIDE 0.9% 250 ML IV PRN (21:51)
[2022-03-18] MEDS ORDERED: NITROGLYCERIN SL 0.4 MG/TAB TAB SL PRN (21:51)
[2022-03-18] MEDS ORDERED: INSULIN ASPART PER UNIT SC SCH (21:51)
[2022-03-18] MEDS: traZODone HCL 100 MG TAB PO SCH (22:40)
[2022-03-18] MEDS: dilTIAZem HCL 120 MG CAPCR PO SCH (22:40)
[2022-03-19] MEDS ORDERED: Nursing to Pharmacy Communication SCH ×2 (02:15→11:30)
[2022-03-19 05:32] LABS: Hemoglobin 8.8 g/dL (14.0-18.0); Mean Corpuscular Hgb Conc 33.8 g/dL (32-36); Mean Corpuscular Volume 91.5 fL (80-100); Mean Platelet Volume 9.3 fL (7.4-10.4); Platelet Count 201 K/uL (130-400); RDW Coefficient of Variation 14.2 % (11.5-14.5); RDW Standard Deviation 47.2 fL (36.4-46.3); Red Blood Count 2.84 M/uL (4.7-6.1); White Blood Count 7.17 K/uL (4.8-10.8)
[2022-03-19 05:55] LABS: BUN Creatinine Ratio 16.8 (10-20); Calcium 8.6 mg/dl (8.5-10.1); Creatinine Clr Calc Pharmacy 74.9 ml/min; Est GFR (African American) 76.7 ml/min; Est GFR (Non-African American) 66.1 ml/min; Potassium 3.6 mmol/L (3.5-5.1)
[2022-03-19] MEDS ORDERED: INSULIN ASPART PER UNIT SC SCH (06:00)
[2022-03-19] MEDS: ATORVASTATIN 40 MG TAB PO SCH (08:10)
[2022-03-19] MEDS: FINASTERIDE 5 MG TAB PO SCH (08:10)
[2022-03-19] MEDS: BUMETANIDE 1 MG TAB PO SCH (08:10)
[2022-03-19] MEDS: CHOLECALCIFEROL 1,000 UNITS 25 MCG TAB PO SCH (08:10)
[2022-03-19] MEDS: lisinopril 10 MG TAB PO SCH (08:10)
[2022-03-19] MEDS: ALFUZOSIN HCL 10 MG TAB PO SCH (08:10)
[2022-03-19] MEDS: dilTIAZem HCL 120 MG CAPCR PO SCH ×2 (08:11→21:20)
[2022-03-19] MEDS: MAGNESIUM CHLORIDE W/CALCIUM 64MG DELAYED REL TAB PO SCH ×2 (08:11→21:21)
[2022-03-19] MEDS: DULoxetine HCL 60 MG CAP PO SCH (08:11)
[2022-03-19] MEDS: allopurinoL 100 MG TAB PO SCH (08:11)
[2022-03-19] MEDS: INSULIN ASPART PER UNIT SC SCH ×3 (12:45→21:18)
--- NOTE | 2022-03-19 12:55 | Electrocardiogram Report ---
Test Reason : Blood Pressure : / mmHG Vent. Rate : 084 BPM Atrial Rate : 067 BPM P-R Int : 000 ms QRS Dur : 096 ms QT Int : 392 ms P-R-T Axes : 000 001 002 degrees QTc Int : 463 ms Atrial fibrillation Abnormal ECG When compared with ECG of 17-MAR-2022 16:44, Inverted T waves have replaced nonspecific T wave abnormality in Inferior leads T wave inversion now evident in Lateral leads Confirmed by Cm Johnson ([id number]) on 03/19/2022 12:55:05 PM Referred By: Seamus Roach Confirmed By:Delvin Johnson
--- NOTE | 2022-03-19 13:00 | Orthopedic Consultation ---
Date of Service March 19, 2022 Assessment & Plan (1) Hematoma: (2) Contusion of hip: -No intervention recommended -Recommend conservative measures: ice, gentle compression, pain control. -Hold Aspirin/Eliquis until hematoma is clinically stable (pain improving, no skin breakdown, not growing in size, Hgb and hemodynamics stable) -Consider PT/OT consult; can be WBAT LLE Available with any further questions Discussed w/ Dr. Mata History of Present Illness Reason for Consultation: L gluteal hematoma . Requesting Physician: Edmundo Coronel MD . Attending Physician: Edmundo Coronel MD Pt is a 76 y/o/m with PMHx of DM II, chronic atrial fibrillation anticoagulated on Eliquis, chronic diastolic heart failure, CKD III, HTN, heart disease, CLARISSA, depression, and gout who was admitted yesterday d/t L gluteal hematoma. He originally lost his balance and fell about 6 days ago onto his left side. He developed a hematoma and went to ED on 03/[address] showed gluteal hematoma, Hgb was stable at 9.7. He was hemodynamically stable and was discharged home. He saw his PCP after the hematoma reportedly looked worse and his PCP referred him back to ED yesterday. He was admitted to medicine for further care. Orthopedics consulted regarding management of hematoma. Seen at bedside, resting comfortably in chair. Favoring his right side, minimal pain when not sitting on his left side. No worsening numbness or pain radiating down leg. Allergies Allergy/AdvReac Type Severity Reaction Status Date / Time Cephalosporins Allergy Unknown Rash Verified 03/18/22 18:42 Penicillins Allergy Unknown Rash Verified 03/18/22 18:42 sulfamethoxazole Allergy Unknown HIVES Verified 03/18/22 18:42 Tetracyclines Allergy Unknown Unknown Verified 03/18/22 18:42 trimethoprim Allergy Unknown HIVES Verified 03/18/22 18:42 CONTRAST DYE Allergy Unknown KIDNEY Uncoded 03/18/22 18:42 PROBLEMS Home Medications Medication Instructions Recorded Confirmed Type alfuzosin 10 mg tablet,extended 10 mg PO QAM 06/14/18 03/18/22 History release 24 hr (Uroxatral) atorvastatin 40 mg tablet (Lipitor) 40 mg PO QAM 06/14/18 03/18/22 History duloxetine 60 mg capsule,delayed 60 mg PO QAM 06/14/18 03/18/22 History release (Cymbalta) omeprazole 20 mg capsule,delayed 20 mg PO QDD 06/14/18 03/18/22 History release trazodone 100 mg tablet 100 mg PO HS 06/14/18 03/18/22 History BiPap Machine #1 ea 07/26/19 12/16/21 History ascorbic acid (vitamin C) 500 mg 500 mg PO QAM cap 08/29/19 03/18/22 History capsule allopurinol 100 mg tablet 100 mg PO QAM 11/24/19 03/18/22 History (Zyloprim) betamethasone dipropionate 0.05 % 1 applic TOPICAL BID 11/24/19 03/18/22 History topical ointment cholecalciferol (vitamin D3) 25 25 mcg PO QAM 02/29/20 03/18/22 History mcg (1,000 unit) capsule (Vitamin D3) bumetanide 2 mg tablet 2 mg PO QAM 03/05/20 03/18/22 History acetaminophen 650 mg 650 mg PO Q8H PRN #30 tab 03/08/20 03/18/22 Rx tablet,extended release (Tylenol Arthritis Pain) apixaban 5 mg tablet (Eliquis) 5 mg PO BID 06/08/21 03/18/22 History diltiazem HCl 120 mg 120 mg PO AMHS 06/08/21 03/18/22 History capsule,extended release 24 hr (Cartia XT) lisinopril 10 mg tablet (Zestril) 10 mg PO QAM 06/08/21 03/18/22 History metformin 500 mg tablet 500 mg PO BIDM 06/08/21 03/18/22 History zinc sulfate 50 mg zinc (220 mg) 50 mg PO QAM 06/08/21 03/18/22 History tablet magnesium chloride 71.5 mg 71.5 mg PO BID tab 07/15/21 03/18/22 History (magnesium chloride) tablet,delayed release (Slow-Mag) metolazone 5 mg tablet 5 mg PO DAILY PRN #30 tab 07/15/21 03/18/22 Rx nitroglycerin 0.4 mg sublingual 0.4 mg SL UD PRN #20 tab 10/16/21 03/18/22 Rx tablet (Nitrostat) dulaglutide 3 mg/0.5 mL 3 mg SUBCUT WK 10/23/21 03/18/22 History subcutaneous pen injector (Trulicity) aspirin 81 mg tablet 81 mg PO Q2D 03/18/22 03/18/22 History finasteride 5 mg tablet 5 mg PO QAM 03/18/22 03/18/22 History Past Med/Surg History Medical History Anticoagulant long-term use Arthritis Asthma CAD (coronary artery disease) Small vessel LAD disease, no stenting Cervical spinal stenosis (01/18/12) Chronic diastolic CHF (congestive heart failure), NYHA class 3 Chronic respiratory failure with hypoxia CKD (chronic kidney disease), stage III COPD (chronic obstructive pulmonary disease) Depression Diaphragmatic paralysis Diverticulitis of colon (01/18/12) Dyslipidemia (01/18/12) Extrinsic asthma GERD (gastroesophageal reflux disease) Hypertension Obesity CLARISSA on CPAP Permanent atrial fibrillation Psoriasiform dermatitis Psoriasis PVD (peripheral vascular disease) 11/10/2019 -s/p right GSV VenaSeal ablation Right knee DJD Type 2 diabetes mellitus Surgical History History of appendectomy (01/18/12) S/P cervical spinal fusion (01/18/12) S/P lumbar spinal fusion (01/18/12) Family History Father Heart disease Social History Smoking Status: Former smoker Tobacco Type: Cigarettes Smoking End Date: 1975; Hx Alcohol Use: No Hx Substance Use: No Preferred Language: Belarusian Communication Ability: Effective Organ Fixer Required: No Beliefs That Will Affect Care: None marital status: Current Living Situation: Spouse How many Children do You have: 2 Feels Safe at Home: Yes Safety Concerns: Feels Safe At This Time Assistive Devices: CPAP and Walker Review of Systems All systems reviewed & are unremarkable except as noted in HPI & below. Physical Exam General: Pleasant 76 y/o/m resting in chair in NAD. AAO x 4. LLE/L hip: Large hematoma over left lateral hip/gluteal region. Firm to touch and tender. No evidence of skin breakdown or open wounds. Distally N/V/I w/ b aseline neuropathy. Results & Data Results & Data Laboratory Results Reviewed - Most recent Hgb 8.8. Diagnostic Findings Reviewed . PG Care Time/CCT Total # of Minutes Spent Total Time Spent with Patient: Total time spent is greater than 50% in coordination of care (as documented) at patient's floor/unit and/or counseling patient: Coding Level of Care Code 33356 Inpt Consult Level 3 Diagnoses Hematoma T14.8XXA Contusion of hip S70.02XA Encounter type: initial encounter Laterality: left (1) Contusion of hip Encounter type: initial encounter Laterality: left Qualified Code(s): S70.02XA - Contusion of left hip, initial encounter
[2022-03-19 14:18] LABS: Hematocrit (blood only) 27.4 % (42-52); Hemoglobin 9.1 g/dL (14.0-18.0)
[2022-03-19] MEDS ORDERED: PANTOprazole 40 MG TAB PO SCH (16:30)
--- NOTE | 2022-03-19 19:03 | Hospitalist Progress Note ---
Date of Service March 19, 2022 Assessment & Plan (1) Hematoma: Plan: 76-year-old male with PMH DM II, chronic atrial fibrillation anticoagulated on Eliquis, chronic diastolic heart failure, CKD III, HTN, heart disease, CLARISSA, depression, gout presented to ER with c/o left gluteal ecchymosis. 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 In ER 03/17/[address] pelvis showed hematoma posterior to left gluteus talya muscle measuring 10 x 2 cm, also may be intramuscular hemorrhage within the gluteus talya muscle. On presentation, area appears more black in coloration, unsure if larger in size In ED vitals stable. Hgb: 9.3. 9.7 yesterday. Baseline ~11 Eliquis and ASA on hold since 03/17 Left gluteal hematoma - appears stable, not expanding - CT reviewed - Discussed with ortho- recommendations noted as below -No intervention recommended -Recommend conservative measures: ice, gentle compression, pain control. -Hold Aspirin/Eliquis until hematoma is clinically stable (pain improving, no skin breakdown, not growing in size, Hgb and hemodynamics stable) - H&H stable- 9.7-> 9.3->8.8->9.1; recheck in am Chronic atrial fibrillation- eliquis on hold per ortho- can likely resume in 2-3 days - rate controlled on cardizem Chronic diastolic heart failure- Appears euvolemic, Continue Bumex DM II:A1c 7.9 on 01/27/2022, Hold home meds, NovoLog sliding scale per protocol HTN- stable, Continue diltiazem, lisinopril CKD III- Cr: 1.06. Baseline 1.1-1.2 CLARISSA- CPAP at bedtime with 2 L oxygen Depression- Continue duloxetine H/o Gout- Continue allopurinol Psoriasis- continue home cream DVT Prophylaxis- scd. Eliquis on hold Dispo- anticipate discharge tomorrow if Hb and hematoma remains stable, PT OT recommended home at discharge ?home health Admission and Anticipated Discharge Date Admission Date: March 18, 2022 Subjective Feels fine. Pain is controlled. No new issues. No fever, chills, chest pain, shortness of breath, nausea, vomiting. Physical Exam Physical Exam: General: Sitting comfortably in bed, not in distress, on room air HEENT: EOMI, ROSSY, MMM Chest: Clear breath sounds bilaterally, no wheezes or crackles CVS: Irregular, normal heart sounds, no murmur Abdomen: Soft, non tender, not distended, normal bowel sounds Neuro: Awake, alert, oriented, conversing well, non focal Extremities: No cyanosis, clubbing or edema Skin: Left buttock ecchymoses stable- not expanding from yesterday, no skin breakdown Results & Data Results & Data ([facility]) Vital Signs (Past 12 Hours) Vital Signs Temp Pulse Resp BP Pulse Ox 03/19/22 15:53 36.7 C 67 16 126/76 99 03/19/22 07:20 36.6 C 75 16 136/88 98 Laboratory Results Short CBC 03/19/22 03/19/22 Range/Units 05:21 13:57 WBC 7.17 (4.8-10.8) K/uL Hgb 8.8 L 9.1 L (14.0-18.0) g/dL Hct 26.0 L 27.4 L (42-52) % Plt Count 201 (130-400) K/uL BMP 03/19/22 05:21 Sodium 134 L Potassium 3.6 Chloride 98 Carbon Dioxide 30 BUN 18 Creatinine 1.07 Glucose 161 H Calcium 8.6 Medications Administered Current Inpatient Medications Acetaminophen (Acetaminophen 325 Mg Tab) 650 mg PO Q4H PRN PRN Reason: Pain or Fever Stop: 04/17/22 21:50 Last Admin: 03/19/22 09:10 Dose: 650 mg Documented by: Al Hydrox/Mg Hydrox/Simethicone (Aluminum/Magnesium Susp 30 Ml Udc) 15 ml PO Q4H PRN PRN Reason: Dyspepsia Stop: 04/17/22 21:50 Alfuzosin HCl (Alfuzosin Hcl 10 Mg Tab) 10 mg PO [facility] Stop: 04/18/22 08:59 Last Admin: 03/19/22 08:10 Dose: 10 mg Documented by: Allopurinol (Allopurinol 100 Mg Tab) [facility] Stop: 04/18/22 08:59 Last Admin: 03/19/22 08:11 Dose: 100 mg Documented by: Atorvastatin Calcium (Atorvastatin 40 Mg Tab) 40 mg PO [facility] Stop: 04/18/22 08:59 Last Admin: 03/19/22 08:10 Dose: 40 mg Documented by: Bumetanide (Bumetanide 1 Mg Tab) 2 mg PO QAM [facility] Stop: 04/18/22 08:59 Last Admin: 03/19/22 08:10 Dose: 2 mg Documented by: Dextrose (Dextrose 50% 50 Ml Syringe) 25 - 50 ml IV UD PRN; Protocol PRN Reason: Hypoglycemia Protocol Stop: 04/17/22 21:50 Diltiazem HCl (Diltiazem Hcl 120 Mg Capcr) 120 mg PO AMHS [facility] Stop: 04/17/22 21:50 Last Admin: 03/19/22 08:11 Dose: 120 mg Documented by: Duloxetine HCl (Duloxetine Hcl 60 Mg Cap) 60 mg PO [facility] Stop: 04/18/22 08:59 Last Admin: 03/19/22 08:11 Dose: 60 mg Documented by: Finasteride (Finasteride 5 Mg Tab) 5 mg PO QAM [facility] Stop: 04/18/22 08:59 Last Admin: 03/19/22 08:10 Dose: 5 mg Documented by: Glucagon (Glucagon For Inj 1 Mg Vial) 1 mg SQ UD PRN; Protocol PRN Reason: Hypoglycemia Protocol Stop: 04/17/22 21:50 Glucose (Glucose 10 Tabs/Tube) 4 - 8 tabs PO UD PRN; Protocol PRN Reason: Hypoglycemia Protocol Stop: 04/17/22 21:50 Glucose (Glucose 40% Gel 15 Gm Tube) 15 - 30 gm PO UD PRN; Protocol PRN Reason: Hypoglycemia Protocol Stop: 04/17/22 21:50 Sodium Chloride (Nss) 250 mls @ 15 mls/hr IV .[id number] PRN PRN Reason: For Transfusion Stop: 04/17/22 21:50 Insulin Aspart (Insulin Aspart Per Unit) 0 units SC ACHS [facility] Stop: 04/18/22 05:59 Last Admin: 03/19/22 17:26 Dose: 4 units Documented by: Lisinopril (Lisinopril 10 Mg Tab) 10 mg PO [facility] Stop: 04/18/22 08:59 Last Admin: 03/19/22 08:10 Dose: 10 mg Documented by: Magnesium Chloride (Magnesium Chloride W/Calcium 64mg Delayed Rel Tab) 64 mg PO BID [facility] Stop: 04/18/22 08:59 Last Admin: 03/19/22 08:11 Dose: 64 mg Documented by: Magnesium Hydroxide (Magnesium Hydroxide Susp 30 Ml Udc) 30 ml PO Q12H PRN PRN Reason: Constipation Stop: 04/17/22 21:50 Miscellaneous (Carbohydrates For Hypoglycemia ) 15 - 30 gm PO UD PRN PRN Reason: Hypoglycemia Protocol Stop: 04/17/22 21:50 Nitroglycerin (Nitroglycerin Sl 0.4 Mg/Tab Tab) 0.4 mg SL UD PRN PRN Reason: Chest Pain Stop: 04/17/22 21:50 Pantoprazole Sodium (Pantoprazole 40 Mg Tab) 40 mg PO QDD [facility] Stop: 04/18/22 16:29 Last Admin: 03/19/22 17:27 Dose: 40 mg Documented by: Trazodone HCl (Trazodone Hcl 100 Mg Tab) 100 mg PO HS [facility] Stop: 04/17/22 21:50 Last Admin: 03/18/22 22:40 Dose: 100 mg Documented by: Vitamin D (Cholecalciferol 1,000 Units 25 Mcg Tab) 1,000 units PO QAM [facility] Stop: 04/18/22 08:59 Last Admin: 03/19/22 08:10 Dose: 1,000 units Documented by:
[2022-03-19] MEDS: traZODone HCL 100 MG TAB PO SCH (21:21)
[2022-03-20 06:29] LABS: Hematocrit (blood only) 27.2 % (42-52); Mean Corpuscular Hemoglobin 30.3 pg (25-34); Mean Corpuscular Hgb Conc 33.1 g/dL (32-36); Mean Corpuscular Volume 91.6 fL (80-100); Mean Platelet Volume 9.2 fL (7.4-10.4); Platelet Count 214 K/uL (130-400); RDW Coefficient of Variation 14.4 % (11.5-14.5); Red Blood Count 2.97 M/uL (4.7-6.1); White Blood Count 7.18 K/uL (4.8-10.8)
[2022-03-20 06:50] LABS: BUN Creatinine Ratio 14.4 (10-20); Calcium 8.7 mg/dl (8.5-10.1); Creatinine Clr Calc Pharmacy 64.1 ml/min; Est GFR (African American) 63.5 ml/min; Est GFR (Non-African American) 54.8 ml/min; Potassium 4.1 mmol/L (3.5-5.1)
[2022-03-20] MEDS: INSULIN ASPART PER UNIT SC SCH ×2 (08:19→12:33)
[2022-03-20] MEDS: allopurinoL 100 MG TAB PO SCH (08:24)
[2022-03-20] MEDS: FINASTERIDE 5 MG TAB PO SCH (08:24)
[2022-03-20] MEDS: MAGNESIUM CHLORIDE W/CALCIUM 64MG DELAYED REL TAB PO SCH (08:24)
[2022-03-20] MEDS: lisinopril 10 MG TAB PO SCH (08:25)
[2022-03-20] MEDS: ALFUZOSIN HCL 10 MG TAB PO SCH (08:25)
[2022-03-20] MEDS: ATORVASTATIN 40 MG TAB PO SCH (08:25)
[2022-03-20] MEDS: DULoxetine HCL 60 MG CAP PO SCH (08:25)
[2022-03-20] MEDS: BUMETANIDE 1 MG TAB PO SCH (08:26)
[2022-03-20] MEDS: dilTIAZem HCL 120 MG CAPCR PO SCH (08:26)
[2022-03-20] MEDS: CHOLECALCIFEROL 1,000 UNITS 25 MCG TAB PO SCH (08:26)
--- NOTE | 2022-03-20 19:09 | Discharge Summary ---
Date of Service March 20, 2022 Admission HPI Per Admitting Provider Patient is 76-year-old male with PMH DM II, chronic atrial fibrillation anticoagulated on Eliquis, chronic diastolic heart failure, CKD III, HTN, heart disease, CLARISSA, depression, gout presented to ER with c/o left gluteal ecchymosis. Patient states 5 days ago lost his balance and fell hitting his left buttock on register. Denies hitting head or LOC. After fall noticed ecchymosis to left buttock and reports noted increase edema and ecchymosis of site. At baseline has ambulatory dysfunction and uses walker and uses scooter when outside. Reports history recurrent falls. Patient seen in ER 03/17/[address] pelvis showed hematoma posterior to left gluteus talya muscle measuring 10 x 2 cm, also may be intramuscular hemorrhage within the gluteus talya muscle. His hemoglobin was 9.7. Patient was discharged home. Patient reports last dose of Eliquis was evening of 03/17/22. Today he has held his Eliquis and 81 mg aspirin. Patient and patient's report noted area appears more black in coloration today however is unsure if there is any increase in the size compared to yesterday. Was referred back to ER today by PCP for further evaluation. Denies fever/chills, diaphoresis, N/V/D/C, JASON, dizziness, syncope, vision changes, neck pain, CP, SOB, orthopnea, palpitations, cough, sore throat, choking, otalgia, rhinorrhea, abdominal pain, paresthesias, extremity edema, rashes, urinary symptoms. Admission Exam Per Admitting Provider General: no distress, WDWN Head: normocephalic, atraumatic Eyes: PERRL, EOM's intact, conjunctiva non-injected, anicteric ENT: normal inspection external ears, nose, mucous membranes moist Neck: supple, trachea midline Lungs: clear, no respiratory distress, no wheezing/rhonchi/rales CV: irregularly irregular, rate controlled, + murmur, no pretibial edema Abd: normal BS, soft, non-tender Buttock: left buttock with large hematoma, firm and tender to palpation no erythema Ext: no cyanosis, no calf tenderness Neuro: A&O x 3, no focal deficits noted, normal affect Skin: warm, dry Principal Diagnosis Left gluteal hematoma Discharge Exam General: Sitting comfortably in bed, not in distress, on room air HEENT: EOMI, ROSSY, MMM Chest: Clear breath sounds bilaterally, no wheezes or crackles CVS: Irregular, normal heart sounds, no murmur Abdomen: Soft, non tender, not distended, normal bowel sounds Neuro: Awake, alert, oriented, conversing well, non focal Extremities: No cyanosis, clubbing or edema Skin: Left buttock ecchymoses stable- not expanding, no skin breakdown Skin: Psoriasis plaques + Discharge Data Allergies Allergy/AdvReac Type Severity Reaction Status Date / Time Cephalosporins Allergy Unknown Rash Verified 03/18/22 18:42 Penicillins Allergy Unknown Rash Verified 03/18/22 18:42 sulfamethoxazole Allergy Unknown HIVES Verified 03/18/22 18:42 Tetracyclines Allergy Unknown Unknown Verified 03/18/22 18:42 trimethoprim Allergy Unknown HIVES Verified 03/18/22 18:42 CONTRAST DYE Allergy Unknown KIDNEY Uncoded 03/18/22 18:42 PROBLEMS Consultations 03/18/22 18:27 ED Decision to Admit Stat 03/19/22 08:00 Consult Orthopedic Surgery Routine Ordered Studies Laboratory Results WBC 7.18 K/uL (4.8-10.8) 03/20/22 05:55 RBC 2.97 M/uL (4.7-6.1) L 03/20/22 05:55 Hgb 9.0 g/dL (14.0-18.0) L 03/20/22 05:55 Hct 27.2 % (42-52) L 03/20/22 05:55 MCV 91.6 fL (80-100) 03/20/22 05:55 MCH 30.3 pg (25-34) 03/20/22 05:55 MCHC 33.1 g/dL (32-36) 03/20/22 05:55 RDW Std Deviation 48.0 fL (36.4-46.3) H 03/20/22 05:55 RDW Coeff of Starr 14.4 % (11.5-14.5) 03/20/22 05:55 Plt Count 214 K/uL (130-400) 03/20/22 05:55 MPV 9.2 fL (7.4-10.4) 03/20/22 05:55 PT 11.1 Seconds (9.0-12.0) 03/18/22 16:30 INR 1.0 (0.9-1.1) 03/18/22 16:30 APTT 28.3 Seconds (21.0-31.0) 03/18/22 16:30 PTT Ratio 1.0 03/18/22 16:30 Sodium 134 mmol/L (136-145) L 03/20/22 05:55 Potassium 4.1 mmol/L (3.5-5.1) 03/20/22 05:55 Chloride 97 mmol/L (98-107) L 03/20/22 05:55 Carbon Dioxide 34 mmol/L (21-32) H 03/20/22 05:55 Anion Gap 3 (3-11) 03/20/22 05:55 BUN 18 mg/dl (6-23) 03/20/22 05:55 Creatinine 1.25 mg/dl (0.6-1.4) 03/20/22 05:55 Est Cr Clr Drug Dosing 64.1 ml/min 03/20/22 05:55 Est GFR ( Amer) 63.5 ml/min 03/20/22 05:55 Est GFR (Non-Af Amer) 54.8 ml/min 03/20/22 05:55 BUN/Creatinine Ratio 14.4 (10-20) 03/20/22 05:55 Glucose 166 mg/dl (70-99(Fasting)) H 03/20/22 05:55 POC Glucose 193 mg/dl (70-99) H 03/20/22 12:07 Calcium 8.7 mg/dl (8.5-10.1) 03/20/22 05:55 Total Bilirubin 0.8 mg/dl (0.2-1.0) 03/18/22 16:30 AST 20 U/L (13-39) 03/18/22 16:30 ALT 20 U/L (7-52) 03/18/22 16:30 Alkaline Phosphatase 90 U/L (34-104) 03/18/22 16:30 Total Protein 6.9 gm/dl (6.0-8.3) 03/18/22 16:30 Albumin 3.8 gm/dl (3.4-5.0) 03/18/22 16:30 Globulin 3.1 gm/dl (2.5-4.0) 03/18/22 16:30 Albumin/Globulin Ratio 1.2 (0.9-2) 03/18/22 16:30 SARS-CoV-2, RNA, NAAT NEGATIVE (NEGATIVE) 03/18/22 18:47 Blood Type O Positive 03/18/22 18:14 Blood Type Recheck O Positive 03/19/22 05:21 Antibody Screen NEGATIVE 03/18/22 18:14 Crossmatch See Detail 03/18/22 18:14 Hospital Course (1) Hematoma: 76-year-old male with PMH DM II, chronic atrial fibrillation anticoagulated on Eliquis, chronic diastolic heart failure, CKD III, HTN, heart disease, CLARISSA, depression, gout presented to ER with c/o left gluteal ecchymosis. 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 In ER 03/17/[address] pelvis showed hematoma posterior to left gluteus talya muscle measuring 10 x 2 cm, also may be intramuscular hemorrhage within the gluteus talya muscle. On presentation, area appears more black in coloration, unsure if larger in size In ED vitals stable. Hgb: 9.3. 9.7 yesterday. Baseline ~11 Eliquis and ASA on hold since 03/17 Left gluteal hematoma - appears stable, not expanding - CT reviewed - Discussed with ortho- recommendations noted as below -No intervention recommended -Recommend conservative measures: ice, gentle compression, pain control. -Hold Aspirin/Eliquis until hematoma is clinically stable (pain improving, no skin breakdown, not growing in size, Hgb and hemodynamics stable) - H&H stable- 9.7-> 9.3->8.8->9.1->9 - Recommended to resume his eliquis and aspirin after 2 days and continue to monitor hematoma- also recommended repeat CBC in a week with PCP Chronic atrial fibrillation- eliquis on hold per ortho- can likely resume in 2-3 days per ortho - rate controlled on cardizem Chronic diastolic heart failure- Appears euvolemic, Continue Bumex DM II:A1c 7.9 on 01/27/2022, Hold home meds, NovoLog sliding scale per protocol HTN- stable, Continue diltiazem, lisinopril CKD III- Cr: 1.06. Baseline 1.1-1.2 CLARISSA- CPAP at bedtime with 2 L oxygen Depression- Continue duloxetine H/o Gout- Continue allopurinol Psoriasis- continue home cream Patient declined home PT saying he has adequate help at home. Denies any needs. Comfortable and stable for discharge. Reviewed discharge instructions in detail. Total Time Total Time Spent Total Time Spent (In Minutes): 35 Discharge Plan Discharge Items Patient Disposition: Home - Home Health Services Reason For Visit: HEMATOMA Discharge Diagnosis: Gluteal hematoma Activity: Resume your previous activity Non-emergency contact: Primary Care Provider Call non-emergency contact if: you have any medication questions, your symptoms worsen, your pain is not controlled and you have a fever Follow-up/Referrals: Seamus Roach DO [Primary Care Provider] - (Date & Time 03/30/2022 2:20 PM Provider Seamus Roach DO Department Family [facility] [address], [place] ) Diet: Heart Healthy Addtl Attending Provider Instructions: You can resume your eliquis and aspirin after 2 days. You can take tylenol or use ice pack for the pain. Monitor the hematoma/bruise- If getting bigger or more painful, please call your family doctor or come to the emergency Recommend repeat blood work (CBC) with family doctor in a week. Pending Studies at Discharge: No Stand-Alone Forms: [employer], Smoking Cessation Medications and DC Order Prescriptions: Continued nitroglycerin [Nitrostat] 0.4 mg tablet, sublingual 0.4 mg SL UD PRN (Reason: Chest Pain) Qty: 20 RF: 3 (DME) BiPap Machine Misc See Dose Instructions .ROUTE .MEDSUPPLY Qty: 1 RF: 0 metolazone 5 mg tablet 5 mg PO DAILY PRN (Reason: weight gain, edema, SOB) Qty: 30 RF: 2 ascorbic acid (vitamin C) 500 mg capsule 500 mg PO QAM RF: 0 atorvastatin [Lipitor] 40 mg tablet 40 mg PO QAM RF: 0 duloxetine [Cymbalta] 60 mg capsule,delayed release(DR/EC) 60 mg PO QAM RF: 0 omeprazole 20 mg capsule,delayed release(DR/EC) 20 mg PO QDD RF: 0 alfuzosin [Uroxatral] 10 mg tablet extended release 24 hr 10 mg PO QAM RF: 0 trazodone 100 mg tablet 100 mg PO HS RF: 0 Slow-Mag 71.5 mg tablet,delayed release (DR/EC) 71.5 mg PO BID RF: 0 allopurinol [Zyloprim] 100 mg Tablet 100 mg PO QAM RF: 0 betamethasone dipropionate 0.05 % ointment 1 applic TOPICAL BID RF: 0 cholecalciferol (vitamin D3) [Vitamin D3] 25 mcg (1,000 unit) Capsule 25 mcg PO QAM RF: 0 bumetanide 2 mg tablet 2 mg PO QAM RF: 0 acetaminophen [Tylenol Arthritis Pain] 650 mg tablet extended release 650 mg PO Q8H PRN (Reason: pain) Qty: 30 RF: 0 zinc sulfate 50 mg zinc (220 mg) Tablet 50 mg PO QAM RF: 0 metformin 500 mg tablet 500 mg PO BIDM RF: 0 lisinopril [Zestril] 10 mg tablet 10 mg PO QAM RF: 0 Eliquis 5 mg tablet 5 mg PO BID RF: 0 diltiazem HCl [Cartia XT] 120 mg capsule,extended release 24hr 120 mg PO AMHS RF: 0 Trulicity 3 mg/0.5 mL Pen Injector 3 mg SUBCUT WK RF: 0 finasteride 5 mg tablet 5 mg PO QAM RF: 0 aspirin 81 mg Tablet 81 mg PO Q2D RF: 0 Discharge Orders: Discharge Order (Routine); Ordered 03/20/22 Ordered By: Edmundo Moy/Other Patient Handouts: ED Hematoma, ED Osteoarthritis Admission Data Admit Date/Time: 03/18/22 19:01 Attending Provider: Edmundo Coronel Admit Provider: Edmundo Coronel Primary Care Provider: Seamus Roach Other Providers: Edmundo Coronel ; Sajan Allen ; Belem Hargrove ; Anthony Scott ; Amber Otto ; Jesse Rodriguez ; Galina Simmons ; Fifi Barajas ; Shyam Lipscomb ; Iggy Ramirez ; Jorge Gomez ; Jorge Mata ; [facility] Other Interventions: Discharge Summary Assessment (RN) Last Done: 03/20/22 10:12
== END 2022-03-20 13:25 | disposition home health service (06) | DRG 605 ==
LOC: ED 15:50 → 3E 19:01